=== PATIENT | female | born 1935 | race Caucasian/White ===

== ENCOUNTER 2024-01-16 12:44 | Outpatient (RCR) | payer MEDICARE, OTHER, SELFPAY | END 2024-01-17 13:33 | disposition home or self-care (01) | LOC: PT 12:44 | PROVIDERS: PCP Family Medicine | DX: R35.1 Nocturia (principal); N39.41 Urge incontinence | CPT/HCPCS: 97110; 97161 ==

== ENCOUNTER 2024-01-19 12:10 | Outpatient (OUT) | payer MEDICARE, OTHER, SELFPAY ==
[2024-01-19 13:27] LABS: Bilirubin Urine NEGATIVE (NEGATIVE); Clarity Urine TURBID (CLEAR); Color Urine YELLOW (YELLOW); Glucose Urine UA NEGATIVE (NEGATIVE)
[2024-01-19 13:28] LABS: Ketones Urine 40 mg/dL (NEGATIVE)
[2024-01-19 13:29] LABS: Blood Urine LARGE (NEGATIVE); Nitrite Urine POSITIVE (NEGATIVE); Protein Urine 100 mg/dL (NEG/TRACE); Urobilinogen Urine 0.2 EU/dL (0.2-1.0)
[2024-01-19 13:30] LABS: Leukocyte Esterase Urine LARGE (NEGATIVE)
== END 2024-01-19 12:11 | disposition home or self-care (01) ==
LOC: LAB 12:11
PROVIDERS: PCP Family Medicine
DX: N39.0 Urinary tract infection, site not specified (principal)
CPT/HCPCS: 81003; 87086; 87150; 87186

== ENCOUNTER 2024-03-27 13:29 | Outpatient (OUT) | payer MEDICARE, OTHER, SELFPAY ==
--- NOTE | 2024-03-27 13:43 | XR_ITS ---
The [address] [address] Patient Name: MEETA BATISTA MRN: [id number] date: 1935 Sex: F Assigned Patient Location: [facility] Current Patient Location: Accession/Order Number: [id number] Exam Date: 03/27/2024 13:44 Report Date: 03/28/2024 06:08 At the request of: JUAN SANTANA Procedure: XR shoulder RT min 2V PROCEDURE: XR shoulder RT min 2V HISTORY: Right Shoulder Pain , chronic; decreased range of motion COMPARISON: None. FINDINGS: BONES:Humeral head sits low within the glenoid; no fracture or dislocation. Narrowing of the acromioclavicular joint with suspected osteophytes along the undersurface of acromion process. SOFT TISSUES:No visible soft tissue swelling. EFFUSION:None visible. OTHER: Negative. XR/XR shoulder RT min 2V IMPRESSION: 1. No acute bone abnormality. 2. Appearance of acromion process would predispose to rotator cuff injury which may account for the low riding humeral head. Electronically authenticated by: PREET ABAD Date: 03/28/2024 06:08
== END 2024-03-27 13:30 | disposition home or self-care (01) ==
LOC: RAD 13:30
PROVIDERS: PCP Family Medicine; Visit Provider Family Medicine
DX: M25.511 Pain in right shoulder (principal)
CPT/HCPCS: 73030

== ENCOUNTER 2024-03-27 14:47 | Outpatient (RCR) | payer MEDICARE, OTHER, SELFPAY | END 2024-04-20 12:47 | disposition home or self-care (01) | LOC: PT 14:47 | PROVIDERS: PCP Family Medicine; Visit Provider Family Medicine | DX: M25.511 Pain in right shoulder (principal) | CPT/HCPCS: 97110; 97140; 97161 ==

== ENCOUNTER 2025-08-09 11:03 | Emergency (ER) | payer MEDICARE, OTHER, SELFPAY ==
[2025-08-09 11:11] VITALS: BP 148/68; PULSE 85; TEMP 36.8; O2SAT 95; BMI 24.1
--- NOTE | 2025-08-09 11:18 | CT_ITS ---
The [address] [address] Patient Name: MEETA BATISTA MRN: [id number] date: 1935 Sex: F Assigned Patient Location: ER Current Patient Location: .[facility] Accession/Order Number: [id number] Exam Date: 08/09/2025 11:27 Report Date: 08/09/2025 12:14 At the request of: DARRYL GAGNON MD Procedure: CT cervical spine wo con CT head/brain wo con, CT cervical spine wo con 08/09/2025 11:32 AM SIGNS AND SYMPTOMS: Head injury, on Xarelto TECHNIQUE:Multi-detector CT axial slices of the brain and cervical spine were obtained without IV contrast. Helical,sagittal, coronal, and 3-D reconstructions of the cervical spine were performed. CT was performed with one or more of the following dose reduction techniques: Automated exposure control, adjustment of the mA and/or kV according to patient size, or use of iterative reconstruction technique. COMPARISON: None. FINDINGS: Noncontrast head CT: There is no shift of the midline structures, acute intracranial bleeding, mass effects, or evidence of acute ischemia. There is mild age-related cortical atrophy. Periventricular white matter hypoattenuation is noted. Calcified plaque is noted in the V4 segments of the vertebral arteries. The ventricular system is normal in size. The brainstem and the cerebellum are unremarkable. The visualized intraorbital contents, the visualized paranasal sinuses, and the infratemporal soft tissues show no acute abnormality. The osseous structures in the skull base and the calvarium show no abnormality. There is a subcutaneous soft tissue hematoma in the left frontal scalp with accompanying soft tissue swelling. Cervical spine: There is preservation of the vertebral body heights. There is moderate disc height loss at C5-C6 and C6-C7 with uncovertebral joint spurring. Facet degenerative changes are present throughout cervical spine. No fractures or dislocations are seen. The alignment of the cervical spine is normal. The craniocervical junction and atlantoaxial joint are within normal limits. The prevertebral soft tissues are within normal limits. The paraspinous soft tissues are within normal limits. The lung apices are unremarkable. Calcified plaque is noted in the carotid bifurcations. Heterogeneous nodules are noted at the inferior and deep margin of the right thyroid lobe. Ultrasound correlation is recommended as malignancy is not excluded. CT/CT head/brain wo con IMPRESSION: No acute intracranial pathology. There is a left frontal scalp hematoma. Chronic age-related neurodegenerative changes are noted as above. No acute cervical spine injury. Degenerative changes are noted throughout cervical spine. Heterogeneous nodules are noted at the inferior and deep margin of the right thyroid lobe. Ultrasound correlation is recommended as malignancy is not excluded. Impression dictated by: Jeremy Casillas M.D. 08/09/2025 12:14 PM Dictation Location: [place] [address] Electronically authenticated by: [id number] Y Date: 08/09/2025 12:14
--- NOTE | 2025-08-09 11:18 | CT_ITS ---
The [address] [address] Patient Name: MEETA BATISTA MRN: [id number] date: 1935 Sex: F Assigned Patient Location: ER Current Patient Location: .[facility] Accession/Order Number: [id number] Exam Date: 08/09/2025 11:27 Report Date: 08/09/2025 12:14 At the request of: DARRYL GAGNON MD Procedure: CT cervical spine wo con CT head/brain wo con, CT cervical spine wo con 08/09/2025 11:32 AM SIGNS AND SYMPTOMS: Head injury, on Xarelto TECHNIQUE:Multi-detector CT axial slices of the brain and cervical spine were obtained without IV contrast. Helical,sagittal, coronal, and 3-D reconstructions of the cervical spine were performed. CT was performed with one or more of the following dose reduction techniques: Automated exposure control, adjustment of the mA and/or kV according to patient size, or use of iterative reconstruction technique. COMPARISON: None. FINDINGS: Noncontrast head CT: There is no shift of the midline structures, acute intracranial bleeding, mass effects, or evidence of acute ischemia. There is mild age-related cortical atrophy. Periventricular white matter hypoattenuation is noted. Calcified plaque is noted in the V4 segments of the vertebral arteries. The ventricular system is normal in size. The brainstem and the cerebellum are unremarkable. The visualized intraorbital contents, the visualized paranasal sinuses, and the infratemporal soft tissues show no acute abnormality. The osseous structures in the skull base and the calvarium show no abnormality. There is a subcutaneous soft tissue hematoma in the left frontal scalp with accompanying soft tissue swelling. Cervical spine: There is preservation of the vertebral body heights. There is moderate disc height loss at C5-C6 and C6-C7 with uncovertebral joint spurring. Facet degenerative changes are present throughout cervical spine. No fractures or dislocations are seen. The alignment of the cervical spine is normal. The craniocervical junction and atlantoaxial joint are within normal limits. The prevertebral soft tissues are within normal limits. The paraspinous soft tissues are within normal limits. The lung apices are unremarkable. Calcified plaque is noted in the carotid bifurcations. Heterogeneous nodules are noted at the inferior and deep margin of the right thyroid lobe. Ultrasound correlation is recommended as malignancy is not excluded. CT/CT cervical spine wo con IMPRESSION: No acute intracranial pathology. There is a left frontal scalp hematoma. Chronic age-related neurodegenerative changes are noted as above. No acute cervical spine injury. Degenerative changes are noted throughout cervical spine. Heterogeneous nodules are noted at the inferior and deep margin of the right thyroid lobe. Ultrasound correlation is recommended as malignancy is not excluded. Impression dictated by: Jeremy Casillas M.D. 08/09/2025 12:14 PM Dictation Location: [place] [address] Electronically authenticated by: [id number] Y Date: 08/09/2025 12:14
--- NOTE | 2025-08-09 11:20 | ED.GENADUL1 ---
HPI HPI - General Adult General Chief complaint: Head Injury Stated complaint: FALL BACK PAIN HEAD INJURY LACERATION ON ARMS Time Seen by Provider: 08/09/25 11:13 Source: patient Mode of arrival: Wheelchair History of Present Illness HPI narrative: 89-year-old female presents for head injury. She fell at 4:00 this morning down multiple steps. She was getting up to go to the bathroom. After she fell her was able to get her up and they went to the couch and she spent the rest of the night on the couch. She is on Xarelto for atrial fibrillation. She was noted to have bruises on her face and her forehead and she was brought in today. No apparent LOC. She does not complain of chest pain shortness of breath or abdominal pain or any localized weakness. Related Data Allergies Allergy/AdvReac Type Severity Reaction Status Date / Time No Known Drug Allergies Allergy Verified 08/09/25 11:14 Review of Systems ROS Narrative A ten point review of systems is negative except as noted above. Exam Narrative Exam Narrative: Nurses note and vital signs reviewed and patient is not hypoxic. General:The patient is in no respiratory distress. She is laying flat on the cart. Skin:Warm, dry, no pallor noted.There is no rash noted. Head:Normocephalic, numerous bruises present on her face including on her forehead and her left upper eyelid Eye: Normal conjunctiva, no drainage Ears, Nose, Mouth, and Throat: oral mucosa is moist. Nares patent. Cardiovascular:Regular Rate and Rhythm Respiratory:Patient is in no distress, no accessory muscle use, lungs are clear to auscultation, no wheezing, rales or rhonchi Back: No focal area of tenderness to palpation along her spine GI: Soft and nontender Musculoskeletal: She has small bruises on each knee. Skin tears present on her right forearm. The wrist and elbow are nontender and have full range of motion. Knees have full range of motion. Neurological:A&O, normal speech Psychiatric:Cooperative Constitutional Vital Signs, click to edit/add: Last Vital Signs Temp 98.2 F 08/09/25 11:11 Pulse 54 L 08/09/25 12:45 Resp 16 08/09/25 12:45 BP 142/78 H 08/09/25 12:45 Pulse Ox 95 08/09/25 12:45 Course Vital Signs Vital signs: Vital Signs Temperature 98.2 F 08/09/25 11:11 Pulse Rate 85 08/09/25 11:11 Respiratory Rate 18 08/09/25 11:11 Blood Pressure 148/68 H 08/09/25 11:11 Pulse Oximetry 95 08/09/25 11:11 Temperature 98.2 F 08/09/25 11:11 Pulse Rate 54 L 08/09/25 12:45 Respiratory Rate 16 08/09/25 12:45 Blood Pressure 142/78 H 08/09/25 12:45 Pulse Oximetry 95 08/09/25 12:45 Medical Decision Making MDM Narrative Medical decision making narrative: Including CT brain and CT C-spine is negative. She is ambulatory and does not have any further injuries. She is able to ambulate with a cane which she normally does at home. Findings are discussed with the patient and her family and she is discharged home and was recommended rest and Tylenol. Treatment diagnosis and follow-up were discussed with the patient and her family. Family was advised that the bruising will be worse in the next 24 hours. Differential Diagnosis Differential Diagnosis: Intracranial hemorrhage, C-spine fracture, contusions Imaging Data CT scan - head: Radiologist's impression: ITS Impressions Cervical Spine CT 08/09/25 11:18 IMPRESSION: No acute intracranial pathology. There is a left frontal scalp hematoma. Chronic age-related neurodegenerative changes are noted as above. No acute cervical spine injury. Degenerative changes are noted throughout cervical spine. Heterogeneous nodules are noted at the inferior and deep margin of the right thyroid lobe. Ultrasound correlation is recommended as malignancy is not excluded. Impression dictated by: Jeremy Casillas M.D. 08/09/2025 12:14 PM Dictation Location: [employer] Electronically authenticated by: [id number] Y Date: 08/09/2025 12:[address] 08/09/25 11:18 IMPRESSION: No acute intracranial pathology. There is a left frontal scalp hematoma. Chronic age-related neurodegenerative changes are noted as above. No acute cervical spine injury. Degenerative changes are noted throughout cervical spine. Heterogeneous nodules are noted at the inferior and deep margin of the right thyroid lobe. Ultrasound correlation is recommended as malignancy is not excluded. Impression dictated by: Jeremy Casillas M.D. 08/09/2025 12:14 PM Dictation Location: [employer] Electronically authenticated by: [id number] Y Date: 08/09/2025 12:14 Discharge Plan Discharge Chief Complaint: Head Injury Clinical Impression: Closed head injury Patient Disposition: Home, Self-Care Time of Disposition Decision: 12:50 Condition: Good Mode of Transportation: Private Vehicle Print Language: Tajik Instructions: Head Injury (ED) Referrals: JUAN SANTANA [Physician, Family Practice] - 1 week
--- OUTSIDE RECORDS SUMMARY | 2025-08-09 11:30 | XMS_ITS | Encounter Summary ---
Author Organization [facility] Address [address] [place] [address] Care Team Providers Care Cytogenetic Technician Name Role Phone Funmilayo Farrell MD Primary Care Provider [phone] Jose Conti MD Primary Care Provider [phone] Reason for Visit * Reason Comments Med Refill Encounter Details Date Type Department Care Team ([facility] st Contact Info) Description 05/22/2023 Refill [facility] Cardiology [address] [place] [phone] Mora Chapa, ELECTRICIAN THIRD [address] [place] [phone] Paroxysmal atrial fibrillation (CMS/HCC) Social History Tobacco Use Types Packs/Day Years Used Date Smoking Tobacco: Never Smokeless Tobacco: Never Alcohol Use Standard Drinks/Week Comments Not Currently 0 (1 standard drink = 0.6 oz pur e alcohol) Comments Unknown Sex and Gender Information Value Date Recorded Sex Assigned at Not on file Legal Sex Female 11:47 PM EDT Gender Identity Not on file Sexual Orientation Not on file documented as of this encounter Plan of Treatment Not on file documented as of this encounter Visit Diagnoses Diagnosis Paroxysmal atrial fibrillation (CMS/HCC) Atrial fibrillation documented in this encounter Care Teams Cytogenetic Technician Relationship Specialty Start Date End Date Funmilayo Farrell MD [address] [place], [place] [id number] PCP - General 11/23/22 06/30/23 Jose Conti MD [address] [place] [address] PCP - General Family Medicine 07/01/23 documented as of this encounter
--- OUTSIDE RECORDS SUMMARY | 2025-08-09 11:30 | XMS_ITS | Clinical Summary ---
Author Organization [facility] Address [address] [facility], [address] [place] [address] Care Team Providers Care Injection Molding Machine Tender Name Role Phone Jose Conti MD Primary Care Provider [phone] Allergies Active Allergy Reactions Criticality Noted Date Comments Santy Inhibitors Cough 11/23/2022 Angiotensin Receptor Blockers Cough 2022 Medications amitriptyline (ELAVIL) 10 MG tablet Take 1 tablet by mouth nightly 08/31/2024 Active metoprolol succinate (TOPROL XL) 50 MG extended release tablet Take 1 tablet by mouth daily 07/30/2024 Active XARELTO 15 MG TABS tablet Take 1 tablet by mouth daily (with breakfast) 09/04/2024 Active Multiple Vitamin (MULTI-VITAMIN) TABS Take 1 tablet by mouth every morning Active cephALEXin (KEFLEX) 250 MG capsuleIndicati ons:Recurrent UTI TAKE 1 CAPSULE BY MOUTH EVERY DAY 30 capsule 1 05/24/2025 Active Active Problems No known active problems Encounters Date Type Department Care Team Description 05/24/2025 Refill [facility] Urogynecology [facility] Pel[facility] [address] [place] [address] [address] [place] [address] Desirae Ramos APRN - CNP Medication Refill from Last 3 Months Family History Medical History Relation Name Comments Prostate Cancer Father Relation Name Status Comments Daughter 1 Alive Daughter 2 Alive Father Mother Sister Alive Social History Tobacco Use Types Packs/Day Years Used Date Smoking Tobacco: Never Smokeless Tobacco: Never Tobacco Cessation:Counseling Given: Not Answered Alcohol Use Standard Drinks/Week Comments Never 0 (1 standard drink = 0.6 oz pur e alcohol) Comments Unknown Sex and Gender Information Value Date Recorded Sex Assigned at Not on file Legal Sex Female 3:37 PM EDT Gender Identity Not on file Sexual Orientation Not on file Last Filed Vital Signs Vital Sign Reading Time Taken Comments Blood Pressure 137/72 10/31/2024 2:00 PM EST Pulse 84 10/31/2024 2:00 PM EST Temperature 36.2 C (97.2 F) 10/31/2024 2:00 PM EST Respiratory Rate - - Oxygen Saturation 93% 10/31/2024 2:00 PM EST Inhaled Oxygen Concentration - - Weight - - Height - - Body Mass Index - - Plan of Treatment Health Maintenance Due Date Last Done Comments Depression Screen 1949 DTaP/Tdap/Td vaccine (1 - Tdap) 01/15/1956 Shingles vaccine (1 of 2) 1987 Respiratory Syncytial Virus (RSV) or age 60 yrs+ (1 - 1-dose 75+ series) 01/15/2012 Pneumococcal 50+ years Vaccine (2 of 2 - PCV) 07/07/2017 07/07/2016, 06/14/2016 Annual Wellness Visit (Medicare) 06/26/2024 Flu vaccine (#1) 06/14/2025 09/27/2024, 01/2021, 08/29/2020, Additional history exists COVID-19 Vaccine (2 - 2024- season) 2025 09/27/2022 Hepatitis A vaccine Aged Out No longe r eligible based on patient's age to complete this topic Hepatitis B vaccine Aged Out No longe r eligible based on patient's age to complete this topic Hib vaccine Aged Out No longer eligi ble based on patient's age to complete this topic Meningococcal (ACWY) vaccine Aged Out No longer eligible based on patient's age to complete this topic Meningococcal B vaccine Aged Out No l onger eligible based on patient's age to complete this topic Polio vaccine Aged Out No longer elig ible based on patient's age to complete this topic Insurance MEDICARE Member Subscriber Plan / Payer (Ef fective 2002-Present) Name:Zahida Nugent Relation to Subscriber:Self Name:Zahida Nugent Payer ID:Not on file Group ID:Not on file Type:Not on file Address: [address] [place] Care Teams Injection Molding Machine Tender Relationship Specialty Start Date End Date Jose Conti MD [address] [place] [address] PCP - General 06/26/24
--- OUTSIDE RECORDS SUMMARY | 2025-08-09 11:30 | XMS_ITS | Clinical Summary ---
Author Organization [facility] Address [id number] [address] [place] [address] Care Team Providers Care Service Liaison Representative Name Role Phone Unavailable Primary Care Provider Unavailabl e Social History Tobacco Use Types Packs/Day Years Used Date Smoking Tobacco: Never Assessed Childcare Answer Date Recorded Childcare Unknown 04/24/2019 Employment Answer Date Recorded Employment Unknown 04/24/2019 Purpose - Life Answer Date Recorded Purpose and direction in life Unknown Comments Unknown Sex and Gender Information Value Date Recorded Sex Assigned at Not on file Legal Sex Female 6:54 PM EDT Gender Identity Not on file Sexual Orientation Not on file Plan of Treatment Not on file Medical Devices Not on file
--- OUTSIDE RECORDS SUMMARY | 2025-08-09 11:30 | XMS_ITS | Encounter Summary ---
Author Organization [facility] Address [address] [place] [address] Care Team Providers Care Mixing House Operator Name Role Phone Funmilayo Farrell MD Primary Care Provider [phone] Jose Conti MD Primary Care Provider [phone] Reason for Visit * Reason Comments Med Refill Encounter Details Date Type Department Care Team (Late st Contact Info) Description 10/25/2022 Refill [facility] Cardiology [address] [place] [phone] Mora Chapa, CLINICAL DIETICIAN [address] [place] [phone] Paroxysmal atrial fibrillation (CMS/HCC) Social History Tobacco Use Types Packs/Day Years Used Date Smoking Tobacco: Never Assessed Comments Unknown Sex and Gender Information Value Date Recorded Sex Assigned at Not on file Legal Sex Female 11:47 PM EDT Gender Identity Not on file Sexual Orientation Not on file documented as of this encounter Miscellaneous Notes * Telephone Encounter - Nydia Ford MA - 10/27/2022 8:55 AM EST Pt needs appt for any further refills documented in this encounter Plan of Treatment Not on file documented as of this encounter Visit Diagnoses Diagnosis Paroxysmal atrial fibrillation (CMS/HCC) Atrial fibrillation documented in this encounter Care Teams Mixing House Operator Relationship Specialty Start Date End Date Funmilayo Farrell MD [address] PCP - General 11/23/22 06/30/23 Jose Conti MD [address] [place] [id number] PCP - General Family Medicine 07/01/23 documented as of this encounter
--- OUTSIDE RECORDS SUMMARY | 2025-08-09 11:30 | XMS_ITS | Clinical Summary ---
Author Organization [facility] Address [address] [place] [address] Care Team Providers Care Information Clerk Cashier Name Role Phone Funmilayo Farrell MD Primary Care Provider Allergies No known active allergies Medications FOLIC ACID/MV,FE,OTHER MIN (CENTRUM ORAL) Take 1 tablet by mouth once daily. Active IBUPROFEN (ADVIL ORAL) Take by mouth as needed. 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 Nocturia 06/09/2015 Cystocele 06/09/2015 Social History Tobacco Use Types Packs/Day Years Used Date Smoking Tobacco: Former Alcohol Use Standard Drinks/Week Comments Yes 0 (1 standard drink = 0.6 oz pur e alcohol) Comments Unknown Sex and Gender Information Value Date Recorded Sex Assigned at Not on file Legal Sex Female 10:57 AM EDT Gender Identity Not on file Sexual Orientation Not on file Last Filed Vital Signs Vital Sign Reading Time Taken Comments Blood Pressure 136/73 04/05/2016 10:14 AM EDT Pulse 77 04/05/2016 10:14 AM EDT Temperature 36.7 C (98.1 F) 04/05/2016 10:14 AM EDT Respiratory Rate - - Oxygen Saturation - - Inhaled Oxygen Concentration - - Weight 69.4 kg (153 lb) 04/05/2016 10:14 AM EDT verbal Height 167.6 cm (5' 6 ) 06/09/2015 1:19 PM EDT Body Mass Index 24.69 06/09/2015 1:19 PM EDT Plan of Treatment Health Maintenance Due Date Last Done Comments Anxiety Screening 1953 Depression Screening 1953 DTaP,Tdap,Td Vaccine (1 - Tdap) 01/15/1956 Diabetes Screening 1982 Pneumococcal Vaccine: 50+ (1 of 1 - PCV) 1987 Shingrix Vaccine (1 of 2) 1987 Bone Density Screening 2002 RSV Vaccine (1 - 1-dose 75+ series) 01/15/2012 Advance Directive Discussion 11/14/2024 Influenza Vaccine (#1) 2025 Insurance MEDICARE [address] Care Teams Information Clerk Cashier Relationship Specialty Start Date End Date Funmilayo Farrell MD [address] [place] [place], [place] [id number] PCP - General Family Medicine 06/03/15
--- OUTSIDE RECORDS SUMMARY | 2025-08-09 11:34 | XMS_ITS | CCD ---
Author Organization [facility] Care Team Providers Care 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 Name Role Phone MD Adrian Rangel Emergency Provider MD Kavon Farrell Primary Care Provider MD Kavon Farrell Primary Care Provider [phone] EDWIN Ocasio Emergency Provider MD Kayleen Schmid Admit Provider MD Kayleen Schmid Attending Provider MD Dangelo Rayo Other Provider [phone] DO Aubrey Crowe Other Provider MD Adilson Hoffmann Other Provider LENNOX Hubbard Other Provider DO Mauricio Daly Other Provider MD Adrian Robles Other Provider [phone] MD Suma Lopez Other Provider [phone] MD Drew Hernadez Other Provider MD Zuleika Rudolph Other Provider MD Barbie Weston Other Provider [phone] MD Moody Panda II Other Provider MD Christian Tiwari Other Provider SHONDA Shabazz Other Provider DO Celestino Foster Other Provider MD Gilmer Trejo Other Provider DO Christian Aleman Attending Provider MD Mohit Willson Admit Provider MD Mohit Willson Attending Provider [phone] CONRAD Quinonez Other Provider Unavailable CONRAD Yañez Other Provider Unavailable CONRAD George Other Provider Unavailable CONRAD Devlin Other Provider Unavailable CONRAD Duncan Other Provider Unavailable CONRAD Robins Other Provider Unavailable MD Lucas Morillo Other Provider LENNOX Rosales Other Provider [phone] DO Gorge Shelton Other Provider MD William Acevedo Other Provider DO John Ricardo Other Provider MD Kenny Tirado Other Provider [phone] MD Kayleen Schmid Other Provider Iwona, ANP- Luanne Other Provider MD Flavia Pace Other Provider [phone] MD Wil Cartagena Other Provider MD Saira Ruiz Other Provider MD Teto Gregorio Other Provider DO Christian Aleman Other Provider MD Heena Allen Other Provider MD Rufino Squires Other Provider KEALYN Simpson-Champ Rodriguez Other Provider [phone] MD Pedro Cowan Other Provider MD Jaydon Woodruff Other Provider MD Dario Choudhary Other Provider DO Victoria Myers Other Provider DO Jero Vital Other Provider DO Chirag Sanchez Other Provider LENNOX Hoyt Other Provider DO Sanya Hayes Other Provider [phone] MD Harleen Matos Other Provider LENNOX Rangel Other Provider [phone] CONRAD Chapa Other Provider Unavailable FARRELL ., DR KAVON Rivas Primary Care Unavailable CHRISTY COOMBS Admitting Unavailable CHRISTY COOMBS Attending Unavailable CHRISTY COOMBS Consulting Unavailable YASIR ., MIGEL Reynaga Attending Unavailable YASIR ., MIGEL Reynaga Consulting Unavailable YASIR ., MIGEL Reynaga Admitting Unavailable FARRELL ., DR KAVON Rivas Primary Care Unavailable CHRISTY COOMBS Consulting Unavailable FARRELL ., DR KAVON Rivas Primary Care Unavailable CHRISTY COOMBS Admitting Unavailable CHRISTY COOMBS Attending Unavailable Barbie Weston Unavailable Barbie Weston Attending Unavailable Barbie Weston Admitting Unavailable Kavon Farrell Primary Care Unavailable Kavon Farrell Primary Care Unavailable Barbie Weston Admitting Unavailable Barbie Weston Attending Unavailable Kavon Farrell Primary Care Unavailable Christian Aleman Attending Unavailable Kayleen Schmid Admitting Unavailable Dulce Hubbard Consulting Unavailable Adilson Hoffmann Consulting Unavailable Dangelo Rayo Consulting Unavaila Zuleika Amaya Consulting Unavailable Mauricio Daly Consulting UnavailSuma Montoya Consulting Unavailable Adrian Robles Consulting Unavailable Drew Hernadez Consulting Unavailable Aubrey Crowe Consulting Unavailable Gilmer Trejo Consulting Unavailable Christian Tiwari Consulting Unavailable Barbie Weston Consulting Unavailable Catarina Shabazz Consulting Unavailable Celestino Foster Consulting Unavailable Moody Panda II Consulting UnavailKavon Estrada Primary Care Unavailable Mohit Willson Attending Unavailable Mohit Willson Admitting Unavailable Lorrie Quinonez Consulting Unavailable Myrtle Yañez Consulting Unavailable Erika George Consulting Unavailable Lexis Devlin Consulting Unavailable Neha Duncan Consulting Unavailable Keila Robins Consulting Unavailable YiselLucas Consulting Unavailable Suma Rosales Consulting Unavailable Gorge Shelton Consulting Unavailable KristinaSallie greggtaq Consulting Unavailable Emiliano Ricardoistopher Consulting UnavailKenny Tineo Consulting Unavailable Kayleen Schmid Consulting Unavailable Luanne Bustillo Consulting Unavailable Flavia Pace Consulting Unavailable Wil Cartagena Consulting Unavailable Saira Ruiz Consulting Unavailable Teto Gregorio Consulting Unavailable Christian Aleman Consulting Unavailable Heena Allen Consulting Unavailable Rufino Squires Consulting Unavailable Lauren Simpson Consulting Unavailable DoPedro loja Consulting Unavailab Jaydon Hart Consulting Unavailable Kenrick, Dario Consulting Unavailable Victoria Myers Consulting Unavailable Jero Vital Consulting Unavailable MiniaciChirag Consulting Unavailable Obika, Kathie Consulting Unavailable Sanya Hayes Consulting Unavailable Daromar, Obaydah M Consulting Unavailable Ying Rangel Consulting Unavailable Leandra Chapa Consulting Unavailable MD Kavon Farrell Primary Care Provider [phone] MD Barbie Weston Attending Provider MAURICE STARK Attending Unavailable MICHAEL SOOD Attending Unavailable JERICHO HEATH Referring Unavailable POCAMARILIS, JERICHO Juarez Attending Unavailable JUAN SANTANA Referring Unavailable POCJERICHO OLMOS Referring Unavailable POCJERICHO OLMOS Attending Unavailable Juan Santana MD Primary Care Provider JUAN SANTANA Primary Care Unavailable DESIRAE RAMOS Referring Unavailable DESIRAE RAMOS Referring Unavailable JUAN SANTANA Primary Care Unavailable Juan Santana Attending Unavailable Juan Santana Attending Unavailable Juan Santana Attending Unavailable Juan Santana Attending Unavailable Juan Santana Attending Unavailable Juan Santana Admitting Unavailable Juan Santana Attending Unavailable Juan Santana Attending Unavailable Juan Santana Attending Unavailable DANETTE, PILAR A Attending Unavailable DANETTE, PILAR A Admitting Unavailable DANETTE PILAR A Attending Unavailable DANETTE, PILAR A Attending Unavailable DANETTE, PILAR A Admitting Unavailable Juan Santana Attending Unavailable Juan Santana Attending Unavailable Juan Santana Attending Unavailable Juan Santana Attending Unavailable DANETTE, PILAR A Attending Unavailable DANETTE, PILAR A Attending Unavailable Allergies Allergy Classification Reported Allergen(s) Allergy Type Date of Onset Reaction(s) Facility (5 sources) Angiotensin Converting Enzyme (Mikki) Inhibitors; Translations: [MIKKI INHIBITORS] Propensity to adverse reactions to drug (disorder) 3 Cough [facility] Repository (1 source) ARB-ANGIOTENSIN RECEPTOR ANTAGONIST; Translations: [ARB-ANGIOTENSIN RECEPTOR ANTAGONIST] Propensity to adverse reactions to drug (disorder) 3 [facility] Repository (2 sources) Angiotensin II receptor antagonist Propensity to adverse reactions to drug 3 Cough [facility] Medications Current Medications Medication Drug Class(es) Dates Sig (Normalized) Sig (Original) acetaminophen 500 mg oral tablet (5 sources) Start: 12-14-2022 take 500 mg by mouth every four hours Acetaminophen Active 500 MG PO Q4H 0 December 14, 2022 1:00am Start: 11-30-2022 End: 12-14-2022 take 650 mg by mouth every four hours Acetaminophen Discontinued 650 MG PO Q4H 0 November 30, 2022 1:00am December 14, 2022 9:59am amitriptyline hydrochloride 10 mg oral tablet (11 sources) Tricyclic Antidepressant Start: 08-31-2024 take 1 tablet by mouth once daily amitriptyline (ELAVIL) 10 MG tablet Take 1 tablet by mouth nightly 08/31/2024 Active Start: 11-25-2022 End: 12-14-2022 take 10 mg by mouth once daily at bedtime Amitriptyline Active 10 MG PO Daily at bedtime 0 December 14, 2022 1:00am azithromycin 250 mg oral tablet (3 sources) Macrolide Antimicrobial Start: 01-24-2016 Zithromax Z-Joseph 250 MG 2 tablets on the first day, then 1 tablet daily for 4 days Orally Once a day,recommend probiotics for 5 day(s) Jan, Active bisacodyl 10 mg rectal suppository (2 sources) Stimulant Laxative Start: 12-14-2022 Bisacodyl Active 10 MG VT Daily 0 December 14, 2022 1:00am cephalexin 250 mg oral capsule (1 source) Cephalosporin Antibacterial Start: 10-31-2024 take 1 capsule by mouth once daily cephALEXin (KEFLEX) 250 MG capsule Indications: Recurrent UTI Take 1 capsule by mouth daily 30 capsule 1 10/31/2024 Active docusate sodium 100 mg oral capsule (5 sources) Start: 12-14-2022 take 100 mg by mouth twice daily Docusate Sodium Active 100 MG PO Twice daily 0 December 14, 2022 1:00am Start: 11-30-2022 End: 12-14-2022 take 200 mg by mouth twice daily Docusate Sodium Discontinued 200 MG PO Twice daily 0 November 30, 2022 1:00am December 14, 2022 9:59am ferrous sulfate 324 mg delayed release oral tablet (2 sources) Start: 12-14-2022 Ferrous Sulfat e Active 324 MG PO Q48H 0 December 14, 2022 1:00am lactulose 667 mg/ml oral solution (2 sources) Osmotic Laxative Start: 12-14-2022 take 30 g by mouth once daily Lactulose Active 30 GM PO Daily 0 December 14, 2022 1:00am 24 hr metoprolol succinate 50 mg extended release oral tablet (11 sources) beta-Adrenergic Kassandra Start: 07-30-2024 take 1 tablet by mouth once daily metoprolol succinate (TOPROL XL) 50 MG extended release tablet Take 1 tablet by mouth daily 07/30/2024 Active Start: 11-25-2022 End: 12-14-2022 take 50 mg by mouth once daily Metoprolol Succinate Ac tive 50 MG PO Daily 0 December 14, 2022 1:00am Metoprolol Succi suhas Active Multiple Vitamin (MULTI-VITAMIN) TABS (2 sources) take 1 tablet by mouth once daily in the morning Multiple Vitamin (MULTI-VITAMIN) TABS Take 1 tablet by mouth every morning Active Multivitamin-Minerals- Lutein (Centrum Silver) Tablet (1 source) Start: take 1 tablet by mouth once daily Multivitamin-Minerals- Lutein (Centrum Silver) Tablet Active 1 TAB PO Daily November 25, 2022 12:00am nitrofurantoin, macrocrystals 25 mg / nitrofurantoin, monohydrate 75 mg oral capsule (2 sources) Nitrofuran Antibacterial Start: End: take 1 capsule by mouth twice daily nitrofurantoin, macrocrystal-monohydra te, (MACROBID) 100 MG capsule Indications: Recurrent UTI Take 1 capsule by mouth 2 times daily for 7 days 14 capsule 10/31/2024 11/07/2024 Active Start: 09-26-2024 End: 10-03-2024 take 1 capsule by mouth twice daily nitrofurantoin, macrocrystal-monohydrate , (MACROBID) 100 MG capsule Indications: Frequent UTI Take 1 capsule by mouth 2 times daily for 7 days 14 capsule 09/26/2024 10/03/2024 Active oxyCODONE hydrochloride 5 mg oral tablet (11 sources) Opioid Agonist Start: 11-30-2022 End: 12-14-2022 take 5 mg by mouth every four hours Oxycodone Active 5 MG PO Every 4 hours 28 December 14, 2022 Start: 11-30-2022 End: 12-14-2022 take 1 tablet by mouth every twelve hours, then take 1 tablet by mouth every hour Oxycodone (Oxycontin) 10 mg Tablet,Oral Only,Ext.Rel.12 Hr Discontinued 10 MG PO Every 12 hours 0 November 30, 2022 December 14, 2022 9:59am oxyCODONE HCl Ac tive polyethylene glycol 3350 98001 mg powder for oral solution (5 sources) Osmotic Laxative Start: 11-30-2022 End: 12-14-2022 Polyethylene Glycol 3350 (Miralax) 17 gram Powder In Packet Active 17 GM PO Daily 0 December 14, 2022 1:00am pramipexole dihydrochloride 0.125 mg oral tablet (6 sources) Nonergot Dopamine Agonist Start: 11-25-2022 End: 12-14-2022 take 0.125 mg by mouth once daily at bedtime Pramipexole Active 0.125 MG PO Daily at bedtime 0 December 14, 2022 1:00am rivaroxaban 15 mg oral tablet (11 sources) Factor Xa Inhibitor Start: 09-04-2024 take 1 tablet by mouth once daily at breakfast XARELTO 15 MG TABS tablet Take 1 tablet by mouth daily (with breakfast) 09/04/2024 Active Start: 11-25-2022 End: 12-14-2022 take 1 tablet by mouth once daily Rivaroxaban (Xarelto) 15 mg Tablet Active 15 MG PO Daily 0 December 14, 2022 1:00am Xarelto Active Sennosides (Senna Lax) 8.6 mg Tablet (5 sources) Start: 12-14-2022 take 2 tablets by mouth once daily Sennosides (Senna Lax) 8.6 mg Tablet Active 17.2 MG PO DAILY@12 0 December 14, 2022 1:00am Start: 12-14-2022 take 2 tablets by mo uth once daily Sennosides (Senna Lax) 8.6 mg Tablet Active 17.2 MG PO DAILY@12 0 December 14, 2022 12:00am Start: 11-30-2022 End: 12-14-2022 take 2 tablets by mouth twice daily Sennosides (Senna Lax) 8.6 mg Tablet Discontinued 17.2 MG PO Twice daily 0 November 30, 2022 1:00am December 14, 2022 9:59am Start: 11-30-2022 End: 12-14-2022 take 2 tablets by mouth twice daily Sennosides (Senna Lax) 8.6 mg Tablet Discontinued 17.2 MG PO Twice daily 0 November 30, 2022 12:00am December 14, 2022 8:59am Start: 11-30-2022 take 2 tablets by mo uth twice daily Sennosides (Senna Lax) 8.6 mg Tablet Active 17.2 MG PO Twice daily 0 November 30, 2022 12:00am Tylenol Extra Strength (3 sources) Tylenol Extra [facility] Active Completed/Discontinued Medications Medication Drug Class(es) Dates Sig (Normalized) Sig (Original) Augmentin Tablets 875 MG (3 sources) Start: 01-24-2016 take 1 tablet by mouth every twelve hours Augmentin Tablets 875 MG 1 by mouth every 12 hours, recommend probiotics for 10 days Jan, Not-Taking cefepime 2000 mg injection (3 sources) Cephalosporin Antibacterial Start: 11-30-2022 End: 12-14-2022 take 2 g intravenously every twelve hours Cefepime Discontinued 2 GM IV Q12H 0 November 30, 2022 1:00am December 14, 2022 9:59am cefTRIAXone (3 sources) Cephalosporin Antibacterial Start: 01-24-2016 Rocephin 500 mg Jan, 1 grm Multivitamin-Support Services Specialist als-Lutein (3 sources) Start: 11-25-2022 End: 12-14-2022 take 1 tablet by mouth once daily Multivitamin-Nesco als-Lutein Discontinued 1 TAB PO Daily November 25, 2022 1:00am December 14, 2022 9:59am Start: 11-25-2022 End: 12-14-2022 take 1 tablet by mouth once daily Rowunpkejhdf-Ddnhtugs-Gzycbz Discontinue d 1 TAB PO Daily November 25, 2022 12:00am December 14, 2022 8:59am Start: 11-25-2022 take 1 tablet by naseem th once daily Qtmoavibzhrj-Duupnubj-Nxxjzf Active 1 TA B PO Daily November 25, 2022 12:00am oseltamivir 75 mg oral capsule (3 sources) Neuraminidase Inhibitor Start: 01-24-2016 take 1 capsule by mouth every twelve hours Tamiflu 75 MG 1 capsule Orally twice a day for 5 days Jan, Not-Taking sulfamethoxazole 800 mg / trimethoprim 160 mg oral tablet (3 sources) Dihydrofolate Reductase Inhibitor Antibacterial, Sulfonamide Antimicrobial Start: 01-27-2016 take 1 tablet by mouth twice daily Bactrim DS 800-160 MG 1 tablet Orally twice a day, recommend probiotics for 7 days Jan, Not-Taking Problems Active Problems Problem Classification Problem Date Documented Da te Episodic/Chronic Cardiac dysrhythmias (7 sources) Atrial fibrillation; Translations: [Unspecified atrial fibrillation] Onset: 11-23-2022 12-01-2022 Chronic Chronic kidney disease (8 sources) Chronic kidney disease; Translations: [Chronic kidney disease, unspecified] Onset: 11-30-2022 12-03-2022 Chronic Chronic kidney disease (2 sources) Chronic kidney disease; Translations: [Chronic kidney disease, stage 3a] Onset: 11-23-2022 Coagulation and hemorrhagic disorders (8 sources) Blood coagulation disorder; Translations: [Coagulation defect, unspecified] Onset: 11-25-2022 11-25-2022 Chronic Conduction disorders (2 sources) Left bundle-branch block, unspecified; Translations: [Left bundle-branch block, unspecified] Onset: 07-01-2023 Chronic Congestive heart failure; nonhypertensive (2 sources) Chronic systolic (congestive) heart failure; Translations: [Chronic systolic (congestive) heart failure] Onset: 11-23-2022 Chronic Deficiency and other anemia (4 sources) Anemia; Translations: [Anemia, unspecified] 11-25-2022 Episodic E Codes: Fall (9 sources) Accidental fall ; Translations: [Unspecified fall, initial encounter] Onset: 07-01-2023 11-25-2022 Episodic Fluid and electrolyte disorders (3 sources) Hyponatremia; Translations: [Hypo-osmolality and hyponatremia] Onset: 02-16-2023 12-03-2022 Episodic Fracture of upper limb (17 sources) Closed fracture of clavicle; Translations: [Fracture of unspecified part of right clavicle, initial encounter for closed fracture] Onset: 11-25-2022 11-25-2022 Episodic Open wounds of head; neck; and trunk (8 sources) Tear of skin; Translations: [Skin tear] 11-25-2022 Episodic Other aftercare (2 sources) Long-term current use of anticoagulant; Translations: [prison (current) use of anticoagulants] 12-03-2022 Episodic Other fractures (4 sources) Fracture of rib; Translations: [Fracture of one rib, unspecified side, initial encounter for closed fracture] 11-25-2022 Episodic Other fractures (4 sources) Fracture of multiple ribs ; Translations: [Multiple fractures of ribs, unspecified side, initial encounter for closed fracture] 11-25-2022 Episodic Other fractures (4 sources) Flail chest; Translations: [Flail chest, initial encounter for closed fracture] 11-25-2022 Episodic Other fractures (3 sources) Fracture of one rib, unspecified side, initial encounter for closed fracture; Translations: [Closed fracture of rib(s), unspecified] 11-25-2022 Episodic Other fractures (1 source) Multiple fractures of ribs, right side, subsequent encounter for fracture with routine healing; Translations: [MX FX RIBS RT SIDE SUBSQT FX RTN] Onset: 02-16-2023 Episodic Other injuries and conditions due to external causes (5 sources) Minor head injury; Translations: [Unspecified injury of head, initial encounter] 03-05-2022 Episodic Other injuries and conditions due to external causes (4 sources) History of fall; Translations: [History of falling] 11-25-2022 Episodic Other nervous system disorders (2 sources) Other abnormalities of gait and mobility; Translations: [Other abnormalities of gait and mobility] Onset: 07-01-2023 Episodic Superficial injury; contusion (5 sources) Contusion of elbow; Translations: [Contusion of left elbow, initial encounter] 03-05-2022 Episodic Unclassified (1 source) Nondisplaced fracture of shaft of right clavicle, initial encounter for closed fracture; Translations: [Nondisplaced fracture of shaft of right clavicle, initial encounter for closed fracture] Onset: 03-15-2023 Unclassified (1 source) Displaced fracture of shaft of right clavicle, initial encounter for closed fracture; Translations: [Displaced fracture of shaft of right clavicle, initial encounter for closed fracture] Onset: 11-30-2022 Unclassified (1 source) Flail chest, initial encounter for closed fracture; Translations: [Flail chest, initial encounter for closed fracture] Onset: 11-25-2022 Urinary tract infections (16 sources) Urinary tract infectious disease; Translations: [Urinary tract infection, site not specified] Onset: 10-21-2022 11-25-2022 Episodic Past or Other Problems Problem Classification Problem Date Documented Da te Episodic/Chronic Administrative/social admission (4 sources) Other reduced mobility; Translations: [Impaired mobility and activities of daily living] Onset: 11-30-2022 12-01-2022 Episodic Deficiency and other anemia (5 sources) Anemia, unspecified; Translations: [Anemia, unspecified] Onset: 11-30-2022 11-25-2022 Episodic Other aftercare (2 sources) prison (current) use of anticoagulants; Translations: [Long-term (current) use of anticoagulants] Onset: 11-30-2022 12-14-2022 Episodic Other fractures (5 sources) Flail chest, initial encounter for closed fracture; Translations: [Flail chest] Onset: 11-30-2022 11-25-2022 Episodic Other fractures (5 sources) Multiple fractures of ribs, unspecified side, initial encounter for closed fracture; Translations: [Closed fracture of multiple ribs, unspecified] Onset: 11-25-2022 11-25-2022 Episodic Other injuries and conditions due to external causes (5 sources) History of falling; Translations: [History of fall] Onset: 11-30-2022 11-25-2022 Episodic Pleurisy; pneumothorax; pulmonary collapse (4 sources) Pneumothorax; Translations: [Pneumothorax, unspecified] Onset: 11-30-2022 12-03-2022 Episodic Residual codes; unclassified (1 source) Other specified health status; Translations: [Other specified health status] Onset: 11-30-2022 Episodic Results Test Name Value Interpretation Reference Range Facility Ambulatory Visit Summaryon 0 06-26-2025 Ambulatory Visit Summary Ambulatory Visit Summary ZAHIDA BATISTA :1935 Visit Date:06/26/2025 Ambulatory Visit Instructions Your Diagnosis Persistent atrial fibrillation Stage 3b chronic kidney disease (CKD) Pain in unspecified knee BMI 25.0-25.9,adult Overweight (BMI 25.0-29.9) Nonsmoker These Are Your Goals Atrial Fibrillation: avoid complications - Progressing Interventions: Keep follow up appointments with boxer operator - Progressing Monitor for signs and symtpoms of atrial fibrillation: palpitations, tachycardia, SOB - Progressing Review education material - Done Take medications as prescribed - Progressing Chronic Kidney Disease: avoid complications Interventions: Avoid foods high in sodium, phosphorous, protein, and potassium - Progressing Complete bloodwork as ordered - Progressing Keep follow up appointments as scheduled with nephrology - Progressing Maintain Healthy lifestyle Preserve kidney function - Progressing review educational material - Done Recurrent UTI's: avoid UTI complications - Progressing Interventions: Increase foods high in live active cultures, salazar juices Maintain healthy hygiene Void every 2-3 hours - Progressing review educational material - Done Your Care Team Attending Physician - PILAR SAMANIEGO CNP Primary Care Physician - Juan Santana MD This Is Your Medications List acetaminophen (Tylenol Extra Strength 500 mg oral tablet) amitriptyline (amitriptyline 10 mg Tab) cephalexin (cephalexin 250 mg Cap) metoprolol (metoprolol succinate 50 mg ER Tab) multivitamin with minerals (Centrum) rivaroxaban (Xarelto 15 mg oral tablet) rivaroxaban (Xarelto 15 mg oral tablet) Procedures Performed Arthroplasty of knee (08/14/2018), Arthroscopy of knee, CEIOL - Cataract extraction and insertion of intraocular lens. Discharge Vitals Temperature (Oral) 36.8 ???C Heart Rate (Peripheral) 76 Respiratory Rate 18 Blood Pressure 128/74 Height 163 cm Height 64 in Weight 68.9 kg Weight 151.898 lb BMI 25.93 What to do next Scheduled Follow-Up Appointments Tuesday 1:00 PM EDT With: Where: [address] [phone]- Tuesday 10:20 AM EST With: PILAR SAMANIEGO CNP Where: [address] [phone]- You Need to Schedule the Following Appointments Follow Up with PILAR SAMANIEGO CNP, FAM When: Within 3 months Comments: Chronic conditions Where: [address] [place] [phone] Business (1) Medications What How Much When Instructions Unchanged acetaminophen (Tylenol Extra Strength 500 mg oral tablet) 2 Tablets By Mouth 3 times a day as needed for for pain Unchanged amitriptyline (amitriptyline 10 mg Tab) See instructions TAKE 1 TABLET BY MOUTH EVERYDAY AT BEDTIME Unchanged cephalexin (cephalexin 250 mg Cap) TAKE 1 CAPSULE BY MOUTH EVERY DAY Unchanged metoprolol (metoprolol succinate 50 mg ER Tab) 1 Tablets By Mouth Every day Unchanged multivitamin with minerals (Centrum) 1 cap By Mouth Every day Unchanged rivaroxaban (Xarelto 15 mg oral tablet) See instructions TAKE 1 TABLET BY MOUTH EVERY DAY IN THE EVENING Unchanged rivaroxaban (Xarelto 15 mg oral tablet) See instructions TAKE 1 TABLET BY MOUTH EVERY DAY IN THE EVENING Allergies MIKKI inhibitors (Cough) Problems Ongoing - Any problem that you are currently receiving treatment for. Anemia Balance problem BMI 25.0-25.9,adult Generalized weakness History of recurrent UTIs Hx of degenerative disc disease Hyponatremia Nonsmoker Overweight (BMI 25.0-29.9) Persistent atrial fibrillation Shoulder region pain Stage 3b chronic kidney disease (CKD) Historical - Any problem that you are no longer receiving treatment for. Chronic kidney disease, unspecified CKD stage Patient Survey You may receive a survey via text or e-mail asking about your office visit. Please share your experience with us by completing your survey. We appreciate your feedback and thank you for choosing us for your care. Education Materials Heat Therapy Heat therapy can help ease sore, stiff, injured, and tight muscles and joints. Heat relaxes your muscles. This may help ease your pain and muscle spasms. What are the risks? If you have any of the following conditions, do not use heat therapy unless your doctor says it is okay. These conditions include: ??? New bruises. ??? Open wounds. ??? Any of these in the area being treated: ? Healing wounds. ? Infected skin. ? Scarred skin. ??? Problems with how blood moves through your body (circulation). ??? Loss of feeling (numbness) in the part of your body that is being treated. ??? Unusual swelling of the part of the body that is being treated. ??? (more content not included)... Normal [facility] CBC w/ Auto Diffon 5 Basophil Absolute 0.0 E9/L Normal 0.0-0.2 [facility] Comment on above: Performed By: #### 2 [id number] #### [facility] [address] [place] [address] Basophils/100 WBC (Bld) 1.0 % Normal 0.0-2.0 [facility] Comment on above: Performed By: #### 2 [id number] #### [facility] [address] [place] [address] Eos Absolute 0.2 E9/L Normal 0.0-0.5 [facility] Comment on above: Performed By: #### 2 [id number] #### [facility] [address] [place] [address] Eosinophils/100 WBC (Bld) 4.1 % Normal 0.0-8.0 [facility] Comment on above: Performed By: #### 2 [id number] #### [facility] [address] [place] [address] Erythrocyte distribution width (RBC) [Ratio] 16.2 % High 10.9-14.2 [facility] Comment on above: Performed By: #### 2 [id number] #### [facility] [address] [place] [address] Hematocrit (Bld) [Volume fraction] 35.5 % Normal 34.0-46.0 [facility] Comment on above: Performed By: #### 2 [id number] #### [facility] [address] [place] [address] Hemoglobin (Bld) [Mass/Vol] 11.8 g/dL Low 12.0-16.0 [facility] Comment on above: Performed By: #### 2 [id number] #### [facility] [address] [place] [address] Lymph Absolute 1.1 E9/L Normal 1.0-4.[address] [facility] Comment on above: Performed By: #### 2 [id number] #### [facility] [address] [place] [address] Lymphocytes/100 WBC (Bld) 23.0 % Normal 14.0-50.0 [facility] Comment on above: Performed By: #### 2 [id number] #### [facility] [address] [place] [address] MCH (RBC) [Entitic mass] 28.9 pg Normal 27.0-34.0 [facility] Comment on above: Performed By: #### 2 [id number] #### [facility] [address] [place] [address] MCHC (RBC) [Mass/Vol] 33.3 g/dL Normal 31.4-36.0 [facility] Comment on above: Performed By: #### 2 [id number] #### [facility] [address] [place] [address] MCV (RBC) [Entitic vol] 87.0 fL Normal 80.0-100.0 [facility] Comment on above: Performed By: #### 2 [id number] #### [facility] [address] [place] [address] [place] Absolute 0.7 E9/L Normal 0.2-1.0 [facility] Comment on above: Performed By: #### 2 [id number] #### [facility] [address] [place] [address] Monocytes/100 WBC (Bld) 15.1 % High 4.0-14.0 [facility] Comment on above: Performed By: #### 2 [id number] #### [facility] [address] [place] [address] Neutro Absolute 2.8 E9/L Normal 2.0-7.5 [facility] Comment on above: Performed By: #### 2 [id number] #### [facility] [address] [place] [address] Neutro Auto 56.8 % Normal 36.0-75.0 [facility] Comment on above: Performed By: #### 2 [id number] #### [facility] [address] [place] [address] Platelet 244.0 E9/L Normal 150.0-500. 0 [facility] Comment on above: Performed By: #### 2 [id number] #### [facility] [address] [place] [address] Platelet mean volume (Bld) [Entitic vol] 7.9 fL Normal 6.4-10.8 [facility] Comment on above: Performed By: #### 2 [id number] #### [facility] [address] [place] [address] RBC 4.1 E12/L Low 4.3-5.9 [facility] Comment on above: Performed By: #### 2 [id number] #### [facility] [address] [place] [address] WBC 4.9 E9/L Normal 4.0-11.0 [facility] Comment on above: Result Comment: Xiao pheral smear review performed. Performed By: #### 2 [id number] #### [facility] [address] [place] [address] CMPon 06-26-2025 Creatinine [Mass/Vol] 1.2 mg/dL Normal 0.5-1.3 [facility] Comment on above: Performed By: #### 2 [id number] #### [facility] [address] [place] [address] Albumin [Mass/Vol] 4.0 g/dL Normal 3.3-5.0 [facility] Comment on above: Performed By: #### 2 [id number] #### [facility] [address] [place] [address] Albumin/Globulin [Mass ratio] 1.4 {ratio} Normal 1.1-2.2 [facility] Comment on above: Performed By: #### 2 [id number] #### [facility] [address] [place] [address] Alk Phos 40 Int._Unit/L Normal 21-[address] [facility] Comment on above: Performed By: #### 2 [id number] #### [facility] [address] [place] [address] ALT 12 Int._Unit/L Normal 6-[address] [facility] Comment on above: Performed By: #### 2 [id number] #### [facility] [address] [place] [address] Anion gap [Moles/Vol] 10 mmol/L Normal 6-16 [facility] Comment on above: Performed By: #### 2 [id number] #### [facility] [address] [place] [address] AST 17 Int._Unit/L Normal 5-[address] [facility] Comment on above: Performed By: #### 2 [id number] #### [facility] [address] [place] [address] Bili Total 0.4 mg/dL Normal 0.0-1.1 [facility] Comment on above: Performed By: #### 2 [id number] #### [facility] [address] [place] [address] BUN/Creat Ratio 16 No Units Normal 10-20 [facility] Comment on above: Performed By: #### 2 [id number] #### [facility] [address] [place] [address] Calcium [Mass/Vol] 9.3 mg/dL Normal 8.9-11.1 [facility] Comment on above: Performed By: #### 2 275910 #### [facility] [address] [place] [address] Chloride [Moles/Vol] 108 mmol/L Normal 101-[address] [facility] Comment on above: Performed By: #### 2 [id number] #### [facility] [address] [place] [address] CO2 [Moles/Vol] 26 mmol/L Normal 21-31 [facility] Comment on above: Performed By: #### 2 [id number] #### [facility] [address] [place] [address] Globulin (S) [Mass/Vol] 2.9 g/dL Normal 1.4-4.0 [facility] Comment on above: Performed By: #### 2 [id number] #### [facility] [address] [place] [address] Glucose [Mass/Vol] 110 mg/dL Normal 55-199 [facility] Comment on above: Performed By: #### 2 [id number] #### [facility] [address] [place] [address] Potassium [Moles/Vol] 4.3 mmol/L Normal 3.5-5.3 [facility] Comment on above: Performed By: #### 2 877655 #### [facility] [address] [place] [address] Protein [Mass/Vol] 6.9 g/dL Normal 6.0-7.8 [facility] Comment on above: Performed By: #### 2 [id number] #### [facility] [address] [place] [address] Sodium [Moles/Vol] 140 mmol/L Normal 135-145 [facility] Comment on above: Performed By: #### 2 [id number] #### [facility] [address] [place] [address] Urea nitrogen [Mass/Vol] 19 mg/dL Normal 5-21 [facility] Comment on above: Performed By: #### 2 [id number] #### [facility] [address] [place] [address] Family Medicine Office/Clini c Noteon 06-26-2025 Family Medicine Office/Clinic Note Family Medicine Office/Clinic Note Chief Complaint Medication Refills The patient presents for establishing care and routine health maintenance. [facility] Staff Former Dr Santana pt. Pt presents today for medication refills. Patient is here for follow up on hypertension. How often are you checking your blood pressure? _no Yearly BMP: _ DUE Refused Bone Density scan @ [employer] [facility] 08/16/24 Does have Hx of knee pain. Previous arthroplasty in the past. [facility] note from 06/18/25 does recommend possible referral to Ortho. Pt states she does not need referral. She is still established at her Ortho's office, and is able to call and get in with them when needed. Does not need refills at this time. History of Present Illness 89-year-old female presenting with the need to establish care and address ongoing health concerns. She reports a history of persistent atrial fibrillation, which is currently well-managed without any recent episodes of irregular heart rate or palpitations. The patient also has a history of stage 3b chronic kidney disease, although she does not recall any recent issues related to kidney function. The patient experiences knee pain, which has been managed with orthopedic consultations and injections that provide significant relief. She has not seen her water rights specialist in approximately three years but reports that the injections have been effective in managing her symptoms. She states she does not want a referral to ortho as she sees Dr. Heath. Review of Systems PHQ Score Initial Depression Screen Score: 0 SCORE - Cardiovascular: Denies chest pain, palpitations, or syncope. - Renal: Denies any recent issues with kidney function. - Musculoskeletal: Reports knee pain, denies swelling. Physical Exam Vitals & Measurements T: 36.8 ???C(Oral) HR: 76(Peripheral) RR: 18 BP: 128/74 SpO2: 96% HT: 64 in HT: 163 cm WT: 68.9 kg WT: 151.898 lb BMI: 25.93 General: alert, no acute distress Skin: warm, dry Head: no trauma, normocephalic Neck: Trachea midline, no adenopathy, no tenderness Eye: normal conjunctiva, sclera clear ENMT: TM's clear, oral mucosa moist, no pharyngeal erythema or exudate Cardiovascular: regular rate and rhythm, normal peripheral perfusion Respiratory: Lungs CTA, respirations non labored Back: No tenderness, Normal ROM, Normal alignment. Extremities: no deformity, no trauma Neurological: oriented x 4, LOC appropriate for age speech normal Psychiatric: cooperative, affect appropriate for age, normal judgement, normal psychiatric thoughts. Assessment/Plan 1. Persistent atrial fibrillation (I48.19: Other persistent atrial fibrillation) - Continue metoprolol 50 mg one tablet po daily - Monitor for increased signs or symptoms - f/u in 3 months Ordered: CBC w/ Auto Diff Comprehensive Metabolic Panel Lab Specimen Collect [id number] 2. Stage 3b chronic kidney disease (CKD) (N18.32: Chronic kidney disease, stage 3b) - Order routine laboratory tests including CBC and chem profile to monitor kidney function. - Monitor for increased signs or symptoms - f/u in 3 months Ordered: CBC w/ Auto Diff Comprehensive Metabolic Panel Lab Specimen Collect [id number] 3. Pain in unspecified knee (M25.569) - Recommend follow-up with water rights specialist for evaluation and management of knee pain. - Patient declines referral to ortho- reports she will not have surgery 4. BMI 25.0-25.9,adult (Z68.25: Body mass index [BMI] 25.0-25.9, adult) BMI 25.93 Ordered: CBC w/ Auto Diff 5. Overweight (BMI 25.0-29.9) (E66.3: Overweight) The standard range for ages 18 and older is >=18.5 and < 25 kg/m2. Your BMI today was above this range, this falls in the overweight to obese category and there are medical benefits to weight loss. We can offer counselling, referral, and/or medical support in addressing this problem. Your BMI and weight management will be followed at subsequent visits. Ordered: CBC w/ Auto Diff 6. Nonsmoker (Z78.9: Other specified health status) Encouraged to continue as a non-smoker Ordered: CBC w/ Auto Diff Orders: metoprolol, 50 mg = 1 tab(s), Oral, Daily, # 30 tab(s), Refills(s) 0, Pharmacy: [facility]/pharmacy #[id number], 163, cm, 08/16/24 13:59:00 EDT, Height/Length Dosing, 68.9, kg, 08/16/24 13:59:00 EDT, Weight Dosing Follow-up With When Contact Information PILAR SAMANIEGO CNP, FAM Within 3 months [address] [place] [address] [facility] (1) Additional Instructions: Chronic conditions Patient Education Heat Therapy, [id number] Problem List/Past Medical History Ongoing Anemia Balance problem BMI 25.0-25.9,adult Generalized weakness History of recurrent UTIs Hx of degenerative disc disease Hyponatremia Nonsmoker Overweight (BMI 25.0-29.9) Persistent atrial fibrillation Shoulder region pain Stage 3b chronic kidney disease (CKD) Historical Chronic kidney disease, unspecified CKD stage Procedure/Surgica (more content not included)... Normal [facility] Comment on above: Result Comment: Elec tronically Signed By: PILAR SAMANIEGO CNP\.br\Date and Time Signed: 06/26/25 10:45 EDT eGFRon 06-26-2025 eGFR 43 mL/min/1.73 m2 Low >=59 [facility] Comment on above: Performed By: #### 1 [id number] #### [facility] [address] [place] [address] [facility] 01-31-20 [facility] Case Information Case Priority: None Programs: -- Referral Source: Reliability Technician Referral Reason: Disease management Case Type: Chronic Care Management Risk Score: -- Case Status: Active (July 11, 2023) Date Assigned: June 06, 2023 Assigned By: Brett Vásquez Date Enrolled: July 11, 2023 Assigned Primary Personnel: Brett Vásquez Assigned Secondary Personnel: -- Case Physician: Juan Santana MD Problems Ongoing Anemia Balance problem BMI 25.0-25.9,adult Closed displaced fracture of shaft of left clavicle Fracture of multiple ribs of right side Generalized weakness History of recurrent UTIs Hx of degenerative disc disease Hyponatremia Persistent atrial fibrillation Shoulder region pain Stage 3b chronic kidney disease (CKD) Historical Chronic kidney disease, unspecified CKD stage Procedure/Surgical History Arthroplasty of knee (08/14/2018), Arthroscopy of knee, CEIOL - Cataract extraction and insertion of intraocular lens. Home Medications amitriptyline 10 mg Tab, See Instructions Centrum, 1 cap, Oral, Daily Toprol XL 50 mg Tab-ER, 50 mg= 1 tab(s), Oral, Daily, 1 refills Tylenol Extra Strength 500 mg oral tablet, 1000 mg= 2 tab(s), Oral, TID, PRN Xarelto 15 mg oral tablet, See Instructions Allergies No Known Allergies Social History Alcohol - Denies Alcohol Use, 07/26/2018 Household alcohol concerns: No., 08/16/2024 Substance Abuse - Denies Substance Abuse, 07/26/2018 Household substance abuse concerns: No., 08/16/2024 Tobacco - Denies Tobacco Use, 07/26/2018 Never (less than 100 in lifetime) Tobacco Use:. Never Smokeless Tobacco Use:. Household tobacco concerns: No., 08/16/2024 Family History Family history is unknown Screenings and Assessments 08/23/23 08:43:00 Result Name Value Comment CCM Written Consent Written consent obtained 07/11/23 14:07:00 Result Name Value Comment CCM Program Enrollment Verbally agreed to receive [facility] services CCM Verbal Consent By Self 07/11/23 13:00:00 Result Name Value Comment HIPPA Verified Type of Contact Telephone Information Given by Self Information Given by Names zahida CM Preferred Spoken Language Tongan CM Preferred Written Language Tongan Preferred Communication Mode Verbal Ability to Read/Write Able to read, Able to write Preferred Salutation MrsLydia Embryology Teacher Called No Preferred Method of Contact Home Home Phone [phone] Best Time to Visit or Contact 1-5 pm Best Day to Visit or Contact No preference Appointment Reminders Phone Preferred Way to Send PHI Standard mail Preferred Mailing Address [address] [place] [address] Learning Style Pref Patient Printed materials Learning Style Pref Parent/Guardian Printed materials Teaching Method Printed materials Barriers to Learning None evident Cognitive Deficit No Response to Current Year Correct Response to Current Month Correct Response to Current Time Correct [facility] Test Score Indication None or no significant cognitive impairment Count Backward 20 to 1 Correct State Months in Reverse Order 1 Error Repeat Memory Phrase Correct Lives In Multilevel home Number in Household 2 Sleeping Arrangement Own bed, in room alone Support System Spouse/Significant other, Family member(s) Primary Hr Analyst of Home Medication Self Medication Adherence Method Does not use any method Home Equipment, Anticipated Cane, Shower chair Current DME at Home No Currently Receiving Skilled Services No Skilled Service Needs Anticipated No Barriers to Care None Home Barriers None Employment Status Retired Financial Issues None Sources of Income Social Security Rate Your Physical Health Good CM Hearing Evaluation No hearing impairment CM Vision Evaluation Difficulty seeing far away (near-sighted) CM Speech Communication No communication impairment CM Sensory Perception No sensory perception impairment CM Fine, Gross Motor Skills No impairment musculoskeletal, fine, gross motor development General Symptoms Joint aches (arthralgia) Respiratory Symptoms None Cardiovascular Symptoms None GI Symptoms None Genitourinary Symptoms Nocturia Urinary Elimination Voiding, no difficulties Skin Symptoms None Wound Type None Orientation Assessment Orie (more content not included)... Normal [facility] 11-16-19 [facility] Case Information Case Priority: None Programs: -- Referral Source: Reliability Technician Referral Reason: Disease management Case Type: Chronic Care Management Risk Score: -- Case Status: Active (July 11, 2023) Date Assigned: June 06, 2023 Assigned By: Brett Vásquez Date Enrolled: July 11, 2023 Assigned Primary Personnel: Brett Vásquez Assigned Secondary Personnel: -- Case Physician: Juan Santana MD Problems Ongoing Anemia Balance problem BMI 25.0-25.9,adult Closed displaced fracture of shaft of left clavicle Fracture of multiple ribs of right side Generalized weakness History of recurrent UTIs Hx of degenerative disc disease Hyponatremia Persistent atrial fibrillation Shoulder region pain Stage 3b chronic kidney disease (CKD) Historical Chronic kidney disease, unspecified CKD stage Procedure/Surgical History Arthroplasty of knee (08/14/2018), Arthroscopy of knee, CEIOL - Cataract extraction and insertion of intraocular lens. Home Medications amitriptyline 10 mg Tab, 10 mg= 1 tab(s), Oral, Once a day (at bedtime), 1 refills Centrum, 1 cap, Oral, Daily Toprol XL 50 mg Tab-ER, 50 mg= 1 tab(s), Oral, Daily, 1 refills Tylenol Extra Strength 500 mg oral tablet, 1000 mg= 2 tab(s), Oral, TID, PRN Xarelto 15 mg oral tablet, 15 mg= 1 tab(s), Oral, qPM, 1 refills Allergies No Known Allergies Social History Alcohol - Denies Alcohol Use, 07/26/2018 Household alcohol concerns: No., 08/16/2024 Substance Abuse - Denies Substance Abuse, 07/26/2018 Household substance abuse concerns: No., 08/16/2024 Tobacco - Denies Tobacco Use, 07/26/2018 Never (less than 100 in lifetime) Tobacco Use:. Never Smokeless Tobacco Use:. Household tobacco concerns: No., 08/16/2024 Family History Family history is unknown Screenings and Assessments 08/23/23 08:43:00 Result Name Value Comment CCM Written Consent Written consent obtained 07/11/23 14:07:00 Result Name Value Comment CCM Program Enrollment Verbally agreed to receive [facility] services CCM Verbal Consent By Self 07/11/23 13:00:00 Result Name Value Comment HIPPA Verified Type of Contact Telephone Information Given by Self Information Given by Names zahida CM Preferred Spoken Language Tongan CM Preferred Written Language Tongan Preferred Communication Mode Verbal Ability to Read/Write Able to read, Able to write Preferred Salutation MrsLydia Embryology Teacher Called No Preferred Method of Contact Home Home Phone [phone] Best Time to Visit or Contact 1-5 pm Best Day to Visit or Contact No preference Appointment Reminders Phone Preferred Way to Send PHI Standard mail Preferred Mailing Address [facility] [place] [address] Learning Style Pref Patient Printed materials Learning Style Pref Parent/Guardian Printed materials Teaching Method Printed materials Barriers to Learning None evident Cognitive Deficit No Response to Current Year Correct Response to Current Month Correct Response to Current Time Correct OMC Test Score Indication None or no significant cognitive impairment Count Backward 20 to 1 Correct State Months in Reverse Order 1 Error Repeat Memory Phrase Correct Lives In Multilevel home Number in Household 2 Sleeping Arrangement Own bed, in room alone Support System Spouse/Significant other, Family member(s) Primary Hr Analyst of Home Medication Self Medication Adherence Method Does not use any method Home Equipment, Anticipated Cane, Shower chair Current DME at Home No Currently Receiving Skilled Services No Skilled Service Needs Anticipated No Barriers to Care None Home Barriers None Employment Status Retired Financial Issues None Sources of Income Social Security Rate Your Physical Health Good CM Hearing Evaluation No hearing impairment CM Vision Evaluation Difficulty seeing far away (near-sighted) CM Speech Communication No communication impairment CM Sensory Perception No sensory perception impairment CM Fine, Gross Motor Skills No impairment musculoskeletal, fine, gross motor development General Symptoms Joint aches (arthralgia) Respiratory Symptoms None Cardiovascular Symptoms None GI Symptoms None Genitourinary Symptoms Nocturia Urinary Elimination Voiding, no difficulties Skin Symptoms None (more content not included)... Normal [facility] Cult,Urineon 11-02-2024 Cult,Urine Specimen Description .CLEAN CATCH URINE Special Requests Site: Urine Culture ESCHERICHIA COLI >100,000 CFU/ML Report Status FINAL 11/02/2024 SUSCEPTIBILITY Organism ESCHERICHIA COLI Method LEIA Ampicillin <=2 SUSCEPTIBLE Cefazolin <=4 SUSCEPTIBLE Cefazolin sensitivity results can be used to predict the effectiveness of oral cephalosporins (eg. Cephalexin) in uncomplicated Urinary Tract Infections due to E. coli, K. pneumoniae, and P. mirabilis Ceftriaxone <=0.25 SUSCEPTIBLE ESBL NEGATIVE Gentamicin <=1 SUSCEPTIBLE Levofloxacin >=8 RESISTANT Nitrofurantoin 32 SUSCEPTIBLE Piperacillin/Tazobactam <=4 SUSCEPTIBLE Tobramycin <=1 SUSCEPTIBLE Trimethoprim/Sulfa <=20 SUSCEPTIBLE Susceptible [facility] Comment on above: Performed By: #### U #### [facility] [address] [place] [address] [id number] [place]: Jm Johnson MD Cult,Urineon 09-28-2024 Cult,Urine Specimen Description .CLEAN CATCH URINE Special Requests Site: Urine Culture ESCHERICHIA COLI >100,000 CFU/ML Report Status FINAL 09/28/2024 SUSCEPTIBILITY Organism ESCHERICHIA COLI Method LEIA Ampicillin <=2 SUSCEPTIBLE Cefazolin <=4 SUSCEPTIBLE Cefazolin sensitivity results can be used to predict the effectiveness of oral cephalosporins (eg. Cephalexin) in uncomplicated Urinary Tract Infections due to E. coli, K. pneumoniae, and P. mirabilis Ceftriaxone <=0.25 SUSCEPTIBLE ESBL NEGATIVE Gentamicin 4 SUSCEPTIBLE Levofloxacin >=8 RESISTANT Nitrofurantoin <=16 SUSCEPTIBLE Piperacillin/Tazobactam <=4 SUSCEPTIBLE Tobramycin 2 SUSCEPTIBLE Trimethoprim/Sulfa <=20 SUSCEPTIBLE Susceptible [facility] Comment on above: Performed By: #### U #### [facility] [address] [place] [id number] [place]: Jm Johnson MD Ambulatory Visit Summaryon 1 Ambulatory Visit Summary Ambulatory Visit Summary KALIEZAHIDA DAVEY Clement :1935 Visit Date:08/16/2024 Ambulatory Visit Instructions Your Diagnosis Encounter for subsequent annual wellness visit in Medicare patient Persistent atrial fibrillation Stage 3b chronic kidney disease (CKD) Balance problem Screening declined by patient Immunization declined Overweight These Are Your Goals Atrial Fibrillation: avoid complications - Progressing Interventions: Keep follow up appointments with boxer operator - Progressing Monitor for signs and symtpoms of atrial fibrillation: palpitations, tachycardia, SOB - Progressing Review education material - Done Take medications as prescribed - Progressing Chronic Kidney Disease: avoid complications Interventions: Avoid foods high in sodium, phosphorous, protein, and potassium - Progressing Complete bloodwork as ordered - Progressing Keep follow up appointments as scheduled with nephrology - Progressing Maintain Healthy lifestyle Preserve kidney function - Progressing review educational material - Done Recurrent UTI's: avoid UTI complications - Progressing Interventions: Increase foods high in live active cultures, salazar juices Maintain healthy hygiene Void every 2-3 hours - Progressing review educational material - Done Your Care Team Attending Physician - Juan Santana MD Primary Care Physician - Juan Santana MD This Is Your Medications List acetaminophen (Tylenol Extra Strength 500 mg oral tablet) amitriptyline (amitriptyline 10 mg Tab) metoprolol (Toprol XL 50 mg Tab-ER) multivitamin with minerals (Centrum) rivaroxaban (Xarelto 15 mg oral tablet) Procedures Performed Arthroplasty of knee (08/14/2018), Arthroscopy of knee, CEIOL - Cataract extraction and insertion of intraocular lens. Discharge Vitals Heart Rate (Peripheral) 76 Respiratory Rate 14 Blood Pressure 130/60 Height 163 cm Height 64 in Weight 68.9 kg Weight 151.58 lb BMI 25.93 What to do next Scheduled Follow-Up Appointments Tuesday 1:00 PM EDT Where: [facility] Medicine [place] [id number]- Medications What How Much When Instructions Unchanged acetaminophen (Tylenol Extra Strength 500 mg oral tablet) 2 Tablets By Mouth 3 times a day as needed for for pain Unchanged amitriptyline (amitriptyline 10 mg Tab) 1 Tablets By Mouth Once a day (at bedtime) Unchanged metoprolol (Toprol XL 50 mg Tab-ER) 1 Tablets By Mouth Every day Unchanged multivitamin with minerals (Centrum) 1 cap By Mouth Every day Unchanged rivaroxaban (Xarelto 15 mg oral tablet) 1 Tablets By Mouth Once a day (in the evening) Medications and Immunizations Administered Not Given influenza virus vaccine, inactivated, Postpone due to refusal, patient plans on getting immunization with covid booster at pharmacy. Allergies No Known Allergies Problems Ongoing - Any problem that you are currently receiving treatment for. Anemia Balance problem BMI 25.0-25.9,adult Closed displaced fracture of shaft of left clavicle Fracture of multiple ribs of right side Generalized weakness History of recurrent UTIs Hx of degenerative disc disease Hyponatremia Persistent atrial fibrillation Shoulder region pain Stage 3b chronic kidney disease (CKD) Historical - Any problem that you are no longer receiving treatment for. Chronic kidney disease, unspecified CKD stage Patient Survey You may receive a survey via text or e-mail asking about your office visit. Please share your experience with us by completing your survey. We appreciate your feedback and thank you for choosing us for your care. Education Materials Atrial Fibrillation Atrial fibrillation (AFib) is a type of heartbeat that is irregular or fast. If you have AFib, your heart beats without any order. This makes it hard for your heart to pump blood in a normal way. AFib may come and go, or it may become a long-lasting problem. If AFib is not treated, it can put you at higher risk for stroke, heart failure, and other heart problems. What are the causes? AFib may be caused by diseases that damage the heart's electrical system. They include: ? High blood pressure. ? Heart failure. ? Heart valve diseases. ? Heart surgery. ? Diabetes. ? Thyroid disease. ? Kidney disease. ? Lung diseases, such as pneumonia or COPD. ? Sleep apnea. Sometimes the cause is not known. What increases the risk? You are more likely to develop AFib if: ? You are older. ? You exercise often and very hard. ? You have a family history of AFib. ? You are male. ? You are . ? You are overweight. ? You smoke. ? You drink a lot of alcohol. What are the signs or symptoms? Common symptoms of this condition include: ? A feeling that your heart is beating very fast. (more content not included)... Normal [facility] Family Medicine Office/Clini c Noteon 08-16-2024 Family Medicine Office/Clinic Note Family Medicine Office/Clinic Note Chief Complaint Subsequent Medicare Wellness Review of Systems PHQ Score Initial Depression Screen Score: 0 SCORE Physical Exam Vitals & Measurements HR: 76(Peripheral) RR: 14 BP: 130/60 SpO2: 96% HT: 163 cm HT: 64 in WT: 68.9 kg WT: 151.58 lb BMI: 25.93 Procedure I was in the office and available for consultation and to provide direct supervision at the time of this visit. I have provided supervision of the care team and have reviewed this chart and office note and agree with the plan of care. Assessment/Plan 1. Encounter for subsequent annual wellness visit in Medicare patient (Z00.00: Encounter for general adult medical examination without abnormal findings) The patient was given a customized and personalized print out of all the current AHRQ USPSTF?s recommendations for preventative services and all current CDC recommended immunizations, relevant risk recommendations and the following patient brochures were given. Reviewed Medicare Prevention Services checklist. CDC-Falls Prevention and home safety screening reviewed. Patient denies any falls in last 12 months, voices no worry about falling. Patient exhibits problems with sitting, standing or ambulation. Patient uses a cane at home, but did not bring it with her to the appointment today. Patient aware with keeping walk way area free of clutter to prevent tripping and/or falling. [place] Advance Directives reviewed. Documents are scanned into chart. Patient is not an organ donor. Patient denies any problems with ADL?s and Instrumental ADL?s. Cognitive screening completed with memory and clock face drawing. Deficits noted with clock and patient remembered 0 memory words. MMES screening was a 30. Patient's spouse was next to her and kept trying to correct her while she was writing on the clock test and got her frustrated. Patient had no issues with MMES screening. Immunization record reviewed, discussed Shingrix vaccine with educational handout and availability. COVID vaccines have been administered, with 1 Booster received. Allergies and medications reviewed and up to date. No concerns with taking medication as prescribed. Reviewed OTC medications, medication list up to date. Blood tests were reviewed: Discussed what tests need to be updated. Labs were declined by patient. No concerns with bowel/ bladder. Colonoscopy screening no longer recommended at patient's age. Reviewed pain symptoms : knee pain, rates pain as a 5 out of 10, Tylenol used as needed. Reviewed all outside providers that patient follows. Last visit summary notes available in chart and/or have been requested. Patient declines any signs or symptoms of depression at this time. 8 minutes spent with screening and documentation. PHQ2 screening score 0. Patient denies alcohol use. Audit score 0. Follow up scheduled with PCP, cancelled today due to provider not being in office. Will call to reschedule. AWV has been scheduled, 08/20/2024 Medicare provides yearly screening for alcohol and depression concerns. This is completed during our Medicare wellness visit for those who do not have a current diagnosis of depression or concerns with alcohol use. I spent a total of 17 minutes on this date of service which included preparing to see the patient, face to face patient care, completing clinical documentation, obtaining and/or reviewing separately obtained history, counseling and educating the patient with handouts. Explanations were provided with reviewing questionnaires. AUDIT risk assessment screening completed, risk score 0 with patient denying concerns with use. Completed PHQ-2 risk assessment for depression with risk score 0, PHQ9 3 negative findings. Patient has been reminded to notify the provider if there would be a change or concerns with symptoms with fear, unable to sleep, worrying too much or feeling down and/or sad with lost of interest with daily activities. Will continue to monitor with screening yearly during Medicare wellness visits. 2. Persistent atrial fibrillation (I48.19: Other persistent atrial fibrillation) Patient denies having episodes with irregular or fast/rapid heartbeat. Heart rate in office today is 76. Taking medications Metoprolol and Xarelto. Denies concerns with increased fatigue and/or sudden change in weight. No pain to chest or belly region. Patients are at higher risk of this condition if you smoke, are older, have diabetes, or are overweight. Voices understanding with symptoms to monitor for and follow instructions about medicines, diet, exercise, and follow up visits with pcp. Patient no longer follows with Tattoo Technician [facility]. Recommended [facility] Cardiology. Patient will let office know if she wants an appointment. Cardiac Healthy Nutrition reviewed with patient. 3. Stage 3b chronic kidney disease (CKD) (N18.32: Chronic kidney disease, stage 3b) Reviewed health kidney nutritional handout with importance of preventing strain on the kidneys. Monitor sodium intake da (more content not included)... Normal [facility] Comment on above: Result Comment: Elec tronically Signed By: PILAR SAMANIEGO CNP\.br\Date and Time Signed: 08/16/24 16:17 EDT\.br\Electronically Co-Signed By: Kelli Johnston\.br\Date and Time Co-Signed: 08/16/24 15:56 EDT Population [facility] 07-20-20 [facility] Case Information Case Priority: None Programs: -- Referral Source: Reliability Technician Referral Reason: Disease management Case Type: Chronic Care Management Risk Score: -- Case Status: Active (July 11, 2023) Date Assigned: June 06, 2023 Assigned By: Brett Vásquez Date Enrolled: July 11, 2023 Assigned Primary Personnel: Brett Vásquez Assigned Secondary Personnel: -- Case Physician: Juan Santana MD Problems Ongoing Anemia Balance problem Closed displaced fracture of shaft of left clavicle Fracture of multiple ribs of right side Generalized weakness History of recurrent UTIs Hx of degenerative disc disease Hyponatremia Persistent atrial fibrillation Shoulder region pain Stage 3b chronic kidney disease (CKD) Historical Chronic kidney disease, unspecified CKD stage Procedure/Surgical History Arthroplasty of knee (08/14/2018), Arthroscopy of knee, CEIOL - Cataract extraction and insertion of intraocular lens. Home Medications amitriptyline 10 mg Tab, 10 mg= 1 tab(s), Oral, Once a day (at bedtime), 1 refills Centrum, 1 cap, Oral, Daily Toprol XL 50 mg Tab-ER, 50 mg= 1 tab(s), Oral, Daily Tylenol Extra Strength 500 mg oral tablet, 1000 mg= 2 tab(s), Oral, TID, PRN Xarelto 15 mg oral tablet, 15 mg= 1 tab(s), Oral, qPM, 1 refills Allergies No Known Allergies Social History Alcohol - Denies Alcohol Use, 07/26/2018 Household alcohol concerns: No., 08/15/2023 Substance Abuse - Denies Substance Abuse, 07/26/2018 Household substance abuse concerns: No., 02/09/2023 Tobacco - Denies Tobacco Use, 07/26/2018 Never (less than 100 in lifetime) Tobacco Use:. Never Smokeless Tobacco Use:. Household tobacco concerns: No., 05/01/2024 Family History Family history is unknown Screenings and Assessments 08/23/23 08:43:00 Result Name Value Comment CCM Written Consent Written consent obtained 07/11/23 14:07:00 Result Name Value Comment CCM Program Enrollment Verbally agreed to receive [facility] services [facility] Verbal Consent By Self 07/11/23 13:00:00 Result Name Value Comment HIPPA Verified Type of Contact Telephone Information Given by Self Information Given by Names zahida FRYE Preferred Spoken Language Tongan CM Preferred Written Language Tongan Preferred Communication Mode Verbal Ability to Read/Write Able to read, Able to write Preferred Salutation MrsLydia Embryology Teacher Called No Preferred Method of Contact Home Home Phone [phone] Best Time to Visit or Contact 1-5 pm Best Day to Visit or Contact No preference Appointment Reminders Phone Preferred Way to Send PHI Standard mail Preferred Mailing Address [address] [facility] [address] Learning Style Pref Patient Printed materials Learning Style Pref Parent/Guardian Printed materials Teaching Method Printed materials Barriers to Learning None evident Cognitive Deficit No Response to Current Year Correct Response to Current Month Correct Response to Current Time Correct OMC Test Score Indication None or no significant cognitive impairment Count Backward 20 to 1 Correct State Months in Reverse Order 1 Error Repeat Memory Phrase Correct Lives In Multilevel home Number in Household 2 Sleeping Arrangement Own bed, in room alone Support System Spouse/Significant other, Family member(s) Primary Hr Analyst of Home Medication Self Medication Adherence Method Does not use any method Home Equipment, Anticipated Cane, Shower chair Current DME at Home No Currently Receiving Skilled Services No Skilled Service Needs Anticipated No Barriers to Care None Home Barriers None Employment Status Retired Financial Issues None Sources of Income Social Security Rate Your Physical Health Good CM Hearing Evaluation No hearing impairment CM Vision Evaluation Difficulty seeing far away (near-sighted) CM Speech Communication No communication impairment CM Sensory Perception No sensory perception impairment CM Fine, Gross Motor Skills No impairment musculoskeletal, fine, gross motor development General Symptoms Joint aches (arthralgia) Respiratory Symptoms None Cardiovascular Symptoms None GI Symptoms None Genitourinary Symptoms Nocturia Urinary Elimination Voiding, no difficulties Skin Symptoms None Wound Type None Or (more content not included)... Normal [facility] 06-05-20 [facility] Case Information Case Priority: None Programs: -- Referral Source: Reliability Technician Referral Reason: Disease management Case Type: Chronic Care Management Risk Score: -- Case Status: Active (July 11, 2023) Date Assigned: June 06, 2023 Assigned By: Brett Vásquez Date Enrolled: July 11, 2023 Assigned Primary Personnel: Brett Vásquez Assigned Secondary Personnel: -- Case Physician: Juan Santana MD Problems Ongoing Anemia Balance problem Closed displaced fracture of shaft of left clavicle Fracture of multiple ribs of right side Generalized weakness History of recurrent UTIs Hx of degenerative disc disease Hyponatremia Persistent atrial fibrillation Shoulder region pain Stage 3b chronic kidney disease (CKD) Historical Chronic kidney disease, unspecified CKD stage Procedure/Surgical History Arthroplasty of knee (08/14/2018), Arthroscopy of knee, CEIOL - Cataract extraction and insertion of intraocular lens. Home Medications amitriptyline 10 mg Tab, 10 mg= 1 tab(s), Oral, Once a day (at bedtime), 1 refills Centrum, 1 cap, Oral, Daily Toprol XL 50 mg Tab-ER, 50 mg= 1 tab(s), Oral, Daily Tylenol Extra Strength 500 mg oral tablet, 1000 mg= 2 tab(s), Oral, TID, PRN Xarelto 15 mg oral tablet, 15 mg= 1 tab(s), Oral, qPM, 1 refills Allergies No Known Allergies Social History Alcohol - Denies Alcohol Use, 07/26/2018 Household alcohol concerns: No., 08/15/2023 Substance Abuse - Denies Substance Abuse, 07/26/2018 Household substance abuse concerns: No., 02/09/2023 Tobacco - Denies Tobacco Use, 07/26/2018 Never (less than 100 in lifetime) Tobacco Use:. Never Smokeless Tobacco Use:. Household tobacco concerns: No., 05/01/2024 Family History Family history is unknown Screenings and Assessments 08/23/23 08:43:00 Result Name Value Comment CCM Written Consent Written consent obtained 07/11/23 14:07:00 Result Name Value Comment [facility] Program Enrollment Verbally agreed to receive [facility] services [facility] Verbal Consent By Self 07/11/23 13:00:00 Result Name Value Comment HIPPA Verified Type of Contact Telephone Information Given by Self Information Given by Names zahida FRYE Preferred Spoken Language Tongan CM Preferred Written Language Tongan Preferred Communication Mode Verbal Ability to Read/Write Able to read, Able to write Preferred Salutation MrsLydia Embryology Teacher Called No Preferred Method of Contact Home Home Phone [phone] Best Time to Visit or Contact 1-5 pm Best Day to Visit or Contact No preference Appointment Reminders Phone Preferred Way to Send PHI Standard mail Preferred Mailing Address [address] [place] [address] Learning Style Pref Patient Printed materials Learning Style Pref Parent/Guardian Printed materials Teaching Method Printed materials Barriers to Learning None evident Cognitive Deficit No Response to Current Year Correct Response to Current Month Correct Response to Current Time Correct OMC Test Score Indication None or no significant cognitive impairment Count Backward 20 to 1 Correct State Months in Reverse Order 1 Error Repeat Memory Phrase Correct Lives In Multilevel home Number in Household 2 Sleeping Arrangement Own bed, in room alone Support System Spouse/Significant other, Family member(s) Primary Hr Analyst of Home Medication Self Medication Adherence Method Does not use any method Home Equipment, Anticipated Cane, Shower chair Current DME at Home No Currently Receiving Skilled Services No Skilled Service Needs Anticipated No Barriers to Care None Home Barriers None Employment Status Retired Financial Issues None Sources of Income Social Security Rate Your Physical Health Good CM Hearing Evaluation No hearing impairment CM Vision Evaluation Difficulty seeing far away (near-sighted) CM Speech Communication No communication impairment CM Sensory Perception No sensory perception impairment CM Fine, Gross Motor Skills No impairment musculoskeletal, fine, gross motor development General Symptoms Joint aches (arthralgia) Respiratory Symptoms None Cardiovascular Symptoms None GI Symptoms None Genitourinary Symptoms Nocturia Urinary Elimination Voiding, no difficulties Skin Symptoms None Wound Type None Or (more content not included)... Normal [facility] 05-30-20 [facility] Case Information Case Priority: None Programs: -- Referral Source: Reliability Technician Referral Reason: Disease management Case Type: Chronic Care Management Risk Score: -- Case Status: Active (July 11, 2023) Date Assigned: June 06, 2023 Assigned By: Brett Vásquez Date Enrolled: July 11, 2023 Assigned Primary Personnel: Brett Vásquez Assigned Secondary Personnel: -- Case Physician: Juan Santana MD Problems Ongoing Anemia Balance problem Closed displaced fracture of shaft of left clavicle Fracture of multiple ribs of right side Generalized weakness History of recurrent UTIs Hx of degenerative disc disease Hyponatremia Persistent atrial fibrillation Shoulder region pain Stage 3b chronic kidney disease (CKD) Historical Chronic kidney disease, unspecified CKD stage Procedure/Surgical History Arthroplasty of knee (08/14/2018), Arthroscopy of knee, CEIOL - Cataract extraction and insertion of intraocular lens. Home Medications amitriptyline 10 mg Tab, 10 mg= 1 tab(s), Oral, Once a day (at bedtime), 1 refills Centrum, 1 cap, Oral, Daily Toprol XL 50 mg Tab-ER, 50 mg= 1 tab(s), Oral, Daily Tylenol Extra Strength 500 mg oral tablet, 1000 mg= 2 tab(s), Oral, TID, PRN Xarelto 15 mg oral tablet, 15 mg= 1 tab(s), Oral, qPM, 1 refills Allergies No Known Allergies Social History Alcohol - Denies Alcohol Use, 07/26/2018 Household alcohol concerns: No., 08/15/2023 Substance Abuse - Denies Substance Abuse, 07/26/2018 Household substance abuse concerns: No., 02/09/2023 Tobacco - Denies Tobacco Use, 07/26/2018 Never (less than 100 in lifetime) Tobacco Use:. Never Smokeless Tobacco Use:. Household tobacco concerns: No., 05/01/2024 Family History Family history is unknown Screenings and Assessments 08/23/23 08:43:00 Result Name Value Comment CCM Written Consent Written consent obtained 07/11/23 14:07:00 Result Name Value Comment CCM Program Enrollment Verbally agreed to receive [facility] services CCM Verbal Consent By Self 07/11/23 13:00:00 Result Name Value Comment HIPPA Verified Type of Contact Telephone Information Given by Self Information Given by Names zahida CM Preferred Spoken Language Tongan CM Preferred Written Language Tongan Preferred Communication Mode Verbal Ability to Read/Write Able to read, Able to write Preferred Salutation Mrs. Embryology Teacher Called No Preferred Method of Contact Home Home Phone [phone] Best Time to Visit or Contact 1-5 pm Best Day to Visit or Contact No preference Appointment Reminders Phone Preferred Way to Send PHI Standard mail Preferred Mailing Address [address] [place] [address] Learning Style Pref Patient Printed materials Learning Style Pref Parent/Guardian Printed materials Teaching Method Printed materials Barriers to Learning None evident Cognitive Deficit No Response to Current Year Correct Response to Current Month Correct Response to Current Time Correct OMC Test Score Indication None or no significant cognitive impairment Count Backward 20 to 1 Correct State Months in Reverse Order 1 Error Repeat Memory Phrase Correct Lives In Multilevel home Number in Household 2 Sleeping Arrangement Own bed, in room alone Support System Spouse/Significant other, Family member(s) Primary Hr Analyst of Home Medication Self Medication Adherence Method Does not use any method Home Equipment, Anticipated Cane, Shower chair Current DME at Home No Currently Receiving Skilled Services No Skilled Service Needs Anticipated No Barriers to Care None Home Barriers None Employment Status Retired Financial Issues None Sources of Income Social Security Rate Your Physical Health Good CM Hearing Evaluation No hearing impairment CM Vision Evaluation Difficulty seeing far away (near-sighted) CM Speech Communication No communication impairment CM Sensory Perception No sensory perception impairment CM Fine, Gross Motor Skills No impairment musculoskeletal, fine, gross motor development General Symptoms Joint aches (arthralgia) Respiratory Symptoms None Cardiovascular Symptoms None GI Symptoms None Genitourinary Symptoms Nocturia Urinary Elimination Voiding, no difficulties Skin Symptoms None Wound Type None Or (more content not included)... Normal [facility] CBC w/ Auto Diffon 4 Basophils/100 WBC (Bld) 1.0 % Normal 0.0-2.0 [facility] Comment on above: Performed By: #### 2 [id number] #### [facility] [address] [place] [address] Basophils/Leukocytes Auto (Bld) [Pure # fraction] 0.1 E9/L Normal 0.0-0.2 [facility] Comment on above: Performed By: #### 2 [id number] #### [facility] [address] [place] [address] Eosinophils (Bld) [#/Vol] 0.2 E9/L Normal 0.0-0.5 [facility] Comment on above: Performed By: #### 2 [id number] #### [facility] [address] [place] [address] Eosinophils/100 WBC (Bld) 3.8 % Normal 0.0-8.0 [facility] Comment on above: Performed By: #### 2 [id number] #### [facility] [address] [place] [address] Erythrocyte distribution width (RBC) [Ratio] 16.1 % High 10.9-14.2 [facility] Comment on above: Performed By: #### 2 [id number] #### [facility] [address] [place] [address] Hematocrit (Bld) [Volume fraction] 34.3 % Normal 34.0-46.0 [facility] Comment on above: Performed By: #### 2 [id number] #### [facility] [address] [place] [address] Hemoglobin (Bld) [Mass/Vol] 11.4 g/dL Low 12.0-16.0 [facility] Comment on above: Performed By: #### 2 [id number] #### [facility] Laboratory [address] [place] [address] Lymphocytes (Bld) [#/Vol] 1.2 E9/L Normal 1.0-4.0 [facility] Comment on above: Performed By: #### 2 [id number] #### [facility] Laboratory [address] [place] [address] Lymphocytes/100 WBC (Bld) 22.1 % Normal 14.0-50.0 [facility] Comment on above: Performed By: #### 2 [id number] #### [facility] Laboratory [address] [place] [address] MCH (RBC) [Entitic mass] 29.2 pg Normal 27.0-34.0 [facility] Comment on above: Performed By: #### 2 [id number] #### [facility] Laboratory [address] [place] [address] MCHC (RBC) [Mass/Vol] 33.2 g/dL Normal 31.4-36.0 [facility] Comment on above: Performed By: #### 2 [id number] #### [facility] Laboratory [address] [place] [address] MCV (RBC) [Entitic vol] 87.9 fL Normal 80.0-100.0 [facility] Comment on above: Performed By: #### 2 [id number] #### [facility] Laboratory [address] [place] [address] Monocytes (Bld) [#/Vol] 0.7 E9/L Normal 0.2-1.0 [facility] Comment on above: Performed By: #### 2 [id number] #### [facility] Laboratory [address] [place] [address] Neutrophils (Bld) [#/Vol] 3.4 E9/L Normal 2.0-7.5 [facility] Comment on above: Performed By: #### 2 [id number] #### [facility] Laboratory [address] [place] [address] Neutrophils/100 WBC (Bld) 60.9 % Normal 36.0-75.0 [facility] Comment on above: Performed By: #### 2 [id number] #### [facility] Laboratory [address] [place] [address] Platelet 311.0 E9/L Normal 150.0-500. 0 [facility] Comment on above: Performed By: #### 2 [id number] #### [facility] Laboratory [address] [place] [address] Platelet mean volume (Bld) [Entitic vol] 7.3 fL Normal 6.4-10.8 [facility] Comment on above: Performed By: #### 2 [id number] #### [facility] Laboratory [address] [place] [address] RBC (Bld) [#/Vol] 3.9 E12/L Low 4.3-5.9 [facility] Comment on above: Performed By: #### 2 [id number] #### [facility] Laboratory [address] [place] [address] WBC corrected for nucl RBC Auto (Bld) [#/Vol] 5.5 E9/L Normal 4.0-11.0 [facility] Comment on above: Performed By: #### 2 [id number] #### [facility] Laboratory [address] [place] [address] CMPon 05-08-2024 Albumin [Mass/Vol] 3.9 g/dL Normal 3.3-5.0 [facility] Comment on above: Performed By: #### 2 [id number] #### [facility] Laboratory [address] [place] [address] Albumin/Globulin (S) [Mass conc ratio] 1.2 Normal 1.1-2.2 [facility] Comment on above: Performed By: #### 2 210791 #### [facility] Laboratory [address] [place] [address] ALP [Catalytic activity/Vol] 45 Int._Unit/L Normal 21-98 [facility] Comment on above: Performed By: #### 2 [id number] #### [facility] Laboratory [address] [place] [address] ALT No additional P-5'-P [Catalytic activity/Vol] 10 Int._Unit/L Normal 6-46 [facility] Comment on above: Performed By: #### 2 [id number] #### [facility] Laboratory [address] [place] [address] Anion gap [Moles/Vol] 10 mmol/L Normal 6-16 [facility] Comment on above: Performed By: #### 2 [id number] #### [facility] [address] [place] [address] AST [Catalytic activity/Vol] 15 Int._Unit/L Normal 5-43 [facility] Comment on above: Performed By: #### 2 [id number] #### [facility] Laboratory [address] [place] [address] Bilirubin [Mass/Vol] 0.3 mg/dL Normal 0.0-1.[address] [facility] Comment on above: Performed By: #### 2 [id number] #### [facility] Laboratory [address] [place] [address] Calcium [Mass/Vol] 9.4 mg/dL Normal 8.9-11.1 [facility] Comment on above: Performed By: #### 2 [id number] #### [facility] [address] [place] [address] Chloride [Moles/Vol] 107 mmol/L Normal 101-[address] [facility] Comment on above: Performed By: #### 2 707019 #### [facility] [address] [place] [address] CO2 [Moles/Vol] 27 mmol/L Normal 21-31 [facility] Comment on above: Performed By: #### 2 464152 #### [facility] [address] [place] [address] Creatinine [Mass/Vol] 1.4 mg/dL High 0.5-1.3 [facility] Comment on above: Performed By: #### 2 038709 #### [facility] [address] [place] [address] Globulin (S) [Mass/Vol] 3.2 g/dL Normal 1.4-4.0 [facility] Comment on above: Performed By: #### 2 238314 #### [facility] [address] [place] [address] Glucose [Mass/Vol] 109 mg/dL Normal 55-199 [facility] Comment on above: Performed By: #### 2 318794 #### [facility] [address] [place] [address] Potassium [Moles/Vol] 4.5 mmol/L Normal 3.5-5.3 [facility] Comment on above: Performed By: #### 2 119726 #### [facility] [address] [place] [address] Protein [Mass/Vol] 7.1 g/dL Normal 6.0-7.8 [facility] Comment on above: Performed By: #### 2 [id number] #### [facility] [address] [place] [address] Sodium [Moles/Vol] 139 mmol/L Normal 135-145 [facility] Comment on above: Performed By: #### 2 [id number] #### [facility] [address] [place] [address] Urea nitrogen [Mass/Vol] 23 mg/dL High 5-21 [facility] Comment on above: Performed By: #### 2 [id number] #### [facility] [address] [place] [address] Urea nitrogen/Creatinine [Mass ratio] 16 No Units Normal 10-20 [facility] Comment on above: Performed By: #### 2 [id number] #### [facility] [address] [place] [address] Ambulatory Visit Summaryon 0 05-01-2024 Ambulatory Visit Summary ZAHIDA BATISTA :1935 Visit Date:05/01/2024 Ambulatory Visit Instructions Your Diagnosis Shoulder region pain Persistent atrial fibrillation Hyponatremia Stage 3b chronic kidney disease (CKD) Anemia BMI 26.0-26.9,adult Over weight Nonsmoker These Are Your Goals Atrial Fibrillation: avoid complications - Progressing Interventions: Keep follow up appointments with boxer operator - Progressing Monitor for signs and symtpoms of atrial fibrillation: palpitations, tachycardia, SOB - Progressing Review education material - Done Take medications as prescribed - Progressing Chronic Kidney Disease: avoid complications Interventions: Avoid foods high in sodium, phosphorous, protein, and potassium - Progressing Complete bloodwork as ordered - Progressing Keep follow up appointments as scheduled with nephrology - Progressing Maintain Healthy lifestyle Preserve kidney function - Progressing review educational material - Done Recurrent UTI's: avoid UTI complications - Progressing Interventions: Increase foods high in live active cultures, salazar juices Maintain healthy hygiene Void every 2-3 hours - Progressing review educational material - Done Your Care Team Attending Physician - Juan Santana MD Primary Care Physician - Juan Santana MD This Is Your Medications List acetaminophen (Tylenol Extra Strength 500 mg oral tablet) amitriptyline (amitriptyline 10 mg Tab) metoprolol (Toprol XL 50 mg Tab-ER) multivitamin with minerals (Centrum) rivaroxaban (Xarelto 15 mg oral tablet) Procedures Performed Arthroplasty of knee (08/14/2018), Arthroscopy of knee, CEIOL - Cataract extraction and insertion of intraocular lens. Discharge Vitals Temperature (Oral) 36.7 ?C Heart Rate (Peripheral) 86 Respiratory Rate 16 Blood Pressure 110/62 Height 163 cm Height 64 in Weight 69.2 kg Weight 152.24 lb BMI 26.05 What to do next Scheduled Follow-Up Appointments Tuesday 10:00 AM EDT With: Where: [facility] Invalid Interpretation Code [address] [place] [address]- \. br\ 2023 2:00 PM EDT \.br\ With:\.br\ Where: [facility] Family Medicine Office/Clini c Noteon 05-01-2024 Family Medicine Office/Clinic Note HPI Staff Zahida is an 89 year old female presenting for one month follow up shoulder pain ROMI xray and PT HR is irregular Pain characteristics: Pain location: right shoulder, pain is worse at night Intensity:05/23 Onset: ongoing but last 3 weeks started up with pain, has done PT Medication used: PT, tylenol, heat questions/concerns: needs her metoprolol refilled History of Present Illness Patient is here for follow-up. Patient is struggling with the right shoulder pain. Patient went through PT and stated it was helping and then at night it would get even more severe than what it was before. Patient states she has gained no movement and has not decreased the pain at all. Patient would like to move forward with the neck steps. Review of Systems PHQ Score Initial Depression Screen Score: 0 SCORE Physical Exam Vitals & Measurements T: 36.7 ?C(Oral) HR: 86(Peripheral) RR: 16 BP: 110/62 SpO2: 94% HT: 64 in HT: 163 cm WT: 69.2 kg WT: 152.24 lb BMI: 26.05 General: alert, no acute distress ENMT: oral mucosa moist, Cardiovascular: irregular rate and rhythm, normal peripheral perfusion Respiratory: Lungs CTA, respirations non labored Extremities: no deformity, no trauma very limited movement of the right shoulder. Patient has a hard time pushing herself out of the chair. Neurological: oriented x 4, LOC appropriate for age, CN II-XII intact, motor strength equal & normal bilaterally, speech normal Abdomen: Soft, Nontender, Non-distended, + BS Assessment/Plan 1. Shoulder region pain (M25.519: Pain in unspecified shoulder) - Since failing PT, MRI and Ortho referral placed. - Pt will call in 1 week if she has not heard from either Ordered: Body Mass Index (BMI) documented 3008F CBC w/ Auto Diff Comprehensive Metabolic Panel Current tobacco non-user 1036F Depression Screening Negative 3352F [facility] External Ambulatory Referral Most recent diastolic blood pressure <80 mm Hg 3078F MRI Shoulder w/o Contrast Right Patient screen for fall risk: no falls in last year or 1 fall with no injury in last year 1101F Systolic BP <130 mm Hg (Most Recent) 3074F 2. Persistent atrial fibrillation (I48.19: Other persistent atrial fibrillation) - In Afib. - On NOAC Ordered: CBC w/ Auto Diff Comprehensive Metabolic Panel [facility] External Ambulatory Referral MRI Shoulder w/o Contrast Right 3. Hyponatremia (E87.1: Hypo-osmolality and hyponatremia) - Resolved - Will recheck today Ordered: CBC w/ Auto Diff Comprehensive Metabolic Panel [facility] External Ambulatory Referral MRI Shoulder w/o Contrast Right 4. Stage 3b chronic kidney disease (CKD) (N18.32: Chronic kidney disease, stage 3b) - Will recheck today Ordered: CBC w/ Auto Diff Comprehensive Metabolic Panel [facility] External Ambulatory Referral MRI Shoulder w/o Contrast Right 5. Anemia (D64.9: Anemia, unspecified) - CBC ordered Ordered: CBC w/ Auto Diff Comprehensive Metabolic Panel [facility] External Ambulatory Referral MRI Shoulder w/o Contrast Right 6. BMI 26.0-26.9,adult (Z68.26: Body mass index [BMI] 26.0-26.9, adult) - BMI education added Ordered: Body Mass Index (BMI) documented 3008F CBC w/ Auto Diff Comprehensive Metabolic Panel Current tobacco non-user 1036F Depression Screening Negative 3352F Most recent diastolic blood pressure <80 mm Hg 3078F MRI Shoulder w/o Contrast Right Patient screen for fall risk: no falls in last year or 1 fall with no injury in last year 1101F Systolic BP <130 mm Hg (Most Recent) 3074F 7. Over weight (E66.3: Overweight) - Diet and exercise advised Ordered: Body Mass Index (BMI) documented 3008F CBC w/ Auto Diff Comprehensive Metabolic Panel Current tobacco non-user 1036F Depression Screening Negative 3352F Most recent diastolic blood pressure <80 mm Hg 3078F Patient screen for fall risk: no falls in last year or 1 fall with no injury in last year 1101F Systolic BP <130 mm Hg (Most Recent) 3074F 8. Nonsmoker (Z78.9: Other specified health status) - Please continue to not smoke Ordered: Body Mass Index (BMI) documented 3008F CBC w/ Auto Diff Comprehensive Metabolic Panel Current tobacco non-user 1036F Depression Screening Negative 3352F Most recent diastolic blood pressure <80 mm Hg 3078F Patient screen for fall risk: no falls in last year or 1 fall with no injury in last year 1101F Systolic BP <130 mm Hg (Most Recent) 3074F Orders: amitriptyline, 10 mg = 1 tab(s), Oral, Once a day (at bedtime), # 90 tab(s), Refills(s) 1, Pharmacy: [facility]/pharmacy #[id number], 163, cm, 05/01/24 9:28:00 EDT, Height/Length Dosing, 69.2, kg, 05/01/24 9:28:00 EDT, Weight Dosing metoprolol, 50 mg = 1 tab(s), Oral, Daily, # 90 tab(s), Refills(s) 0, Pharmacy: [facility]/pharmacy #[id number], 163, cm, 05/01/24 9:28:00 EDT, Height/Length Dosing, 69.2, kg, 05/01/24 9:28:00 EDT, Weight Dosing rivaroxaban, 15 mg = 1 tab(s), Oral, qPM, # 90 tab(s), Refills(s) 1, Pharmacy: [facility]/pharmacy #[id number], 163, (more content not included)... [facility] Comment on above: Result Comment: Elec tronically Signed By: Gallito CONNELL, Juan Sears.br\Date and Time Signed: 05/01/24 10:03 EDT Physician Referralon 024 Physician Referral [id number]#1.00[facility] Discharge Note - PTon 2023 Discharge Note - PT [id number]#1.00[facility] RAD - MISCon 04-04-2024 RAD MISC [id number]#1.00[facility] Plan of Care - PT/OT/Speecho n 03-30-2024 Plan of Care - PT/OT/Speech [id number]#1.00[facility] Ambulatory Visit Summaryon 0 03-27-2024 Ambulatory Visit Summary ZAHIDA BATISTA :1935 Visit Date:03/27/2024 Ambulatory Visit Instructions Your Diagnosis Shoulder region pain Closed displaced fracture of shaft of left clavicle Stage 3b chronic kidney disease (CKD) BMI 26.0-26.9,adult Over weight Nonsmoker These Are Your Goals Atrial Fibrillation: avoid complications - Progressing Interventions: Keep follow up appointments with boxer operator - Progressing Monitor for signs and symtpoms of atrial fibrillation: palpitations, tachycardia, SOB - Progressing Review education material - Done Take medications as prescribed - Progressing Chronic Kidney Disease: avoid complications - Progressing Interventions: Avoid foods high in sodium, phosphorous, protein, and potassium - Progressing Complete bloodwork as ordered - Progressing Keep follow up appointments as scheduled with nephrology - Progressing Maintain Healthy lifestyle - Progressing Preserve kidney function - Progressing review educational material - Done Recurrent UTI's: avoid UTI complications - Progressing Interventions: Increase foods high in live active cultures, salazar juices - Progressing Maintain healthy hygiene - Progressing Void every 2-3 hours - Progressing review educational material - Done Your Care Team Attending Physician - Juan Santana MD Primary Care Physician - Juan Santana MD This Is Your Medications List Contact prescribing physician if questions or concerns acetaminophen (Tylenol Extra Strength 500 mg oral tablet) amitriptyline (amitriptyline 10 mg Tab) metoprolol (Toprol XL 50 mg Tab-ER) multivitamin with minerals (Centrum) rivaroxaban (Xarelto 15 mg oral tablet) Procedures Performed Arthroplasty of knee (08/14/2018), Arthroscopy of knee, CEIOL - Cataract extraction and insertion of intraocular lens. Discharge Vitals Temperature (Oral) 36.9 ?C Heart Rate (Peripheral) 74 Respiratory Rate 16 Blood Pressure 118/66 Height 163 cm Height 64 in Weight 69.8 kg Weight 153.56 lb BMI 26.27 What to do next Scheduled Follow-Up Appointments Tuesday 9:30 AM EDT With: Juan Santana MD Where: [facility] Invalid Interpretation Code [address] [place] [address]- \. br\ 2023 2:00 PM EDT \.br\ With:\.br\ Where: [facility] Ambulatory Visit Summary ZAHIDA BATISTA :1935 Visit Date:03/27/2024 Ambulatory Visit Instructions Your Diagnosis Shoulder region pain Closed displaced fracture of shaft of left clavicle Stage 3b chronic kidney disease (CKD) BMI 26.0-26.9,adult Over weight Nonsmoker These Are Your Goals Atrial Fibrillation: avoid complications - Progressing Interventions: Keep follow up appointments with boxer operator - Progressing Monitor for signs and symtpoms of atrial fibrillation: palpitations, tachycardia, SOB - Progressing Review education material - Done Take medications as prescribed - Progressing Chronic Kidney Disease: avoid complications - Progressing Interventions: Avoid foods high in sodium, phosphorous, protein, and potassium - Progressing Complete bloodwork as ordered - Progressing Keep follow up appointments as scheduled with nephrology - Progressing Maintain Healthy lifestyle - Progressing Preserve kidney function - Progressing review educational material - Done Recurrent UTI's: avoid UTI complications - Progressing Interventions: Increase foods high in live active cultures, salazar juices - Progressing Maintain healthy hygiene Void every 2-3 hours - Progressing review educational material - Done Your Care Team Attending Physician - Juan Santana MD Primary Care Physician - Juan Santana MD This Is Your Medications List Contact prescribing physician if questions or concerns acetaminophen (Tylenol Extra Strength 500 mg oral tablet) amitriptyline (amitriptyline 10 mg Tab) metoprolol (Toprol XL 50 mg Tab-ER) multivitamin with minerals (Centrum) rivaroxaban (Xarelto 15 mg oral tablet) Procedures Performed Arthroplasty of knee (08/14/2018), Arthroscopy of knee, CEIOL - Cataract extraction and insertion of intraocular lens. Discharge Vitals Temperature (Oral) 36.9 ?C Heart Rate (Peripheral) 74 Respiratory Rate 16 Blood Pressure 118/66 Height 163 cm Height 64 in Weight 69.8 kg Weight 153.56 lb BMI 26.27 What to do next Scheduled Follow-Up Appointments Tuesday 9:30 AM EDT With: Juan Santana MD Where: [facility] Invalid Interpretation Code [address] [place] [address]- \. br\ 2023 2:00 PM EDT \.br\ With:\.br\ Where: [facility] Medicine Office/Clini c Noteon 03-27-2024 Family Medicine Office/Clinic Note HPI Staff Zahida is an 89 year old female presenting for acute visit Acute: right shoulder pain Pain characteristics: Pain location: right shoulder pain Intensity:9/10 Onset: fell year and half ago and fractured her collarbone and had therapy, but it started acting up last week very painful and limited ROM especially at night Medication used: tylenol at night and heat History of Present Illness - See staff HPI. Review of Systems PHQ Score Initial Depression Screen Score: 0 SCORE Physical Exam Vitals & Measurements T: 36.9 ?C(Oral) HR: 74(Peripheral) RR: 16 BP: 118/66 SpO2: 97% HT: 64 in HT: 163 cm WT: 69.8 kg WT: 153.56 lb BMI: 26.27 - General: alert, no acute distress ENMT: oral mucosa moist, Cardiovascular: regular rate and rhythm, normal peripheral perfusion Respiratory: Lungs CTA, respirations non labored Extremities: no deformity, no trauma, Very diminished movement of the R Shoulder 2/2 pain. Neurological: oriented x 4, LOC appropriate for age, CN II-XII intact, motor strength equal & normal bilaterally, speech normal Assessment/Plan 1. Shoulder region pain (M25.519: Pain in unspecified shoulder) - Will do Xray and PT as PT helped last time. - Follow up in 1 month - OTC meds discussed in detail. 2. Closed displaced fracture of shaft of left clavicle (S42.022A: Displaced fracture of shaft of left clavicle, initial encounter for closed fracture) - Ordered Xray of the shoulder. Unsure if this is related to the pain. 3. Stage 3b chronic kidney disease (CKD) (N18.32: Chronic kidney disease, stage 3b) - Will recheck at her next visit. - Discussed NSAIDs and using them sparingly. 4. BMI 26.0-26.9,adult (Z68.26: Body mass index [BMI] 26.0-26.9, adult) - BMI education given. Ordered: Body Mass Index (BMI) documented 3008F Current tobacco non-user 1036F Depression Screening Negative 3352F Most recent diastolic blood pressure <80 mm Hg 3078F Patient screen for fall risk: no falls in last year or 1 fall with no injury in last year 1101F Systolic BP <130 mm Hg (Most Recent) 3074F 5. Over weight (E66.3: Overweight) - Diet and exercise advised Ordered: Body Mass Index (BMI) documented 3008F Current tobacco non-user 1036F Depression Screening Negative 3352F Most recent diastolic blood pressure <80 mm Hg 3078F Patient screen for fall risk: no falls in last year or 1 fall with no injury in last year 1101F Systolic BP <130 mm Hg (Most Recent) 3074F 6. Nonsmoker (Z78.9: Other specified health status) - Please continue to not smoke Ordered: Body Mass Index (BMI) documented 3008F Current tobacco non-user 1036F Depression Screening Negative 3352F Most recent diastolic blood pressure <80 mm Hg 3078F Patient screen for fall risk: no falls in last year or 1 fall with no injury in last year 1101F Systolic BP <130 mm Hg (Most Recent) 3074F Follow-up No qualifying data available Patient Education BMI for Adults Problem List/Past Medical History Ongoing Atrial fibrillation Balance problem Closed displaced fracture of shaft of left clavicle Fracture of multiple ribs of right side Generalized weakness History of recurrent UTIs Hx of degenerative disc disease Hyponatremia Pneumothorax Shoulder region pain Stage 3b chronic kidney disease (CKD) Historical Chronic kidney disease, unspecified CKD stage Procedure/Surgical History Arthroplasty of knee (08/14/2018), Arthroscopy of knee, CEIOL - Cataract extraction and insertion of intraocular lens. Medications amitriptyline 10 mg Tab, 10 mg= 1 tab(s), Oral, Once a day (at bedtime), 1 refills Centrum, 1 cap, Oral, Daily Toprol XL 50 mg Tab-ER, 50 mg= 1 tab(s), Oral, Daily Tylenol Extra Strength 500 mg oral tablet, 1000 mg= 2 tab(s), Oral, TID, PRN Xarelto 15 mg oral tablet, 15 mg= 1 tab(s), Oral, qPM, 1 refills Allergies No Known Allergies Social History Alcohol - Denies Alcohol Use, 07/26/2018 Household alcohol concerns: No., 08/15/2023 Substance Abuse - Denies Substance Abuse, 07/26/2018 Household substance abuse concerns: No., 02/09/2023 Tobacco - Denies Tobacco Use, 07/26/2018 Never (less than 100 in lifetime) Tobacco Use:. Never Smokeless Tobacco Use:. Household tobacco concerns: No., 03/27/2024 Family History Family history is unknown Immunizations Vaccine Date Status Comments SARS-CoV-2 (COVID-19) [id number] 09/27/2022 Recorded 2023-02-07: [id number] influenza virus vaccine, inactivated 08/2022 Recorded Pt received vaccine at [facility] influenza virus vaccine, inactivated 10/16/2021 Recorded SARS-CoV-2 (COVID-19) mRNA-1273 vaccine 10/06/2021 Recorded 2023-02-07: [id number] SARS-CoV-2 (COVID-19) mRNA-1273 vaccine 01/13/2021 Recorded SARS-CoV-2 (COVID-19) mRNA-1273 vaccine 12/16/2020 Recorded influenza virus vaccine, inactivated 08/29/2020 Recorded influenza virus vaccine, inactivated 08/15/2018 Given Other (see comment) influenza virus vaccine, inactivated 09/07/2017 (more content not included)... Normal [facility] Comment on above: Result Comment: Elec tronically Signed By: Gallito CONNELL, Juan Feliz\.br\Date and Time Signed: 03/27/24 10:08 EDT Patient Educationon 03-27-20 Patient Education Nutrition BMI for Adults What is BMI? Body mass index (BMI) is a number that is calculated from a person's weight and height. BMI can help estimate how much of a person's weight is composed of fat. BMI does not measure body fat directly. Rather, it is an alternative to procedures that directly measure body fat, which can be difficult and expensive. BMI can help identify people who may be at higher risk for certain medical problems. What are BMI measurements used for? BMI is used as a screening tool to identify possible weight problems. It helps determine whether a person is obese, overweight, a healthy weight, or underweight. BMI is useful for: ? Identifying a weight problem that may be related to a medical condition or may increase the risk for medical problems. ? Promoting changes, such as changes in diet and exercise, to help reach a healthy weight. BMI screening can be repeated to see if these changes are working. How is BMI calculated? BMI involves measuring your weight in relation to your height. Both height and weight are measured, and the BMI is calculated from those numbers. This can be done either in [place] or metric measurements. Note that charts and online BMI calculators are available to help you find your BMI quickly and easily without having to do these calculations yourself. To calculate your BMI in [place] measurements: 1. Measure your weight in pounds (lb). 2. Multiply the number of pounds by 703. ? For example, for a person who weighs 180 lb, multiply that number by 703, which equals 126,540. 3. Measure your height in inches. Then multiply that number by itself to get a measurement called inches squared. ? For example, for a person who is 70 inches tall, the inches squared measurement is 70 inches x 70 inches, which equals 4,900 inches squared. 4. Divide the total from step 2 (number of lb x 703) by the total from step 3 (inches squared): 126,540 ? 4,900 = 25.8. This is your BMI. To calculate your BMI in metric measurements: 1. Measure your weight in kilograms (kg). 2. Measure your height in meters (m). Then multiply that number by itself to get a measurement called meters squared. ? For example, for a person who is 1.75 m tall, the meters squared measurement is 1.75 m x 1.75 m, which is equal to 3.1 meters squared. 3. Divide the number of kilograms (your weight) by the meters squared number. In this example: 70 ? 3.1 = 22.6. This is your BMI. What do the results mean? BMI charts are used to identify whether you are underweight, normal weight, overweight, or obese. The following guidelines will be used: ? Underweight: BMI less than 18.5. ? Normal weight: BMI between 18.5 and 24.9. ? Overweight: BMI between 25 and 29.9. ? Obese: BMI of 30 or above. Keep these notes in mind: ? Weight includes both fat and muscle, so someone with a muscular build, such as an athlete, may have a BMI that is higher than 24.9. In cases like these, BMI is not an accurate measure of body fat. ? To determine if excess body fat is the cause of a BMI of 25 or higher, further assessments may need to be done by a health care provider. ? BMI is usually interpreted in the same way for men and women. Where to find more information For more information about BMI, including tools to quickly calculate your BMI, go to these websites: ? Centers for Disease Control and Prevention: www.cdc.gov ? [place] Heart Association: www.heart.org ? National Heart, Lung, and Blood [place]: www.nhlbi.nih.gov Summary ? Body mass index (BMI) is a number that is calculated from a person's weight and height. ? BMI may help estimate how much of a person's weight is composed of fat. BMI can help identify those who may be at higher risk for certain medical problems. ? BMI can be measured using [place]an measurements or metric measurements. ? BMI charts are used to identify whether you are underweight, normal weight, overweight, or obese. This information is not intended to replace advice given to you by your health care provider. Make sure you discuss any questions you have with your health care provider. Document Revised: 07/23/2020 Document Reviewed: 05/30/2020 [employer] Patient Education ? 2022 [employer] [facility] Physician Orderon 03-27-2024 Physician Order [id number] [facility] Population Health 03-23-20 [facility] Health Case Information Case Priority: None Programs: -- Referral Source: Reliability Technician Referral Reason: Disease management Case Type: Chronic Care Management Risk Score: -- Case Status: Active (July 11, 2023) Date Assigned: June 06, 2023 Assigned By: Brett Vásquez Date Enrolled: July 11, 2023 Assigned Primary Personnel: Brett Vásquez Assigned Secondary Personnel: -- Case Physician: Juan Santana MD Ongoing Atrial fibrillation Balance problem Closed displaced fracture of shaft of left clavicle Fracture of multiple ribs of right side Generalized weakness History of recurrent UTIs Hx of degenerative disc disease Hyponatremia Pneumothorax Stage 3b chronic kidney disease (CKD) Historical Chronic kidney disease, unspecified CKD stage Procedure/Surgical History Arthroplasty of knee (08/14/2018), Arthroscopy of knee, CEIOL - Cataract extraction and insertion of intraocular lens. Home Medications amitriptyline 10 mg Tab, 10 mg= 1 tab(s), Oral, Once a day (at bedtime), 1 refills Centrum, 1 cap, Oral, Daily Toprol XL 50 mg Tab-ER, 50 mg= 1 tab(s), Oral, Daily Tylenol Extra Strength 500 mg oral tablet, 1000 mg= 2 tab(s), Oral, TID, PRN Xarelto 15 mg oral tablet, 15 mg= 1 tab(s), Oral, qPM, 1 refills Allergies No Known Allergies Social History Alcohol - Denies Alcohol Use, 07/26/2018 Household alcohol concerns: No., 08/15/2023 Substance Abuse - Denies Substance Abuse, 07/26/2018 Household substance abuse concerns: No., 02/09/2023 Tobacco - Denies Tobacco Use, 07/26/2018 Never (less than 100 in lifetime) Tobacco Use:. Never Smokeless Tobacco Use:. Household tobacco concerns: No., 10/27/2023 Family History Family history is unknown Screenings and Assessments 08/23/23 08:43:00 Result Name Value Comment CCM Written Consent Written consent obtained 07/11/23 14:07:00 Result Name Value Comment [facility] Program Enrollment Verbally agreed to receive [facility] services CCM Verbal Consent By Self 07/11/23 13:00:00 Result Name Value Comment HIPPA Verified Type of Contact Telephone Information Given by Self Information Given by Names zahida CM Preferred Spoken Language Tongan CM Preferred Written Language Tongan Preferred Communication Mode Verbal Ability to Read/Write Able to read, Able to write Preferred Salutation MrsLydia Embryology Teacher Called No Preferred Method of Contact Home Home Phone [phone] Best Time to Visit or Contact 1-5 pm Best Day to Visit or Contact No preference Appointment Reminders Phone Preferred Way to Send PHI Standard mail Preferred Mailing Address [address] [place] [address] Learning Style Pref Patient Printed materials Learning Style Pref Parent/Guardian Printed materials Teaching Method Printed materials Barriers to Learning None evident Cognitive Deficit No Response to Current Year Correct Response to Current Month Correct Response to Current Time Correct [facility] Test Score Indication None or no significant cognitive impairment Count Backward 20 to 1 Correct State Months in Reverse Order 1 Error Repeat Memory Phrase Correct Lives In Multilevel home Number in Household 2 Sleeping Arrangement Own bed, in room alone Support System Spouse/Significant other, Family member(s) Primary Hr Analyst of Home Medication Self Medication Adherence Method Does not use any method Home Equipment, Anticipated Cane, Shower chair Current DME at Home No Currently Receiving Skilled Services No Skilled Service Needs Anticipated No Barriers to Care None Home Barriers None Employment Status Retired Financial Issues None Sources of Income Social Security Rate Your Physical Health Good CM Hearing Evaluation No hearing impairment CM Vision Evaluation Difficulty seeing far away (near-sighted) CM Speech Communication No communication impairment CM Sensory Perception No sensory perception impairment CM Fine, Gross Motor Skills No impairment musculoskeletal, fine, gross motor development General Symptoms Joint aches (arthralgia) Respiratory Symptoms None Cardiovascular Symptoms None GI Symptoms None Genitourinary Symptoms Nocturia Urinary Elimination Voiding, no difficulties Skin Symptoms None Wound Type None Orientation Assessment Oriented x 4 Mo (more content not included)... Normal [facility] Office Visiton 07-01-2023 Follow-up visit [id number] Jess Batista 1935 F Date Provider Department Center 07/01/2023 [facility] Family History Problem Relation Age of Onset Prostate cancer Father Family Status - Relation Status Age at Father Level of Service:61214 [place] OFFICE/OUTPATIENT ESTABLISHED MOD [facility] 30-39 MIN Reason for Visit and Comments: Follow-up [468273] - PATIENT IS HERE TO DISCUSS SNEHA Pickard [facility] XR clavicle RT*on 03-15-2023 XR clavicle RT* [facility] Main [place] [address] [place] [address] XRay Report Signed Patient: Zahida Batista MR#: [id number] 151 : 1935 Acct:[id number] Age/Sex: 88 / F ADM Date: 03/15/23 Loc: [facility] Room: Type: [facility] Attending Dr: Barbie Weston MD Copies to: Barbie Weston MD Ordering Provider: Barbie Weston MD Date of Service: 03/15/23 XR/XR clavicle RT*: Closed nondisplaced fracture of shaft of right clavicle, ini 2 views right clavicle plain film COMPARISON: 02/01/2023 HISTORY: Status post right clavicle fracture Continued healing of right mid shaft clavicle fracture identified. Unchanged bony alignment. XR/XR clavicle RT* IMPRESSION: Healing fracture with stable alignment Impression dictated by: Thiago Chowdhury M.D.03/15/2023 5:02 PM Dictation Location: [place] [address] Transcribed By: [facility] 03/15/231701 Dictated By: Thiago Chowdhury DO 03/15/231700 Signed By: 03/15/23 1702 Normal [facility] XR clavicle RT* [facility] [employer] Other XR clavicle RT* [facility] Main [place] [employer] Other XR clavicle RT* [address] [facility] No rt [employer] Other XR clavicle RT* [place] [address] [facility] [employer] Other XR clavicle RT* XRay Report [facility] [employer] Other XR clavicle RT* Signed [employer] Other XR clavicle RT* Patient: Jess Batista MR#: [id number] [place] [facility] [employer] Other XR clavicle RT* [address] [employer] Other XR clavicle RT* : 1935 Acct:[id number] [place] [facility] Other XR clavicle RT* Age/Sex: 88 / F ADM Date: 03/15/23 [place] [facility] [employer] Other XR clavicle RT* Loc: [facility] Room: Type : [facility] [employer] Other XR clavicle RT* Attending Dr: Veronica Weston MD [place] [facility] [employer] Other XR clavicle RT* Copies to: Barbie Weston MD [place] [facility] [employer] Other XR clavicle RT* Ordering Provider: Barbie Weston MD [employer] Other XR clavicle RT* Date of Service: 03/15/23 [employer] Other XR clavicle RT* XR/XR clavicle RT*: Closed nondisplaced fracture of shaft of right [employer] Other XR clavicle RT* clavicle, ini [employer] Other XR clavicle RT* 2 views right clavic le plain film [employer] Other XR clavicle RT* COMPARISON: 02/01/2023 [place] [employer] Other XR clavicle RT* HISTORY: Status post right clavicle fracture [employer] Other XR clavicle RT* Continued healing of right mid shaft clavicle fracture identified. Unchanged bony alignment. [employer] Other XR clavicle RT* X R/XR clavicle RT* [employer] Other XR clavicle RT* IMPRESSION: Healing fracture with stable alignment [place] [employer] Other XR clavicle RT* Impression dictated by: Thiago Chowdhury M.D.03/15/2023 5:02 PM [employer] Other XR clavicle RT* Dictation Location: [address] [employer] Other XR clavicle RT* Transcribed By: PWS 03/15/23 [facility] [employer] Other XR clavicle RT* Dictated By: Darryl Chowdhury DO 03/15/[address] [place] [address] [employer] Other XR clavicle RT* Signed By: [employer] [facility] [employer] Other XR clavicle RT* 03/15/23 [facility] [employer] Other CBC AUTO DIFFon 02-10-2023 BASO # 0.1 103/ul Normal 0.0-0.1 [facility] Comment on above: Performed By: #### C BC #### [facility] [address] [address] [address] Mihcael Domínguez Basophils/100 WBC (Bld) 1.2 % Normal 0.2-2.0 [facility] Comment on above: Performed By: #### C BC #### [facility] [address] [address] [address] Michael Domínguez EO # 0.2 103/ul Normal 0.0-0.7 [facility] Comment on above: Performed By: #### C BC #### [facility] [address] [place] [address] Dr. Michael Domínguez Eosinophils/100 WBC (Bld) 3.5 % Normal 0.9-7.0 [facility] Comment on above: Performed By: #### C BC #### [facility] [address] [place] [address] Dr. Michael Domínguez Erythrocyte distribution width (RBC) [Ratio] 15.9 % Critically high 11.0-15.0 [facility] Comment on above: Performed By: #### C BC #### [facility] [address] [place] [address] Dr. Michael Domínguez Hematocrit (Bld) [Volume fraction] 32.0 % Critically low 36.0-48.0 [facility] Comment on above: Performed By: #### C BC #### [facility] [address] [place] [address] Dr. Michael Domínguez Hemoglobin (Bld) [Mass/Vol] 9.9 g/dL Critically low 12.0-16.0 [facility] Comment on above: Performed By: #### C BC #### [facility] [address] [place] [address] Dr. Michael Domínguez IG # 0.03 10e3/ul Normal 0.00-0.03 [facility] Comment on above: Performed By: #### C BC #### [facility] [address] [place] [address] Dr. Michael Domínguez IG % 0.5 % Normal 0.0-0.5 [facility] Comment on above: Performed By: #### C BC #### [facility] [address] [place] [address] Dr. Michael Domínguez LYMPH # 1.4 103/ul Normal 1.2-3.8 [facility] Comment on above: Performed By: #### C BC #### [facility] [address] [place] [address] Dr. Michael Domínguez Lymphocytes/100 WBC (Bld) 23.1 % Normal 20.5-60.0 [facility] Comment on above: Performed By: #### C BC #### [facility] [address] [place] [address] Dr. Michael Domínguez MANUAL DIFF REQ NO Normal [facility] Comment on above: Performed By: #### C BC #### [facility] [address] [place] [address] Dr. Michael Domínguez MCH (RBC) [Entitic mass] 26.3 pg Critically low 26.7-34.0 [facility] Comment on above: Performed By: #### C BC #### [facility] [address] [place] [address] Dr. Michael oDmínguez MCHC (RBC) [Mass/Vol] 30.9 g/dL Normal 29.9-35.2 [facility] Comment on above: Performed By: #### C BC #### [facility] [address] [place] [address] Dr. Michael Domínguez MCV (RBC) [Entitic vol] 85.1 fL Normal 81.0-99.0 [facility] Comment on above: Performed By: #### C BC #### [facility] [address] [place] [address] Dr. Michael Domínguez MONO # 0.8 103/ul Normal 0.3-0.8 [facility] Comment on above: Performed By: #### C BC #### [facility] [address] [place] [address] Dr. Michael Domínguez Monocytes/100 WBC (Bld) 13.1 % Critically high 1.7-12.0 [facility] Comment on above: Performed By: #### C BC #### [facility] [address] [place] [address] Dr. Michael Domínguez NEUT # 3.6 103/ul Normal 1.4-6.5 [facility] Comment on above: Performed By: #### C BC #### [facility] [address] [place] [address] Dr. Michael Domínguez Neutrophils/100 WBC (Bld) 58.6 % Normal 43.0-75.0 [facility] Comment on above: Performed By: #### C BC #### [facility] [address] [address] [address] Michael Domínguez Platelet mean volume (Bld) [Entitic vol] 8.6 fL Critically low 9.5-13.5 [facility] Comment on above: Performed By: #### C BC #### [facility] [address] [address] [address] Michael Domínguez PLT 371 103/ul Normal 150-450 [facility] Comment on above: Performed By: #### C BC #### [facility] [address] [address] [address] Michael Domínguez RBC 3.76 106/ul Critically low 4.20-5.40 [facility] Comment on above: Performed By: #### C BC #### [facility] [address] [place] [address] Dr. Michael Domínguez WBC 6.1 103/ul Normal 4.0-11.0 [facility] Comment on above: Performed By: #### C BC #### [facility] [address] [place] [address] Dr. Michael Domínguez PROF 14(COMP METB)on 023 Albumin [Mass/Vol] 3.4 g/dL Normal 3.4-5.0 [facility] Comment on above: Performed By: #### C MP #### [facility] [address] [place] [address] Dr. Michael Domínguez Albumin/Globulin [Mass ratio] 0.8 {ratio} Normal [facility] Comment on above: Performed By: #### C MP #### [facility] [address] [place] [address] Dr. Michael Domínguez ALP [Catalytic activity/Vol] 72 U/L Normal 46-116 [facility] Comment on above: Performed By: #### C MP #### [facility] [address] [place] [address] Dr. Michael Domínguez ALT [Catalytic activity/Vol] 11 U/L Critically low 14-59 [facility] Comment on above: Performed By: #### C MP #### [facility] [address] [address] [address] Michael Domínguez Anion gap [Moles/Vol] 12.7 mmol/L Normal [facility] Comment on above: Performed By: #### C MP #### [facility] [address] [address] [address] Michael Domínguez AST [Catalytic activity/Vol] 13 U/L Critically low 15-37 [facility] Comment on above: Performed By: #### C MP #### [facility] [address] [address] [address] Michael Domínguez Bilirubin [Mass/Vol] 0.2 mg/dL Normal 0.2-1.0 [facility] Comment on above: Performed By: #### C MP #### [facility] [address] [address] [address] Michael Domínguez Calcium [Mass/Vol] 9.4 mg/dL Normal 8.5-10.1 [facility] Comment on above: Performed By: #### C MP #### [facility] [address] [address] [address] Michael Domínguez Chloride [Moles/Vol] 107 mmol/L Normal 98-107 [facility] Comment on above: Performed By: #### C MP #### [facility] [address] [address] [address] Michael Domínguez CO2 [Moles/Vol] 26.4 mmol/L Normal 21.0-32.0 [facility] Comment on above: Performed By: #### C MP #### [facility] [address] [address] [address] Michael Domínguez Creatinine [Mass/Vol] 1.08 mg/dL Critically high 0.55-1.02 [facility] Comment on above: Performed By: #### C MP #### [facility] [address] [address] [address] Michael Domínguez EGFR-AF CHINESE 58 mL/min/1.73m2 Critically low >=60 [facility] Comment on above: Performed By: #### C MP #### [facility] [address] [address] [address] Michael Domínguez EGFR-NON AF CHINESE 48 mL/min/1.73m2 Critically low >=60 [facility] Comment on above: Performed By: #### C MP #### [facility] [address] [address] [address] Michael Domínguez Globulin (S) [Mass/Vol] 4.2 g/dL Normal [facility] Comment on above: Performed By: #### C MP #### [facility] [address] [address] [address] Michael Domínguez Glucose [Mass/Vol] 85 mg/dL Normal 74-106 [facility] Comment on above: Performed By: #### C MP #### [facility] [address] [address] [address] Michael Domínguez Potassium [Moles/Vol] 5.1 mmol/L Normal 3.5-5.1 [facility] Comment on above: Performed By: #### C MP #### [facility] [address] [address] [address] Michael Domínguez Protein [Mass/Vol] 7.6 g/dL Normal 6.4-8.2 [facility] Comment on above: Performed By: #### C MP #### [facility] [address] [address] [address] Michael Domínguez Sodium [Moles/Vol] 141 mmol/L Normal 136-145 [facility] Comment on above: Performed By: #### C MP #### [facility] [address] [address] [address] Michael Domínguez Urea nitrogen [Mass/Vol] 19.0 mg/dL Critically high 7.0-18.0 [facility] Comment on above: Performed By: #### C MP #### [facility] [address] [address] [address] Michael Domínguez Urea nitrogen/Creatinine [Mass ratio] 17.6 mg/mg Normal [facility] Comment on above: Performed By: #### C MP #### [facility] [address] [address] [address] Michael Domínguez XR clavicle RT*on 02-01-2023 XR clavicle RT* [facility] [address] [place] [address] [place] [address] XRay Report Signed Patient: Zahida Batista MR#: [id number] 151 : 1935 Acct:[id number] Age/Sex: 88 / F ADM Date: 02/01/23 Loc: [facility] Room: Type: [facility] Attending Dr: Barbie Weston MD Copies to: Barbie Weston MD Ordering Provider: Barbie Weston MD Date of Service: 02/01/23 XR/XR clavicle RT*: Closed nondisplaced fracture of shaft of right clavicle, ini XR clavicle RT* 02/01/2023 10:52 AM SIGNS AND SYMPTOMS: Follow-up fracture of right clavicle PROTOCOL: Frontal and axial views of the right clavicle COMPARISON: 12/14/2022 FINDINGS: There is increasing periosteal new bone formation traversing a mid shaft fracture of the right clavicle without change in alignment. The visualized right hemithorax is unchanged. Healing posterior right-sided rib fractures are redemonstrated. XR/XR clavicle RT* IMPRESSION: There is increasing periosteal new bone formation traversing a mid shaft fracture of the right clavicle without change in alignment. Redemonstration of a healing rib fractures posteriorly on the right. Impression dictated by: Jeremy Casillas M.D.02/01/2023 3:15 PM Dictation Location: [place] [address] Transcribed By: [facility] 02/01/23 1515 Dictated By: Jeremy Casillas II, MD 02/01/23 1514 Signed By: 02/01/23 1515 Normal [facility] XR clavicle RT* [facility] [employer] Other XR clavicle RT* [facility] Main [facility] [employer] [facility] XR clavicle RT* [address] [place] [address] [facility] [employer] Other XR clavicle RT* [place] [address] [address] [facility] [employer] Other XR clavicle RT* XRay Report [facility] [employer] Other XR clavicle RT* Signed [facility] [employer] Other XR clavicle RT* Patient: Jess Batista MR#: [id number] [place] [employer] Other XR clavicle RT* [address] [facility] [employer] Other XR clavicle RT* : 1935 Acct:[id number] [place] [employer] Other XR clavicle RT* Age/Sex: 88 / F ADM Date: 02/01/23 [employer] Other XR clavicle RT* Loc: [facility] Room: Type : [facility] [employer] Other XR clavicle RT* Attending Dr: Veronica Weston MD [employer] Other XR clavicle RT* Copies to: Barbie Weston MD [employer] Other XR clavicle RT* Ordering Provider: Barbie Wetson MD [employer] Other XR clavicle RT* Date of Service: 02/01/23 [employer] Other XR clavicle RT* XR/XR clavicle RT*: Closed nondisplaced fracture of shaft of right [employer] Other XR clavicle RT* clavicle, ini [employer] Other XR clavicle RT* XR clavicle RT* 02/01 10:52 AM [employer] Other XR clavicle RT* SIGNS AND SYMPTOMS: Follow-up fracture of right clavicle [employer] Other XR clavicle RT* PROTOCOL: Frontal an d axial views of the right clavicle [employer] Other XR clavicle RT* COMPARISON: 12/14/2022 [employer] Other XR clavicle RT* FINDINGS: [employer] Other XR clavicle RT* There is increasing periosteal new bone formation traversing a mid shaft fracture of the right [employer] Other XR clavicle RT* clavicle without paula nge in alignment. The visualized right hemithorax is unchanged. Healing [employer] Other XR clavicle RT* posterior right-side d rib fractures are redemonstrated. [employer] Other XR clavicle RT* X R/XR clavicle RT* [employer] Other XR clavicle RT* IMPRESSION: [employer] Other XR clavicle RT* clavicle without paula nge in alignment. [employer] Other XR clavicle RT* Redemonstration of a healing rib fractures posteriorly on the right. [employer] Other XR clavicle RT* Impression dictated by: Jeremy Casillas M.D.02/01/2023 3:15 PM [employer] Other XR clavicle RT* Dictation Location: [place] [address] [employer] Other XR clavicle RT* Transcribed By: FILIPE 02/01/23 [facility] [employer] Other XR clavicle RT* Dictated By: Jeremy Casillas II, MD 02/01/23 [facility]8 [employer] Other XR clavicle RT* Signed By: [employer] Other XR clavicle RT* 02/01/23 [facility]7 [employer] Other XR clavicle RT*on 12-14-2022 XR clavicle RT* [facility] Main [place] [address] [place] [address] XRay Report Signed Patient: Zahida Batista MR#: [id number] 151 : 1935 Acct:[id number] Age/Sex: 87 / F ADM Date: 11/30/22 Loc: Room: 8I0861-0 Type: ADM IN Attending Dr: Mohit Willson MD Copies to: Mohit Willson MD Ordering Provider: Mohit Willson MD Date of Service: 12/14/22 XR/XR clavicle RT*: f/u s/p fx 2 views RIGHT clavicle COMPARISON: 11/25/22 HISTORY: Follow-up assessment of RIGHT clavicle fracture. There is redemonstration of the RIGHT mid clavicle fracture with overriding fragments identified. XR/XR clavicle RT* IMPRESSION: Redemonstration of RIGHT clavicle fracture with developing overriding fragments. Impression dictated by: Thiago Chowdhury M.D.12/14/2022 9:57 AM Dictation Location: [place] [address] Transcribed By: [facility] 12/14/22 0957 Dictated By: Thiago Chowdhury DO 12/14/22 0948 Signed By: 12/14/22 0957 Normal [facility] COVID-19 FRon 12-13-2022 SARS-CoV-2 (COVID-19) RNA SARAH+probe Ql (Unsp spec) Negative Normal Negative [facility] Comment on above: Order Comment: Comme nt for SNF placement Healthcare Worker?: N Result Comment: Testing for SARS-CoV-2 by RT-PCR This test was developed and its performance characteristics determined by [employer] and validated at the [facility]. This test has not been FDA cleared or approved. This test has been authorized by FDA under an Emergency Use Authorization (EUA). This test has been validated in accordance with the FDA's Guidance Document (Policy for Diagnostics Testing in Laboratories Certified to Perform High Complexity Testing under CLIA prior to Emergency Use Authorization for Coronavirus Disease-2019 during the Public Health Emergency) issued on February 14, 2020. This test is only authorized for the duration of time the declaration that circumstances exist justifying the authorization of the emergency use of in vitro diagnostic tests for detection of SARS-CoV-2 virus and/or diagnosis of COVID-19 infection under section 564(b)(1) of the Act, 21 U.S.C. 360bbb-3(b)(1), unless the authorization is terminated or revoked sooner. PERFORMED BY: [place] [address] PATHOLOGIST POULTRY HATCHERY MANAGER MICHAEL RYAN M.D. Performed By: #### C BC, BMP, HS TROP #### [facility] [address] COVID-19 Positive/NegativeOr dered By: Mohit Willson on 12-13-2022 SARS-CoV-2 (COVID-19) N gene SARAH+probe Ql (Resp) Negative Negative [facility] Comment on above: Testing for SARS-CoV -2 by RT-PCRThis test was developed and its performance characteristics determined by [employer] and validated at the [facility]. This test has not been FDA cleared or approved. This test has been authorized by FDA under an Emergency Use Authorization (EUA). This test has been validated in accordance with the FDA's Guidance Document (Policy for Diagnostics Testing in Laboratories Certified to Perform High Complexity Testing under CLIA prior to Emergency Use Authorization for Coronavirus Disease-2019 during the Public Health Emergency) issued on February 14, 2020. This test is only authorized for the duration of time the declaration that circumstances exist justifying the authorization of the emergency use of in vitro diagnostic tests for detection of SARS-CoV-2 virus and/or diagnosis of COVID-19 infection under section 564(b)(1) of the Act, 21 U.S.C. 360bbb-3(b)(1), unless the authorization is terminated or revoked sooner. CT biopsyOrdered By: Kathie hardin on 12-09-2022 Transferrin [Mass/Vol] 256 mg/dL 180-380 [facility] Ferritinon 12-09-2022 Ferritin [Mass/Vol] 69.0 ng/mL Normal 11-306.8 [facility] Comment on above: Result Comment: PERF ORMED BY: [facility] [address] [place] [address] PATHOLOGIST POULTRY HATCHERY MANAGER MICHAEL RYAN M.D. Performed By: #### F E and TIBC, GENARO #### [facility] [address] Ferritin [Mass/volume] in Se rum or PlasmaOrdered By: Kathie Hoyt on 12-09-2022 Ferritin [Mass/Vol] 69.0 ng/mL 11-306.8 [facility] Iron [Mass/volume] in Serum or PlasmaOrdered By: Kathie Obika on 12-09-2022 Iron [Mass/Vol] 27 ug/dL 40-150 [facility] Iron and TIBC Profileon 11-15 % Iron Saturation 7.5 % Low 20-50 [facility] Comment on above: Performed By: #### F E and TIBC, GENARO #### [facility] [address] [place] [address] Iron [Mass/Vol] 27 ug/dL Low 40-150 [facility] Comment on above: Performed By: #### F E and TIBC, GENARO #### [facility] [address] [place] [address] Total Iron Binding Capacity 358 ug/dL Normal 255-450 [facility] Comment on above: Performed By: #### F E and TIBC, GENARO #### [facility] [address] [place] [address] Transferrin [Mass/Vol] 256 mg/dL Normal 180-380 [facility] Comment on above: Performed By: #### F E and TIBC, GENARO #### [facility] [address] [place] [address] [place] Iron binding capacity [Mass/ volume] in Serum or PlasmaOrdered By: Kathie Obsara on 12-09-2022 Iron binding capacity [Mass/Vol] 358 ug/dL 255-450 [facility] Iron saturation [Mass Fracti on] in Serum or PlasmaOrdered By: Kathie Obika on 12-09-2022 Iron saturation [Mass fraction] 7.5 % 20-50 [facility] Basic Metabolic Panelon 11-15 Anion gap [Moles/Vol] 11.0 mmol/L Normal 6.0-15.0 [facility] Comment on above: Performed By: #### B MP, CBC #### [facility] [address] Calcium [Mass/Vol] 8.7 mg/dL Normal 8.2-10.2 [facility] Comment on above: Performed By: #### B MP, CBC #### [facility] [address] Chloride [Moles/Vol] 105 mmol/L Normal 95-114 [facility] Comment on above: Performed By: #### B MP, CBC #### [facility] [address] CO2 [Moles/Vol] 25.4 mmol/L Normal 22.0-30.0 [facility] Comment on above: Performed By: #### B MP, CBC #### [address] Creatinine [Mass/Vol] 0.99 mg/dL Normal 0.44-1.03 [facility] Comment on above: Performed By: #### B MP, CBC #### [facility] [address] [place] [address] [place] Creatinine Clr Calc Pharmacy 41.91 [facility] Comment on above: Result Comment: PERF ORMED BY: [place] [address] PATHOLOGIST POULTRY HATCHERY MANAGER MICHAEL RYAN M.D. Performed By: #### B MP, CBC #### [facility] [address] [place] [address] Estimated GFR ( Deb > 60 [facility] Comment on above: Result Comment: GFR estimated reference range: According to KDOQI guidelines, <60 ml/min/1.73m2 is sufficient to diagnose a patient with chronic kidney disease. Performed By: #### B MP, CBC #### [facility] [address] [place] [address] [place] Estimated GFR (Non- Am 53 [facility] Comment on above: Performed By: #### B MP, CBC #### [place] [address] [place] Glucose [Mass/Vol] 96 mg/dL Normal 70-100 [facility] Comment on above: Result Comment: [facility] Glucose Reference Range is dependent on time and content of last meal. Glucose of more than 200 mg/dL in a nonstressed, ambulatory subject supports the diagnosis of Diabetes Mellitus. ADA recommended reference range Performed By: #### B MP, CBC #### [facility] [address] Potassium [Moles/Vol] 4.4 mmol/L Normal 3.5-5.1 [facility] Comment on above: Performed By: #### B MP, CBC #### [facility] [address] Sodium [Moles/Vol] 137 mmol/L Normal 136-146 [facility] Comment on above: Performed By: #### B MP, CBC #### [facility] [address] Urea nitrogen [Mass/Vol] 19 mg/dL Normal 9-23 [facility] Comment on above: Performed By: #### B MP, CBC #### [facility] [address] [place] [address] [place] Basophils Auto (Bld) [#/Vol] Ordered By: Mohit Willson on 12-06-2022 Basophils (Bld) [#/Vol] 0.1 10*3/uL 0.0-0.2 [facility] Basophils/100 WBC Auto (Bld) Ordered By: Mohit Willson on 12-06-2022 Basophils/100 WBC (Bld) 1.3 % . [facility] Complete Blood Count Auto Di ffon 12-06-2022 Basophils (Bld) [#/Vol] 0.1 10*3/uL Normal 0.0-0.2 [facility] Comment on above: Result Comment: PERF ORMED BY: [place] [address] PATHOLOGIST POULTRY HATCHERY MANAGER MICHAEL RYAN M.D. Performed By: #### B MP, CBC #### [facility] [address] [place] [address] [place] Basophils/100 WBC (Bld) 1.3 % Normal . [facility] Comment on above: Performed By: #### B MP, CBC #### [facility] [address] Eosinophils (Bld) [#/Vol] 0.4 10*3/uL Normal 0.0-0.45 [facility] Comment on above: Performed By: #### B MP, CBC #### [facility] [address] Eosinophils/100 WBC (Bld) 7.6 % Normal . [facility] Comment on above: Performed By: #### B MP, CBC #### [address] Erythrocyte distribution width (RBC) [Ratio] 16.4 % High 11.9-15.3 [facility] Comment on above: Performed By: #### B MP, CBC #### [address] Hematocrit (Bld) [Volume fraction] 26.7 % Low 34.0-46.4 [facility] Comment on above: Performed By: #### B MP, CBC #### [address] Hemoglobin (Bld) [Mass/Vol] 8.6 g/dL Low 11.8-15.4 [facility] Comment on above: Performed By: #### B MP, CBC #### [place] [address] [place] Lymphocytes (Bld) [#/Vol] 1.1 10*3/uL Normal 1.00-4.8 [facility] Comment on above: Performed By: #### B MP, CBC #### [facility] [address] [place] [address] [place] Lymphocytes/100 WBC (Bld) 22.8 % Normal . [facility] Comment on above: Performed By: #### B MP, CBC #### [address] MCH (RBC) [Entitic mass] 26.3 pg Normal 24.7-34.3 [facility] Comment on above: Performed By: #### B MP, CBC #### [facility] [address] MCV (RBC) [Entitic vol] 81.6 fL Normal 80-100 [facility] Comment on above: Performed By: #### B MP, CBC #### [facility] [address] Mean Corpuscular HGB Conc 32.2 g/dL Normal 32.0-35.0 [facility] Comment on above: Performed By: #### B MP, CBC #### [facility] [address] Monocytes (Bld) [#/Vol] 0.8 10*3/uL Normal 0.0-0.8 [facility] Comment on above: Performed By: #### B MP, CBC #### [address] Monocytes/100 WBC (Bld) 15.9 % Normal . [facility] Comment on above: Performed By: #### B MP, CBC #### [facility] [address] Neutrophils (Bld) [#/Vol] 2.6 10*3/uL Normal 1.8-7.7 [facility] Comment on above: Performed By: #### B MP, CBC #### [facility] [address] [place] [address] [place] Neutrophils/100 WBC (Bld) 52.4 % Normal . [facility] Comment on above: Performed By: #### B MP, CBC #### [facility] [address] NRBC% 0.1 /100{WBC} Normal 0-0.5 [facility] Comment on above: Performed By: #### B MP, CBC #### [address] Platelet mean volume (Bld) [Entitic vol] 6.6 fL Normal 6.3-10.7 [facility] Comment on above: Performed By: #### B MP, CBC #### [facility] [address] [place] [address] [place] Platelets (Bld) [#/Vol] 325 10*3/uL Normal 150-450 [facility] Comment on above: Performed By: #### B MP, CBC #### [facility] [address] RBC (Bld) [#/Vol] 3.27 10*6/uL Low 3.60-5.00 [facility] Comment on above: Performed By: #### B MP, CBC #### [facility] [address] [place] [address] [place] WBC (Bld) [#/Vol] 4.9 10*3/uL Normal 3.8-11.6 [facility] Comment on above: Performed By: #### B MP, CBC #### [facility] [address] Creatinine and Glomerular fi ltration rate.predicted panel (S/P/Bld)Ordered By: Mohit Willson on 12-06-2022 Creatinine [Mass/Vol] 0.99 mg/dL 0.44-1.03 [facility] Eosinophils Auto (Bld) [#/Vo l]Ordered By: Mohit Willson on 12-06-2022 Eosinophils (Bld) [#/Vol] 0.4 10*3/uL 0.0-0.45 [facility] Eosinophils/100 WBC Auto (Bl d)Ordered By: Mohit Willson on 12-06-2022 Eosinophils/100 WBC (Bld) 7.6 % . [facility] Erythrocyte distribution wid th Auto (RBC) [Ratio]Ordered By: Mohit Willson on 12-06-2022 Erythrocyte distribution width (RBC) [Ratio] 16.4 % 11.9-15.3 [facility] Estimated glomerular filtrat ion rate (GFR) non- AmericanOrdered By: Mohit Willson on 12-06-2022 GFR/1.73 sq M.predicted among non-blacks MDRD (S/P/Bld) [Vol rate/Area] 53 mL/Min [facility] Hematocrit Auto (Bld) [Volum e fraction]Ordered By: Mohit Willson on 12-06-2022 Hematocrit (Bld) [Volume fraction] 26.7 % 34.0-46.4 [facility] Hemoglobin [Mass/volume] in BloodOrdered By: Mohit Willson on 12-06-2022 Hemoglobin (Bld) [Mass/Vol] 8.6 g/dL 11.8-15.4 [facility] Leukocytes [#/volume] correc tawana for nucleated erythrocytes in Blood by Automated counOrdered By: Mohit Willson on 12-06-2022 WBC corrected for nucl RBC Auto (Bld) [#/Vol] 4.9 10*3/uL 3.8-11.6 [facility] Lymphocytes Auto (Bld) [#/Vo l]Ordered By: Mohit Willson on 12-06-2022 Lymphocytes (Bld) [#/Vol] 1.1 10*3/uL 1.00-4.8 [facility] Lymphocytes/100 WBC Auto (Bl d)Ordered By: Mohit Willson on 12-06-2022 Lymphocytes/100 WBC (Bld) 22.8 % . [facility] MCH Auto (RBC) [Entitic mass ]Ordered By: Mohit Willson on 12-06-2022 MCH (RBC) [Entitic mass] 26.3 pg 24.7-34.3 [facility] MCHC Auto (RBC) [Mass/Vol]Or dered By: Mohit Willson on 12-06-2022 MCHC (RBC) [Mass/Vol] 32.2 g/dL 32.0-35.0 [facility] MCV Auto (RBC) [Entitic vol] Ordered By: Mohit Willson on 12-06-2022 MCV (RBC) [Entitic vol] 81.6 fL 80-100 [facility] Monocytes Auto (Bld) [#/Vol] Ordered By: Mohit Willson on 12-06-2022 Monocytes (Bld) [#/Vol] 0.8 10*3/uL 0.0-0.8 [facility] Monocytes/100 WBC Auto (Bld) Ordered By: Mohit Willson on 12-06-2022 Monocytes/100 WBC (Bld) 15.9 % . [facility] Neutrophils Auto (Bld) [#/Vo l]Ordered By: Mohit Willson on 12-06-2022 Neutrophils (Bld) [#/Vol] 2.6 10*3/uL 1.8-7.7 [facility] Neutrophils/100 WBC Auto (Bl d)Ordered By: Mohit Willson on 12-06-2022 Neutrophils/100 WBC (Bld) 52.4 % . [facility] No Panel InformationOrdered By: Mohit Willson on 12-06-2022 Estimated GFR () > 60 mL/Min [facility] Comment on above: GFR estimated refere nce range: According to KDOQI guidelines, <60 ml/min/1.73m2 is sufficient to diagnose a patient with chronic kidney disease. Pharmacy Creatinine Clearance (Chem 41.91 [facility] Nucleated erythrocytes [Pres ence] in Blood by Automated countOrdered By: Mohit Willson on 12-06-2022 Nucleated RBC Auto Ql (Bld) 0.1 /100{WBC} 0-0.5 [facility] Platelet mean volume Auto (B ld) [Entitic vol]Ordered By: Mohit Willson on 12-06-2022 Platelet mean volume (Bld) [Entitic vol] 6.6 fL 6.3-10.7 [facility] Platelets Auto (Bld) [#/Vol] Ordered By: Mohit Willson on 12-06-2022 Platelets (Bld) [#/Vol] 325 10*3/uL 150-450 [facility] RBC Auto (Bld) [#/Vol]Ordere d By: Mohit Willson on 12-06-2022 RBC (Bld) [#/Vol] 3.27 10*6/uL 3.60-5.00 [facility] Serum or plasma anion gap de terminationOrdered By: Mohit Willson on 12-06-2022 Anion gap [Moles/Vol] 11.0 mmol/L 6.0-15.0 [facility] Serum or plasma calcium kei urement (mass/volume)Ordered By: Mohit Willson on 12-06-2022 Calcium [Mass/Vol] 8.7 mg/dL 8.2-10.2 [facility] Serum or plasma chloride sari surement (moles/volume)Ordered By: Mohit Willson on 12-06-2022 Chloride [Moles/Vol] 105 mmol/L 95-114 [facility] Serum or plasma glucose kei urement (mass/volume)Ordered By: Mohit Willson on 12-06-2022 Glucose [Mass/Vol] 96 mg/dL 70-100 [facility] Comment on above: ADA recommended refe rence rangeRandom Glucose Reference Range is dependent on time and content of last meal. Glucose of more than 200 mg/dL in a nonstressed, ambulatory subject supports the diagnosis of Diabetes Mellitus. Serum or plasma potassium me asurement (moles/volume)Ordered By: Mohit Willson on 12-06-2022 Potassium [Moles/Vol] 4.4 mmol/L 3.5-5.1 [facility] Serum or plasma sodium measu rement (moles/volume)Ordered By: Mohit Willson on 12-06-2022 Sodium [Moles/Vol] 137 mmol/L 136-146 [facility] Serum or plasma total carbon dioxide measurement (moles/volume)Ordered By: Mohit Willson on 12-06-2022 CO2 [Moles/Vol] 25.4 mmol/L 22.0-30.0 [facility] Serum or plasma urea nitroge n measurement (mass/volume)Ordered By: Mohit Willson on 12-06-2022 Urea nitrogen [Mass/Vol] 19 mg/dL 9-23 [facility] WBC Auto (Bld) [#/Vol]Ordere d By: Mohit Willson on 12-06-2022 WBC (Bld) [#/Vol] 4.9 10*3/uL 3.8-11.6 [facility] XR chest 2V*on 12-02-2022 XR chest 2V* [facility] [place] [address] XRay Report Signed Patient: Zahida Batista MR#: [id number] 151 : 1935 Acct:[id number] Age/Sex: 87 / F ADM Date: 11/30/22 Loc: Room: [address] [place] [address] Type: ADM IN Attending Dr: Mohit Willson MD Copies to: Mohit Willson MD Ordering Provider: Mohit Willson MD Date of Service: 12/02/22 XR/XR chest 2V*: f/u s/p R Pneumothorax Plain film chest2 view HISTORY:Follow-up right pneumonia COMPARISON:11/30/2022 FINDINGS: Cardiac, mediastinal and hilar silhouettes are stable. Continued right basilar pleural- parenchymal changes. No pneumothorax. Minimal left basilar linear atelectasis/scarring. Bony structures are intact. XR/XR chest 2V* IMPRESSION: Similar right basilar pleural-parenchymal changes. Impression dictated by: Thiago Chowdhury M.D.12/02/2022 4:33 PM Dictation Location: [place] [address] Transcribed By: [facility] 12/02/22 163 Dictated By: Thiago Chowdhury DO 12/02/22 1632 Signed By: 12/02/22 1633 Normal [facility] Albumin [Mass/volume] in Ser um or PlasmaOrdered By: Tasneem Cabrales on 12-01-2022 Albumin [Mass/Vol] 2.5 g/dL 3.2-5.5 [facility] Complete Blood Count Auto Di ffon 12-01-2022 Basophils (Bld) [#/Vol] 0.1 10*3/uL Normal 0.0-0.2 [facility] Comment on above: Result Comment: PERF ORMED BY: [place] [address] PATHOLOGIST POULTRY HATCHERY MANAGER MICHAEL RYAN M.D. Performed By: #### B MP, CBC #### [facility] [address] [place] [address] [place] Basophils/100 WBC (Bld) 0.9 % Normal . [facility] Comment on above: Performed By: #### B MP, CBC #### [facility] [address] Eosinophils (Bld) [#/Vol] 0.3 10*3/uL Normal 0.0-0.45 [facility] Comment on above: Performed By: #### B MP, CBC #### [address] Eosinophils/100 WBC (Bld) 4.8 % Normal . [facility] Comment on above: Performed By: #### B MP, CBC #### [address] Erythrocyte distribution width (RBC) [Ratio] 16.2 % High 11.9-15.3 [facility] Comment on above: Performed By: #### B MP, CBC #### [address] Hematocrit (Bld) [Volume fraction] 27.5 % Low 34.0-46.4 [facility] Comment on above: Performed By: #### B MP, CBC #### [address] Hemoglobin (Bld) [Mass/Vol] 9.0 g/dL Low 11.8-15.4 [facility] Comment on above: Performed By: #### B MP, CBC #### [address] Lymphocytes (Bld) [#/Vol] 0.9 10*3/uL Low 1.00-4.8 [facility] Comment on above: Performed By: #### B MP, CBC #### [address] Lymphocytes/100 WBC (Bld) 14.0 % Normal . [facility] Comment on above: Performed By: #### B MP, CBC #### [address] MCH (RBC) [Entitic mass] 26.8 pg Normal 24.7-34.3 [facility] Comment on above: Performed By: #### B MP, CBC #### [address] MCV (RBC) [Entitic vol] 82.0 fL Normal 80-100 [facility] Comment on above: Performed By: #### B MP, CBC #### [address] Mean Corpuscular HGB Conc 32.6 g/dL Normal 32.0-35.0 [facility] Comment on above: Performed By: #### B MP, CBC #### [address] Monocytes (Bld) [#/Vol] 0.9 10*3/uL High 0.0-0.8 [facility] Comment on above: Performed By: #### B MP, CBC #### [address] Monocytes/100 WBC (Bld) 14.4 % Normal . [facility] Comment on above: Performed By: #### B MP, CBC #### [address] Neutrophils (Bld) [#/Vol] 4.1 10*3/uL Normal 1.8-7.7 [facility] Comment on above: Performed By: #### B MP, CBC #### [address] Neutrophils/100 WBC (Bld) 65.9 % Normal . [facility] Comment on above: Performed By: #### B MP, CBC #### [address] NRBC% 0.0 /100{WBC} Normal 0-0.5 [facility] Comment on above: Performed By: #### B MP, CBC #### [address] Platelet mean volume (Bld) [Entitic vol] 6.7 fL Normal 6.3-10.7 [facility] Comment on above: Performed By: #### B MP, CBC #### [address] Platelets (Bld) [#/Vol] 295 10*3/uL Normal 150-450 [facility] Comment on above: Performed By: #### B MP, CBC #### [address] RBC (Bld) [#/Vol] 3.35 10*6/uL Low 3.60-5.00 [facility] Comment on above: Performed By: #### B MP, CBC #### [address] WBC (Bld) [#/Vol] 6.2 10*3/uL Normal 3.8-11.6 [facility] Comment on above: Performed By: #### B MP, CBC #### [address] Comprehensive Metabolic Pane joseph 12-01-2022 Albumin [Mass/Vol] 2.5 g/dL Low 3.2-5.5 [facility] Comment on above: Performed By: #### B MP, CBC #### [address] Albumin/Globulin [Mass ratio] 0.7 {ratio} Normal [facility] Comment on above: Performed By: #### B MP, CBC #### [address] ALP [Catalytic activity/Vol] 40 U/L Normal 32-92 [facility] Comment on above: Performed By: #### B MP, CBC #### [address] ALT [Catalytic activity/Vol] 12 U/L Normal 10-60 [facility] Comment on above: Performed By: #### B MP, CBC #### [address] Anion gap [Moles/Vol] 14.2 mmol/L Normal 6.0-15.0 [facility] Comment on above: Performed By: #### B MP, CBC #### [address] AST [Catalytic activity/Vol] 13 U/L Normal 10-42 [facility] Comment on above: Performed By: #### B MP, CBC #### [address] Bilirubin [Mass/Vol] 0.4 mg/dL Normal 0.3-1.2 [facility] Comment on above: Performed By: #### B MP, CBC #### [facility] [address] Calcium [Mass/Vol] 8.8 mg/dL Normal 8.2-10.2 [facility] Comment on above: Performed By: #### B MP, CBC #### [facility] [address] Chloride [Moles/Vol] 99 mmol/L Normal 95-114 [facility] Comment on above: Performed By: #### B MP, CBC #### [facility] [address] CO2 [Moles/Vol] 24.1 mmol/L Normal 22.0-30.0 [facility] Comment on above: Performed By: #### B MP, CBC #### [facility] [address] Creatinine [Mass/Vol] 1.03 mg/dL Normal 0.44-1.03 [facility] Comment on above: Performed By: #### B MP, CBC #### [facility] [address] [place] [address] [place] Creatinine Clr Calc Pharmacy 40.28 [facility] Comment on above: Performed By: #### B MP, CBC #### [facility] [address] Estimated GFR ( Deb > 60 [facility] Comment on above: Result Comment: GFR estimated reference range: According to KDOQI guidelines, <60 ml/min/1.73m2 is sufficient to diagnose a patient with chronic kidney disease. Performed By: #### B MP, CBC #### [facility] [address] [place] [address] [place] Estimated GFR (Non- Am 51 [facility] Comment on above: Performed By: #### B MP, CBC #### [facility] [address] [place] [address] [place] Globulin (S) [Mass/Vol] 3.6 g/dL [facility] Comment on above: Performed By: #### B MP, CBC #### [facility] [address] Glucose [Mass/Vol] 97 mg/dL Normal 70-100 [facility] Comment on above: Result Comment: [place] Glucose Reference Range is dependent on time and content of last meal. Glucose of more than 200 mg/dL in a nonstressed, ambulatory subject supports the diagnosis of Diabetes Mellitus. ADA recommended reference range Performed By: #### B MP, CBC #### [facility] [address] Potassium [Moles/Vol] 4.3 mmol/L Normal 3.5-5.1 [facility] Comment on above: Performed By: #### B MP, CBC #### [facility] [address] Protein [Mass/Vol] 6.1 g/dL Normal 6.1-7.9 [facility] Comment on above: Performed By: #### B MP, CBC #### [facility] [address] Sodium [Moles/Vol] 133 mmol/L Low 136-146 [facility] Comment on above: Performed By: #### B MP, CBC #### [facility] [address] Urea nitrogen [Mass/Vol] 32 mg/dL High 9-23 [facility] Comment on above: Performed By: #### B MP, CBC #### [facility] [address] Globulin Calc (S) [Mass/Vol] Ordered By: Tasneem Cabrales on 12-01-2022 Globulin (S) [Mass/Vol] 3.6 g/dL [facility] Prealbuminon 12-01-2022 Prealbumin [Mass/Vol] 12.0 mg/dL Low 18.0-38.0 [facility] Comment on above: Result Comment: PERF ORMED BY: [place] [address] PATHOLOGIST POULTRY HATCHERY MANAGER MICHAEL RYAN M.D. Performed By: #### B MP, CBC #### [facility] [address] Protein [Mass/volume] in Ser um or PlasmaOrdered By: Tasneem Cabrales on 12-01-2022 Protein [Mass/Vol] 6.1 g/dL 6.1-7.9 [facility] Serum or plasma alanine ruiz otransferase measurement without P-5'-P (enzymatic activiOrdered By: Tasneem Cabrales on 12-01-2022 ALT No additional P-5'-P [Catalytic activity/Vol] 12 U/L 10-60 [facility] Serum or plasma albumin/glob ulin mass ratioOrdered By: Tasneem Cabrales on 12-01-2022 Albumin/Globulin [Mass ratio] 0.7 {ratio} [facility] Serum or plasma alkaline cindy sphatase measurement (enzymatic activity/volume)Ordered By: Tasneem Cabrales on 12-01-2022 ALP [Catalytic activity/Vol] 40 U/L 32-92 [facility] Serum or plasma aspartate am inotransferase measurement (enzymatic activity/volume)Ordered By: Tasneem Cabrales on 12-01-2022 AST [Catalytic activity/Vol] 13 U/L 10-42 [facility] Serum or plasma prealbumin m easurement (mass/volume)Ordered By: Tasneem Cabrales on 12-01-2022 Prealbumin [Mass/Vol] 12.0 mg/dL 18.0-38.0 [facility] Serum or plasma total biliru bin measurement (mass/volume)Ordered By: Tasneem Cabrales on 12-01-2022 Bilirubin [Mass/Vol] 0.4 mg/dL 0.3-1.2 [facility] XR chest 1V portableon 11-30 XR chest 1V portable [facility] [address] [place] [address] [place] [address] XRay Report Signed Patient: Zahida Batista MR#: [id number] 151 : 1935 Acct:[id number] Age/Sex: 87 / F ADM Date: 11/25/22 Loc: Room: [address] [place] [address] Type: ADM IN Attending Dr: Christian Aleman DO Copies to: Dulce Hubbard APRN, [facility] Aleman DO Ordering Provider: Dulce Hubbard APRN, ACNP-BC Date of Service: 11/30/22 XR/XR chest 1V portable: re-evaluate right PTX PORTABLE AP ERECT CHEST 0525 hours CLINICAL HISTORY: Follow-up right pneumothorax. Recent fall with rib fractures. COMPARISON: 11/29/2022 There is continued slight elevation of the left hemidiaphragm. There is mild bibasilar parenchymal change. Pleural effusion is also possible, particularly on the right. The right apical pneumothorax may be slightly smaller. The heart is not enlarged. There is no vascular congestion. Displaced right lateral rib fractures are seen. There is also a displaced fracture at the midshaft of the clavicle. There is thoracolumbar scoliotic curvature. XR/XR chest 1V portable IMPRESSION: RIGHT PNEUMOTHORAX, POTENTIALLY SLIGHTLY SMALLER. CONTINUED BIBASILAR PARENCHYMAL CHANGE AND POSSIBLE RIGHT EFFUSION. Impression dictated by: Sosa Allison M.D.11/30/2022 7:53 AM Dictation Location: [place] [address] Transcribed By: [facility] 11/30/22 075 Dictated By: Sosa Allison MD 11/30/22 0750 Signed By: 11/30/22 075 [facility] XR chest 1V portableon 11-29 XR chest 1V portable [facility] [address] [place] [address] [place] [address] XRay Report Signed Patient: Zahida Batista MR#: [id number] 151 : 1935 Acct:[id number] Age/Sex: 87 / F ADM Date: 11/25/22 Loc: 4N Room: 7N8611-1 Type: ADM IN Attending Dr: Christian Aleman DO Copies to: Dulce Hubbard APRN, [facility] Aleman DO Ordering Provider: Dulce Hubbard APRN, ACNP-BC Date of Service: 11/29/22 XR/XR chest 1V portable: evaluate right ptx Plain film chestsingle view HISTORY:Evaluate right pneumothorax COMPARISON:11/29/2022 FINDINGS: Cardiac, mediastinal and hilar silhouettes are stable. Stable mild to moderate right apical pneumothorax identified. Continued right basilar pleural-parenchymal changes. Redemonstration of multiple right rib fractures and right midclavicle fracture. XR/XR chest 1V portable IMPRESSION: Stable right apical pneumothorax. Impression dictated by: Thiago Chowdhury M.D.11/29/2022 4:05 PM Dictation Location: [place] [address] Transcribed By: [facility] 11/29/22 1605 Dictated By: Thiago Chowdhury DO 11/29/22 1603 Signed By: 11/29/22 1605 Normal [facility] XR chest 2V*on 11-29-2022 XR chest 2V* [facility] [address] [place] [address] [place] [address] XRay Report Signed Patient: Zahida Batista MR#: [id number] 151 : 1935 Acct:[id number] Age/Sex: 87 / F ADM Date: 11/25/22 Loc: Room: [address] [place] [address] Type: ADM IN Attending Dr: Kayleen Schmid MD Copies to: MD Kayleen Santana MD Ordering Provider: Dangelo Rayo MD Date of Service: 11/29/22 XR/XR chest 2V*: evalaute for hemothorax Plain film chest2 view HISTORY:Evaluation for hemothorax. Fell. Right clavicle fracture. Rib fractures. COMPARISON:CT chest 11/25/2022 FINDINGS: Cardiac, mediastinal and hilar silhouettes are stable. Multiple right lower lobe rib fractures and right clavicle fracture identified. Small accumulation of small right basilar hemothorax redemonstrated. Mild atelectasis identified. Developing small to moderate right apical pneumothorax. Bony structures are intact. XR/XR chest 2V* IMPRESSION: Developing small to moderate right apical pneumothorax. Redemonstration of a small hemothorax, multiple right rib fractures and right clavicle fracture. The preliminary report given 11/29/2022 at 8:14 AM. Impression dictated by: Thiago Chowdhury M.D.11/29/2022 8:15 AM Dictation Location: [place] [address] Transcribed By: [facility] 11/29/22814 Dictated By: Thiago Chowdhury DO 11/29/22804 Signed By: 11/29/22814 [facility] Basic Metabolic Panelon 11-14 Anion gap [Moles/Vol] 12.3 mmol/L Normal 6.0-15.0 [facility] Comment on above: Performed By: #### B MP, CBC #### [facility] [address] [place] [address] [place] Calcium [Mass/Vol] 8.8 mg/dL Normal 8.2-10.2 [facility] Comment on above: Performed By: #### B MP, CBC #### [facility] [address] [place] [address] [place] Chloride [Moles/Vol] 99 mmol/L Normal 95-114 [facility] Comment on above: Performed By: #### B MP, CBC #### [facility] [address] [place] [address] [place] CO2 [Moles/Vol] 23.9 mmol/L Normal 22.0-30.0 [facility] Comment on above: Performed By: #### B MP, CBC #### [facility] [address] [place] [address] [place] Creatinine [Mass/Vol] 1.22 mg/dL High 0.44-1.03 [facility] Comment on above: Performed By: #### B MP, CBC #### [facility] [address] [place] [address] [place] Creatinine Clr Calc Pharmacy 34.01 [facility] Comment on above: Result Comment: PERF ORMED BY: [place] [address] PATHOLOGIST POULTRY HATCH[employer] MANAGER MICHAEL RYAN M.D. Performed By: #### B MP, CBC #### [facility] [address] [place] [address] [place] Estimated GFR ( Deb 51 [facility] Comment on above: Result Comment: GFR estimated reference range: According to KDOQI guidelines, <60 ml/min/1.73m2 is sufficient to diagnose a patient with chronic kidney disease. Performed By: #### B MP, CBC #### [facility] [address] Estimated GFR (Non- Am 42 Normal [facility] Comment on above: Performed By: #### B MP, CBC #### [facility] [address] Glucose [Mass/Vol] 118 mg/dL High 70-100 [facility] Comment on above: Result Comment: [place] om Glucose Reference Range is dependent on time and content of last meal. Glucose of more than 200 mg/dL in a nonstressed, ambulatory subject supports the diagnosis of Diabetes Mellitus. ADA recommended reference range Performed By: #### B MP, CBC #### [address] Potassium [Moles/Vol] 4.2 mmol/L Normal 3.5-5.1 [facility] Comment on above: Performed By: #### B MP, CBC #### [place] [address] [place] Sodium [Moles/Vol] 131 mmol/L Low 136-146 [facility] Comment on above: Performed By: #### B MP, CBC #### [address] Urea nitrogen [Mass/Vol] 29 mg/dL High 9-23 [facility] Comment on above: Performed By: #### B MP, CBC #### [place] [address] [place] Basophils Auto (Bld) [#/Vol] Ordered By: Kayleen Schmid on 11-28-2022 Basophils (Bld) [#/Vol] 0.0 10*3/uL 0.0-0.2 [facility] Basophils/100 WBC Auto (Bld) Ordered By: Kayleen Schmid on 11-28-2022 Basophils/100 WBC (Bld) 0.5 % . [facility] Complete Blood Count Auto Di ffon 11-28-2022 Basophils (Bld) [#/Vol] 0.0 10*3/uL Normal 0.0-0.2 [facility] Comment on above: Result Comment: PERF ORMED BY: [place] [address] PATHOLOGIST POULTRY HATCH[employer] MANAGER MICHAEL RYAN M.D. Performed By: #### B MP, CBC #### [address] Basophils/100 WBC (Bld) 0.5 % Normal . [facility] Comment on above: Performed By: #### B MP, CBC #### [address] Eosinophils (Bld) [#/Vol] 0.1 10*3/uL Normal 0.0-0.45 [facility] Comment on above: Performed By: #### B MP, CBC #### [address] Eosinophils/100 WBC (Bld) 1.7 % Normal . [facility] Comment on above: Performed By: #### B MP, CBC #### [address] Erythrocyte distribution width (RBC) [Ratio] 16.1 % High 11.9-15.3 [facility] Comment on above: Performed By: #### B MP, CBC #### [address] Hematocrit (Bld) [Volume fraction] 29.2 % Low 34.0-46.4 [facility] Comment on above: Performed By: #### B MP, CBC #### [place] [address] [place] Hemoglobin (Bld) [Mass/Vol] 9.5 g/dL Low 11.8-15.4 [facility] Comment on above: Performed By: #### B MP, CBC #### [place] [address] [place] Lymphocytes (Bld) [#/Vol] 1.3 10*3/uL Normal 1.00-4.8 [facility] Comment on above: Performed By: #### B MP, CBC #### [facility] [address] Lymphocytes/100 WBC (Bld) 15.4 % Normal . [facility] Comment on above: Performed By: #### B MP, CBC #### [facility] [address] MCH (RBC) [Entitic mass] 26.5 pg Normal 24.7-34.3 [facility] Comment on above: Performed By: #### B MP, CBC #### [facility] [address] MCV (RBC) [Entitic vol] 81.6 fL Normal 80-100 [facility] Comment on above: Performed By: #### B MP, CBC #### [facility] [address] Mean Corpuscular HGB Conc 32.5 g/dL Normal 32.0-35.0 [facility] Comment on above: Performed By: #### B MP, CBC #### [facility] [address] [place] [address] [place] Monocytes (Bld) [#/Vol] 1.1 10*3/uL High 0.0-0.8 [facility] Comment on above: Performed By: #### B MP, CBC #### [facility] [address] [place] [address] [place] Monocytes/100 WBC (Bld) 13.1 % Normal . [facility] Comment on above: Performed By: #### B MP, CBC #### [facility] [address] [place] [address] [place] Neutrophils (Bld) [#/Vol] 5.9 10*3/uL Normal 1.8-7.7 [facility] Comment on above: Performed By: #### B MP, CBC #### [facility] [address] Neutrophils/100 WBC (Bld) 69.3 % Normal . [facility] Comment on above: Performed By: #### B MP, CBC #### [facility] [address] NRBC% 0.0 /100{WBC} Normal 0-0.5 [facility] Comment on above: Performed By: #### B MP, CBC #### [facility] [address] Platelet mean volume (Bld) [Entitic vol] 6.9 fL Normal 6.3-10.7 [facility] Comment on above: Performed By: #### B MP, CBC #### [facility] [address] [place] [address] [place] Platelets (Bld) [#/Vol] 321 10*3/uL Normal 150-450 [facility] Comment on above: Performed By: #### B MP, CBC #### [facility] [address] RBC (Bld) [#/Vol] 3.58 10*6/uL Low 3.60-5.00 [facility] Comment on above: Performed By: #### B MP, CBC #### [facility] [address] WBC (Bld) [#/Vol] 8.5 10*3/uL Normal 3.8-11.6 [facility] Comment on above: Performed By: #### B MP, CBC #### [address] Creatinine and Glomerular fi ltration rate.predicted panel (S/P/Bld)Ordered By: Kayleen Schmid on 11-28-2022 Creatinine [Mass/Vol] 1.22 mg/dL 0.44-1.03 [facility] Eosinophils Auto (Bld) [#/Vo l]Ordered By: Kayleen Schmid on 11-28-2022 Eosinophils (Bld) [#/Vol] 0.1 10*3/uL 0.0-0.45 [facility] Eosinophils/100 WBC Auto (Bl d)Ordered By: Kayleen Schmid on 11-28-2022 Eosinophils/100 WBC (Bld) 1.7 % . [facility] Erythrocyte distribution wid th Auto (RBC) [Ratio]Ordered By: Kayleen Schmid on 11-28-2022 Erythrocyte distribution width (RBC) [Ratio] 16.1 % 11.9-15.3 [facility] Estimated glomerular filtrat ion rate (GFR) non- AmericanOrdered By: Kayleen Schmid on 11-28-2022 GFR/1.73 sq M.predicted among non-blacks MDRD (S/P/Bld) [Vol rate/Area] 42 mL/Min [facility] Hematocrit Auto (Bld) [Volum e fraction]Ordered By: Kayleen Schmid on 11-28-2022 Hematocrit (Bld) [Volume fraction] 29.2 % 34.0-46.4 [facility] Hemoglobin [Mass/volume] in BloodOrdered By: Kayleen Schmid on 11-28-2022 Hemoglobin (Bld) [Mass/Vol] 9.5 g/dL 11.8-15.4 [facility] Leukocytes [#/volume] correc tawana for nucleated erythrocytes in Blood by Automated counOrdered By: Kayleen Schmid on 11-28-2022 WBC corrected for nucl RBC Auto (Bld) [#/Vol] 8.5 10*3/uL 3.8-11.6 [facility] Lymphocytes Auto (Bld) [#/Vo l]Ordered By: Kayleen Schmid on 11-28-2022 Lymphocytes (Bld) [#/Vol] 1.3 10*3/uL 1.00-4.8 [facility] Lymphocytes/100 WBC Auto (Bl d)Ordered By: Kayleen Schmid on 11-28-2022 Lymphocytes/100 WBC (Bld) 15.4 % . [facility] MCH Auto (RBC) [Entitic mass ]Ordered By: Kayleen Schmid on 11-28-2022 MCH (RBC) [Entitic mass] 26.5 pg 24.7-34.3 [facility] MCHC Auto (RBC) [Mass/Vol]Or dered By: Kayleen Schmid on 11-28-2022 MCHC (RBC) [Mass/Vol] 32.5 g/dL 32.0-35.0 [facility] MCV Auto (RBC) [Entitic vol] Ordered By: Kayleen Schmid on 11-28-2022 MCV (RBC) [Entitic vol] 81.6 fL 80-100 [facility] Monocytes Auto (Bld) [#/Vol] Ordered By: Kayleen Schmid on 11-28-2022 Monocytes (Bld) [#/Vol] 1.1 10*3/uL 0.0-0.8 [facility] Monocytes/100 WBC Auto (Bld) Ordered By: Kayleen Schmid on 11-28-2022 Monocytes/100 WBC (Bld) 13.1 % . [facility] Neutrophils Auto (Bld) [#/Vo l]Ordered By: Kayleen Schmid on 11-28-2022 Neutrophils (Bld) [#/Vol] 5.9 10*3/uL 1.8-7.7 [facility] Neutrophils/100 WBC Auto (Bl d)Ordered By: Kayleen Schmid on 11-28-2022 Neutrophils/100 WBC (Bld) 69.3 % . [facility] No Panel InformationOrdered By: Kayleen Schmid on 11-28-2022 Estimated GFR () 51 mL/Min [facility] Comment on above: GFR estimated refere nce range: According to KDOQI guidelines, <60 ml/min/1.73m2 is sufficient to diagnose a patient with chronic kidney disease. Pharmacy Creatinine Clearance (Chem 34.01 [facility] Nucleated erythrocytes [Pres ence] in Blood by Automated countOrdered By: Kayleen Schmid on 11-28-2022 Nucleated RBC Auto Ql (Bld) 0.0 /100{WBC} 0-0.5 [facility] Platelet mean volume Auto (B ld) [Entitic vol]Ordered By: Kayleen Schmid on 11-28-2022 Platelet mean volume (Bld) [Entitic vol] 6.9 fL 6.3-10.7 [facility] Platelets Auto (Bld) [#/Vol] Ordered By: Kayleen Schmid on 11-28-2022 Platelets (Bld) [#/Vol] 321 10*3/uL 150-450 [facility] RBC Auto (Bld) [#/Vol]Ordere d By: Kayleen Schmid on 11-28-2022 RBC (Bld) [#/Vol] 3.58 10*6/uL 3.60-5.00 [facility] Serum or plasma anion gap de terminationOrdered By: Kayleen Schmid on 11-28-2022 Anion gap [Moles/Vol] 12.3 mmol/L 6.0-15.0 [facility] Serum or plasma calcium kei urement (mass/volume)Ordered By: Kayleen Schmid on 11-28-2022 Calcium [Mass/Vol] 8.8 mg/dL 8.2-10.2 [facility] Serum or plasma chloride sari surement (moles/volume)Ordered By: Kayleen Schmid on 11-28-2022 Chloride [Moles/Vol] 99 mmol/L 95-114 [facility] Serum or plasma glucose kei urement (mass/volume)Ordered By: Kayleen Schmid on 11-28-2022 Glucose [Mass/Vol] 118 mg/dL 70-100 [facility] Comment on above: ADA recommended refe rence rangeRandom Glucose Reference Range is dependent on time and content of last meal. Glucose of more than 200 mg/dL in a nonstressed, ambulatory subject supports the diagnosis of Diabetes Mellitus. Serum or plasma potassium me asurement (moles/volume)Ordered By: Kayleen Schmid on 11-28-2022 Potassium [Moles/Vol] 4.2 mmol/L 3.5-5.1 [facility] Serum or plasma sodium measu rement (moles/volume)Ordered By: Kayleen Schmid on 11-28-2022 Sodium [Moles/Vol] 131 mmol/L 136-146 [facility] Serum or plasma total carbon dioxide measurement (moles/volume)Ordered By: Kayleen Schmid on 11-28-2022 CO2 [Moles/Vol] 23.9 mmol/L 22.0-30.0 [facility] Serum or plasma urea nitroge n measurement (mass/volume)Ordered By: Kayleen Schmid on 11-28-2022 Urea nitrogen [Mass/Vol] 29 mg/dL 9 [facility] WBC Auto (Bld) [#/Vol]Ordere d By: Kayleen Schmid on 11-28-2022 WBC (Bld) [#/Vol] 8.5 10*3/uL 3.8-11.6 [facility] Basic Metabolic Panelon 11-14 Anion gap [Moles/Vol] 11.8 mmol/L Normal 6.0-15.0 [facility] Comment on above: Performed By: #### B MP, CBC #### [facility] [address] Calcium [Mass/Vol] 9.4 mg/dL Normal 8.2-10.2 [facility] Comment on above: Performed By: #### B MP, CBC #### [facility] [address] Chloride [Moles/Vol] 101 mmol/L Normal 95-114 [facility] Comment on above: Performed By: #### B MP, CBC #### [facility] [address] CO2 [Moles/Vol] 28.2 mmol/L Normal 22.0-30.0 [facility] Comment on above: Performed By: #### B MP, CBC #### [facility] [address] [place] [address] [place] Creatinine [Mass/Vol] 1.28 mg/dL High 0.44-1.03 [facility] Comment on above: Performed By: #### B MP, CBC #### [facility] [address] [place] [address] [place] Creatinine Clr Calc Pharmacy 32.41 Normal [facility] Comment on above: Result Comment: PERF ORMED BY: [place] [address] PATHOLOGIST POULTRY HATCHERY MANAGER MICHAEL RYAN M.D. Performed By: #### B MP, CBC #### [facility] [address] [place] [address] [place] Estimated GFR ( Deb 48 [facility] Comment on above: Result Comment: GFR estimated reference range: According to KDOQI guidelines, <60 ml/min/1.73m2 is sufficient to diagnose a patient with chronic kidney disease. Performed By: #### B MP, CBC #### [facility] [address] [place] [address] [place] Estimated GFR (Non- Am 40 [facility] Comment on above: Performed By: #### B MP, CBC #### [address] Glucose [Mass/Vol] 129 mg/dL High 70-100 [facility] Comment on above: Result Comment: [place] om Glucose Reference Range is dependent on time and content of last meal. Glucose of more than 200 mg/dL in a nonstressed, ambulatory subject supports the diagnosis of Diabetes Mellitus. ADA recommended reference range Performed By: #### B MP, CBC #### [address] Potassium [Moles/Vol] 5.0 mmol/L Normal 3.5-5.1 [facility] Comment on above: Performed By: #### B MP, CBC #### [address] Sodium [Moles/Vol] 136 mmol/L Normal 136-146 [facility] Comment on above: Performed By: #### B MP, CBC #### [address] Urea nitrogen [Mass/Vol] 24 mg/dL High 9-23 [facility] Comment on above: Performed By: #### B MP, CBC #### [address] Complete Blood Count Auto Di ffon 11-27-2022 Basophils (Bld) [#/Vol] 0.0 10*3/uL Normal 0.0-0.2 [facility] Comment on above: Result Comment: PERF ORMED BY: [place] [address] PATHOLOGIST POULTRY HATCHERY MANAGER MICHAEL RYAN M.D. Performed By: #### B MP, CBC #### [facility] [address] Basophils/100 WBC (Bld) 0.3 % Normal . [facility] Comment on above: Performed By: #### B MP, CBC #### [facility] [address] [place] [address] [place] Eosinophils (Bld) [#/Vol] 0.1 10*3/uL Normal 0.0-0.45 [facility] Comment on above: Performed By: #### B MP, CBC #### [facility] [address] Eosinophils/100 WBC (Bld) 0.6 % Normal . [facility] Comment on above: Performed By: #### B MP, CBC #### [facility] [address] Erythrocyte distribution width (RBC) [Ratio] 15.9 % High 11.9-15.3 [facility] Comment on above: Performed By: #### B MP, CBC #### [facility] [address] Hematocrit (Bld) [Volume fraction] 31.5 % Low 34.0-46.4 [facility] Comment on above: Performed By: #### B MP, CBC #### [facility] [address] [place] [address] [place] Hemoglobin (Bld) [Mass/Vol] 10.3 g/dL Low 11.8-15.4 [facility] Comment on above: Performed By: #### B MP, CBC #### [facility] [address] [place] [address] [place] Lymphocytes (Bld) [#/Vol] 0.8 10*3/uL Low 1.00-4.8 [facility] Comment on above: Performed By: #### B MP, CBC #### [facility] [address] [place] [address] [place] Lymphocytes/100 WBC (Bld) 8.9 % Normal . [facility] Comment on above: Performed By: #### B MP, CBC #### [facility] [address] MCH (RBC) [Entitic mass] 26.8 pg Normal 24.7-34.3 [facility] Comment on above: Performed By: #### B MP, CBC #### [facility] [address] MCV (RBC) [Entitic vol] 81.6 fL Normal 80-100 [facility] Comment on above: Performed By: #### B MP, CBC #### [facility] [address] Mean Corpuscular HGB Conc 32.8 g/dL Normal 32.0-35.0 [facility] Comment on above: Performed By: #### B MP, CBC #### [facility] [address] Monocytes (Bld) [#/Vol] 1.1 10*3/uL High 0.0-0.8 [facility] Comment on above: Performed By: #### B MP, CBC #### [facility] [address] [place] [address] [place] Monocytes/100 WBC (Bld) 12.7 % Normal . [facility] Comment on above: Performed By: #### B MP, CBC #### [facility] [address] Neutrophils (Bld) [#/Vol] 6.8 10*3/uL Normal 1.8-7.7 [facility] Comment on above: Performed By: #### B MP, CBC #### [facility] [address] [place] [address] [place] Neutrophils/100 WBC (Bld) 77.5 % Normal . [facility] Comment on above: Performed By: #### B MP, CBC #### [facility] [address] NRBC% 0.2 /100{WBC} Normal 0-0.5 [facility] Comment on above: Performed By: #### B MP, CBC #### [facility] [address] Platelet mean volume (Bld) [Entitic vol] 7.0 fL Normal 6.3-10.7 [facility] Comment on above: Performed By: #### B MP, CBC #### [facility] [address] Platelets (Bld) [#/Vol] 350 10*3/uL Normal 150-450 [facility] Comment on above: Performed By: #### B MP, CBC #### [address] RBC (Bld) [#/Vol] 3.86 10*6/uL Normal 3.60-5.00 [facility] Comment on above: Performed By: #### B MP, CBC #### [address] WBC (Bld) [#/Vol] 8.8 10*3/uL Normal 3.8-11.6 [facility] Comment on above: Performed By: #### B MP, CBC #### [address] Basic Metabolic Panelon 11-14 Anion gap [Moles/Vol] 9.2 mmol/L Normal 6.0-15.0 [facility] Comment on above: Performed By: #### B MP, CBC #### [address] Calcium [Mass/Vol] 9.2 mg/dL Normal 8.2-10.2 [facility] Comment on above: Performed By: #### B MP, CBC #### [address] Chloride [Moles/Vol] 103 mmol/L Normal 95-114 [facility] Comment on above: Performed By: #### B MP, CBC #### [address] CO2 [Moles/Vol] 27.0 mmol/L Normal 22.0-30.0 [facility] Comment on above: Performed By: #### B MP, CBC #### [facility] [address] Creatinine [Mass/Vol] 1.26 mg/dL High 0.44-1.03 [facility] Comment on above: Performed By: #### B MP, CBC #### [facility] [address] [place] [address] [place] Creatinine Clr Calc Pharmacy 32.93 [facility] Comment on above: Result Comment: PERF ORMED BY: [place] [address] PATHOLOGIST POULTRY HATCHERY MANAGER MICHAEL RYAN M.D. Performed By: #### B MP, CBC #### [address] Estimated GFR ( Deb 49 [facility] Comment on above: Result Comment: GFR estimated reference range: According to KDOQI guidelines, <60 ml/min/1.73m2 is sufficient to diagnose a patient with chronic kidney disease. Performed By: #### B MP, CBC #### [place] [address] [place] Estimated GFR (Non- Am 40 [facility] Comment on above: Performed By: #### B MP, CBC #### [address] Glucose [Mass/Vol] 119 mg/dL High 70-100 [facility] Comment on above: Result Comment: [place] Glucose Reference Range is dependent on time and content of last meal. Glucose of more than 200 mg/dL in a nonstressed, ambulatory subject supports the diagnosis of Diabetes Mellitus. ADA recommended reference range Performed By: #### B MP, CBC #### [facility] [address] [place] [address] [place] Potassium [Moles/Vol] 4.2 mmol/L Normal 3.5-5.1 [facility] Comment on above: Performed By: #### B MP, CBC #### [address] Sodium [Moles/Vol] 135 mmol/L Low 136-146 [facility] Comment on above: Performed By: #### B MP, CBC #### [address] Urea nitrogen [Mass/Vol] 21 mg/dL Normal 9-23 [facility] Comment on above: Performed By: #### B MP, CBC #### [address] Complete Blood Count Auto Di ffon 11-26-2022 Basophils (Bld) [#/Vol] 0.0 10*3/uL Normal 0.0-0.2 [facility] Comment on above: Result Comment: PERF ORMED BY: [place] [address] PATHOLOGIST POULTRY HATCHERY MANAGER MICHAEL RYAN M.D. Performed By: #### B MP, CBC #### [address] Basophils/100 WBC (Bld) 0.7 % Normal . [facility] Comment on above: Performed By: #### B MP, CBC #### [address] Eosinophils (Bld) [#/Vol] 0.1 10*3/uL Normal 0.0-0.45 [facility] Comment on above: Performed By: #### B MP, CBC #### [address] Eosinophils/100 WBC (Bld) 0.7 % Normal . [facility] Comment on above: Performed By: #### B MP, CBC #### [address] Erythrocyte distribution width (RBC) [Ratio] 16.4 % High 11.9-15.3 [facility] Comment on above: Performed By: #### B MP, CBC #### [address] Hematocrit (Bld) [Volume fraction] 31.8 % Low 34.0-46.4 [facility] Comment on above: Performed By: #### B MP, CBC #### [facility] [address] Hemoglobin (Bld) [Mass/Vol] 10.3 g/dL Low 11.8-15.4 [facility] Comment on above: Performed By: #### B MP, CBC #### [facility] [address] Lymphocytes (Bld) [#/Vol] 1.1 10*3/uL Normal 1.00-4.8 [facility] Comment on above: Performed By: #### B MP, CBC #### [facility] [address] Lymphocytes/100 WBC (Bld) 15.2 % Normal . [facility] Comment on above: Performed By: #### B MP, CBC #### [facility] [address] MCH (RBC) [Entitic mass] 26.7 pg Normal 24.7-34.3 [facility] Comment on above: Performed By: #### B MP, CBC #### [facility] [address] MCV (RBC) [Entitic vol] 82.0 fL Normal 80-100 [facility] Comment on above: Performed By: #### B MP, CBC #### [facility] [address] Mean Corpuscular HGB Conc 32.6 g/dL Normal 32.0-35.0 [facility] Comment on above: Performed By: #### B MP, CBC #### [facility] [address] [place] [address] [place] Monocytes (Bld) [#/Vol] 1.0 10*3/uL High 0.0-0.8 [facility] Comment on above: Performed By: #### B MP, CBC #### [facility] [address] [place] [address] [place] Monocytes/100 WBC (Bld) 13.8 % Normal . [facility] Comment on above: Performed By: #### B MP, CBC #### [facility] [address] [place] [address] [place] Neutrophils (Bld) [#/Vol] 5.1 10*3/uL Normal 1.8-7.7 [facility] Comment on above: Performed By: #### B MP, CBC #### [facility] [address] [place] [id number] [place] Neutrophils/100 WBC (Bld) 69.6 % Normal . [facility] Comment on above: Performed By: #### B MP, CBC #### [facility] [address] [place] [address] [place] NRBC% 0.0 /100{WBC} Normal 0-0.5 [facility] Comment on above: Performed By: #### B MP, CBC #### [facility] [address] Platelet mean volume (Bld) [Entitic vol] 6.9 fL Normal 6.3-10.7 [facility] Comment on above: Performed By: #### B MP, CBC #### [facility] [address] [place] [address] [place] Platelets (Bld) [#/Vol] 349 10*3/uL Normal 150-450 [facility] Comment on above: Performed By: #### B MP, CBC #### [facility] [address] [place] [address] [place] RBC (Bld) [#/Vol] 3.87 10*6/uL Normal 3.60-5.00 [facility] Comment on above: Performed By: #### B MP, CBC #### [facility] [address] [place] [address] [place] WBC (Bld) [#/Vol] 7.4 10*3/uL Normal 3.8-11.6 [facility] Comment on above: Performed By: #### B MP, CBC #### [facility] [address] [place] [address] [place] Activated partial thrombopla stin time (aPTT) in platelet poor plasma by coagulation aOrdered By: Graciela Tolbertzi on 11-25-2022 aPTT Coag (PPP) [Time] 32.7 s 25.1-36.5 [facility] Automated erythrocytes count in urine sediment (number/area)Ordered By: Graciela Tolbertzi on 11-25-2022 RBC Auto (Urine sed) [#/Area] 20-49 [HPF] 0-4 [facility] Automated leukocytes count i n urine sediment (number/area)Ordered By: Graciela Ninfa on 11-25-2022 WBC Auto (Urine sed) [#/Area] Innumerable [HPF] 0-4 [facility] B-Type Natriuretic Peptideon 11-25-2022 Natriuretic peptide B (Bld) [Mass/Vol] 60.0 pg/mL Normal 5-100 [facility] Comment on above: Result Comment: PERF ORMED BY: [place] [address] PATHOLOGIST POULTRY HATCHERY MANAGER MICHAEL RYAN M.D. Performed By: #### B DIRECTOR UNIVERSITY #### [facility] [address] [place] [address] Basic Metabolic Panelon 11-14 Anion gap [Moles/Vol] 13.5 mmol/L Normal 6.0-15.0 [facility] Comment on above: Performed By: #### C BC, BMP, HS TROP #### [facility] [address] [place] [address] [place] Calcium [Mass/Vol] 9.4 mg/dL Normal 8.2-10.2 [facility] Comment on above: Performed By: #### C BC, BMP, HS TROP #### [facility] [address] [place], [place] [id number] [place] Chloride [Moles/Vol] 100 mmol/L Normal 95-114 [facility] Comment on above: Performed By: #### C BC, BMP, HS TROP #### [facility] [address] [place], [place] [id number] [place] CO2 [Moles/Vol] 24.5 mmol/L Normal 22.0-30.0 [facility] Comment on above: Performed By: #### C BC, BMP, HS TROP #### [facility] [address] Creatinine [Mass/Vol] 1.31 mg/dL High 0.44-1.03 [facility] Comment on above: Performed By: #### C BC, BMP, HS TROP #### [facility] [address] Creatinine Clr Calc Pharmacy 31.67 [facility] Comment on above: Result Comment: PERF ORMED BY: [place] [address] PATHOLOGIST POULTRY HATCHERY MANAGER MICHAEL RYAN M.D. Performed By: #### C BC, BMP, HS TROP #### [address] Estimated GFR ( Deb 47 [facility] Comment on above: Result Comment: GFR estimated reference range: According to KDOQI guidelines, <60 ml/min/1.73m2 is sufficient to diagnose a patient with chronic kidney disease. Performed By: #### C BC, BMP, HS TROP #### [facility] [address] [place] [address] [place] Estimated GFR (Non- Am 39 [facility] Comment on above: Performed By: #### C BC, BMP, HS TROP #### [address] Glucose [Mass/Vol] 135 mg/dL High 70-100 [facility] Comment on above: Result Comment: [place] Glucose Reference Range is dependent on time and content of last meal. Glucose of more than 200 mg/dL in a nonstressed, ambulatory subject supports the diagnosis of Diabetes Mellitus. ADA recommended reference range Performed By: #### C BC, BMP, HS TROP #### [facility] [address] [place] [address] Potassium [Moles/Vol] 4.0 mmol/L Normal 3.5-5.1 [facility] Comment on above: Performed By: #### C BC, BMP, HS TROP #### [facility] [address] [place] [address] [place] Sodium [Moles/Vol] 134 mmol/L Low 136-146 [facility] Comment on above: Performed By: #### C BC, BMP, HS TROP #### [facility] [address] Urea nitrogen [Mass/Vol] 19 mg/dL Normal - [facility] Comment on above: Performed By: #### C BC, BMP, HS TROP #### [facility] [address] Basophils Auto (Bld) [#/Vol] Ordered By: Graciela Ocasio on 11-25-2022 Basophils (Bld) [#/Vol] 0.1 10*3/uL 0.0-0.2 [facility] Basophils/100 WBC Auto (Bld) Ordered By: Graciela Ocasio on 11-25-2022 Basophils/100 WBC (Bld) 0.8 % . [facility] Bilirubin Auto test strip Ql (U)Ordered By: Graciela Ocasio on 11-25-2022 Bilirubin Ql (U) Negative Negative [facility] CT cervical spine wo conon 0 11-25-2022 CT cervical spine wo con [facility] [place] [address] [place] [address] CT Scan Report Signed Patient: Zahida Batista MR#: [id number] 151 : 1935 Acct:[id number] Age/Sex: 87 / F ADM Date: 11/25/22 Loc: ER Room: Type: [facility] ER Attending Dr: Copies to: Graciela Ocasio PA-C Ordering Provider: Graciela Ocasio PA-C Date of Service: 11/25/22 CT/CT cervical spine wo con: fall CT cervical spine withoutcontrast TECHNIQUE: Axial imaging with 2-D and 3-D reconstruction. The CT exam was performed using one or more the following dose reduction techniques: Automated exposure control, adjustment of the MA and/or Kv according to patient size, or use of the iterative reconstruction technique. COMPARISON:None HISTORY: Fell. Right-sided neck pain. Back pain. Cervical lordosis is normal. The craniocervical junction is unremarkable. No acute cervical spine fracture identified. No listhesis is seen. The facets are in adequate alignment. No abnormal increased density of the spinal canal seen. No prevertebral soft tissue abnormality identified. No skull base abnormality seen. Lung apices are unremarkable. No soft tissue abnormality seen. No airway abnormality seen. The RIGHT mid clavicle fracture present. Posterior RIGHT 4th rib fracture identified. Moderate multilevel cervical spine degenerative changes present. CT/CT cervical spine wo con IMPRESSION: No acute cervical spine fracture. RIGHT mid clavicle fracture. Posterior RIGHT 4th rib fracture. Impression dictated by: Thiago Chowdhury M.D.11/25/2022 2:59 PM Dictation Location: [place] [address] Transcribed By: [facility] 11/25/22 1459 Dictated By: Thiago Chowdhury DO 11/25/22 145 Signed By: 11/25/22 1459 [facility] CT chest w conon 11-25-2022 CT chest w [facility] [place] [address] [place] [address] CT Scan Report Signed Patient: Zahida Batista MR#: [id number] 151 : 1935 Acct:[id number] Age/Sex: 87 / F ADM Date: 11/25/22 Loc: ER Room: Type: [facility] ER Attending Dr: Copies to: Graciela Ocasio PA-C Ordering Provider: Graciela Ocasio PA-C Date of Service: 11/25/22 CT/CT chest w con: fall CT chest withcontrast TECHNIQUE: Axial imaging with 2-D reconstruction. 90 cc of [id number] CT exam was performed using one or more the following dose reduction techniques: Automated exposure control, adjustment of the MA and/or Kv according to patient size, or use of the iterative reconstruction technique. History: Fell injuring RIGHT shoulder and back. COMPARISON: None No thyroid abnormality Central airway is patent. No esophageal abnormality identified. Heart is not enlarged. No pericardial effusion is seen. Nonenlarged mediastinal lymph nodes identified. No hilar mass or adenopathy is seen. No thoracic aortic aneurysm is seen. No lung nodules identified. No infiltrate or congestion identified. Tiny RIGHT pleural effusion seen. Basilar atelectasis. No pneumothorax seen. No chest wall abnormality seen. RIGHT posterior 11th, 10th and 9th rib fractures identified. RIGHT posterior 3rd, 4th and 5th, 6th and 7th rib fractures RIGHT lateral 4th, 5th, 6th, 7th, 8th and 9th rib fractures present. RIGHT mid clavicle fracture present. 2 hepatic cysts measure up to 4 cm. Chronic obstructive changes of the LEFT kidney present with a renal atrophy. CT/CT chest w con IMPRESSION: Multiple posterior and lateral RIGHT rib fractures. Tiny RIGHT pleural effusion. No pneumothorax. RIGHT mid clavicle fracture. Impression dictated by: Thiago Chowdhury M.D.11/25/2022 4:36 PM Dictation Location: [place] [address] Transcribed By: [facility] 11/25/22 1636 Dictated By: Thiago Chowdhury DO 11/25/22 1621 Signed By: 11/25/22 1636 [facility] CT head/brain wo conon 11-25 CT head/brain wo con [facility] [place] [address] [place] Scan Report Signed Patient: Zahida Batista MR#: [id number] 151 : 1935 Acct:[id number] Age/Sex: 87 / F ADM Date: 11/25/22 Loc: ER Room: Type: [facility] ER Attending Dr: Copies to: Graciela Ocasio PA-C Ordering Provider: Graciela Ocasio PA-C Date of Service: 11/25/22 CT/CT head/brain wo con: fall Unenhanced head CT TECHNIQUE: Contiguous axial imaging of the head. The CT exam was performed using one or more the following dose reduction techniques: Automated exposure control, adjustment of the MA and/or Kv according to patient size, or use of the iterative reconstruction technique. COMPARISON:03/05/22 HISTORY:Fell. Right-sided neck pain. The ventricles are normal in size and position. Adequate hawk-white matter differentiation identified. No intracranial hemorrhage, mass effect or herniation is identified. No recent vascular distribution infarction is seen. No abnormal extra-axial fluid collections identified. Sinuses, orbits and mastoid air cells are unremarkable. Bony structures are intact. CT/CT head/brain wo con IMPRESSION: No acute intracranial findings. Impression dictated by: Thiago Chowdhury M.D.11/25/2022 2:52 PM Dictation Location: [id number] Transcribed By: [facility] 11/25/22 1452 Dictated By: Thiago Chowdhury DO 11/25/22 1448 Signed By: 11/25/22 1452 [facility] CT lumbar spine wo conon CT lumbar spine wo con [facility] [place] [address] [place] [address] CT Scan Report Signed Patient: Zahida Batista MR#: [id number] 151 : 1935 Acct:[id number] Age/Sex: 87 / F ADM Date: 11/25/22 Loc: ER Room: Type: [facility] ER Attending Dr: Copies to: Graciela Ocasio PA-C Ordering Provider: Graciela Ocasio PA-C Date of Service: 11/25/22 CT/CT lumbar spine wo con: fall CT LUMBAR SPINE WITHOUT CONTRAST TECHNIQUE: Axial acquisition of the lumbar spine obtained with the sagittal and coronal reconstructed imaging.The CT exam was performed using one or more the following dose reduction techniques: Automated exposure control, adjustment of the MA and/or Kv according to patient size, or use of the iterative reconstruction technique. HISTORY: Fell injuring RIGHT side. RIGHT back pain. COMPARISON: None FINDINGS: The lumbar lordosis is normal. No vertebral body compression fracture identified. Fracture of the RIGHT 11th rib identified. The pedicles are intact. There is no jumped, perched or acute subluxed facets. The lamina and spinous processes are intact. No spinal canal hemorrhage identified. No acute soft tissue process identified. Chronic findings LEFT UPJ obstruction present. 12 mm LEFT renal calculus seen. Atrophic changes of the LEFT kidney. Mild RIGHT pelvocaliectasis. Distal colonic diverticulosis. Atherosclerosis. Advanced lower lumbar degeneration. Mild L4-5 degenerative anterolisthesis. Diffuse osteopenia. CT/CT lumbar spine wo con IMPRESSION: No acute lumbar fracture. Degenerative change. Nondisplaced RIGHT 11th rib fracture. Impression dictated by: Thiago Chowdhury M.D.11/25/2022 3:35 PM Dictation Location: RADIO-PC-03 Transcribed By: FILIPE 11/25/22 1535 Dictated By: Thiago Chowdhury S DO 11/25/22 1526 Signed By: 11/25/22 1535 Normal [facility] Coagulation Profileon 2022 aPTT Coag (Bld) [Time] 32.7 s Normal 25.1-36.5 [facility] Comment on above: Result Comment: PERF ORMED BY: [place] [address] PATHOLOGIST POULTRY HATCHERY MANAGER MICHAEL RYAN M.D. Performed By: #### B MP, CBC #### [address] INR Coag (PPP) [Relative time] 1.5 {INR} Normal [facility] Comment on above: Result Comment: INR Therapeutic Range A) Pre- and Peroperative OAT started two weeks before surgery. NOT HIP SURGERY: 1.5 - 2.5 HIP SURGERY: 2 - 3 B) Primary and secondary prevention of venous THROMBOSIS: 2 - 3 C) Active venous thrombosis, pulmonary embolism and prevention of recurrent venous thrombosis: 2 - 3 D) Prevention of arterial thromboembolism including patients with mechanical heart valves: 3 - 4.5 Performed By: #### B MP, CBC #### [address] PT Coag (PPP) [Time] 17.4 s High 9.0-12.9 [facility] Comment on above: Performed By: #### B MP, CBC #### [facility] [address] [place] [address] Complete Blood Count Auto Di ffon 11-25-2022 Basophils (Bld) [#/Vol] 0.1 10*3/uL Normal 0.0-0.2 [facility] Comment on above: Result Comment: PERF ORMED BY: [place] [address] PATHOLOGIST POULTRY HATCHERY MANAGER MICHAEL RYAN M.D. Performed By: #### C BC, BMP, HS TROP #### [facility] [address] [place] [address] Basophils/100 WBC (Bld) 0.8 % Normal . [facility] Comment on above: Performed By: #### C BC, BMP, HS TROP #### [facility] [address] [place] [address] Eosinophils (Bld) [#/Vol] 0.1 10*3/uL Normal 0.0-0.45 [facility] Comment on above: Performed By: #### C BC, BMP, HS TROP #### [facility] [address] [place] [address] Eosinophils/100 WBC (Bld) 1.6 % Normal . [facility] Comment on above: Performed By: #### C BC, BMP, HS TROP #### [address] Erythrocyte distribution width (RBC) [Ratio] 16.2 % High 11.9-15.3 [facility] Comment on above: Performed By: #### C BC, BMP, HS TROP #### [address] Hematocrit (Bld) [Volume fraction] 30.5 % Low 34.0-46.4 [facility] Comment on above: Performed By: #### C BC, BMP, HS TROP #### [address] Hemoglobin (Bld) [Mass/Vol] 9.9 g/dL Low 11.8-15.4 [facility] Comment on above: Performed By: #### C BC, BMP, HS TROP #### [place] [address] [place] Lymphocytes (Bld) [#/Vol] 1.1 10*3/uL Normal 1.00-4.8 [facility] Comment on above: Performed By: #### C BC, BMP, HS TROP #### [place] [address] [place] Lymphocytes/100 WBC (Bld) 13.1 % Normal . [facility] Comment on above: Performed By: #### C BC, BMP, HS TROP #### [address] MCH (RBC) [Entitic mass] 26.7 pg Normal 24.7-34.3 [facility] Comment on above: Performed By: #### C BC, BMP, HS TROP #### [address] MCV (RBC) [Entitic vol] 82.3 fL Normal 80-100 [facility] Comment on above: Performed By: #### C BC, BMP, HS TROP #### [address] Mean Corpuscular HGB Conc 32.4 g/dL Normal 32.0-35.0 [facility] Comment on above: Performed By: #### C BC, BMP, HS TROP #### [address] Monocytes (Bld) [#/Vol] 0.9 10*3/uL High 0.0-0.8 [facility] Comment on above: Performed By: #### C BC, BMP, HS TROP #### [address] Monocytes/100 WBC (Bld) 18.67 % Normal 0.00-20.00 [facility] Comment on above: Performed By: #### C BC, BMP, HS TROP #### [address] Monocytes/100 WBC (Bld) 10.4 % Normal . [facility] Comment on above: Performed By: #### C BC, BMP, HS TROP #### [address] Neutrophils (Bld) [#/Vol] 6.4 10*3/uL Normal 1.8-7.7 [facility] Comment on above: Performed By: #### C BC, BMP, HS TROP #### [address] Neutrophils/100 WBC (Bld) 74.1 % Normal . [facility] Comment on above: Performed By: #### C BC, BMP, HS TROP #### [place] [id number] [place] NRBC% 0.1 /100{WBC} Normal 0-0.5 [facility] Comment on above: Performed By: #### C BC, BMP, HS TROP #### [facility] [address] Platelet mean volume (Bld) [Entitic vol] 6.7 fL Normal 6.3-10.7 [facility] Comment on above: Performed By: #### C BC, BMP, HS TROP #### [facility] [address] Platelets (Bld) [#/Vol] 323 10*3/uL Normal 150-450 [facility] Comment on above: Performed By: #### C BC, BMP, HS TROP #### [address] RBC (Bld) [#/Vol] 3.70 10*6/uL Normal 3.60-5.00 [facility] Comment on above: Performed By: #### C BC, BMP, HS TROP #### [address] WBC (Bld) [#/Vol] 8.7 10*3/uL Normal 3.8-11.6 [facility] Comment on above: Performed By: #### C BC, BMP, HS TROP #### [address] Creatinine and Glomerular fi ltration rate.predicted panel (S/P/Bld)Ordered By: Graciela Ocasio on 11-25-2022 Creatinine [Mass/Vol] 1.31 mg/dL 0.44-1.03 [facility] Dipstick and Microscopicon 0 11-25-2022 Appearance (U) Turbid Critically abnormal Clear [facility] Comment on above: Order Comment: Name Collection Type:: Clean-Voided Midstream Performed By: #### B MP, CBC #### [facility] [address] [place] [address] Bacteria,Urine None Seen Normal None Seen [facility] Comment on above: Order Comment: Name Collection Type:: Clean-Voided Midstream Performed By: #### B MP, CBC #### [facility] [address] [place] [address] [place] Bilirubin,Urine Negative Normal Negative [facility] Comment on above: Order Comment: Name Collection Type:: Clean-Voided Midstream Performed By: #### B MP, CBC #### [facility] [address] [place] [address] Color (U) Dark Yellow Critically abnormal Yellow [facility] Comment on above: Order Comment: Name Collection Type:: Clean-Voided Midstream Performed By: #### B MP, CBC #### [facility] [address] [place] [address] Glucose Ql (U) Normal Normal Normal [facility] Comment on above: Order Comment: Name Collection Type:: Clean-Voided Midstream Performed By: #### B MP, CBC #### [facility] [address] [place] [address] [place] Hyaline Casts,Urine 1-2 Normal 0-8 [facility] Comment on above: Order Comment: Name Collection Type:: Clean-Voided Midstream Result Comment: PERF ORMED BY: [place] [address] PATHOLOGIST POULTRY HATCHERY MANAGER MICHAEL RYAN M.D. Performed By: #### B MP, CBC #### [facility] [address] [place] [address] Ketones Ql (U) Trace High Negative [facility] Comment on above: Order Comment: Name Collection Type:: Clean-Voided Midstream Performed By: #### B MP, CBC #### [facility] [address] [place] [address] [place] Leukocyte esterase Test strip Ql (U) 3+ High Negative [facility] Comment on above: Order Comment: Name Collection Type:: Clean-Voided Midstream Performed By: #### B MP, CBC #### [facility] [address] [place] [address] [place] Nitrite,Urine Positive High Negative [facility] Comment on above: Order Comment: Name Collection Type:: Clean-Voided Midstream Performed By: #### B MP, CBC #### [address] Occult Blood,Urine 3+ High Negative [facility] Comment on above: Order Comment: Name Collection Type:: Clean-Voided Midstream Result Comment: PERF ORMED BY: [place] [address] PATHOLOGIST POULTRY HATCHERY MANAGER MICHAEL RYAN M.D. Performed By: #### B MP, CBC #### [address] pH (U) 6.5 [pH] Normal 5.0-9.0 [facility] Comment on above: Order Comment: Name Collection Type:: Clean-Voided Midstream Performed By: #### B MP, CBC #### [address] Protein (U) [Mass/Vol] 100 mg/dL High Negative [facility] Comment on above: Order Comment: Name Collection Type:: Clean-Voided Midstream Performed By: #### B MP, CBC #### [place] [address] [place] RBC,Urine 20-49 High 0-4 [facility] Comment on above: Order Comment: Name Collection Type:: Clean-Voided Midstream Performed By: #### B MP, CBC #### [address] Specificy [place],Urine 1.020 Normal 1.001-1.03 0 [facility] Comment on above: Order Comment: Name Collection Type:: Clean-Voided Midstream Performed By: #### B MP, CBC #### [place] [address] [place] Squamous Epithelial Cell,Urine 1-2 Normal 0-2 [facility] Comment on above: Order Comment: Name Collection Type:: Clean-Voided Midstream Performed By: #### B MP, CBC #### [place] [address] [place] Urobilinogen,Urine Normal Normal Normal [facility] Comment on above: Order Comment: Name Collection Type:: Clean-Voided Midstream Performed By: #### B MP, CBC #### [facility] [address] [place] [address] WBC,Urine Innumerable High 0-4 [facility] Comment on above: Order Comment: Name Collection Type:: Clean-Voided Midstream Performed By: #### B MP, CBC #### [facility] [address] ECG 12 lead ECGon 11-25-2022 ECG 12 lead ECG [facility] [place] [address] [place] [address] Electrocardiograph Report Signed Patient: Zahida Batista MR#: [id number] : 1935 Acct:[id number] Age/Sex: 87 / F ADM Date: 11/25/22 Loc: Room: [address] [place] [address] Type: DIS IN Attending Dr: Christian Aleman DO Ordering Provider: Graciela Ocasio PA-C Date of Service: 11/25/2211/05/1346 ECG/ECG 12 lead ECG: Fall Copies to: Test Reason : Blood Pressure : 146/067 mmHG Vent. Rate : 081 BPM Atrial Rate : 081 BPM P-R Int : 188 ms QRS Dur : 150 ms QT Int : 442 ms P-R-T Axes : 047 -44 099 degrees QTc Int : 513 ms Normal sinus rhythm Left axis deviation Left bundle branch block Abnormal ECG No previous ECGs available Confirmed by Demetrius Ocasio DO ([id number]) on 11/25/2022 7:00:05 PM Referred By: Electronically Signed By:Demetrius Ocasio DO Transcribed By: MUS Signed By Demetrius Ocasio DO 3 1900 Normal [facility] Eosinophils Auto (Bld) [#/Vo l]Ordered By: Graciela Ocasio on 11-25-2022 Eosinophils (Bld) [#/Vol] 0.1 10*3/uL 0.0-0.45 [facility] Eosinophils/100 WBC Auto (Bl d)Ordered By: Graciela Ocasio on 11-25-2022 Eosinophils/100 WBC (Bld) 1.6 % . [facility] Erythrocyte distribution wid th Auto (RBC) [Ratio]Ordered By: Graciela Ocasio on 11-25-2022 Erythrocyte distribution width (RBC) [Ratio] 16.2 % 11.9-15.3 [facility] Estimated glomerular filtrat ion rate (GFR) non- AmericanOrdered By: Graciela Ocasio on 11-25-2022 GFR/1.73 sq M.predicted among non-blacks MDRD (S/P/Bld) [Vol rate/Area] 39 mL/Min [facility] Folate [Mass/volume] in Seru m or PlasmaOrdered By: Kayleen Schmid on 11-25-2022 Folate [Mass/Vol] ng/mL >5.9 [facility] Comment on above: Folate reference ran ge: >5.9 ng/mlThe WHO technical consultation on folate and vitamin [id number] has determined that folate concentrations lessthan 4 ng/ml are considered deficient. Hematocrit Auto (Bld) [Volum e fraction]Ordered By: Graciela Ocasio on 11-25-2022 Hematocrit (Bld) [Volume fraction] 30.5 % 34.0-46.4 [facility] Hemoglobin [Mass/volume] in BloodOrdered By: Graciela Ocasio on 11-25-2022 Hemoglobin (Bld) [Mass/Vol] 9.9 g/dL 11.8-15.4 [facility] Ketones Auto test strip (U) [Mass/Vol]Ordered By: Graciela Ocasio on 11-25-2022 Ketones (U) [Mass/Vol] Trace Negative [facility] Laboratory - Chemistry and C hemistry - challengeOrdered By: Kayleen Schmid on 11-25-2022 Cobalamin (Vitamin B12) [Mass/Vol] 389 pg/mL 180-914 [facility] Laboratory - Chemistry and C hemistry - challengeOrdered By: Graciela Ocasio on 11-25-2022 Natriuretic peptide B (Bld) [Mass/Vol] 60.0 pg/mL 5-100 [facility] Laboratory - CoagulationOrde red By: Graciela Ocasio on 11-25-2022 PT Coag (PPP) [Time] 17.4 s 9.0-12.9 [facility] Laboratory - UrinalysisOrder ed By: Graciela Ocasio on 11-25-2022 Hyaline casts LM Ql (Urine sed) 1-2 [LPF] 0-8 [facility] Leukocytes [#/volume] correc tawana for nucleated erythrocytes in Blood by Automated counOrdered By: Graciela Ocasio on 11-25-2022 WBC corrected for nucl RBC Auto (Bld) [#/Vol] 8.7 10*3/uL 3.8-11.6 [facility] Lymphocytes Auto (Bld) [#/Vo l]Ordered By: Graciela Ocasio on 11-25-2022 Lymphocytes (Bld) [#/Vol] 1.1 10*3/uL 1.00-4.8 [facility] Lymphocytes/100 WBC Auto (Bl d)Ordered By: Graciela Ocasio on 11-25-2022 Lymphocytes/100 WBC (Bld) 13.1 % . [facility] MCH Auto (RBC) [Entitic mass ]Ordered By: Graciela Ocasio on 11-25-2022 MCH (RBC) [Entitic mass] 26.7 pg 24.7-34.3 [facility] MCHC Auto (RBC) [Mass/Vol]Or dered By: Graciela Ocasio on 11-25-2022 MCHC (RBC) [Mass/Vol] 32.4 g/dL 32.0-35.0 [facility] MCV Auto (RBC) [Entitic vol] Ordered By: Graciela Ocasio on 11-25-2022 MCV (RBC) [Entitic vol] 82.3 fL 80-100 [facility] Monocyte distribution width [Entitic volume] in Blood by AutomatedOrdered By: Graciela Ocasio on 11-25-2022 Monocyte distribution width Auto (Bld) [Entitic vol] 18.67 % 0.00-20.00 [facility] Monocytes Auto (Bld) [#/Vol] Ordered By: Graciela Ocasio on 11-25-2022 Monocytes (Bld) [#/Vol] 0.9 10*3/uL 0.0-0.8 [facility] Monocytes/100 WBC Auto (Bld) Ordered By: Graciela Ocasio on 11-25-2022 Monocytes/100 WBC (Bld) 10.4 % . [facility] Neutrophils Auto (Bld) [#/Vo l]Ordered By: Graciela Ocasio on 11-25-2022 Neutrophils (Bld) [#/Vol] 6.4 10*3/uL 1.8-7.7 [facility] Neutrophils/100 WBC Auto (Bl d)Ordered By: Graciela Ocasio on 11-25-2022 Neutrophils/100 WBC (Bld) 74.1 % . [facility] No Panel InformationOrdered By: Graciela Ocasio on 11-25-2022 Estimated GFR () 47 mL/Min [facility] Comment on above: GFR estimated refere nce range: According to KDOQI guidelines, <60 ml/min/1.73m2 is sufficient to diagnose a patient with chronic kidney disease. Pharmacy Creatinine Clearance (Chem 31.67 [facility] Nucleated erythrocytes [Pres ence] in Blood by Automated countOrdered By: Graciela Ocasio on 11-25-2022 Nucleated RBC Auto Ql (Bld) 0.1 /100{WBC} 0-0.5 [facility] Platelet mean volume Auto (B ld) [Entitic vol]Ordered By: Graciela Ocasio on 11-25-2022 Platelet mean volume (Bld) [Entitic vol] 6.7 fL 6.3-10.7 [facility] Platelet poor plasma interna tional normalized ratio (INR) by coagulation assay (relatOrdered By: Graciela Ocasio on 11-25-2022 INR Coag (PPP) [Relative time] 1.5 {INR} [facility] Comment on above: INR Therapeutic Rang e A) Pre- and Peroperative OAT started two weeks before surgery. NOT HIP SURGERY: 1.5 - 2.5 HIP SURGERY: 2 - 3B) Primary and secondary prevention of venous THROMBOSIS: 2 - 3C) Active venous thrombosis, pulmonary embolismand prevention of recurrent venous thrombosis: 2 - 3D) Prevention of arterial thromboembolismincluding patients with mechanical heart valves: 3 - 4.5 Platelets Auto (Bld) [#/Vol] Ordered By: Graciela Ocasio on 11-25-2022 Platelets (Bld) [#/Vol] 323 10*3/uL 150-450 [facility] Protein Auto test strip (U) [Mass/Vol]Ordered By: Graciela Ocasio on 11-25-2022 Protein (U) [Mass/Vol] 100 mg/dL Negative [facility] RBC Auto (Bld) [#/Vol]Ordere d By: Graciela Ocasio on 11-25-2022 RBC (Bld) [#/Vol] 3.70 10*6/uL 3.60-5.00 [facility] Serum or plasma anion gap de terminationOrdered By: Graciela Ocasio on 11-25-2022 Anion gap [Moles/Vol] 13.5 mmol/L 6.0-15.0 [facility] Serum or plasma calcium kei urement (mass/volume)Ordered By: Graciela Ocasio on 11-25-2022 Calcium [Mass/Vol] 9.4 mg/dL 8.2-10.2 [facility] Serum or plasma chloride sari surement (moles/volume)Ordered By: Graciela Ocasio on 11-25-2022 Chloride [Moles/Vol] 100 mmol/L 95-114 [facility] Serum or plasma glucose kei urement (mass/volume)Ordered By: Graciela Ocasio on 11-25-2022 Glucose [Mass/Vol] 135 mg/dL 70-100 [facility] Comment on above: ADA recommended refe rence rangeRandom Glucose Reference Range is dependent on time and content of last meal. Glucose of more than 200 mg/dL in a nonstressed, ambulatory subject supports the diagnosis of Diabetes Mellitus. Serum or plasma potassium me asurement (moles/volume)Ordered By: Graciela Ocasio on 11-25-2022 Potassium [Moles/Vol] 4.0 mmol/L 3.5-5.1 [facility] Serum or plasma sodium measu rement (moles/volume)Ordered By: Graciela Ocasio on 11-25-2022 Sodium [Moles/Vol] 134 mmol/L 136-146 [facility] Serum or plasma total carbon dioxide measurement (moles/volume)Ordered By: Graciela Ocasio on 11-25-2022 CO2 [Moles/Vol] 24.5 mmol/L 22.0-30.0 [facility] Serum or plasma urea nitroge n measurement (mass/volume)Ordered By: Graciela Ocasio on 11-25-2022 Urea nitrogen [Mass/Vol] 19 mg/dL 08-06 [facility] Squamous epithelial cells de tection in urine sediment by light microscopyOrdered By: Graciela Ocasio on 11-25-2022 Epithelial cells.squamous LM Ql (Urine sed) 1-2 [HPF] 0-2 [facility] TSH DL <= 0.005 mIU/L QnOrde red By: Kayleen Schmid on 11-25-2022 TSH Qn 2.89 m[IU]/L 0.45-5.33 [facility] Thyroid Stimulating Hormoneo n 11-25-2022 TSH Qn 2.89 m[IU]/L Normal 0.45-5.33 [facility] Comment on above: Result Comment: PERF ORMED BY: [place] [address] PATHOLOGIST POULTRY HATCHERY MANAGER MICHAEL RYAN M.D. Performed By: #### C BC, BMP, HS TROP #### [facility] [address] [place] [address] [place] Troponin I High Sensitivityo n 11-25-2022 Troponin I High Sensitivity 5 pg/mL Normal 0-15 [facility] Comment on above: Result Comment: PERF ORMED BY: [address] [place] [address] PATHOLOGIST POULTRY HATCHERY MANAGER MICHAEL RYAN M.D. Performed By: #### C BC, BMP, HS TROP #### [facility] [address] [place] [address] [place] Troponin I.cardiac [Mass/vol ume] in Serum or Plasma by High sensitivity methodOrdered By: Graciela Ocasio on 11-25-2022 Troponin I.cardiac High sensitivity method [Mass/Vol] 5 pg/mL 0-15 [facility] Urine Cultureon 11-25-2022 Bacteria identified Cx Nom (U) ORGANISM: Pseudomonas aeruginosa (O:PSEAER) Boyce Count >100,000 Aerobic LEIA Charge ([id number]) SUSCEPTIBILITY ORGANISM: O:PSEAER ANTIBIOTIC INTERPRETATION LEIA Amikacin S <16 Aztreonam IB <4 Cefepime S <2 Ceftazidime IB <1 Ceftazidime/Avibactam S <4 Ceftolozane/Tazobactam S <2 Ciprofloxacin S <0.25 Gentamicin S 4 Levofloxacin S <0.5 Meropenem S <1 Piperacillin/Tazobactam IB <8 Tobramycin S <2 S = SUSCEPTIBLE I = INTERMEDIATE R = RESISTANT BLANK = DATA NOT AVAILABLE, OR DRUG NOT ADVISABLE OR TESTED R* = RESISTANCE DUE TO EXTENDED SPECTRUM BETA-LACTAMASES ESBL = EXTENDED SPECTRUM BETA-LACTAMASE TFG = THYMIDINE-DEPENDENT STRAIN DWAYNE = BETA-LACTAMASE POSITIVE IB = INDUCIBLE BETA-LACTAMASE. APPEARS IN PLACE OF 'S' WITH SPECIES KNOWN TO POSSESS INDUCIBLE BETA-LACTAMASES. POTENTIALLY THEY MAY BECOME RESISTANT TO ALL B-LACTAM DRUGS. PERFORMED BY: [place] [address] PATHOLOGIST POULTRY HATCHERY MANAGER MICHAEL RYAN M.D. [facility] Comment on above: Performed By: #### B MP, CBC #### [address] Urine appearanceOrdered By: Graciela Ocasio on 11-25-2022 Appearance (U) Turbid Clear [facility] Urine bacteria detection by automated methodOrdered By: Graciela Ocasio on 11-25-2022 Bacteria Auto Ql (U) None seen None Seen [facility] Urine colorOrdered By: Graciela Ocasio on 11-25-2022 Color (U) Dark yellow Yellow [facility] Urine culture routineOrdered By: Graciela Ocasio on 11-25-2022 Bacteria identified Cx Nom (U) Pseudomonas aeruginosa [facility] Urine glucose measurement by automated test strip (mass/volume)Ordered By: Graciela Ocasio on 11-25-2022 Glucose Auto test strip (U) [Mass/Vol] Normal mg/dL Normal [facility] Urine hemoglobin detection b y automated test stripOrdered By: Graciela Ocasio on 11-25-2022 Hemoglobin Auto test strip Ql (U) 3+ Negative [facility] Urine leukocyte esterase det ection by automated test stripOrdered By: Graciela Ocasio on 11-25-2022 Leukocyte esterase Auto test strip Ql (U) 3+ Negative [facility] Urine nitrite detection by a utomated test stripOrdered By: Graciela Ocasio on 11-25-2022 Nitrite Auto test strip Ql (U) Positive Negative [facility] Urobilinogen Auto test strip (U) [Mass/Vol]Ordered By: Graciela Ocasio on 11-25-2022 Urobilinogen (U) [Mass/Vol] Normal mg/dL Normal [facility] Vit. B12/Folate Profileon Cobalamin (Vitamin B12) [Mass/Vol] 389 pg/mL Normal 180-914 [facility] Comment on above: Performed By: #### C BC, BMP, HS TROP #### [address] Folate > 22.3 Normal >5.9 [facility] Comment on above: Result Comment: Lona te reference range: >5.9 ng/ml The WHO technical consultation on folate and vitamin b12 deficiencies has determined that folate concentrations less than 4 ng/ml are considered deficient. Performed By: #### C BC, BMP, HS TROP #### [facility] [address] [place] [address] WBC Auto (Bld) [#/Vol]Ordere d By: Graciela Ocasio on 11-25-2022 WBC (Bld) [#/Vol] 8.7 10*3/uL 3.8-11.6 [facility] XR shoulder RT min 2V*on XR shoulder RT min 2V* [facility] [place] [address] XRay Report Signed Patient: Zahida Batista MR#: [id number] : 1935 Acct:[id number] Age/Sex: 87 / F ADM Date: 11/25/22 Loc: ER Room: Type: [facility] ER Attending Dr: Copies to: Graciela Ocasio PA-C Ordering Provider: Graciela Ocasio PA-C Date of Service: 11/25/22 XR/XR shoulder RT min 2V*: Fall 3 views plain filmRIGHT shoulder HISTORY:Fell injuring RIGHT shoulder COMPARISON:None No dislocation. Comminuted RIGHT mid clavicle fracture.No significant degeneration. XR/XR shoulder RT min 2V* IMPRESSION:Comminuted RIGHT mid clavicle fracture. Impression dictated by: Thiago Chowdhury M.D.11/25/2022 3:00 PM Dictation Location: [place] [address] Transcribed By: [facility] 11/25/22 1500 Dictated By: Thiago Chowdhury DO 11/25/22 1459 Signed By: 11/25/22 1500 Normal [facility] pH Auto test strip (U)Ordere d By: Graciela Ocasio on 11-25-2022 pH (U) 1.020 [pH] 1.001-1.03 0 [facility] pH (U) 6.5 [pH] 5.0-9.0 [facility] Office Visiton 11-23-2022 Follow-up visit [id number] Jess Batista 1935 F Date Provider Department Center 11/23/2022 MAURICE BATISTA LORAINE [facility] Family History Problem Relation Age of Onset Prostate cancer Father Family Status - Relation Status Age at Father Level of Service:29655 [place] OFFICE/OUTPATIENT ESTABLISHED LOW MDM 20-29 MIN Reason for Visit and Comments: Congestive Heart Failure [127] Atrial Fibrillation [80] 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] Normal [facility] 36on 10-27-2022 36 Pt needs appt for an y further refills Normal [facility] CULTURE URINEon 10-24-2022 CULTURE URINE Isolate 1 Pseudomonas aeruginosa >100,000 cfu/mL of ORGANISM 1 Pseudomonas aeruginosa ANTIBIOTIC M.I.C RX STATUS Piperacillin/Tazobactam <=4 S F Ceftazidime 2 S F Imipenem 2 S F Amikacin <=2 S F Gentamicin <=1 S F Tobramycin <=1 S F Ciprofloxacin <=0.25 S F Levofloxacin 0.5 S F Normal [facility] Comment on above: Performed By: #### U RCX #### [facility] [address] [place] [id number] Michael Domínguez CULTURE URINEon 04-22-2022 CULTURE URINE Isolate 1 Escherichia coli >100,000 cfu/ml of ORGANISM 1 Escherichia coli ANTIBIOTIC M.I.C RX STATUS Ampicillin <=2 S F Ampicillin/Sulbactam <=2 S F Piperacillin/Tazobactam <=4 S F Cefazolin <=4 S F Ceftazidime <=1 S F Ceftriaxone <=1 S F Ertapenem <=0.5 S F Imipenem <=0.25 S F Amikacin 8 S F Gentamicin <=1 S F Tobramycin 2 S F Ciprofloxacin >=4 R F Levofloxacin >=8 R F Nitrofurantoin <=16 S F Trimethoprim/Sulfamethoxa zole <=20 S F Normal [facility] Comment on above: Performed By: #### U RCX #### [facility] [address] [place], [place] [id number] Dr. Michael Domínguez Vital Signs Date Time Vital Sign Value Performing Clinician Faci lity 12-14-2022 12:01-0500 Body height 172.72 cm MD Kavon Farrell Work Phone: [facility] 12-14-2022 04:04-0500 Body temperature 98.1 [degF] MD Kavon Farrell Work Phone: [facility] 12-14-2022 04:04-0500 Diastolic blood pressure 75 mm[Hg] MD Kavon Farrell Work Phone: [facility] 12-14-2022 04:04-0500 Heart rate 79 /min MD Kavon Farrell Work Phone: [facility] 12-14-2022 04:04-0500 Respiratory rate 18 /min MD Kavon Farrell Work Phone: [facility] 12-14-2022 04:04-0500 SaO2% (BldA) [Mass fraction] 92 % MD Kavon Farrell Work Phone: [facility] 12-14-2022 04:04-0500 Systolic blood pressure 165 mm[Hg] MD Kavon Farrell Work Phone: [facility] 12-12-2022 06:00-0500 Body weight 66.7 kg MD Kavon Farrell Work Phone: [facility] 12-02-2022 00:00-0500 Inhaled oxygen flow rate 1.5 L/min MD Kavon Farrell Work Phone: [facility] 11-30-2022 11:42-0500 Body temperature 98.4 [degF] MD Kavon Farrell Work Phone: [facility] 11-30-2022 11:42-0500 Diastolic blood pressure 68 mm[Hg] MD Kavon Farrell Work Phone: [facility] 11-30-2022 11:42-0500 Heart rate 90 /min MD Kavon Farrell Work Phone: [facility] 11-30-2022 11:42-0500 Inhaled oxygen flow rate 2.5 L/min MD Kavon Farrell Work Phone: [facility] 11-30-2022 11:42-0500 Respiratory rate 16 /min MD Kavon Farrell Work Phone: [facility] 11-30-2022 11:42-0500 SaO2% (BldA) [Mass fraction] 97 % MD Kavon Farrell Work Phone: [facility] 11-30-2022 11:42-0500 Systolic blood pressure 123 mm[Hg] MD Kavon Farrell Work Phone: [facility] 11-30-2022 05:12-0500 Body weight 65.6 kg MD Kavon Farrell Work Phone: [facility] 11-29-2022 16:08-0500 Body height 172.72 cm MD Kavon Farrell Work Phone: [facility] 11-25-2022 18:31-0500 Diastolic blood pressure 74 mm[Hg] MD Kavon Farrell Work Phone: [facility] 11-25-2022 18:31-0500 Heart rate 87 /min MD Kavon Farrell Work Phone: [facility] 11-25-2022 18:31-0500 Respiratory rate 18 /min MD Kavon Farrell Work Phone: [facility] 11-25-2022 18:31-0500 SaO2% (BldA) [Mass fraction] 99 % MD Kavon Farrell Work Phone: [facility] 11-25-2022 18:31-0500 Systolic blood pressure 171 mm[Hg] MD Kavon Farrell Work Phone: [facility] 11-25-2022 13:55-0500 Body temperature 97.7 [degF] MD Kavon Farrell Work Phone: [facility] 11-25-2022 13:39-0500 Body height 172.72 cm MD Kavon Farrell Work Phone: [facility] 11-25-2022 13:39-0500 Body weight 65.4 kg MD Kavon Farrell Work Phone: [facility] 03-05-2022 18:52-0400 Diastolic blood pressure 77 mm[Hg] MD Adrian Rangel Work Phone: [facility] 03-05-2022 18:52-0400 Heart rate 88 /min MD Adrian Rangel Work Phone: [facility] 03-05-2022 18:52-0400 Respiratory rate 18 /min MD Adrian Rangel Work Phone: [facility] 03-05-2022 18:52-0400 SaO2% (BldA) [Mass fraction] 98 % MD Adrian Rangel Work Phone: [facility] 03-05-2022 18:52-0400 Systolic blood pressure 165 mm[Hg] MD Adrian Rangel Work Phone: [facility] 03-05-2022 17:23-0400 Body height 172.72 cm MD Adrian Rangel Work Phone: [facility] 03-05-2022 17: Body mass index (BMI) [Ratio] 22 kg/m2 MD Adrian Rangel Work Phone: [facility] 03-05-2022 17: Body weight 65.77 kg MD Adrian Rangel Work Phone: [facility] 03-05-2022 17:040 Body temperature 97.8 [degF] MD Adrian Rangel Work Phone: [facility] Encounters Encounter Date Encounter Type Care Provider Facility Start: 09-27-2025 ambulatory PILAR SAMANIEGO Facili ty: [facility] Start: 08-28-2025 ambulatory Juan Santana Facility : [facility] Start: 06-26-2025 End: 06-26-2025 ambulatory PILAR A DANETTE Facility:[facility] Start: 06-14-2025 End: 07-09-2025 ambulatory PILAR A DANETTE Facility: [facility] Start: 02-01-2025 End: 02-07-2025 ambulatory Juan Santana Facility: [facility] Start: 01-30-2025 End: 02-07-2025 ambulatory Juan Santana Facility: [facility] Start: 11-16-2024 End: 12-12-2024 ambulatory Juan Santana Facility: [facility] Start: 10-31-2024 End: 10-31-2024 ambulatory JUAN SANTANA [facility] Start: 10-31-2024 End: 10-31-2024 Subsequent hospital visit by physician Juan Santana MD Work Phone: [facility] Comment on above: Recurrent UTI Start: 09-26-2024 End: 09-26-2024 ambulatory DESIRAE RAMOS [facility] Start: 09-26-2024 End: 09-26-2024 Subsequent hospital visit by physician Juan Santana MD Work Phone: [facility] Comment on above: Frequent UTI Start: 08-16-2024 End: 08-16-2024 ambulatory Juan Trini Gallito Facility:[facility] Start: 06-25-2024 End: 06-25-2024 ambulatory KATIA POCOS Not Available Start: 05-23-2024 End: 05-23-2024 ambulatory KATIA POCOS Not Available Start: 05-08-2024 End: 05-08-2024 ambulatory Juan RivasLydia Gallito Facility:[facility] Start: 05-01-2024 End: 05-01-2024 ambulatory Juan Trini Gallito [facility] Start: 03-27-2024 End: 03-27-2024 ambulatory Juan RobLydia Gallito Facility:[facility] Start: 03-16-2024 End: 04-02-2024 ambulatory Juan Trini Santana Facility:[facility] Start: 07-01-2023 End: 07-01-2023 ambulatory [facility] Start: 03-16-2023 End: 03-16-2023 ambulatory Barbie Weston Other [employer] Other Start: 03-16-2023 Telephone encounter Barbie Patel [facility] Start: 03-15-2023 Office outpatient visit 15 minutes Barbie Weston [facility] Start: 03-15-2023 End: 03-15-2023 ambulatory Barbie Weston Facility:[facility] Start: 03-15-2023 End: 03-15-2023 ambulatory MD Kavon Farrell Work Phone: [facility] Work Phone: Start: 03-15-2023 End: 03-15-2023 Patient encounter procedure MD Kavon Farrell Work Phone: [facility] [place] [facility] Start: 02-10-2023 End: 02-11-2023 ambulatory MIGEL [facility] Facility: Start: 02-01-2023 (Post-Op) Post-Op Barbie Weston [facility] [place] [facility] Start: 02-01-2023 End: 02-01-2023 ambulatory Kavon Farrell [facility] [employer] Other Start: 02-01-2023 End: 02-01-2023 Patient encounter procedure MD Kavon Farrell Work Phone: [facility] Start: 11-30-2022 End: 12-14-2022 Evaluation and management of inpatient Kavon Farrell Facility:[facility] Start: 11-30-2022 End: 12-14-2022 Evaluation and management of inpatient MD Kavon Farrell Work Phone: [facility] Work Phone: Start: 11-25-2022 End: 11-30-2022 Evaluation and management of inpatient Kavon Farrell Facility:[facility] Start: 11-25-2022 End: 11-30-2022 Evaluation and management of inpatient MD Kavon Farrell Work Phone: [facility] Work Phone: Start: 11-23-2022 End: 11-23-2022 ambulatory MAURICE [facility] Start: 10-21-2022 End: 10-22-2022 ambulatory CHRISTY COOMBS Facility:[facility] Start: 04-20-2022 End: 04-21-[address] KAVON FARRELL . Facility:[facility] Start: 03-05-2022 End: 03-05-2022 Emergency department patient visit MD Adrian Rangel Work Phone: [facility]-Emergency Room Procedures Date Procedure Procedure Detail Performing Clinician Start: 03-15-2023 Plain X-ray of right clavicle MD Kavon Farrell Work Phone: Start: 02-01-2023 Plain X-ray of right clavicle MD Kavon Farrell Work Phone: Start: 12-14-2022 Plain X-ray of right clavicle MD Kavon Farrell Work Phone: Start: 12-02-2022 Plain chest X-ray MD Daniel Farrell Work Phone: Start: 11-30-2022 Plain chest X-ray MD Daniel Farrell Work Phone: Start: 11-29-2022 End: 11-29-2022 Plain chest X-ray MD Kavon Farrell Work Phone: Start: 11-25-2022 CT of thorax with contrast MD Kavon Farrell Work Phone: Start: 11-25-2022 Urine culture MD Kavon alicia Work Phone: Start: 11-25-2022 CT of lumbar spine without contrast MD Kavon Farrell Work Phone: Start: 11-25-2022 CT cervical spine wi thout contrast MD Kavon Farrell Work Phone: Start: 11-25-2022 CT of head without contrast MD Kavon Farrell Work Phone: Start: 11-25-2022 Plain X-ray of right shoulder MD Kavon Farrell Work Phone: Start: 03-05-2022 CT of head without contrast MD Adrian Rangel Work Phone: Start: 03-05-2022 Plain X-ray of left elbow MD Adrian Rangel Work Phone: Plan of Treatment Date Care Activity Detail Author Start: 10-31-2024 End: 10-31-2024 Patient encounter procedure 10/31/2024 2:00 PM EST Office Visit [facility] [address] [place] [address] [place] [id number] Desirae Rmaos, [employer]NER - PRINCIPAL TECHNOLOGIST [address] [facility] [address] [place] [phone] 4 weeks (around 10/24/2024) for Follow up on recurrent UTIs [facility] Comment on above: 4 weeks (around 10/24/2024) for Follow u p on recurrent UTIs Start: 07-15-2024 COVID-19 Vaccine ( season) COVID-19 Vaccine ( season) [facility] Start: 06-26-2024 Annual Wellness Visit (Medicare) Annual Wellness Visit (Medicare) [facility] Start: 06-14-2024 Influenza vaccination Flu vaccine (#1) [facility] Start: 12-14-2022 [facility] Start: 12-01-2022 Administration of prophylactic treatment [facility] Start: 11-30-2022 End: 11-30-2022 [facility] Start: 11-30-2022 Hospital admission [facility] Start: 11-30-2022 Referral to clinical mysql developer [facility] Start: 11-26-2022 Blood chemistry [facility] Start: 11-26-2022 [facility] Start: 11-25-2022 End: 11-25-2022 Consultation [facility] Start: 11-25-2022 Physical therapy procedure [facility] Start: 11-25-2022 Referral to occupational therapist [facility] Start: 11-25-2022 Referral to Web Database Developer [facility] Start: 11-25-2022 Hospital admission [facility] Start: 11-25-2022 [facility] Start: 11-25-2022 [facility] Start: 11-25-2022 Bacteria identified in Urine by Culture Urine Culture [facility] Start: 07-07-2017 Pneumococcal 65+ years Vaccine (2 of 2 - PCV) Pneumococcal 65+ years Vaccine (2 of 2 - PCV) [facility] Start: 01-15-2012 Respiratory Syncytial Virus (RSV) or age 60 yrs+ (1 - 1-dose 75+ series) Respiratory Syncytial Virus (RSV) or age 60 yrs+ (1 - 1-dose 75+ series) [facility] Start: 1997 Respiratory Syncytial Virus (RSV) or age 60 yrs+ (1 - 1-dose 60+ series) Respiratory Syncytial Virus (RSV) or age 60 yrs+ (1 - 1-dose 60+ series) [facility] Start: 1987 Shingles vaccine (1 of 2) Shingles vaccine (1 of 2) [facility] Start: 01-15-1956 DTaP/Tdap/Td vaccine (1 - Tdap) DTaP/Tdap/Td vaccine (1 - Tdap) [facility] Start: 1949 Depression Screen Depression Screen [facility] End: 09-26-2024 Culture, Urine [facility] Comment on above: 1 Occurrences starting 09/26/2024 until 09/26/2024 End: 10-31-2024 Culture, Urine [facility] Comment on above: 1 Occurrences starting 10/31/2024 until 10/31/2024 Patient Education Minor Head Inj ury Minor Contusion ED [facility] Work Phone: Patient referral [facility] Work Phone: XR Clavicle - right Views [facility] Payers Date Payer Category Payer Self-pay [id number] 2002 Medicare [id number] 1959 Medicare [id number] 1959 Unknown [id number] 1935 Unknown [id number] 12.30.830.1.072662.3.579.2.593 1937 Unknown [id number] .840.1.049807.3.579.2.593 1937 Unknown [id number] .840.1.470699.3.579.2.593 1937 Unknown [id number] 2.840.1.479465.3.579.2.125 9 1937 Unknown [id number] 2.16.840.1.578953.3.579.2.125 9 1937 Unknown [id number] 2.16.840.1.348492.3.579.2.125 9 1937 Unknown [id number] 2.16.840.1.036435.3.579.2.125 9 1937 Unknown [id number] 2.16.840.1.754495.3.579.2.175 1937 Unknown [id number] 2.16.840.1.688592.3.579.2.175 1937 Unknown [id number] 2.16.840.1.890196.3.579.2.727 1937 Unknown [id number] 2.16.840.1.208352.3.579.2.727 1937 Unknown [id number] 2.16.840.1.736749.3.579.2.727 1937 Unknown [id number] 2.16.840.1.729218.3.579.2.727 1937 Unknown [id number] 2.16.840.1.891382.3.579.2.727 1937 Unknown [id number] 2.16.840.1.769742.3.579.2.727 1937 Unknown [id number] 2.16.840.1.567371.3.579.2.727 1937 Unknown [id number] 2.16.840.1.173496.3.579.2.727 1937 Unknown [id number] 2.16.840.1.537416.3.579.2.727 1937 Unknown [id number] 2.16.840.1.933759.3.579.272 1937 Unknown [id number] 2.16.840.1.344198.3.579.2.727 1937 Unknown [id number] 2.16.840.1.371626.3.579.2.727 1937 Unknown [id number] 2.16.840.1.669003.3.579.2.727 1937 Unknown [id number] 2.16.840.1.812163.3.579.2.727 1937 Unknown [id number] 2.16.840.1.926698.3.579.2.727 1937 Unknown [id number] 2.16.840.1.603923.3.579.2.727 1937 Unknown [id number] 2.16.840.1.807593.3.579.2.727 Medicare Medicare Nonpatient [id number] Private Health Insurance [facility] [id number] Unknown [id number] 2.16.840.1.575123.3.579.2.531 Unknown [id number] 2.16.840.1.234336.3.579.2.531 Unknown [id number] 2.16.840.1.878323.3.579.2.531 Unknown [id number] 2.16.840.1.367802.3.579.2.531 Social History Date Type Detail Facility Tobacco smoking stat us [facility] Unknown if ever smoked [facility] Work Phone: Start: 1935 Sex Assigned At Female F [facility] Start: 11-25-2022 End: 09-26-2024 Tobacco smoking status UTIS Never smoked tobacco (finding) [facility] Start: 09-26-2024 End: 10-31-2024 Sex Assigned At [facility] [employer] Other Start: 09-26-2024 Tobacco use and exposure Smokeless tobacco non-user [facility] Start: 09-26-2024 End: 10-31-2024 Alcoholic beverage intake Lifetime non-drinker (finding) [facility] Start: 09-26-2024 End: 10-31-2024 History of Social function [facility] Start: 1935 Sex assigned at Not on file B on [facility] Goals Date Patient Goal Desired Activity /State Functional Status Date Assessment Result Facility 12-14-2022 Functional status Patient Not at Baseline [facility] Work Phone: 11-30-2022 Functional status Patient Not at Baseline [facility] Work Phone: 11-25-2022 Functional status Patient Not at Baseline [facility] Work Phone: Mental Status Date Assessment Result Facility 12-14-2022 Cognitive function Cognitive Sta tus Patient is Progressing Toward Baseline [facility] Work Phone: 11-30-2022 Cognitive function Cognitive Sta tus Patient at Baseline [facility] Work Phone: 11-25-2022 Cognitive function Cognitive Sta tus Patient at Baseline [facility] Work Phone: Clinical Notes 2019 to 06-26-2025 Note Date & Type Note Facility 06-26-2025 Note Patient Education Physical Medicine and Rehabilitation Heat Therapy Heat therapy can help ease sore, stiff, injured, and tight muscles and joints. Heat relaxes your muscles. This may help ease your pain and muscle spasms. What are the risks? If you have any of the following conditions, do not use heat therapy unless your doctor says it is okay. These conditions include: ??? New bruises. ??? Open wounds. ??? Any of these in the area being treated: ? Healing wounds. ? Infected skin. ? Scarred skin. ??? Problems with how blood moves through your body (circulation). ??? Loss of feeling (numbness) in the part of your body that is being treated. ??? Unusual swelling of the part of the body that is being treated. ??? Blood clots. ??? Diabetes. ??? Heart disease. ??? Cancer. ??? Not being able to communicate pain. This may include young children and people who have problems with their brain function (dementia). How to use heat therapy There are different kinds of heat therapy. These include: ??? Moist heat pack. ??? Hot water bottle. ??? Electric heating pad. ??? Heated gel pack. ??? Heated wrap. ??? Warm water bath. Your doctor will tell you how to use heat therapy. In general, you should: 1. Place a towel between your skin and the heat source. 2. Leave the heat on for 20?30 minutes. Your skin may turn pink. 3. Take off the heat if your skin turns bright red. This is very important. If you cannot feel pain, heat, or cold, you have a greater risk of getting burned. Your doctor may also tell you to take a warm water bath. To do this: 1. Put a non-slip pad in the bathtub to prevent a fall. 2. Fill the bathtub with warm water. 3. Check the water temperature. 4. Soak in the water for 15?20 minutes, or as told by your doctor. 5. Be careful when you stand up after the bath. You may feel dizzy. 6. Pat yourself dry after the bath. Do not rub your skin to dry it. General recommendations for heat therapy ??? Be careful not to burn your skin when using heat therapy. High heat or using heat for a long time can cause gonzalez. ??? Do not sleep while using heat therapy. Only use heat therapy while you are awake. ??? Check your skin during heat therapy. ??? Do not use heat therapy if you have a new injury, especially if you have swelling on the injured area. ??? Do not use heat therapy on areas of your skin that are already irritated, such as with a rash or sunburn. ??? Do not use heat therapy if your skin turns bright red. Contact a doctor if: ??? You have blisters, redness, swelling, or loss of feeling in the area where you use heat therapy. ??? You have new pain. ??? You have pain that gets worse. Summary ??? Heat therapy is the use of heat to help ease sore, stiff, injured, and tight muscles and joints. ??? There are different types of heat therapy. Your doctor will tell you which one to use. ??? Only use heat therapy while you are awake. ??? Watch your skin to make sure you do not get burned while using heat therapy. This information is not intended to replace advice given to you by your health care provider. Make sure you discuss any questions you have with your health care provider. Document Revised: 09/02/2021 Document Reviewed: 09/02/2021 [employer] Patient Education ? 2023 [employer] [facility] 08-16-2024 Note Patient Education Cardiovascular Atrial Fibrillation Atrial fibrillation (AFib) is a type of heartbeat that is irregular or fast. If you have AFib, your heart beats without any order. This makes it hard for your heart to pump blood in a normal way. AFib may come and go, or it may become a long-lasting problem. If AFib is not treated, it can put you at higher risk for stroke, heart failure, and other heart problems. What are the causes? AFib may be caused by diseases that damage the heart's electrical system. They include: ? High blood pressure. ? Heart failure. ? Heart valve diseases. ? Heart surgery. ? Diabetes. ? Thyroid disease. ? Kidney disease. ? Lung diseases, such as pneumonia or COPD. ? Sleep apnea. Sometimes the cause is not known. What increases the risk? You are more likely to develop AFib if: ? You are older. ? You exercise often and very hard. ? You have a family history of AFib. ? You are male. ? You are . ? You are overweight. ? You smoke. ? You drink a lot of alcohol. What are the signs or symptoms? Common symptoms of this condition include: ? A feeling that your heart is beating very fast. ? Chest pain or discomfort. ? Feeling short of breath. ? Suddenly feeling light-headed or weak. ? Getting tired easily during activity. ? Fainting. ? Sweating. In some cases, there are no symptoms. How is this treated? ? Medicines to: ? Prevent blood clots. ? Treat heart rate or heart rhythm problems. ? Using devices, such as a pacemaker, to correct heart rhythm problems. ? Doing surgery to remove the part of the heart that sends bad signals. ? Closing an area where clots can form in the heart (left atrial appendage). In some cases, your doctor will treat other underlying conditions. Follow these instructions at home: Medicines ? Take rnal-vva-dkwfnft and prescription medicines only as told by your doctor. ? Do not take any new medicines without first talking to your doctor. ? If you are taking blood thinners: ? Talk with your doctor before taking aspirin or NSAIDs, such as ibuprofen. ? Take your medicines as told. Take them at the same time each day. ? Do not do things that could hurt or bruise you. Be careful to avoid falls. ? Wear an alert bracelet or carry a card that says you take blood thinners. Lifestyle ? Do not smoke or use any products that contain nicotine or tobacco. If you need help quitting, ask your doctor. ? Eat heart-healthy foods. Talk with your doctor about the right eating plan for you. ? Exercise regularly as told by your doctor. ? Do not drink alcohol. ? Lose weight if you are overweight. General instructions ? If you have sleep apnea, treat it as told by your doctor. ? Do not use diet pills unless your doctor says they are safe for you. Diet pills may make heart problems worse. ? Keep all follow-up visits. Your doctor will check your heart rate and rhythm regularly. Contact a doctor if: ? You notice a change in the speed, rhythm, or strength of your heartbeat. ? You are taking a blood-thinning medicine and you get more bruising. ? You get tired more easily when you move or exercise. ? You have a sudden change in weight. Get help right away if: ? You have pain in your chest. ? You have trouble breathing. ? You have side effects of blood thinners, such as blood in your vomit, poop (stool), or pee (urine), or bleeding that cannot stop. ? You have any signs of a stroke. BE FAST is an easy way to remember the main warning signs: ? B - Balance. Dizziness, sudden trouble walking, or loss of balance. ? E - Eyes. Trouble seeing or a change in how you see. ? F - Face. Sudden weakness or loss of feeling in the face. The face or eyelid may droop on one side. ? A - Arms.Weakness or loss of feeling in an arm. This happens suddenly and usually on one side of the body. ? S - Speech. Sudden trouble speaking, slurred speech, or trouble understanding what people say. ? T - Time.Time to call emergency services. Write down what time symptoms started. ? You have other signs of a stroke, such as: ? A sudden, very bad headache with no known cause. ? Feeling like you may vomit (nausea). ? Vomiting. ? A seizure. These symptoms may be an emergency. Get help right away. Call 911. ? Do not wait to see if the symptoms will go away. ? Do not drive yourself to the hospital. This information is not intended to replace advice given to you by your health care provider. Make sure you discuss any questions you have with your health care provider. Document Revised: 07/20/2023 Document Reviewed: 07/20/2023 [employer] Patient Education ? 2023 [employer] Caregiving Fall Prevention in the Home, Adult Falls can cause injuries and can happen to people of all ages. There are many things you can do to make your home safer and to help prevent falls. What actio (more content not included)... [facility] 05-08-2024 Note Nurse Consultation N ote Reason for Visit Here for lab draw Assessment/Plan Medicare annual wellness visit, initial (Z00.00: Encounter for general adult medical examination without abnormal findings) Medications amitriptyline 10 mg Tab, 10 mg= 1 tab(s), Oral, Once a day (at bedtime), 1 refills Centrum, 1 cap, Oral, Daily Toprol XL 50 mg Tab-ER, 50 mg= 1 tab(s), Oral, Daily Tylenol Extra Strength 500 mg oral tablet, 1000 mg= 2 tab(s), Oral, TID, PRN Xarelto 15 mg oral tablet, 15 mg= 1 tab(s), Oral, qPM, 1 refills Allergies No Known Allergies Immunizations Vaccine Date Status Comments SARS-CoV-2 (COVID-19) [id number] 09/27/2022 Recorded 2023-02-07: TPV80 influenza virus vaccine, inactivated 08/2022 Recorded Pt received vaccine at [facility] influenza virus vaccine, inactivated 10/16/2021 Recorded SARS-CoV-2 (COVID-19) mRNA-1273 vaccine 10/06/2021 Recorded 2023-02-07: TPV80 SARS-CoV-2 (COVID-19) mRNA-1273 vaccine 01/13/2021 Recorded SARS-CoV-2 (COVID-19) mRNA-1273 vaccine 12/16/2020 Recorded influenza virus vaccine, inactivated 08/29/2020 Recorded influenza virus vaccine, inactivated 08/15/2018 Given Other (see comment) influenza virus vaccine, inactivated 09/07/2017 Recorded influenza virus vaccine, inactivated 08/14/2016 Recorded pneumococcal 23-valent vaccine 07/07/2016 Recorded pneumococcal 23-valent vaccine 06/14/2016 Recorded influenza virus vaccine, inactivated 09/15/2015 Recorded influenza virus vaccine, inactivated 08/14/2015 Recorded influenza, whole 09/14/2005 Recorded [facility] 07-01-2023 Note PR Cardiology - [facility] Brent Batista is a 88 y.o. year old female patient being seen for Follow-up (PATIENT IS HERE TO DISCUSS WATCHMAN ) Patient Active Problem List Diagnosis Atrophic vaginitis Left bundle branch block Dyspnea Fatigue Incomplete emptying of bladder Nocturia Paroxysmal atrial fibrillation (CMS/HCC) Recurrent urinary tract infection Stage 3 chronic kidney disease (CMS/HCC) Urgency-frequency syndrome Urinary urgency Family History Problem Relation Name Age of Onset Prostate cancer Father Social History Tobacco Use Smoking status: Never Smokeless tobacco: Never Substance Use Topics Alcohol use: Not Currently HPI Zahida is seen in follow up. She is a 88 yo woman who in June of 2016 was [facility] with [facility]TI and new onset AF. She was found to have systolic heart failure with EF about 30-35%. She underwent catheterization at [facility] on 07/07/2016 and this showed normal coronary arteries. She was treated with HF medications and her AF reverted to sinus rhythm. She then was followed in clinic and her EF normalized. She has a chronic LBBB by ECG. Her lisinopril was changed to losartan due to dry cough. She still has dry cough on losartan but less than when she was taking lisinopril. I had stopped losartan at a prior visit given that blood pressure was controlled. She has been doing well with no dyspnea and no chest pain. She has no lower extremity swelling. She has no palpitations. She has no dizziness. No bleeding issues. She has knee arthritis and had knee surgery 08/14/2018 and this went well. Recently she sustained a major fall and this resulted in major trauma to the chest with shattering of the collarbone and having broken ribs. She recovered after several weeks in a nursing facility. She reports that she has impaired balance and unsteady gait. Review of Systems Neurological: Unsteady gate. Patient states she was just in a fdc for a total of 10 weeks due to fall All other systems reviewed and are negative. Objective Visit Vitals BP 128/54 (BP Location: Right arm, Patient Position: Sitting, BP Cuff Size: Adult) Pulse 82 Resp 12 Ht 1.727 m (5' 8 ) Wt 68.9 kg (152 lb) SpO2 96% BMI 23.11 kg/m??? Smoking Status Never BSA 1.82 m??? Physical Exam Constitutional: Appearance: She is well-developed. She is not ill-appearing. Comments: Thin appearing HENT: Head: Normocephalic and atraumatic. Nose: Nose normal. Eyes: General: No scleral icterus. Pupils: Pupils are equal, round, and reactive to light. Neck: Thyroid: No thyromegaly. Vascular: No JVD. Cardiovascular: Rate and Rhythm: Normal rate and regular rhythm. Pulses: Radial pulses are 2+ on the right side and 2+ on the left side. Heart sounds: Normal heart sounds. No murmur heard. No friction rub. No gallop. Pulmonary: Effort: Pulmonary effort is normal. No respiratory distress. Breath sounds: Normal breath sounds. No wheezing or rales. Chest: Chest wall: No tenderness. Abdominal: General: Bowel sounds are normal. There is no distension. Palpations: Abdomen is soft. Tenderness: There is no abdominal tenderness. Musculoskeletal: General: No swelling. Cervical back: Neck supple. Skin: General: Skin is warm and dry. Neurological: General: No focal deficit present. Mental Status: She is alert and oriented to person, place, and time. Psychiatric: Mood and Affect: Mood normal. Behavior: Behavior is cooperative. Judgment: Judgment normal. Allergies Allergies Allergen Reactions Mikki Inhibitors Cough Arb-Angiotensin Receptor Antagonist Cough Medications Current Outpatient Medications: amitriptyline (Elavil) 10 mg tablet, Take 10 mg by mouth at bedtime., Disp: , Rfl: metoprolol succinate XL (Toprol-XL) 50 mg 24 hr tablet, metoprolol succinate ER 50 mg tablet,extended release 24 hr, Disp: , Rfl: multivitamin tablet, Take 1 tablet by mouth in the morning., Disp: , Rfl: pramipexole (Mirapex) 0.125 mg tablet, TAKE 1 TABLET BY MOUTH EVERYDAY AT BEDTIME, Disp: , Rfl: Xarelto 15 mg tablet, TAKE 1 TABLET BY MOUTH EVERY DAY IN THE MORNING, Disp: 90 tablet, Rfl: 2 Recent Labs blood testing 02/10/2023: Hemoglobin 9.9, platelets 371, potassium 5.1, creatinine 1.08, BUN 19, EGFR 48. Imaging and other tests EKG 08/08/20: SR with LBBB ECHO 08/2020: EF lower limits of normal, normal right sided pressures Echocardiogram 08/17/2016: Global left ventricular systolic function is at lower limits of normal (Visually estimated EF 50-55%). Mild left ventricular hypertrophy. The septum is abnormal in its motion; maybe due to bundle branch block. Normal right ventricular systolic function. Mild aortic valve regurgitation. Mild tricuspid regurgitation. Doppler studies suggest normal right sided pressures. ECG 05/18/2017 in clinic: sinus rhythm at 66 bpm with L (more content not included)... [facility] 03-15-2023 Evaluation note Encounter Date Diagnosis Assessment Notes March, Closed nondisplaced fracture of shaft of right clavicle, initial encounter (ICD-10 - S42.024A) Radiographs reviewed with patient today. Discussed with patient she is progressing well from injury. Discussed with patient she can progress activity/motio n as tolerated. [facility] Other 03-21-2023 Evaluation note* Encounter Date Diagnosis Assessment Notes Treatment Notes Treatment Clinical Notes Jan, Closed nondisplaced fracture of shaft of right clavicle, initial encounter (ICD-10 - S42.024A) Patient has suffered a fracture of the shaft of right clavicle. Updated radiographs reviewed and discussed with patient. There is some healing present when compared to initial imaging. We will treat this nonoperatively. We discussed use of a sling. We discussed and demonstrated active elbow and wrist motion exercise as well as passive pendulum shoulder motion with progression to active motion as pain allows. Early healing can be expected by 6 weeks post injury, however, potential for delayed healing or non-union discussed. We discussed the potential for usp cosmetic deformity over the fracture site. We will continue out patient physical therapy to work on range of motion and strengthening exercises. [facility] Other 01-27-2023 Progress note Author Mohit Willson [facility] December 10, 2022 4:10pm Note Date/Time December 10, 2022 4 :10pm [facility] [address] [place] [address] Physiatry(Rehab) Progress Note Signed Patient: Zahida Batista MR#: [id number] : 1935 Acct:[id number] Age/Sex: 87 / F Adm Date: 3 Loc: Room: [address] [place] [address] Type: ADM IN Attending Dr: Mohit Willson MD Copies to: ~ Date of Service: 12/10/2022 Subjective Subjective Narrative: Ms. Batista is a 87 year old female with PMH of A. fib anticoagulated with Xarelto, hypertension, total knee replacement, who presents to acute inpatient rehab due to functional impairment secondary to fall with multiple fractures. Patient presented to the emergency department on 11/25/2022 with complaints of a fall down 2 steps while carrying a laundry basket. There was no prodromal symptoms. ER imaging revealed comminuted right clavicle fracture, as well as multiple right posterior and lateral rib fractures and right pleural effusions. Head and neck CT was unremarkable. Patient was not in respiratory distress anddid not require supplemental O2 on admission. Although did endorse significant chest pain. Trauma surgery was consulted and recommended supportive treatment. Orthopedic surgery was also consulted regarding right clavicular fracture, Nonoperative treatment with sling was recommended. Repeat x-rays in 2 weeks. Patient was diagnosed with Pseudomonas UTI and received a course of IV cefepime. Pulmonology was also consulted for small pneumothorax multiple rib fractures. Anticoagulation was held briefly but then resumed on 11/28/2022. Just prior to rehab admission, although pneumothorax appeared to be lightly smaller, they recommended continuing to hold Xarelto for at least couple of weeks. Interval History: Continues to improve with therapy. She is ambulating about 200 feet, and able to do a flight of stairs, she needs min assist to standby assist. She needs a little more help with her self-care due to right upper extremity restrictions. Family does not feel safe for her to return home with her . They would like her to be placed into a long-term facility next week. Review of Systems Review of Systems All other systems reviewed & are negative unless noted below or in HPI Constitutional Constitutional: Reports fatigue and Reports weakness Eyes Eyes: Reports system reviewed and no additional complaints, except as documented ENT Ears, Nose, Mouth, and Throat: Reports system reviewed and no additional complaints, except as documented Cardiovascular Cardiovascular: Denies chest pain and Denies dyspnea Respiratory Respiratory: Reports as per HPI and Denies dyspnea Gastrointestinal Gastrointestinal: Reports system reviewed and no additional complaints, except as documented Genitourinary Genitourinary: Reports system reviewed and no additional complaints, except as documented Musculoskeletal Musculoskeletal: Reports abnormal gait Integumentary/Breasts Skin/Breast: Reports system reviewed and no additional complaints, except as documented Neurologic Neurologic: Reports system reviewed and no additional complaints, except as documented, Reports abnormal gait and Reports weakness Psychiatric Psychiatric: Reports system reviewed and no additional complaints, except as documented Endocrine Endocrine: Reports system reviewed and no additional complaints, except as documented and Reports fatigue Hematologic/Lymphatic Hematologic/Lymphatic: Reports system reviewed and no additional complaints, except as documented Allergic/Immunologic Allergic/Immunologic: Reports system reviewed and no additional complaints, except as documented Exam Physical Exam Vital Signs: Temp Pulse Resp BP Pulse Ox O2 Del Method O2 Flow Rate 98.2 F 73 16 127/68 95 Room Air 1.5 12/10/22 15:17 12/10/22 15:17 12/10/22 15:17 12/10/22 15:17 12/10/22 15:17 12/10/22 15:17 12/02/22 00:00 Narrative: Const General: cooperative, comfortable, no acute distress, well developed Nutritional Appearance: Normal body habitus Orientation: alert, awake and oriented x3 Limitations: None HEENT Head: normal to inspection, normocephalic and atraumatic Ears: hearing grossly normal bilaterally Nose: external nose normal Face and sinus: normal facial exam Eyes General: appearance normal, both eyes and all related structures Pupils: PERRL EOM: EOM intact bilaterally Neck Neck: normal visual inspection, full ROM, no lymphadenopathy and trachea midline Neck mass: No Chest Chest palpation & inspection: Diffuse bruising to the upper right and lateral chest Resp Effort & Inspection: normal respiratory effort, able to speak in complete sentences, symmetric chest movement and no cough Auscultation: clear to auscultation bilaterally Cardio Jugular venous pressure: no JVD Rhythm: Regular rhythm and rate GI: Inspection: normal to inspection Palpation: soft, no hepatosplenomegaly and nontender Auscultation: normal bowel sounds Musc Cervical Spine: normal cervical lordosis and cervical ROM normal Thoracic/Lumbar Spine: thoraco-lumbar ROM normal Skin General: Skin tear right elbow, covered with dry dressing. No drainage or surrounding erythema noted. Neuro General: patient alert, oriented x3, moves all extremities Cranial Nerves: PERRL Speech: speech normal Extrem Other: WNL Psych Appearance: grossly normal Mental Status: WNL Mood: congruent mood Affect: normal affect Speech and Movement: speech and movement normal Attitude: cooperative Insight: Fair Judgment: Fair Objective Labs 12/06/22 06:05 12/06/22 06:05 Medications and Allergies Allergies and Active Meds: Allergies No Known Allergies Allergy (Verified 11/25/22 14:28) Active Medications Generic Name Dose Route Start Last Admin Trade Name Freq PRN Reason Stop Dose Admin Acetaminophen 500 mg 12/09/22 14:00 12/10/22 14:47 Acetaminophen 500 Mg Tablet PO 12/09/23 13:59 500 mg Q4H APOORVA Administration Al Hydrox/Mg Hydrox/Simethicone 30 ml 11/30/22 14:43 Mag Hydrox/Al Hydrox/Simeth 30 Ml Udc PO 11/30/23 14:42 Q4H PRN Indigestion Amitriptyline HCl 10 mg 11/30/22 22:00 12/09/22 21:50 Amitriptyline 10 Mg Tablet PO 11/30/23 21:59 10 mg QHS APOORVA Administration Bisacodyl 10 mg 11/30/22 14:43 Bisacodyl 10 Mg Supp.Rect VT 11/30/23 14:42 DAILY PRN Constipation Docusate Sodium 100 mg 11/30/22 14:43 11/30/22 22:19 Docusate 100 Mg Capsule PO 11/30/23 14:42 100 mg BID PRN Administration Constipation Docusate Sodium 283 mg 11/30/22 14:43 Docusate Enema 283 Mg/5 Ml Enema VT 11/30/23 14:42 DAILY PRN Constipation Lactulose 30 gm 11/30/22 14:43 12/01/22 18:33 Lactulose 20 Gm/30 Ml Udc PO 11/30/23 14:42 30 gm DAILY PRN Administration Constipation Metoprolol Succinate 50 mg 12/01/22 09:00 12/10/22 09:12 Metoprolol Succinate 50 Mg Tab.Er.24h PO 12/01/23 08:59 50 mg DAILY APOORVA Administration Oxycodone HCl 5 mg 11/30/22 14:49 12/06/22 14:51 Oxycodone Ir 5 Mg Tablet PO 5 mg Q4HR PRN Administration Pain Oxycodone HCl 10 mg 11/30/22 21:00 12/10/22 09:13 Oxycodone Er.12hr 10 Mg Tab.Er.12h PO 10 mg Q12HR APOORVA Administration Polyethylene Glycol 17 gm 12/01/22 09:00 12/10/22 09:13 Polyethylene Glycol 3350 17 Gm Powd.Pack PO 12/01/23 08:59 17 gm DAILY APOORVA Administration Pramipexole Dihydrochloride 0.125 mg 11/30/22 22:00 12/09/22 21:50 Pramipexole 0.125 Mg Tablet PO 11/30/23 21:59 0.125 mg QHS APOORVA Administration Rivaroxaban 15 mg 12/01/22 09:00 Rivaroxaban 15 Mg Tablet PO 12/01/23 08:59 DAILY APOORVA Sennosides 2 tab 12/01/22 12:00 Sennosides 8.6 Mg Tablet PO 12/01/23 11:59 DAILY@12 PRN If no BM in 2 days Sodium Chloride 0 ml 11/30/22 14:43 Sodium Chloride 0.9 % 10 Ml Syringe IV-PUSH 11/30/23 14:42 PRN PRN Flush Assessment/Plan Assessment/Plan (1) Right clavicle fracture: Code(s): S42.001A - Fracture of unspecified part of right clavicle, initial encounter forclosed fracture Status: Acute (2) UTI (urinary tract infection): Qualifiers: Hematuria presence: without hematuria Urinary tract infection type: acute cystitis Qualified Code(s): N30.00 - Acute cystitis without hematuria Code(s): N39.0 - Urinary tract infection, site not specified Status: Acute (3) Multiple rib fractures involving four or more ribs: Code(s): S22.49XA - Multiple fractures of ribs, unspecified side, initial encounter for closed fracture Status: Acute (4) Flail chest: Code(s): S22.5XXA - Flail chest, initial encounter for closed fracture Status: Acute (5) Afib: Code(s): I48.91 - Unspecified atrial fibrillation Status: Acute (6) Impaired mobility and activities of daily living: Code(s): Z74.09 - Other reduced mobility; Z78.9 - Other specified health status Status: Acute (7) Skin tear: Status: Acute (8) CKD (chronic kidney disease): Code(s): N18.9 - Chronic kidney disease, unspecified Status: Acute (9) Anemia: Qualifiers: Anemia type: unspecified type Qualified Code(s): D64.9 - Anemia, unspecified Code(s): D64.9 - Anemia, unspecified Status: Acute Plan 87-year-old female who sustained a fall down 2 stairs while carrying a load of laundry. Sustained multiple rib fractures resulting in flail chest and a right clavicular fracture. Pulmonology is following for small pneumothorax. Orthopedic surgery is following regarding right clavicle fracture. * Improving. Walking 235 feet, able to do a flight of stairs. Min assist for self-care. Pain control improved. Consider weaning off OxyContin over the weekend or early next week before discharge. This can be followed at the long-term facility. * Discussed with son and at the bedside. Patient education Pressure ulcer prophylaxis; encourage mobilization, frequent postural changes, pressure-relief techniques DVT prophylaxis: Contraindicated due to recent trauma Encourage deep breathing exercise incentive spirometry. Monitor bladder. Toileting schedule. Continue current bladder management, with scans as needed and CIC if needed. Start bowel care program every day to obtain continence, prevent ileus. Maintain fall precautions Gait and balance retraining Functional training and self-care and home management, including activities of daily living and instrumental activities of daily living Provision of the necessary gait aids and functional adaptive equipment to enhance the patient's a functional oriental orthodox Ensure adequate nutrition and hydration Sleep: No issues Pain: Well controlled on current regimen. Will start weaning off of opioids next week if tolerated. Discharge planning: SNF Next week. Plan: I completed a substantive portion of this encounter, the medical decision makingportion of this note in its entirety, including Allied health note review, nursing note review, cruise consultant note review, discussion with nursing and case management, and more than 50% of my time was spent on counseling and coordination of care, time spent 22 minutes Patient was personally seen by me, Dr. Willson, on the day of encounter, reviewed the history and the relevant portions of the chart, including current orders, allied health and cruise consultant notes, labs/imaging and performed ferreira elements of exam and I formulated the plan of care and facilitated the medical decision making. Documented By: Mohit Willson MD 12/10/22 1608 Signed By: <Electronically signed by Mohit Willson MD> 12/10/22 1610 [facility] Work Phone: 1(484) 558-834501-25-2023 Progress note Author Harleen Matos [facility] December 08, 2022 8:23pm Note Date/Time December 08, 2022 7 :23pm [facility] [address] [place] [address] Hospitalist Progress Note Signed Patient: Zahida Batista MR#: [id number] : 1935 Acct:[id number] Age/Sex: 87 / F Adm Date: 3 Loc: Room: [address] [place] [address] Type: ADM IN Attending Dr: Mohit Willson MD Copies to: ~ Date of Service: 12/08/2022 Subjective Subjective Narrative: Patient seen on follow-up. Resting comfortably in chair. Reporting participating and tolerating physical therapy well, states that her pain is minimal to moderate and is tolerable on the current regimen. Denies hematuria. No chest pain or palpitation. No cough, dyspnea, or pain with inspiration. Noabdominal pain or indigestion, constipation or diarrhea, nausea or vomiting. Nodysuria or retention. No headache or dizziness. No fevers. Reviewed labs and discussed with patient about low hemoglobin levels and will check iron studies in the morning. Patient agreeable Exam Physical Exam Vital Signs: Temp Pulse Resp BP Pulse Ox O2 Del Method O2 Flow Rate 97.4 F L 82 18 150/74 H 94 L Room Air 1.5 12/08/22 16:00 12/08/22 16:00 12/08/22 16:00 12/08/22 16:00 12/08/22 04:49 12/08/22 16:00 12/02/22 00:00 Objective Lab Results 12/06/22 06:05 12/06/22 06:05 Meds Allergies and Active Meds Allergies No Known Allergies Allergy (Verified 11/25/22 14:28) Active Meds: Active Medications Generic Name Dose Route Start Last Admin Trade Name Sarah PRN Reason Stop Dose Admin Acetaminophen 500 mg 11/30/22 14:43 12/08/22 07:45 Acetaminophen 500 Mg Tablet PO 11/30/23 14:42 500 mg Q4H PRN Administration Pain Al Hydrox/Mg Hydrox/Simethicone 30 ml 11/30/22 14:43 Mag Hydrox/Al Hydrox/Simeth 30 Ml Udc PO 11/30/23 14:42 Q4H PRN Indigestion Amitriptyline HCl 10 mg 11/30/22 22:00 12/07/22 20:44 Amitriptyline 10 Mg Tablet PO 11/30/23 21:59 10 mg QHS APOORVA Administration Bisacodyl 10 mg 11/30/22 14:43 Bisacodyl 10 Mg Supp.Rect VT 11/30/23 14:42 DAILY PRN Constipation Docusate Sodium 100 mg 11/30/22 14:43 11/30/22 22:19 Docusate 100 Mg Capsule PO 11/30/23 14:42 100 mg BID PRN Administration Constipation Docusate Sodium 283 mg 11/30/22 14:43 Docusate Enema 283 Mg/5 Ml Enema VT 11/30/23 14:42 DAILY PRN Constipation Lactulose 30 gm 11/30/22 14:43 12/01/22 18:33 Lactulose 20 Gm/30 Ml Udc PO 11/30/23 14:42 30 gm DAILY PRN Administration Constipation Metoprolol Succinate 50 mg 12/01/22 09:00 12/08/22 10:01 Metoprolol Succinate 50 Mg Tab.Er.24h PO 12/01/23 08:59 50 mg DAILY APOORVA Administration Oxycodone HCl 5 mg 11/30/22 14:49 12/06/22 14:51 Oxycodone Ir 5 Mg Tablet PO 5 mg Q4HR PRN Administration Pain Oxycodone HCl 10 mg 11/30/22 21:00 12/08/22 10:00 Oxycodone Er.12hr 10 Mg Tab.Er.12h PO 10 mg Q12HR APOORVA Administration Polyethylene Glycol 17 gm 12/01/22 09:00 12/08/22 10:02 Polyethylene Glycol 3350 17 Gm Powd.Pack PO 12/01/23 08:59 17 gm DAILY APOORVA Administration Pramipexole Dihydrochloride 0.125 mg 11/30/22 22:00 12/07/22 20:44 Pramipexole 0.125 Mg Tablet PO 11/30/23 21:59 0.125 mg QHS APOORVA Administration Rivaroxaban 15 mg 12/01/22 09:00 Rivaroxaban 15 Mg Tablet PO 12/01/23 08:59 DAILY APOORVA Sennosides 2 tab 12/01/22 12:00 Sennosides 8.6 Mg Tablet PO 12/01/23 11:59 DAILY@12 PRN If no BM in 2 days Sodium Chloride 0 ml 11/30/22 14:43 Sodium Chloride 0.9 % 10 Ml Syringe IV-PUSH 11/30/23 14:42 PRN PRN Flush A&P - Hospitalist Assessment/Plan (1) Right clavicle fracture: (2) Multiple rib fractures involving four or more ribs: (3) Pneumothorax: (4) Status post fall: (5) Impaired mobility and activities of daily living: (6) Anemia: (7) CKD (chronic kidney disease): (8) Chronic anticoagulation: Plan Fall Right clavicular fracture Multiple right rib fractures Pneumothorax, stable UTI, pseudomonas -further POC per PMR team for rehabilitative therapy, pain control & bowel regimen, DVT ppx -hold Rivaroxaban per pulmonary recommendations, resume 12/13/22 -antibiotic therapy completed while inpatient Cefepime Chronic Conditions 1.? Afib on chronic anticoagulation- Rivaroxaban on hold, Metoprolol 2.? CKD3, anemia-hemoglobin 8.6, will order iron studies. No signs and symptomsof bleeding 3.? Hyponatremia-resolved Documented By: Kathie Hoyt APRN 12/08/221918 Signed By: <Electronically signed by LENNOX Hoyt> 12/08/221929 <Electronically signed by Harleen Matos MD> 12/08/222022 [facility] Work Phone: [phone]) 621-547801-25-2023 Progress note Author Mohit Willson [facility] December 08, 2022 3:34pm Note Date/Time December 08, 2022 3 :34pm [facility] [address] [place] [address] Physiatry(Rehab) Progress Note Signed Patient: Zahida Batista MR#: [id number] : 1935 Acct:[id number] Age/Sex: 87 / F Adm Date: 3 Loc: Room: [address] [place] [address] Type: ADM IN Attending Dr: Mohit Willson MD Copies to: ~ Date of Service: 12/08/2022 Subjective Subjective Narrative: Ms. Batista is a 87 year old female with PMH of A. fib anticoagulated with Xarelto, hypertension, total knee replacement, who presents to acute inpatient rehab due to functional impairment secondary to fall with multiple fractures. Patient presented to the emergency department on 11/25/2022 with complaints of a fall down 2 steps while carrying a laundry basket. There was no prodromal symptoms. ER imaging revealed comminuted right clavicle fracture, as well as multiple right posterior and lateral rib fractures and right pleural effusions. Head and neck CT was unremarkable. Patient was not in respiratory distress anddid not require supplemental O2 on admission. Although did endorse significant chest pain. Trauma surgery was consulted and recommended supportive treatment. Orthopedic surgery was also consulted regarding right clavicular fracture, Nonoperative treatment with sling was recommended. Repeat x-rays in 2 weeks. Patient was diagnosed with Pseudomonas UTI and received a course of IV cefepime. Pulmonology was also consulted for small pneumothorax multiple rib fractures. Anticoagulation was held briefly but then resumed on 11/28/2022. Just prior to rehab admission, although pneumothorax appeared to be lightly smaller, they recommended continuing to hold Xarelto for at least couple of weeks. Interval History: Improving Pain is still limiting, continue current regimen Agreeable to SNF placement, tentatively for Tuesday next week Ambulating with straight cane contact-guard assist from therapist. Ascended/descended six 6 inch steps using 1 handrail. Required min to contact-guard assist for transfers and bed mobility. Review of Systems Review of Systems All other systems reviewed & are negative unless noted below or in HPI Constitutional Constitutional: Reports fatigue and Reports weakness Eyes Eyes: Reports system reviewed and no additional complaints, except as documented ENT Ears, Nose, Mouth, and Throat: Reports system reviewed and no additional complaints, except as documented Cardiovascular Cardiovascular: Denies chest pain and Denies dyspnea Respiratory Respiratory: Reports as per HPI and Denies dyspnea Gastrointestinal Gastrointestinal: Reports system reviewed and no additional complaints, except as documented Genitourinary Genitourinary: Reports system reviewed and no additional complaints, except as documented Musculoskeletal Musculoskeletal: Reports abnormal gait Integumentary/Breasts Skin/Breast: Reports system reviewed and no additional complaints, except as documented Neurologic Neurologic: Reports system reviewed and no additional complaints, except as documented, Reports abnormal gait and Reports weakness Psychiatric Psychiatric: Reports system reviewed and no additional complaints, except as documented Endocrine Endocrine: Reports system reviewed and no additional complaints, except as documented and Reports fatigue Hematologic/Lymphatic Hematologic/Lymphatic: Reports system reviewed and no additional complaints, except as documented Allergic/Immunologic Allergic/Immunologic: Reports system reviewed and no additional complaints, except as documented Exam Physical Exam Vital Signs: Temp Pulse Resp BP Pulse Ox O2 Del Method O2 Flow Rate 98.1 F 94 H 16 120/67 94 L Room Air 1.5 12/08/22 07:40 12/08/22 07:40 12/08/22 07:40 12/08/22 07:40 12/08/22 04:49 12/08/22 15:13 12/02/22 00:00 Narrative: Const General: cooperative, comfortable, no acute distress, well developed Nutritional Appearance: Normal body habitus Orientation: alert, awake and oriented x3 Limitations: None HEENT Head: normal to inspection, normocephalic and atraumatic Ears: hearing grossly normal bilaterally Nose: external nose normal Face and sinus: normal facial exam Eyes General: appearance normal, both eyes and all related structures Pupils: PERRL EOM: EOM intact bilaterally Neck Neck: normal visual inspection, full ROM, no lymphadenopathy and trachea midline Neck mass: No Chest Chest palpation & inspection: Diffuse bruising to the upper right and lateral chest Resp Effort & Inspection: normal respiratory effort, able to speak in complete sentences, symmetric chest movement and no cough Auscultation: clear to auscultation bilaterally Cardio Jugular venous pressure: no JVD Rhythm: Regular rhythm and rate GI: Inspection: normal to inspection Palpation: soft, no hepatosplenomegaly and nontender Auscultation: normal bowel sounds Musc Cervical Spine: normal cervical lordosis and cervical ROM normal Thoracic/Lumbar Spine: thoraco-lumbar ROM normal Skin General: Skin tear right elbow, covered with dry dressing. No drainage or surrounding erythema noted. Neuro General: patient alert, oriented x3, moves all extremities Cranial Nerves: PERRL Speech: speech normal Extrem Other: WNL Psych Appearance: grossly normal Mental Status: WNL Mood: congruent mood Affect: normal affect Speech and Movement: speech and movement normal Attitude: cooperative Insight: Fair Judgment: Fair Objective Labs 12/06/22 06:05 12/06/22 06:05 Medications and Allergies Allergies and Active Meds: Allergies No Known Allergies Allergy (Verified 11/25/22 14:28) Active Medications Generic Name Dose Route Start Last Admin Trade Name Freq PRN Reason Stop Dose Admin Acetaminophen 500 mg 11/30/22 14:43 12/08/22 07:45 Acetaminophen 500 Mg Tablet PO 11/30/23 14:42 500 mg Q4H PRN Administration Pain Al Hydrox/Mg Hydrox/Simethicone 30 ml 11/30/22 14:43 Mag Hydrox/Al Hydrox/Simeth 30 Ml Udc PO 11/30/23 14:42 Q4H PRN Indigestion Amitriptyline HCl 10 mg 11/30/22 22:00 12/07/22 20:44 Amitriptyline 10 Mg Tablet PO 11/30/23 21:59 10 mg QHS APOORVA Administration Bisacodyl 10 mg 11/30/22 14:43 Bisacodyl 10 Mg Supp.Rect VT 11/30/23 14:42 DAILY PRN Constipation Docusate Sodium 100 mg 11/30/22 14:43 11/30/22 22:19 Docusate 100 Mg Capsule PO 11/30/23 14:42 100 mg BID PRN Administration Constipation Docusate Sodium 283 mg 11/30/22 14:43 Docusate Enema 283 Mg/5 Ml Enema VT 11/30/23 14:42 DAILY PRN Constipation Lactulose 30 gm 11/30/22 14:43 12/01/22 18:33 Lactulose 20 Gm/30 Ml Udc PO 11/30/23 14:42 30 gm DAILY PRN Administration Constipation Metoprolol Succinate 50 mg 12/01/22 09:00 12/08/22 10:01 Metoprolol Succinate 50 Mg Tab.Er.24h PO 12/01/23 08:59 50 mg DAILY APOORVA Administration Oxycodone HCl 5 mg 11/30/22 14:49 12/06/22 14:51 Oxycodone Ir 5 Mg Tablet PO 5 mg Q4HR PRN Administration Pain Oxycodone HCl 10 mg 11/30/22 21:00 12/08/22 10:00 Oxycodone Er.12hr 10 Mg Tab.Er.12h PO 10 mg Q12HR APOORVA Administration Polyethylene Glycol 17 gm 12/01/22 09:00 12/08/22 10:02 Polyethylene Glycol 3350 17 Gm Powd.Pack PO 12/01/23 08:59 17 gm DAILY APOORVA Administration Pramipexole Dihydrochloride 0.125 mg 11/30/22 22:00 12/07/22 20:44 Pramipexole 0.125 Mg Tablet PO 11/30/23 21:59 0.125 mg QHS APOORVA Administration Rivaroxaban 15 mg 12/01/22 09:00 Rivaroxaban 15 Mg Tablet PO 12/01/23 08:59 DAILY APOORVA Sennosides 2 tab 12/01/22 12:00 Sennosides 8.6 Mg Tablet PO 12/01/23 11:59 DAILY@12 PRN If no BM in 2 days Sodium Chloride 0 ml 11/30/22 14:43 Sodium Chloride 0.9 % 10 Ml Syringe IV-PUSH 11/30/23 14:42 PRN PRN Flush Assessment/Plan Assessment/Plan (1) Right clavicle fracture: Code(s): S42.001A - Fracture of unspecified part of right clavicle, initial encounter forclosed fracture Status: Acute (2) UTI (urinary tract infection): Qualifiers: Hematuria presence: without hematuria Urinary tract infection type: acute cystitis Qualified Code(s): N30.00 - Acute cystitis without hematuria Code(s): N39.0 - Urinary tract infection, site not specified Status: Acute (3) Multiple rib fractures involving four or more ribs: Code(s): S22.49XA - Multiple fractures of ribs, unspecified side, initial encounter for closed fracture Status: Acute (4) Flail chest: Code(s): S22.5XXA - Flail chest, initial encounter for closed fracture Status: Acute (5) Afib: Code(s): I48.91 - Unspecified atrial fibrillation Status: Acute (6) Impaired mobility and activities of daily living: Code(s): Z74.09 - Other reduced mobility; Z78.9 - Other specified health status Status: Acute (7) Skin tear: Status: Acute (8) CKD (chronic kidney disease): Code(s): N18.9 - Chronic kidney disease, unspecified Status: Acute (9) Anemia: Qualifiers: Anemia type: unspecified type Qualified Code(s): D64.9 - Anemia, unspecified Code(s): D64.9 - Anemia, unspecified Status: Acute Plan 87-year-old female who sustained a fall down 2 stairs while carrying a load of laundry. Sustained multiple rib fractures resulting in flail chest and a right clavicular fracture. Pulmonology is following for small pneumothorax. Orthopedic surgery is following regarding right clavicle fracture. * Continue current management * Consider weaning opioids, but pain still barrier Patient education Pressure ulcer prophylaxis; encourage mobilization, frequent postural changes, pressure-relief techniques DVT prophylaxis: Contraindicated due to recent trauma Encourage deep breathing exercise incentive spirometry. Monitor bladder. Toileting schedule. Continue current bladder management, with scans as needed and CIC if needed. Start bowel care program every day to obtain continence, prevent ileus. Maintain fall precautions Gait and balance retraining Functional training and self-care and home management, including activities of daily living and instrumental activities of daily living Provision of the necessary gait aids and functional adaptive equipment to enhance the patient's a functional oriental orthodox Ensure adequate nutrition and hydration Sleep: No issues Pain: Well controlled on current regimen. Will start weaning off of opioids next week if tolerated. Discharge planning: SNF Next week. Plan: I completed a substantive portion of this encounter, the medical decision makingportion of this note in its entirety, including Allied health note review, nursing note review, cruise consultant note review, discussion with nursing and case management, and more than 50% of my time was spent on counseling and coordination of care, time spent 25 minutes Patient was personally seen by me, Dr. Willson, on the day of encounter, reviewed the history and the relevant portions of the chart, including current orders, allied health and cruise consultant notes, labs/imaging and performed ferreira elements of exam and I formulated the plan of care and facilitated the medical decision making. Documented By: Mohit Willson MD 12/08/22 6353 Signed By: <Electronically signed by Mohit Willson MD> 12/08/22 1746 [facility] Work Phone: [phone]) 377-437501-25-2023 Progress note Author Mohit Willson [facility] December 08, 2022 1:40pm Note Date/Time December 07, 2022 1 2:26pm [facility] [address] [place] [address] Physiatry(Rehab) Progress Note Signed Patient: Zahida Batista MR#: [id number] : 1935 Acct:[id number] Age/Sex: 87 / F Adm Date: 3 Loc: Room: [address] [place] [address] Type: ADM IN Attending Dr: Mohit Willson MD Copies to: ~ <Tasneem Cabrales APRN - Last Filed: 12/07/22 12:34> Date of Service: 12/07/2022 Subjective <Tasneem Cabrales APRN - Last Filed: 12/07/22 12:34> Subjective Narrative: Ms. Batista is a 87 year old female with PMH of A. fib anticoagulated with Xarelto, hypertension, total knee replacement, who presents to acute inpatient rehab due to functional impairment secondary to fall with multiple fractures. Patient presented to the emergency department on 11/25/2022 with complaints of a fall down 2 steps while carrying a laundry basket. There was no prodromal symptoms. ER imaging revealed comminuted right clavicle fracture, as well as multiple right posterior and lateral rib fractures and right pleural effusions. Head and neck CT was unremarkable. Patient was not in respiratory distress anddid not require supplemental O2 on admission. Although did endorse significant chest pain. Trauma surgery was consulted and recommended supportive treatment. Orthopedic surgery was also consulted regarding right clavicular fracture, Nonoperative treatment with sling was recommended. Repeat x-rays in 2 weeks. Patient was diagnosed with Pseudomonas UTI and received a course of IV cefepime. Pulmonology was also consulted for small pneumothorax multiple rib fractures. Anticoagulation was held briefly but then resumed on 11/28/2022. Just prior to rehab admission, although pneumothorax appeared to be lightly smaller, they recommended continuing to hold Xarelto for at least couple of weeks. Interval History: Patient observed ambulating in the room with standby assist from nursing. Reports no acute events overnight. She slept well. Pain is tolerable. Denies cardiopulmonary complaints. Vital signs are stable. No GI/ concerns. Continues to work with therapy. Today she was able to ambulate feet with a straight cane contact-guard assist from therapist. Ascended/descended six 6 inch steps using 1 handrail. Required min to contact-guard assist for transfersand bed mobility. Review of Systems <Tasneem Cabrales APRN - Last Filed: 12/07/22 12:34> Constitutional Constitutional: Reports fatigue and Reports weakness Eyes Eyes: Reports system reviewed and no additional complaints, except as documented ENT Ears, Nose, Mouth, and Throat: Reports system reviewed and no additional complaints, except as documented Cardiovascular Cardiovascular: Denies chest pain and Denies dyspnea Respiratory Respiratory: Reports as per HPI and Denies dyspnea Gastrointestinal Gastrointestinal: Reports system reviewed and no additional complaints, except as documented Genitourinary Genitourinary: Reports system reviewed and no additional complaints, except as documented Musculoskeletal Musculoskeletal: Reports abnormal gait Integumentary/Breasts Skin/Breast: Reports system reviewed and no additional complaints, except as documented Neurologic Neurologic: Reports system reviewed and no additional complaints, except as documented, Reports abnormal gait and Reports weakness Psychiatric Psychiatric: Reports system reviewed and no additional complaints, except as documented Endocrine Endocrine: Reports system reviewed and no additional complaints, except as documented and Reports fatigue Hematologic/Lymphatic Hematologic/Lymphatic: Reports system reviewed and no additional complaints, except as documented Allergic/Immunologic Allergic/Immunologic: Reports system reviewed and no additional complaints, except as documented Exam <Tasneem Cabrales APRN - Last Filed: 12/07/22 12:34> Physical Exam Vital Signs: Temp Pulse Resp BP Pulse Ox O2 Del Method O2 Flow Rate 98.0 F 78 15 138/72 94 L Room Air 1.5 12/07/22 05:00 12/07/22 05:00 12/07/22 05:00 12/07/22 05:00 12/07/22 05:00 12/07/22 07:30 12/02/22 00:00 Narrative: Const General: cooperative, comfortable, no acute distress, well developed Nutritional Appearance: Normal body habitus Orientation: alert, awake and oriented x3 Limitations: None HEENT Head: normal to inspection, normocephalic and atraumatic Ears: hearing grossly normal bilaterally Nose: external nose normal Face and sinus: normal facial exam Eyes General: appearance normal, both eyes and all related structures Pupils: PERRL EOM: EOM intact bilaterally Neck Neck: normal visual inspection, full ROM, no lymphadenopathy and trachea midline Neck mass: No Chest Chest palpation & inspection: Diffuse bruising to the upper right and lateral chest Resp Effort & Inspection: normal respiratory effort, able to speak in complete sentences, symmetric chest movement and no cough Auscultation: clear to auscultation bilaterally Cardio Jugular venous pressure: no JVD Rhythm: Regular rhythm and rate GI: Inspection: normal to inspection Palpation: soft, no hepatosplenomegaly and nontender Auscultation: normal bowel sounds Musc Cervical Spine: normal cervical lordosis and cervical ROM normal Thoracic/Lumbar Spine: thoraco-lumbar ROM normal Skin General: Skin tear right elbow, covered with dry dressing. No drainage or surrounding erythema noted. Neuro General: patient alert, oriented x3, moves all extremities Cranial Nerves: PERRL Speech: speech normal Extrem Other: WNL Psych Appearance: grossly normal Mental Status: WNL Mood: congruent mood Affect: normal affect Speech and Movement: speech and movement normal Attitude: cooperative Insight: Fair Judgment: Fair Objective <Tasneem Cabrales, [employer] - Last Filed: 12/07/22 12:34> Labs 12/06/22 06:05 12/06/22 06:05 Medications and Allergies Allergies and Active Meds: Allergies No Known Allergies Allergy (Verified 11/25/22 14:28) Active Medications Generic Name Dose Route Start Last Admin Trade Name Freq PRN Reason Stop Dose Admin Acetaminophen 500 mg 11/30/22 14:43 Acetaminophen 500 Mg Tablet PO 11/30/23 14:42 Q4H PRN Pain Al Hydrox/Mg Hydrox/Simethicone 30 ml 11/30/22 14:43 Mag Hydrox/Al Hydrox/Simeth 30 Ml Udc PO 11/30/23 14:42 Q4H PRN Indigestion Amitriptyline HCl 10 mg 11/30/22 22:00 12/06/22 20:32 Amitriptyline 10 Mg Tablet PO 11/30/23 21:59 10 mg QHS APOORVA Administration Bisacodyl 10 mg 11/30/22 14:43 Bisacodyl 10 Mg Supp.Rect VT 11/30/23 14:42 DAILY PRN Constipation Docusate Sodium 100 mg 11/30/22 14:43 11/30/22 22:19 Docusate 100 Mg Capsule PO 11/30/23 14:42 100 mg BID PRN Administration Constipation Docusate Sodium 283 mg 11/30/22 14:43 Docusate Enema 283 Mg/5 Ml Enema VT 11/30/23 14:42 DAILY PRN Constipation Lactulose 30 gm 11/30/22 14:43 12/01/22 18:33 Lactulose 20 Gm/30 Ml Udc PO 11/30/23 14:42 30 gm DAILY PRN Administration Constipation Metoprolol Succinate 50 mg 12/01/22 09:00 12/07/22 12:00 Metoprolol Succinate 50 Mg Tab.Er.24h PO 12/01/23 08:59 Not Given DAILY APOORVA Oxycodone HCl 5 mg 11/30/22 14:49 12/06/22 14:51 Oxycodone Ir 5 Mg Tablet PO 5 mg Q4HR PRN Administration Pain Oxycodone HCl 10 mg 11/30/22 21:00 12/07/22 11:59 Oxycodone Er.12hr 10 Mg Tab.Er.12h PO Not Given Q12HR APOORVA Polyethylene Glycol 17 gm 12/01/22 09:00 12/07/22 12:00 Polyethylene Glycol 3350 17 Gm Powd.Pack PO 12/01/23 08:59 Not Given DAILY APOORVA Pramipexole Dihydrochloride 0.125 mg 11/30/22 22:00 12/06/22 20:32 Pramipexole 0.125 Mg Tablet PO 11/30/23 21:59 0.125 mg QHS APOORVA Administration Rivaroxaban 15 mg 12/01/22 09:00 Rivaroxaban 15 Mg Tablet PO 12/01/23 08:59 DAILY APOORVA Sennosides 2 tab 12/01/22 12:00 Sennosides 8.6 Mg Tablet PO 12/01/23 11:59 DAILY@12 PRN If no BM in 2 days Sodium Chloride 0 ml 11/30/22 14:43 Sodium Chloride 0.9 % 10 Ml Syringe IV-PUSH 11/30/23 14:42 PRN PRN Flush Assessment/Plan <Tasneem Cabrales, [employer] - Last Filed: 12/07/22 12:34> Assessment/Plan (1) Right clavicle fracture: Code(s): S42.001A - Fracture of unspecified part of right clavicle, initial encounter forclosed fracture Status: Acute (2) UTI (urinary tract infection): Qualifiers: Hematuria presence: without hematuria Urinary tract infection type: acute cystitis Qualified Code(s): N30.00 - Acute cystitis without hematuria Code(s): N39.0 - Urinary tract infection, site not specified Status: Acute (3) Multiple rib fractures involving four or more ribs: Code(s): S22.49XA - Multiple fractures of ribs, unspecified side, initial encounter for closed fracture Status: Acute (4) Flail chest: Code(s): S22.5XXA - Flail chest, initial encounter for closed fracture Status: Acute (5) Afib: Code(s): I48.91 - Unspecified atrial fibrillation Status: Acute (6) Impaired mobility and activities of daily living: Code(s): Z74.09 - Other reduced mobility; Z78.9 - Other specified health status Status: Acute (7) Skin tear: Status: Acute (8) CKD (chronic kidney disease): Code(s): N18.9 - Chronic kidney disease, unspecified Status: Acute (9) Anemia: Qualifiers: Anemia type: unspecified type Qualified Code(s): D64.9 - Anemia, unspecified Code(s): D64.9 - Anemia, unspecified Status: Acute Plan 87-year-old female who sustained a fall down 2 stairs while carrying a load of laundry. Sustained multiple rib fractures resulting in flail chest and a right clavicular fracture. Pulmonology is following for small pneumothorax. Orthopedic surgery is following regarding right clavicle fracture. * Clinically stable, VS within normal limits. Offers no significant complaints on exam this morning. * Improving shoulder pain, bruising to the chest is resolving. No SOB or chest pain with deep breathing. Patient education Pressure ulcer prophylaxis; encourage mobilization, frequent postural changes, pressure-relief techniques DVT prophylaxis: Contraindicated due to recent trauma Encourage deep breathing exercise incentive spirometry. Monitor bladder. Toileting schedule. Continue current bladder management, with scans as needed and CIC if needed. Start bowel care program every day to obtain continence, prevent ileus. Maintain fall precautions Gait and balance retraining Functional training and self-care and home management, including activities of daily living and instrumental activities of daily living Provision of the necessary gait aids and functional adaptive equipment to enhance the patient's a functional oriental orthodox Ensure adequate nutrition and hydration Sleep: No issues Pain: Well controlled on current regimen. Will start weaning off of opioids next week if tolerated. Discharge planning Home v SNF end of week I spent greater than 15 minutes for services, including gtnw-sv-iept encounter with the patient, discussion of the case, plan of care, and exam; and [id number]-dplk activities, such as reviewing pertinent cruise consultant documentation, recent therapy notes, laboratory and radiology studies, and discussionof case with care team including physician, nursing, ed case manager, and therapists. More than 50 % of time was spent on patient/family counseling or coordination ofcare. <Mohit Willson MD - Last Filed: 12/08/22 13:40> Assessment/Plan (1) Right clavicle fracture: (2) UTI (urinary tract infection): (3) Multiple rib fractures involving four or more ribs: (4) Flail chest: (5) Afib: (6) Impaired mobility and activities of daily living: (7) Skin tear: (8) CKD (chronic kidney disease): (9) Anemia: Plan: I completed a substantive portion of this encounter, the medical decision makingportion of this note in its entirety, including Allied health note review, nursing note review, cruise consultant note review, discussion with nursing and case management, and more than 50% of my time was spent on counseling and coordination of care, time spent 25 minutes Patient was personally seen by me, Dr. Willson, on the day of encounter, reviewed the history and the relevant portions of the chart, including current orders, allied health and cruise consultant notes, labs/imaging and performed ferreira elements of exam and I formulated the plan of care and facilitated the medical decision making. Documented By: Tasneem Cabrales APRN 12/07/22 1 222 Signed By: <Electronically signed by LENNOX Cabrales> 12/07/22 1234 <Electronically signed by Mohit Willson MD> 12/08/22 [id number] [facility] Work Phone: 1(381) 430-463401-25-2023 Consult note Author Pedro Cowan [facility] December 08, 2022 1:09am Note Date/Time December 01, 2022 6 :34pm [facility] [address] [place] [address] Hospitalist Consult Note Signed Patient: Zahida Batista MR#: [id number] : 1935 Acct:[id number] Age/Sex: 87 / F Adm Date: 3 Loc: 5T Room: 1G3720-5 Type: ADM IN Attending Dr: Mohit Willson MD Copies to: MD Mohit Alaniz MD Kim E Knight, MD Lynn A Stackhouse, ANP-~ HPI DATE OF CONSULTATION: 12/01/22 REQUESTING PROVIDER: Mohit Willson Consult Narrative Reason for Consult: A. fib, HTN, CKD 3. HPI: 87-year-old female past medical history significant for hypertension, A. fib on chronic anticoagulation, CKD 3, anemia, hyponatremia. Presented to the emergency department November 25 after sustaining a fall at home while carrying laundry downstairs. Work-up in the emergency department patient was found to have right- sided clavicular fracture and multiple posterior right lateral rib fractures. She was seen by trauma/general surgery team with no interventions warranted. Did have pneumothorax on imaging which remained stable and she was evaluated by pulmonology while she was inpatient. UTI with Pseudomonas found and she was treated with antibiotics narrowed to cefepime. She was seen by orthopedic surgery and nonoperative management with sling and symptom managementwas initiated. Her chronic anticoagulation was held while she was inpatient with risk for bleeding following her trauma. She was seen by therapy services and felt would benefit from further rehab, subsequently transferred to the acuteinpatient rehab unit November 30. Hospitalist team has been placed on consultation for medical management of A. fib, hypertension, CKD 3. Patient seen and examined. Reports right rib pain and right shoulder area pain secondary to fracture, managed with medications. Denies chest pain or palpitations. No cough, dyspnea, continues to use I-S with inspiration inhibited by fractures. No abdominal pain or indigestion, constipation or diarrhea, nausea or vomiting. No dysuria or retention. No headache or dizziness. No fevers or chills. Review of Systems Review of Systems All other systems reviewed & are negative unless noted below or in HPI [facility] Attestation Statement: The following information was validated with the patient. Vaccinated for COVID-19?: Yes Medical History (Updated 12/03/22 @ 11:46 by AYAAN Christensen) Afib Anemia Chronic anticoagulation CKD (chronic kidney disease) Hypertension Hyponatremia Surgical History Total knee replacement status Social History Smoking Status: Never smoker Substance Use Type: None Meds Medications and Allergies Allergies No Known Allergies Allergy (Verified 11/25/22 14:28) Home Medications amitriptyline 10 mg tablet 10 mg PO HS 11/25/22 [History Confirmed 11/25/22] metoprolol succinate 50 mg tablet,extended release 24 hr 50 mg PO DAILY 11/25/22[History Confirmed 11/25/22] onbeyjsirfqe-pgwhhxxl-rxckho tablet 1 tab PO DAILY 11/25/22 [History Confirmed 11/25/22] pramipexole 0.125 mg tablet 0.125 mg PO HS 11/25/22 [History Confirmed 11/25/22] rivaroxaban 15 mg tablet (Xarelto) 15 mg PO DAILY 11/25/22 [History Confirmed 11/25/22] acetaminophen 325 mg tablet 650 mg PO Q4H PRN Pain Scale 1 - 5 #0 tabs 11/30/22 [Rx] cefepime 2 gram solution for injection 2 g IV Q12H #0 ea 11/30/22 [Rx] docusate sodium 100 mg capsule 200 mg PO BID PRN Constipation #0 caps 11/30/22 [Rx] oxycodone 10 mg tablet,crush resistant,extended release 12 hr (OxyContin) 10 mg PO Q12HR #0 tabs 11/30/22 [Rx] oxycodone 5 mg tablet 5 mg PO Q4HR PRN Pain #0 tabs 11/30/22 [Rx] polyethylene glycol 3350 17 gram oral powder packet (Miralax) 17 g PO DAILY #0 ea 11/30/22 [Rx] sennosides 8.6 mg tablet (Senna Lax) 17.2 mg PO BID #0 tabs 11/30/22 [Rx] Active Medications: Active Medications Generic Name Dose Route Start Last Admin Trade Name Freq PRN Reason Stop Dose Admin Acetaminophen 500 mg 11/30/22 14:43 Acetaminophen 500 Mg Tablet PO 11/30/23 14:42 Q4H PRN Pain Al Hydrox/Mg Hydrox/Simethicone 30 ml 11/30/22 14:43 Mag Hydrox/Al Hydrox/Simeth 30 Ml Udc PO 11/30/23 14:42 Q4H PRN Indigestion Amitriptyline HCl 10 mg 11/30/22 22:00 11/30/22 21:48 Amitriptyline 10 Mg Tablet PO 11/30/23 21:59 10 mg QHS APOORVA Administration Bisacodyl 10 mg 11/30/22 14:43 Bisacodyl 10 Mg Supp.Rect VT 11/30/23 14:42 DAILY PRN Constipation Docusate Sodium 100 mg 11/30/22 14:43 11/30/22 22:19 Docusate 100 Mg Capsule PO 11/30/23 14:42 100 mg BID PRN Administration Constipation Docusate Sodium 283 mg 11/30/22 14:43 Docusate Enema 283 Mg/5 Ml Enema VT 11/30/23 14:42 DAILY PRN Constipation Cefepime HCl 2 gm in 50 mls @ 100 mls/hr 12/01/22 03:30 12/01/22 15:35 Maxipime IV 12/02/22 03:29 100 mls/hr Q12H APOORVA Administration Lactulose 30 gm 11/30/22 14:43 Lactulose 20 Gm/30 Ml Udc PO 11/30/23 14:42 DAILY PRN Constipation Metoprolol Succinate 50 mg 12/01/22 09:00 12/01/22 10:05 Metoprolol Succinate 50 Mg Tab.Er.24h PO 12/01/23 08:59 50 mg DAILY APOORVA Administration Oxycodone HCl 5 mg 11/30/22 14:49 12/01/22 12:53 Oxycodone Ir 5 Mg Tablet PO 5 mg Q4HR PRN Administration Pain Oxycodone HCl 10 mg 11/30/22 21:00 12/01/22 10:05 Oxycodone Er.12hr 10 Mg Tab.Er.12h PO 10 mg Q12HR APOORVA Administration Polyethylene Glycol 17 gm 12/01/22 09:00 12/01/22 10:05 Polyethylene Glycol 3350 17 Gm Powd.Pack PO 12/01/23 08:59 17 gm DAILY APOORVA Administration Pramipexole Dihydrochloride 0.125 mg 11/30/22 22:00 11/30/22 21:48 Pramipexole 0.125 Mg Tablet PO 11/30/23 21:59 0.125 mg QHS APOORVA Administration Rivaroxaban 15 mg 12/01/22 09:00 Rivaroxaban 15 Mg Tablet PO 12/01/23 08:59 DAILY APOORVA Sennosides 2 tab 12/01/22 12:00 Sennosides 8.6 Mg Tablet PO 12/01/23 11:59 DAILY@12 PRN If no BM in 2 days Sodium Chloride 0 ml 11/30/22 14:43 Sodium Chloride 0.9 % 10 Ml Syringe IV-PUSH 11/30/23 14:42 PRN PRN Flush Exam Physical Exam Vital Signs: Temp Pulse Resp BP Pulse Ox O2 Del Method O2 Flow Rate 98.1 F 84 16 119/70 95 Room Air 2 12/01/22 04:00 12/01/22 04:00 12/01/22 04:00 12/01/22 04:00 12/01/22 14:19 12/01/22 14:19 12/01/22 08:00 Narrative: CONST- alert, in bed, no acute distress, frail elderly HEAD- normocephalic and atraumatic EENT- sclera nonicteric and conjunctiva nonerythemic, moist oral mucosa, pharynx clear NECK- supple, no cervical lymphadenopathy CARDIAC- RRR no abnormal heart tones PULM- diminished without wheeze or rhonchi, RA, no accessory muscle use or cough noted ABD- S/NT, NABS EXTREM- no edema BLE, calves nontender SKIN- W/D, good turgor MS- MAEx4 spontaneously with equal strength, right arm sling NEURO- A&Ox3, speech clear and tongue midline, equal facial symmetry PSYCH-mood and behavior appropriate Results Lab Results Labs: Laboratory Results - last 72 hr 12/01/22 06:08: PHA Creatinine Clear 40.28, Sodium 133 L, Potassium 4.3, Chloride 99, Carbon Dioxide 24.1, Anion Gap 14.2, BUN 32 H, Creatinine 1.03, Est GFR ( Amer) > 60, Est GFR (Non-Af Amer) 51, Glucose 97, Calcium 8.8, Total Bilirubin 0.4, AST 13, ALT 12, Alkaline Phosphatase 40, Total Protein 6.1, Albumin 2.5 L, Globulin 3.6, Albumin/Globulin Ratio 0.7, Prealbumin 12.0 L 12/01/22 06:08: Corrected WBC 6.2, Uncorrected WBC Count 6.2, RBC 3.35 L, Hgb 9.0 L, Hct 27.5 L, MCV 82.0, MCH 26.8, MCHC 32.6, RDW 16.2 H, Plt Count 295, MPV 6.7, Neut % (Auto) 65.9, Lymph % (Auto) 14.0, [place] % (Auto) 14.4, Eos % (Auto) 4.8, Baso % (Auto) 0.9, Nucleat RBC Rel Count 0.0, Neut # (Auto) 4.1, Lymph # (Auto) 0.9 L, [place] # (Auto) 0.9 H, Eos # (Auto) 0.3, Baso # (Auto) 0.1 A&P - Hospitalist Assessment/Plan (1) Afib: (2) Right clavicle fracture: (3) UTI (urinary tract infection): (4) Multiple rib fractures involving four or more ribs: (5) Status post fall: (6) Anemia: (7) CKD (chronic kidney disease): (8) Chronic anticoagulation: Plan Fall Right clavicular fracture Multiple right rib fractures Pneumothorax, stable UTI, pseudomonas -further POC per PMR team for rehabilitative therapy, pain control & bowel regimen, DVT ppx -hold Rivaroxaban per pulmonary recommendations, resume 12/13/22 -antibiotic therapy completed while inpatient Cefepime Chronic Conditions 1. Afib on chronic anticoagulation- Rivaroxaban on hold, Metoprolol 2. CKD3, anemia- trend labs 3. Hyponatremia- trend labs, chronic Attending attestation: I agree with the above documentation as noted by Luanne Bustillo NP. Plan of care reflects my direct input Documented By: AYAAN Williamson 3 [id number] Signed By: <Electronically signed by AYAAN Bustillo> 12/05/22 1636 <Electronically signed by Pedro Cowan MD> 12/08/22 0109 [facility] Work Phone: 1(167) 521-329401-23-2023 Progress note Author Mohit Willson [facility] December 06, 2022 2:50pm Note Date/Time December 06, 2022 1 2:27pm [facility] [address] [place] [address] Physiatry(Rehab) Progress Note Signed Patient: Zahida Batista MR#: [id number] : 1935 Acct:[id number] Age/Sex: 87 / F Adm Date: 3 Loc: Room: [address] [place] [address] Type: ADM IN Attending Dr: Mohit Willson MD Copies to: ~ <Tasneem Cabrales APRN - Last Filed: 12/06/22 12:29> Date of Service: 12/06/2022 Subjective <Tasneem Cabrales APRN - Last Filed: 12/06/22 12:29> Subjective Narrative: Ms. Batista is a 87 year old female with PMH of A. fib anticoagulated with Xarelto, hypertension, total knee replacement, who presents to acute inpatient rehab due to functional impairment secondary to fall with multiple fractures. Patient presented to the emergency department on 11/25/2022 with complaints of a fall down 2 steps while carrying a laundry basket. There was no prodromal symptoms. ER imaging revealed comminuted right clavicle fracture, as well as multiple right posterior and lateral rib fractures and right pleural effusions. Head and neck CT was unremarkable. Patient was not in respiratory distress anddid not require supplemental O2 on admission. Although did endorse significant chest pain. Trauma surgery was consulted and recommended supportive treatment. Orthopedic surgery was also consulted regarding right clavicular fracture, Nonoperative treatment with sling was recommended. Repeat x-rays in 2 weeks. Patient was diagnosed with Pseudomonas UTI and received a course of IV cefepime. Pulmonology was also consulted for small pneumothorax multiple rib fractures. Anticoagulation was held briefly but then resumed on 11/28/2022. Just prior to rehab admission, although pneumothorax appeared to be lightly smaller, they recommended continuing to hold Xarelto for at least couple of weeks. Interval History: She is doing well this morning. Assessed while sitting up in a wheelchair. Sheis alert and oriented x3, calm and pleasant with exam. Endorses right shoulder pain although does note that its improving gradually. She is compliant with the sling. States, appetite is not good . We discussed high- protein diet necessary for healing. She will attempt to order protein-richfoods with meals and agreeable to try boost supplements in between meals. Review of Systems <Tasneem Cabrales APRN - Last Filed: 12/06/22 12:29> Review of Systems All other systems reviewed & are negative unless noted below or in HPI Constitutional Constitutional: Reports fatigue and Reports weakness Eyes Eyes: Reports system reviewed and no additional complaints, except as documented ENT Ears, Nose, Mouth, and Throat: Reports system reviewed and no additional complaints, except as documented Cardiovascular Cardiovascular: Denies chest pain and Denies dyspnea Respiratory Respiratory: Reports as per HPI and Denies dyspnea Gastrointestinal Gastrointestinal: Reports system reviewed and no additional complaints, except as documented Genitourinary Genitourinary: Reports system reviewed and no additional complaints, except as documented Musculoskeletal Musculoskeletal: Reports abnormal gait Integumentary/Breasts Skin/Breast: Reports system reviewed and no additional complaints, except as documented Neurologic Neurologic: Reports system reviewed and no additional complaints, except as documented, Reports abnormal gait and Reports weakness Psychiatric Psychiatric: Reports system reviewed and no additional complaints, except as documented Endocrine Endocrine: Reports system reviewed and no additional complaints, except as documented and Reports fatigue Hematologic/Lymphatic Hematologic/Lymphatic: Reports system reviewed and no additional complaints, except as documented Allergic/Immunologic Allergic/Immunologic: Reports system reviewed and no additional complaints, except as documented Exam <Tasneem Cabrales APRN - Last Filed: 12/06/22 12:29> Physical Exam Vital Signs: Temp Pulse Resp BP Pulse Ox O2 Del Method O2 Flow Rate 97.8 F 75 16 126/65 92 L Room Air 1.5 12/06/22 05:31 12/06/22 05:31 12/06/22 05:31 12/06/22 05:31 12/06/22 05:31 12/06/22 07:30 12/02/22 00:00 Narrative: Const General: cooperative, comfortable, no acute distress, well developed Nutritional Appearance: Normal body habitus Orientation: alert, awake and oriented x3 Limitations: None HEENT Head: normal to inspection, normocephalic and atraumatic Ears: hearing grossly normal bilaterally Nose: external nose normal Face and sinus: normal facial exam Eyes General: appearance normal, both eyes and all related structures Pupils: PERRL EOM: EOM intact bilaterally Neck Neck: normal visual inspection, full ROM, no lymphadenopathy and trachea midline Neck mass: No Chest Chest palpation & inspection: Diffuse bruising to the upper right and lateral chest Resp Effort & Inspection: normal respiratory effort, able to speak in complete sentences, symmetric chest movement and no cough Auscultation: clear to auscultation bilaterally Cardio Jugular venous pressure: no JVD Rhythm: Regular rhythm and rate GI: Inspection: normal to inspection Palpation: soft, no hepatosplenomegaly and nontender Auscultation: normal bowel sounds Musc Cervical Spine: normal cervical lordosis and cervical ROM normal Thoracic/Lumbar Spine: thoraco-lumbar ROM normal Skin General: Skin tear right elbow, covered with dry dressing. No drainage or surrounding erythema noted. Neuro General: patient alert, oriented x3, moves all extremities Cranial Nerves: PERRL Speech: speech normal Extrem Other: WNL Psych Appearance: grossly normal Mental Status: WNL Mood: congruent mood Affect: normal affect Speech and Movement: speech and movement normal Attitude: cooperative Insight: Fair Judgment: Fair Objective <Tasneem Cabrales APRN - Last Filed: 12/06/22 12:29> Labs 12/06/22 06:05 12/06/22 06:05 Labs: Laboratory Results - last 24 hr 12/06/22 12/06/22 06:05 06:05 Corrected WBC 4.9 Uncorrected WBC Count 4.9 RBC 3.27 L Hgb 8.6 L Hct 26.7 L MCV 81.6 MCH 26.3 MCHC 32.2 RDW 16.4 H Plt Count 325 MPV 6.6 Neut % (Auto) 52.4 Lymph % (Auto) 22.8 [place] % (Auto) 15.9 Eos % (Auto) 7.6 Baso % (Auto) 1.3 Nucleat RBC Rel Count 0.1 Neut # (Auto) 2.6 Lymph # (Auto) 1.1 [place] # (Auto) 0.8 Eos # (Auto) 0.4 Baso # (Auto) 0.1 PHA Creatinine Clear 41.91 Sodium 137 Potassium 4.4 Chloride 105 Carbon Dioxide 25.4 Anion Gap 11.0 BUN 19 Creatinine 0.99 Est GFR ( Amer) > 60 Est GFR (Non-Af Amer) 53 Glucose 96 Calcium 8.7 Medications and Allergies Allergies and Active Meds: Allergies No Known Allergies Allergy (Verified 11/25/22 14:28) Active Medications Generic Name Dose Route Start Last Admin Trade Name Freq PRN Reason Stop Dose Admin Acetaminophen 500 mg 11/30/22 14:43 Acetaminophen 500 Mg Tablet PO 11/30/23 14:42 Q4H PRN Pain Al Hydrox/Mg Hydrox/Simethicone 30 ml 11/30/22 14:43 Mag Hydrox/Al Hydrox/Simeth 30 Ml Udc PO 11/30/23 14:42 Q4H PRN Indigestion Amitriptyline HCl 10 mg 11/30/22 22:00 12/05/22 21:39 Amitriptyline 10 Mg Tablet PO 11/30/23 21:59 10 mg QHS APOORVA Administration Bisacodyl 10 mg 11/30/22 14:43 Bisacodyl 10 Mg Supp.Rect VT 11/30/23 14:42 DAILY PRN Constipation Docusate Sodium 100 mg 11/30/22 14:43 11/30/22 22:19 Docusate 100 Mg Capsule PO 11/30/23 14:42 100 mg BID PRN Administration Constipation Docusate Sodium 283 mg 11/30/22 14:43 Docusate Enema 283 Mg/5 Ml Enema VT 11/30/23 14:42 DAILY PRN Constipation Lactulose 30 gm 11/30/22 14:43 12/01/22 18:33 Lactulose 20 Gm/30 Ml Udc PO 11/30/23 14:42 30 gm DAILY PRN Administration Constipation Metoprolol Succinate 50 mg 12/01/22 09:00 12/06/22 08:41 Metoprolol Succinate 50 Mg Tab.Er.24h PO 12/01/23 08:59 50 mg DAILY APOORVA Administration Oxycodone HCl 5 mg 11/30/22 14:49 12/06/22 07:38 Oxycodone Ir 5 Mg Tablet PO 5 mg Q4HR PRN Administration Pain Oxycodone HCl 10 mg 11/30/22 21:00 12/06/22 08:41 Oxycodone Er.12hr 10 Mg Tab.Er.12h PO 10 mg Q12HR APOORVA Administration Polyethylene Glycol 17 gm 12/01/22 09:00 12/06/22 08:42 Polyethylene Glycol 3350 17 Gm Powd.Pack PO 12/01/23 08:59 17 gm DAILY APOORVA Administration Pramipexole Dihydrochloride 0.125 mg 11/30/22 22:00 12/05/22 21:39 Pramipexole 0.125 Mg Tablet PO 11/30/23 21:59 0.125 mg QHS APOORVA Administration Rivaroxaban 15 mg 12/01/22 09:00 Rivaroxaban 15 Mg Tablet PO 12/01/23 08:59 DAILY APOORVA Sennosides 2 tab 12/01/22 12:00 Sennosides 8.6 Mg Tablet PO 12/01/23 11:59 DAILY@12 PRN If no BM in 2 days Sodium Chloride 0 ml 11/30/22 14:43 Sodium Chloride 0.9 % 10 Ml Syringe IV-PUSH 11/30/23 14:42 PRN PRN Flush Assessment/Plan <Tasneem Cabrales APRN - Last Filed: 12/06/22 12:29> Assessment/Plan (1) Right clavicle fracture: Code(s): S42.001A - Fracture of unspecified part of right clavicle, initial encounter forclosed fracture Status: Acute (2) UTI (urinary tract infection): Qualifiers: Hematuria presence: without hematuria Urinary tract infection type: acute cystitis Qualified Code(s): N30.00 - Acute cystitis without hematuria Code(s): N39.0 - Urinary tract infection, site not specified Status: Acute (3) Multiple rib fractures involving four or more ribs: Code(s): S22.49XA - Multiple fractures of ribs, unspecified side, initial encounter for closed fracture Status: Acute (4) Flail chest: Code(s): S22.5XXA - Flail chest, initial encounter for closed fracture Status: Acute (5) Afib: Code(s): I48.91 - Unspecified atrial fibrillation Status: Acute (6) Impaired mobility and activities of daily living: Code(s): Z74.09 - Other reduced mobility; Z78.9 - Other specified health status Status: Acute (7) Skin tear: Status: Acute (8) CKD (chronic kidney disease): Code(s): N18.9 - Chronic kidney disease, unspecified Status: Acute (9) Anemia: Qualifiers: Anemia type: unspecified type Qualified Code(s): D64.9 - Anemia, unspecified Code(s): D64.9 - Anemia, unspecified Status: Acute Plan 87-year-old female who sustained a fall down 2 stairs while carrying a load of laundry. Sustained multiple rib fractures resulting in flail chest and a right clavicular fracture. Pulmonology is following for small pneumothorax. Orthopedic surgery is following regarding right clavicle fracture. * She is doing reasonably well. * Pain is marginally better, still a lot of discomfort with movement/positioning. * Labs reviewed. H&H slightly lower at 8.6/26.7. No leukocytosis. BMP is unremarkable * Tolerating therapy. Patient education Pressure ulcer prophylaxis; encourage mobilization, frequent postural changes, pressure-relief techniques DVT prophylaxis: Contraindicated due to recent trauma Encourage deep breathing exercise incentive spirometry. Monitor bladder. Toileting schedule. Continue current bladder management, with scans as needed and CIC if needed. Start bowel care program every day to obtain continence, prevent ileus. Maintain fall precautions Gait and balance retraining Functional training and self-care and home management, including activities of daily living and instrumental activities of daily living Provision of the necessary gait aids and functional adaptive equipment to enhance the patient's a functional oriental orthodox Ensure adequate nutrition and hydration Sleep: No issues Pain: Well controlled on current regimen. Will start weaning off of opioids next week if tolerated. Discharge planning Home with family next week. I spent greater than 15 minutes for services, including [id number] encounter with the patient, discussion of the case, plan of care, and exam; and [id number] activities, such as reviewing pertinent cruise consultant documentation, recent therapy notes, laboratory and radiology studies, and discussion of case with care team including physician, nursing, ed case manager, and therapists. More than 50 % of time was spent on patient/family counseling or coordination ofcare. <Mohit Willson MD - Last Filed: 12/06/22 14:50> Assessment/Plan (1) Right clavicle fracture: (2) UTI (urinary tract infection): (3) Multiple rib fractures involving four or more ribs: (4) Flail chest: (5) Afib: (6) Impaired mobility and activities of daily living: (7) Skin tear: (8) CKD (chronic kidney disease): (9) Anemia: Plan 87-year-old female who sustained a fall down 2 stairs while carrying a load of laundry. Sustained multiple rib fractures resulting in flail chest and a right clavicular fracture. Pulmonology is following for small pneumothorax. Orthopedic surgery is following regarding right clavicle fracture. * She is doing reasonably well. * Pain is marginally better, still a lot of discomfort with movement/positioning. * Labs reviewed. H&H slightly lower at 8.6/26.7. No leukocytosis. BMP is unremarkable * Tolerating therapy. Patient education Pressure ulcer prophylaxis; encourage mobilization, frequent postural changes, pressure-relief techniques DVT prophylaxis: Contraindicated due to recent trauma Encourage deep breathing exercise incentive spirometry. Monitor bladder. Toileting schedule. Continue current bladder management, with scans as needed and CIC if needed. Start bowel care program every day to obtain continence, prevent ileus. Maintain fall precautions Gait and balance retraining Functional training and self-care and home management, including activities of daily living and instrumental activities of daily living Provision of the necessary gait aids and functional adaptive equipment to enhance the patient's a functional oriental orthodox Ensure adequate nutrition and hydration Sleep: No issues Pain: Well controlled on current regimen. Will start weaning off of opioids next week if tolerated. Discharge planning Home v SNF end of week I spent greater than 15 minutes for services, including [id number] encounter with the patient, discussion of the case, plan of care, and exam; and [id number] activities, such as reviewing pertinent cruise consultant documentation, recent therapy notes, laboratory and radiology studies, and discussion of case with care team including physician, nursing, ed case manager, and therapists. More than 50 % of time was spent on patient/family counseling or coordination ofcare. Plan: I completed a substantive portion of this encounter, the medical decision makingportion of this note in its entirety, including Allied health note review, nursing note review, cruise consultant note review, discussion with nursing and case management, and more than 50% of my time was spent on counseling and coordination of care, time spent 25 minutes Patient was personally seen by me, Dr. Willson, on the day of encounter, reviewed the history and the relevant portions of the chart, including current orders, allied health and cruise consultant notes, labs/imaging and performed ferreira elements of exam and I formulated the plan of care and facilitated the medical decision making. Stable, trend hemoglobin d/c planning ongoing. Documented By: Tasneem Cabrales APRN 12/06/22 1 220 Signed By: <Electronically signed by LENNOX Cabrales> 12/06/22 1229 <Electronically signed by Mohit Willson MD> 12/06/22 1450 [facility] Work Phone: 1(823) 602-246201-20-2023 Progress note Author Mohit Willson [facility] December 03, 2022 9:25pm Note Date/Time December 03, 2022 9 :21pm [facility] [address] [place] [address] Physiatry(Rehab) Progress Note Signed Patient: Zahida Batista MR#: [id number] : 1935 Acct:[id number] Age/Sex: 87 / F Adm Date: 3 Loc: Room: [address] [place] [address] Type: ADM IN Attending Dr: Mohit Willson MD Copies to: ~ Date of Service: 12/03/2022 Subjective Subjective Narrative: Ms. Batista is a 87 year old female with PMH of A. fib anticoagulated with Xarelto, hypertension, total knee replacement, who presents to acute inpatient rehab due to functional impairment secondary to fall with multiple fractures. Patient presented to the emergency department on 11/25/2022 with complaints of a fall down 2 steps while carrying a laundry basket. There was no prodromal symptoms. ER imaging revealed comminuted right clavicle fracture, as well as multiple right posterior and lateral rib fractures and right pleural effusions. Head and neck CT was unremarkable. Patient was not in respiratory distress anddid not require supplemental O2 on admission. Although did endorse significant chest pain. Trauma surgery was consulted and recommended supportive treatment. Orthopedic surgery was also consulted regarding right clavicular fracture, Nonoperative treatment with sling was recommended. Repeat x-rays in 2 weeks. Patient was diagnosed with Pseudomonas UTI and received a course of IV cefepime. Pulmonology was also consulted for small pneumothorax multiple rib fractures. Anticoagulation was held briefly but then resumed on 11/28/2022. Just prior to rehab admission, although pneumothorax appeared to be lightly smaller, they recommended continuing to hold Xarelto for at least couple of weeks. Interval History: Walking 60' with cane. Notes continued right shoulder pain. Does not feel ready for discharge to home. Otherwise stable. No dyspnea. Review of Systems Constitutional Constitutional: Reports fatigue and Reports weakness Eyes Eyes: Reports system reviewed and no additional complaints, except as documented ENT Ears, Nose, Mouth, and Throat: Reports system reviewed and no additional complaints, except as documented Cardiovascular Cardiovascular: Denies chest pain and Denies dyspnea Respiratory Respiratory: Reports as per HPI and Denies dyspnea Gastrointestinal Gastrointestinal: Reports system reviewed and no additional complaints, except as documented Genitourinary Genitourinary: Reports system reviewed and no additional complaints, except as documented Musculoskeletal Musculoskeletal: Reports abnormal gait Integumentary/Breasts Skin/Breast: Reports system reviewed and no additional complaints, except as documented Neurologic Neurologic: Reports system reviewed and no additional complaints, except as documented, Reports abnormal gait and Reports weakness Psychiatric Psychiatric: Reports system reviewed and no additional complaints, except as documented Endocrine Endocrine: Reports system reviewed and no additional complaints, except as documented and Reports fatigue Hematologic/Lymphatic Hematologic/Lymphatic: Reports system reviewed and no additional complaints, except as documented Allergic/Immunologic Allergic/Immunologic: Reports system reviewed and no additional complaints, except as documented Exam Physical Exam Vital Signs: Temp Pulse Resp BP Pulse Ox O2 Del Method O2 Flow Rate 98.2 F 61 14 117/69 96 Room Air 1.5 12/03/22 15:39 12/03/22 15:39 12/03/22 15:39 12/03/22 15:39 12/03/22 15:39 12/03/22 16:40 12/02/22 00:00 Narrative: Const General: cooperative, comfortable, no acute distress, well developed Nutritional Appearance: Normal body habitus Orientation: alert, awake and oriented x3 Limitations: None HEENT Head: normal to inspection, normocephalic and atraumatic Ears: hearing grossly normal bilaterally Nose: external nose normal Face and sinus: normal facial exam Eyes General: appearance normal, both eyes and all related structures Pupils: PERRL EOM: EOM intact bilaterally Neck Neck: normal visual inspection, full ROM, no lymphadenopathy and trachea midline Neck mass: No Chest Chest palpation & inspection: Diffuse bruising to the upper right and lateral chest Resp Effort & Inspection: normal respiratory effort, able to speak in complete sentences, symmetric chest movement and no cough Auscultation: clear to auscultation bilaterally Cardio Jugular venous pressure: no JVD Rhythm: Regular rhythm and rate GI: Inspection: normal to inspection Palpation: soft, no hepatosplenomegaly and nontender Auscultation: normal bowel sounds Musc Cervical Spine: normal cervical lordosis and cervical ROM normal Thoracic/Lumbar Spine: thoraco-lumbar ROM normal Skin General: Skin tear right elbow, covered with dry dressing. No drainage or surrounding erythema noted. Neuro General: patient alert, oriented x3, moves all extremities Cranial Nerves: PERRL Speech: speech normal Extrem Other: WNL Psych Appearance: grossly normal Mental Status: WNL Mood: congruent mood Affect: normal affect Speech and Movement: speech and movement normal Attitude: cooperative Insight: Fair Judgment: Fair Objective Labs 12/01/22 06:08 12/01/22 06:08 Medications and Allergies Allergies and Active Meds: Allergies No Known Allergies Allergy (Verified 11/25/22 14:28) Active Medications Generic Name Dose Route Start Last Admin Trade Name Freq PRN Reason Stop Dose Admin Acetaminophen 500 mg 11/30/22 14:43 Acetaminophen 500 Mg Tablet PO 11/30/23 14:42 Q4H PRN Pain Al Hydrox/Mg Hydrox/Simethicone 30 ml 11/30/22 14:43 Mag Hydrox/Al Hydrox/Simeth 30 Ml Udc PO 11/30/23 14:42 Q4H PRN Indigestion Amitriptyline HCl 10 mg 11/30/22 22:00 12/03/22 20:21 Amitriptyline 10 Mg Tablet PO 11/30/23 21:59 10 mg QHS APOORVA Administration Bisacodyl 10 mg 11/30/22 14:43 Bisacodyl 10 Mg Supp.Rect VT 11/30/23 14:42 DAILY PRN Constipation Docusate Sodium 100 mg 11/30/22 14:43 11/30/22 22:19 Docusate 100 Mg Capsule PO 11/30/23 14:42 100 mg BID PRN Administration Constipation Docusate Sodium 283 mg 11/30/22 14:43 Docusate Enema 283 Mg/5 Ml Enema VT 11/30/23 14:42 DAILY PRN Constipation Lactulose 30 gm 11/30/22 14:43 12/01/22 18:33 Lactulose 20 Gm/30 Ml Udc PO 11/30/23 14:42 30 gm DAILY PRN Administration Constipation Metoprolol Succinate 50 mg 12/01/22 09:00 12/03/22 08:28 Metoprolol Succinate 50 Mg Tab.Er.24h PO 12/01/23 08:59 50 mg DAILY APOORVA Administration Oxycodone HCl 5 mg 11/30/22 14:49 12/03/22 17:45 Oxycodone Ir 5 Mg Tablet PO 5 mg Q4HR PRN Administration Pain Oxycodone HCl 10 mg 11/30/22 21:00 12/03/22 20:21 Oxycodone Er.12hr 10 Mg Tab.Er.12h PO 10 mg Q12HR APOORVA Administration Polyethylene Glycol 17 gm 12/01/22 09:00 12/03/22 08:27 Polyethylene Glycol 3350 17 Gm Powd.Pack PO 12/01/23 08:59 17 gm DAILY APOORVA Administration Pramipexole Dihydrochloride 0.125 mg 11/30/22 22:00 12/03/22 20:21 Pramipexole 0.125 Mg Tablet PO 11/30/23 21:59 0.125 mg QHS APOORVA Administration Rivaroxaban 15 mg 12/01/22 09:00 Rivaroxaban 15 Mg Tablet PO 12/01/23 08:59 DAILY APOORVA Sennosides 2 tab 12/01/22 12:00 Sennosides 8.6 Mg Tablet PO 12/01/23 11:59 DAILY@12 PRN If no BM in 2 days Sodium Chloride 0 ml 11/30/22 14:43 Sodium Chloride 0.9 % 10 Ml Syringe IV-PUSH 11/30/23 14:42 PRN PRN Flush Assessment/Plan Assessment/Plan (1) Right clavicle fracture: Code(s): S42.001A - Fracture of unspecified part of right clavicle, initial encounter forclosed fracture Status: Acute (2) UTI (urinary tract infection): Qualifiers: Hematuria presence: without hematuria Urinary tract infection type: acute cystitis Qualified Code(s): N30.00 - Acute cystitis without hematuria Code(s): N39.0 - Urinary tract infection, site not specified Status: Acute (3) Multiple rib fractures involving four or more ribs: Code(s): S22.49XA - Multiple fractures of ribs, unspecified side, initial encounter for closed fracture Status: Acute (4) Flail chest: Code(s): S22.5XXA - Flail chest, initial encounter for closed fracture Status: Acute (5) Afib: Code(s): I48.91 - Unspecified atrial fibrillation Status: Acute (6) Impaired mobility and activities of daily living: Code(s): Z74.09 - Other reduced mobility; Z78.9 - Other specified health status Status: Acute (7) Skin tear: Status: Acute (8) CKD (chronic kidney disease): Code(s): N18.9 - Chronic kidney disease, unspecified Status: Acute (9) Anemia: Qualifiers: Anemia type: unspecified type Qualified Code(s): D64.9 - Anemia, unspecified Code(s): D64.9 - Anemia, unspecified Status: Acute Plan 87-year-old female who sustained a fall down 2 stairs while carrying a load of laundry. Sustained multiple rib fractures resulting in flail chest and a right clavicular fracture. Pulmonology is following for small pneumothorax. Orthopedic surgery is following regarding right clavicle fracture. * Continue to hold Xarelto x2 weeks per pulmonology recommendation. * Right clavicle x-ray in 2 weeks * CBC/BMP Tuesday * Wean oxycontin next week * Ambulating 60' with cane Patient education Pressure ulcer prophylaxis; encourage mobilization, frequent postural changes, pressure-relief techniques DVT prophylaxis: Contraindicated due to recent trauma Encourage deep breathing exercise incentive spirometry. Monitor bladder. Toileting schedule. Continue current bladder management, with scans as needed and CIC if needed. Start bowel care program every day to obtain continence, prevent ileus. Maintain fall precautions Gait and balance retraining Functional training and self-care and home management, including activities of daily living and instrumental activities of daily living Provision of the necessary gait aids and functional adaptive equipment to enhance the patient's a functional oriental orthodox Ensure adequate nutrition and hydration Sleep: No issues Pain: Well controlled on current regimen. Will start weaning off of opioids next week if tolerated. Discharge planning Home with family next week. I spent greater than 35 minutes for services, including [id number] encounter with the patient, discussion of the case, plan of care, and exam; and [id number] activities, such as reviewing pertinent cruise consultant documentation, recent therapy notes, laboratory and radiology studies, and discussion of case with care team including physician, nursing, ed case manager, and therapists. More than 50 % of time was spent on patient/family counseling or coordination ofcare. Documented By: Mohit Willson MD 12/03/222119 Signed By: <Electronically signed by Mohit Willson MD> 12/03/222124 [facility] Work Phone: 1(824) 969-813801-18-2023 History and physical note Author Mohit Willson [facility] December 01, 2022 2:31pm Note Date/Time November 30, 2022 3 :02pm [facility] [address] [place] [address] Physiatry (Rehab) H&P Signed Patient: Zahida Batista MR#: [id number] : 1935 Acct:[id number] Age/Sex: 87 / F Adm Date: 3 Loc: Room: [address] [place] [address] Type: ADM IN Attending Dr: Mohit Willson MD Copies to: LENNOX Geiger MD Kim E Knight, MD~ <Tasneem Cabrales APRN - Last Filed: 12/01/22 10:54> Date of Service: 11/30/2022 HPI <Tasneem Cabrales APRN - Last Filed: 12/01/22 10:54> The patient was seen and examined on: 12/01/22 History of Present Illness: Ms. Batista is a 87 year old female with PMH of A. fib anticoagulated with Xarelto, hypertension, total knee replacement, who presents to acute inpatient rehab due to functional impairment secondary to fall with multiple fractures. Patient presented to the emergency department on 11/25/2022 with complaints of a fall down 2 steps while carrying a laundry basket. There was no prodromal symptoms. ER imaging revealed comminuted right clavicle fracture, as well as multiple right posterior and lateral rib fractures and right pleural effusions. Head and neck CT was unremarkable. Patient was not in respiratory distress anddid not require supplemental O2 on admission. Although did endorse significant chest pain. Trauma surgery was consulted and recommended supportive treatment. Orthopedic surgery was also consulted regarding right clavicular fracture, Nonoperative treatment with sling was recommended. Repeat x-rays in 2 weeks. Patient was diagnosed with Pseudomonas UTI and received a course of IV cefepime. Pulmonology was also consulted for small pneumothorax multiple rib fractures. Anticoagulation was held briefly but then resumed on 11/28/2022. Just prior to rehab admission, although pneumothorax appeared to be lightly smaller, they recommended continuing to hold Xarelto for at least couple of weeks. Patient assessed in her room this morning. She is not in acute distress. She is alert, oriented, pleasant and cooperative. Reports right-sided rib cage painwith movement and deep breathing. No midsternal chest pain or shortness of breath. There is diffuse bruising through upper right chest and right breast. She reports no abdominal pain or discomfort. She is moving bowels and bladder. No complaints of dizziness or lightheadedness; she does not believe there was a head injury during the fall. PMFSH <Tasneem Cabrales APRN - Last Filed: 12/01/22 10:54> Medical History (Updated 12/01/22 @ 10:53 by Tasneem Cabrales APRN) Afib Hypertension Surgical History Total knee replacement status Social History Smoking Status: Never smoker Substance Use Type: None Review of Systems <Tasneem Cabrales APRN - Last Filed: 12/01/22 10:54> Constitutional Constitutional: Reports fatigue and Reports weakness Eyes Eyes: Reports system reviewed and no additional complaints, except as documented ENT Ears, Nose, Mouth, and Throat: Reports system reviewed and no additional complaints, except as documented Cardiovascular Cardiovascular: Denies chest pain and Denies dyspnea Respiratory Respiratory: Reports as per HPI Gastrointestinal Gastrointestinal: Reports system reviewed and no additional complaints, except as documented Genitourinary Genitourinary: Reports system reviewed and no additional complaints, except as documented Musculoskeletal Musculoskeletal: Reports abnormal gait Integumentary/Breasts Skin/Breast: Reports system reviewed and no additional complaints, except as documented Neurologic Neurologic: Reports system reviewed and no additional complaints, except as documented Psychiatric Psychiatric: Reports system reviewed and no additional complaints, except as documented Endocrine Endocrine: Reports system reviewed and no additional complaints, except as documented Hematologic/Lymphatic Hematologic/Lymphatic: Reports system reviewed and no additional complaints, except as documented Allergic/Immunologic Allergic/Immunologic: Reports system reviewed and no additional complaints, except as documented Meds <Tasneem Cabrales APRN - Last Filed: 12/01/22 10:54> Medications and Allergies Allergies No Known Allergies Allergy (Verified 11/25/22 14:28) Home and Active Meds: Home Medications amitriptyline 10 mg tablet 10 mg PO HS 11/25/22 [History Confirmed 11/25/22] metoprolol succinate 50 mg tablet,extended release 24 hr 50 mg PO DAILY 11/25/22[History Confirmed 11/25/22] enipaczpmiqf-eicxhxbt-jzpqyq tablet 1 tab PO DAILY 11/25/22 [History Confirmed 11/25/22] pramipexole 0.125 mg tablet 0.125 mg PO HS 11/25/22 [History Confirmed 11/25/22] rivaroxaban 15 mg tablet (Xarelto) 15 mg PO DAILY 11/25/22 [History Confirmed 11/25/22] Active Medications Acetaminophen (Acetaminophen 500 Mg Tablet) 500 mg PO Q4H PRN PRN Reason: Pain Stop: 11/30/23 14:42 Al Hydrox/Mg Hydrox/Simethicone (Mag Hydrox/Al Hydrox/Simeth 30 Ml Udc) 30 ml PO Q4H PRN PRN Reason: Indigestion Stop: 11/30/23 14:42 Amitriptyline HCl (Amitriptyline 10 Mg Tablet) 10 mg PO QHS APOORVA Stop: 11/30/23 21:59 Bisacodyl (Bisacodyl 10 Mg Supp.Rect) 10 mg VT DAILY PRN PRN Reason: Constipation Stop: 11/30/23 14:42 Docusate Sodium (Docusate 100 Mg Capsule) 100 mg PO BID PRN PRN Reason: Constipation Stop: 11/30/23 14:42 Docusate Sodium (Docusate Enema 283 Mg/5 Ml Enema) 283 mg VT DAILY PRN PRN Reason: Constipation Stop: 11/30/23 14:42 Lactulose (Lactulose 20 Gm/30 Ml Udc) 30 gm PO DAILY PRN PRN Reason: Constipation Stop: 11/30/23 14:42 Metoprolol Succinate (Metoprolol Succinate 50 Mg Tab.Er.24h) 50 mg PO DAILY [facility] Stop: 12/01/23 08:59 Oxycodone HCl (Oxycodone Ir 5 Mg Tablet) 5 mg PO Q4HR PRN PRN Reason: Pain Oxycodone HCl (Oxycodone Ir 5 Mg Tablet) 10 mg PO Q4HR PRN PRN Reason: pain Polyethylene Glycol (Polyethylene Glycol 3350 17 Gm Powd.Pack) 17 gm PO DAILY [facility] Stop: 12/01/23 08:59 Pramipexole Dihydrochloride (Pramipexole 0.125 Mg Tablet) 0.125 mg PO QHS [facility] Stop: 11/30/23 21:59 Rivaroxaban (Rivaroxaban 15 Mg Tablet) 15 mg PO DAILY [facility] Stop: 12/01/23 08:59 Sennosides (Sennosides 8.6 Mg Tablet) 2 tab PO DAILY@12 PRN PRN Reason: If no BM in 2 days Stop: 12/01/23 11:59 Sodium Chloride (Sodium Chloride 0.9 % 10 Ml Syringe) 0 ml IV-PUSH PRN PRN PRN Reason: Flush Stop: 11/30/23 14:42 Exam <Tasneem Cabrales APRN - Last Filed: 12/01/22 10:54> Physical Exam Narrative: Const General: cooperative, comfortable, no acute distress, well developed Nutritional Appearance: Normal body habitus Orientation: alert, awake and oriented x3 Limitations: None HEENT Head: normal to inspection, normocephalic and atraumatic Ears: hearing grossly normal bilaterally Nose: external nose normal Face and sinus: normal facial exam Eyes General: appearance normal, both eyes and all related structures Pupils: PERRL EOM: EOM intact bilaterally Neck Neck: normal visual inspection, full ROM, no lymphadenopathy and trachea midline Neck mass: No Chest Chest palpation & inspection: Diffuse bruising to the upper right and lateral chest Resp Effort & Inspection: normal respiratory effort, able to speak in complete sentences, symmetric chest movement and no cough Auscultation: clear to auscultation bilaterally Cardio Jugular venous pressure: no JVD Rhythm: Regular rhythm and rate GI: Inspection: normal to inspection Palpation: soft, no hepatosplenomegaly and nontender Auscultation: normal bowel sounds Musc Cervical Spine: normal cervical lordosis and cervical ROM normal Thoracic/Lumbar Spine: thoraco-lumbar ROM normal Skin General: Skin tear right elbow, covered with dry dressing. No drainage or surrounding erythema noted. Neuro General: patient alert, oriented x3, moves all extremities Cranial Nerves: PERRL Speech: speech normal Extrem Other: WNL Psych Appearance: grossly normal Mental Status: WNL Mood: congruent mood Affect: normal affect Speech and Movement: speech and movement normal Attitude: cooperative Insight: Fair Judgment: Fair Results <Tasneem Cabrales APRN - Last Filed: 12/01/22 10:54> Additional Results Results Comment: I reviewed clinical lab tests, radiology reports and obtained and summated medical records and have ordered follow up lab tests and imaging studies as needed for rehabilitation care.. Functional Status <Tasneem Cabrales APRN - Last Filed: 12/01/22 10:54> Prior Level of Function Narrative: Previously independent. Current Level of Function Narrative: Requires mod assist for bed mobility and transfers. Ambulatory 40 feet with a straight cane, min assist. <Mohit Willson MD - Last Filed: 12/01/22 14:31> Individualized Plan of Care Plan of Care: Individualized Overall Plan of Care: Admit Date/Time: November 30, 2022 Expected LOS: 14 days Expected Discharge Destination: Home Rehabilitation [facility]: 08.9 Primary Diagnosis: Other orthopedic, right clavicle fracture/multiple rib fractures with flail chest and pulmonary contusion Patient?s/Family?s anticipated outcomes/personal goals: To have patient become more independent and to return home. Medical/ Functional Prognosis: Good Anticipated Functional Outcomes/Goals and Interventions: -Therapy Functional Outcome/Goal: Mobility/Locomotion: Patient likely to be modified independent with ambulation with assistive device. Anticipated interventions: Physician management, PT, Nutrition, Rehab Nursing - Therapy Functional Outcome/Goal: Self Care: Patient likely to be functionally modified independent for activities of daily living using assistive / adaptive equipment as needed. Anticipated interventions: Physician management, PT, OT, Nutrition, Rehab Nursing - Therapy Functional Outcome/Goal: Bladder/Bowel Management: Patient likely to be modified independent with bladder care and independent with bowel care. Anticipated interventions: Physician management, PT, OT, Nutrition, Rehab Nursing -Therapy Functional Outcome/Goal: Communication/Cognition: Patient will be able to communicate fully and be safe cognitively. Anticipated interventions: Physician management, PT, OT, Nutrition, Rehab Nursing -Therapy Functional Outcome/Goal: Patient will have adequate pain control less than 4/10 and understand how to take pain medications to achieve pain control. Anticipated interventions: Physician management, PT, OT, Nutrition, Rehab Nursing -Therapy Functional Outcome/Goal: Patient will improve endurance to be able to tolerate all daily self care activities and avocational activities. Anticipated interventions: Physician management, PT, OT, Nutrition, Rehab Nursing -Therapy Functional Outcome/Goal: Patient will understand and assimilate / integrate education regarding management of their medical conditions to maintainhealth and wellbeing. Anticipated interventions: Physician management, PT, OT, Nutrition, Rehab Nursing Required Therapy PT: 1.5 hour per day at least 5 days per week with additional therapy on as needed basis. Comments: PT to improve pt's strength, endurance, bed mobility, transfers (sit-stand), standing balance, gait quality on level surfaces and stairs, coordination and functional ADL skills. Will also work to improve pt's safety awareness during transfers and ambulation. OT: 1.5 hour per day at least 5 days per week with additional therapy on as needed basis. Comments: OT for basic ADL re-training (bathing, dressing, toileting, continence, grooming, feeding, transferring), to increase activity tolerance andfunctional mobility and to evaluate for adaptive and assistive devices. Will work to improve pt's endurance and educate pt on fall prevention and energy conservation techniques-pacing strategies and proper breathing techniques duringfunctional tasks. Other: Nutrition, Rehab nursing, Wound, P&O RATIONALE FOR IRF ADMISSION: Patient has both medical and functional complexities that require 24 hour daily monitoring and intervention from Garage Door Technician as well as other consulting physicians including internal medicine as well as 24 hour daily instructor business education nursing - for medical safe / optimal management. Patient requires interdisciplinary therapy team rehabilitation care including OT, PT, SW, Rehab Nursing, requires and can tolerate at least 3 hoursof daily OT and PT therapy at least 5 days weekly. The following medical conditions significantly impact the rehabilitation process and are being addressed daily and can not be managed at home or in a lesser intense medical setting: Refer to above problem oriented plan of care Assessment/Plan <Tasneem Cabrales APRN - Last Filed: 12/01/22 10:54> (1) Right clavicle fracture: Code(s): S42.001A - Fracture of unspecified part of right clavicle, initial encounter forclosed fracture Status: Acute (2) UTI (urinary tract infection): Qualifiers: Hematuria presence: without hematuria Urinary tract infection type: acute cystitis Qualified Code(s): N30.00 - Acute cystitis without hematuria Code(s): N39.0 - Urinary tract infection, site not specified Status: Acute (3) Multiple rib fractures involving four or more ribs: Code(s): S22.49XA - Multiple fractures of ribs, unspecified side, initial encounter for closed fracture Status: Acute (4) Flail chest: Code(s): S22.5XXA - Flail chest, initial encounter for closed fracture Status: Acute (5) Afib: Code(s): I48.91 - Unspecified atrial fibrillation Status: Acute (6) Impaired mobility and activities of daily living: Code(s): Z74.09 - Other reduced mobility; Z78.9 - Other specified health status Status: Acute (7) Skin tear: Status: Acute (8) CKD (chronic kidney disease): Code(s): N18.9 - Chronic kidney disease, unspecified Status: Acute (9) Anemia: Qualifiers: Anemia type: unspecified type Qualified Code(s): D64.9 - Anemia, unspecified Code(s): D64.9 - Anemia, unspecified Status: Acute Plan 87-year-old female who sustained a fall down 2 stairs while carrying a load of laundry. Sustained multiple rib fractures resulting in flail chest and a right clavicular fracture. Pulmonology is following for small pneumothorax. Orthopedic surgery is following regarding right clavicle fracture. * Continue to hold Xarelto x2 weeks per pulmonology recommendation. * Right clavicle x-ray in 2 weeks * Complete cefepime for Pseudomonas UTI today. * Pain is well controlled on OxyContin + oxycodone as needed. Will start weaning off of opioids as tolerated in a day or 2. * Labs reviewed. There is no leukocytosis. H&H is 9.0/27.5. Mild hyponatremia, Na 133, but improved from previous. Patient education Pressure ulcer prophylaxis; encourage mobilization, frequent postural changes, pressure-relief techniques DVT prophylaxis: Contraindicated due to recent trauma Encourage deep breathing exercise incentive spirometry. Monitor bladder. Toileting schedule. Continue current bladder management, with scans as needed and CIC if needed. Start bowel care program every day to obtain continence, prevent ileus. Maintain fall precautions Gait and balance retraining Functional training and self-care and home management, including activities of daily living and instrumental activities of daily living Provision of the necessary gait aids and functional adaptive equipment to enhance the patient's a functional oriental orthodox Ensure adequate nutrition and hydration Sleep: No issues Pain: Well controlled on current regimen. Will start weaning off of opioids soon Discharge planning Home with family in 7 to 10 days. I spent greater than 35 minutes for services, including [id number] encounter with the patient, discussion of the case, plan of care, and exam; and [id number] activities, such as reviewing pertinent cruise consultant documentation, recent therapy notes, laboratory and radiology studies, and discussion of case with care team including physician, nursing, ed case manager, and therapists. More than 50 % of time was spent on patient/family counseling or coordination ofcare. <Mohit Willson MD - Last Filed: 12/01/22 14:31> (1) Right clavicle fracture: (2) UTI (urinary tract infection): (3) Multiple rib fractures involving four or more ribs: (4) Flail chest: (5) Afib: (6) Impaired mobility and activities of daily living: (7) Skin tear: (8) CKD (chronic kidney disease): (9) Anemia: Plan: I completed a substantive portion of this encounter, the medical decision makingportion of this note in its entirety, including Allied health note review, nursing note review, cruise consultant note review, discussion with nursing and case management, and more than 50% of my time was spent on counseling and coordination of care, time spent 55 minutes Patient was personally seen by me, Dr. Willson, on the day of encounter, reviewed the history and the relevant portions of the chart, including current orders, allied health and cruise consultant notes, labs/imaging and performed ferreira elements of exam and I formulated the plan of care and facilitated the medical decision making. Documented By: Tasneem Cabrales APRN 12/01/22 1 053 Signed By: <Electronically signed by LENNOX Cabrales> 12/01/22 1054 <Electronically signed by Mohit Willson MD> 12/01/22 1433 [facility] Work Phone: 1(555) 518-722301-17-2023 Progress note Author Dangelo Rayo [facility] November 30, 2022 1:40pm Note Date/Time November 30, 2022 8 :21am [facility] [address] [place] [address] Pulmonology Progress Note Signed Patient: Zahida Batista MR#: [id number] : 1935 Acct:[id number] Age/Sex: 87 / F Adm Date: 3 Loc: 4N Room: [address] [place] [address] Type: ADM IN Attending Dr: Christian Frings DO Copies to: ~ Date of Service: 11/30/2022 Subjective Subjective Narrative: Patient is clinically stable. Her pain is stable and she denies dyspnea. Exam Physical Exam Vital Signs: Temp Pulse Resp BP Pulse Ox O2 Del Method O2 Flow Rate 97.8 F 76 15 118/66 97 Nasal Cannula 2 11/30/22 04:30 11/30/22 04:30 11/30/22 04:30 11/30/22 04:30 11/30/22 04:30 11/30/22 04:30 11/30/22 04:30 Const General: cooperative and no acute distress Nutritional Appearance: average body habitus Orientation: alert and awake HEENT Head: normal to inspection, normocephalic and atraumatic Ears: hearing grossly normal bilaterally and external ears normal Nose: external nose normal Face and sinus: normal facial exam Eyes Eyelids: eyelids normal Neck Neck: normal visual inspection Chest Chest palpation & inspection: normal inspection of the chest Resp Effort & Inspection: normal respiratory effort and able to speak in complete sentences Auscultation: clear to auscultation bilaterally, diminished lung sounds, no rales, no rhonchi and no wheezes Cardio Rate: regular rate Rhythm: regular rhythm Heart Sounds: S1 normal, S2 normal, no gallops, no murmurs and no rubs GI Inspection: normal to inspection Palpation: soft and nontender Auscultation: hypoactive bowel sounds Rectal Exam: deferred General: deferred Skin General: no rashes or lesions noted (warm and dry) Extrem General: no pedal edema Objective Intake and Output I&O - Last 24 Hours: Intake & Output 11/29/22 11/30/22 11/30/22 23:59 07:59 15:59 Intake Total 250 / 940 40 / 40 Output Total 750 / 750 Balance 250 / 540 -710 / -710 Weight 65.6 kg Labs 11/28/22 03:35 11/28/22 03:35 Microbiology Micro: Microbiology 11/25/22 17:49 Urine Culture - Final Urine - Clean-Voided Midstream Pseudomonas aeruginosa Imaging and Cardiology Chest x-ray: Status: image reviewed by me Additional comments: Date of Service: 11/30/22 XR/XR chest 1V portable: re-evaluate right PTX ? PORTABLE AP ERECT CHEST? 0525 hours CLINICAL HISTORY:? Follow-up right pneumothorax. Recent fall with rib fractures. COMPARISON:? 11/29/2022 There is continued slight elevation of the left hemidiaphragm. There is mild bibasilar parenchymal change. Pleural effusion is also possible, particularly onthe right. The right apical pneumothorax may be slightly smaller. The heart is not enlarged. There is no vascular congestion. Displaced right lateral rib fractures are seen. There is also a displaced fracture at the midshaft of the clavicle. There is thoracolumbar scoliotic curvature. XR/XR chest 1V portable IMPRESSION: ? RIGHT PNEUMOTHORAX, POTENTIALLY SLIGHTLY SMALLER. ? CONTINUED BIBASILAR PARENCHYMAL CHANGE AND POSSIBLE RIGHT EFFUSION. ? Assessment/Plan Assessment/Plan (1) Flail chest: (2) Status post fall: (3) Closed fracture of right clavicle: (4) UTI (urinary tract infection): Plan Hospital day # 5 for patient s/p fall with flail chest of the mid right hemithorax and with note of Pseudomonas in the urine with patient now on Cefepime. Patient was noted to have incidental finding of pneumothorax. The patient's pneumothorax is stable to perhaps slightly smaller. Her pain appears to be under adequate control. Patient is otherwise stable. Patient can go to rehab from a pulmonary/critical care medicine perspective. However, I would recommend continuing to hold anticoagulation for at least the next couple of weeks. Documented By: Dangelo Rayo MD 3 [id number] Signed By: <Electronically signed by MD Dangelo Rayo> 11/30/22 5177 [facility] Work Phone: 1(364) 538-127001-16-2023 Progress note Author Christian Aleman [facility] November 29, 2022 4:08pm Note Date/Time November 29, 2022 4 :05pm [facility] [address] [place] [address] Hospitalist Progress Note Signed Patient: Zahida Batista MR#: [id number] : 1935 Acct:[id number] Age/Sex: 87 / F Adm Date: 3 Loc: 4N Room: [address] [place] [address] Type: ADM IN Attending Dr: Christian Aleman DO Copies to: ~ Date of Service: 11/29/2022 Subjective Subjective Narrative: Patient was seen and examined at bedside this afternoon. States she feels overall tired after working with therapy but no specific new complaints. She does endorse some constipation. Physical Examination: GENERAL APPEARANCE: Alert, up in bed AAOx3 CARDIAC: Normal S1 and S2. No S3, S4 or murmurs. LUNGS: Slightly diminished breath sounds anteriorly ABDOMEN: Positive bowel sounds. Soft, nontender. No guarding or signs of an acute abdomen MUSCULOSKELETAL: No joint erythema or tenderness. EXTREMITIES: No clubbing, cyanosis or edema NEUROLOGICAL: No focal deficits SKIN: Skin normal color, texture and turgor with no lesions or eruptions. PSYCHIATRIC: Appropriate mood and affect Exam Physical Exam Vital Signs: Temp Pulse Resp BP Pulse Ox O2 Del Method O2 Flow Rate 98.5 F 90 20 123/65 96 Nasal Cannula 2 11/29/22 15:33 11/29/22 15:33 11/29/22 15:33 11/29/22 15:33 11/29/22 15:33 11/29/22 15:33 11/29/22 15:33 Objective Lab Results 11/28/22 03:35 11/28/22 03:35 Microbiology Results Microbiology 11/25/22 17:49 Urine - Clean-Voided Midstream Urine Culture - Final Pseudomonas aeruginosa Meds Allergies and Active Meds Allergies No Known Allergies Allergy (Verified 11/25/22 14:28) Active Meds: Active Medications Generic Name Dose Route Start Last Admin Trade Name Freq PRN Reason Stop Dose Admin Acetaminophen 650 mg 11/25/22 17:58 11/28/22 16:40 Acetaminophen 325 Mg Tablet PO 11/25/23 17:57 650 mg Q4H PRN Administration Pain Scale 1 - 5 Albuterol 2.5 mg 11/25/22 17:58 Albuterol Neb 2.5 Mg/3 Ml Vial.Neb INHALATION 11/25/23 17:57 Q2H PRN Shortness Of Breath Amitriptyline HCl 10 mg 11/26/22 22:00 11/28/22 21:17 Amitriptyline 10 Mg Tablet PO 11/26/23 21:59 10 mg HS APOORVA Administration Docusate Sodium 200 mg 11/25/22 17:58 11/27/22 08:16 Docusate 100 Mg Capsule PO 01/12/24 17:57 200 mg BID PRN Administration Constipation Hydralazine HCl 10 mg 11/25/22 17:58 Hydralazine 20 Mg/Ml Vial IV-PUSH 11/25/23 17:57 Q4H PRN if SBP > 185 Hydromorphone HCl 0.25 mg 11/26/22 09:53 11/27/22 02:47 Hydromorphone 0.5 Mg/0.5 Ml Syringe IV-PUSH 0.25 mg Q4H PRN Administration Pain Cefepime HCl 2 gm in 50 mls @ 100 mls/hr 11/28/22 15:30 11/29/22 03:46 Maxipime IV 100 mls/hr Q12H APOORVA Administration Metoprolol Succinate 50 mg 11/26/22 09:00 11/29/22 09:03 Metoprolol Succinate 50 Mg Tab.Er.24h PO 11/26/23 08:59 50 mg DAILY APOORVA Administration Ondansetron HCl 4 mg 11/25/22 17:58 11/25/22 18:07 Ondansetron 4 Mg/2 Ml Vial IV-PUSH 11/25/23 17:57 4 mg Q6H PRN Administration Nausea And Vomiting Oxycodone HCl 5 mg 11/26/22 14:52 11/29/22 00:24 Oxycodone Ir 5 Mg Tablet PO 5 mg Q4HR PRN Administration Pain Oxycodone HCl 10 mg 11/27/22 21:00 11/29/22 09:03 Oxycodone Er.12hr 10 Mg Tab.Er.12h PO 10 mg Q12HR APOORVA Administration Polyethylene Glycol 17 gm 11/29/22 09:00 11/29/22 09:03 Polyethylene Glycol 3350 17 Gm Powd.Pack PO 11/29/23 08:59 17 gm DAILY APOORVA Administration Pramipexole Dihydrochloride 0.125 mg 11/26/22 22:00 11/28/22 21:17 Pramipexole 0.125 Mg Tablet PO 11/26/23 21:59 0.125 mg HS APOORVA Administration Rivaroxaban 15 mg 11/28/22 09:00 11/28/22 08:20 Rivaroxaban 15 Mg Tablet PO 11/28/23 08:59 15 mg DAILY APOORVA Administration Sennosides 2 tab 11/25/22 21:00 11/29/22 09:03 Sennosides 8.6 Mg Tablet PO 11/25/23 20:59 2 tab BID APOORVA Administration Sodium Chloride 0 ml 11/25/22 13:43 11/25/22 16:01 Sodium Chloride 0.9 % 10 Ml Syringe IV-PUSH 11/25/23 13:42 10 ml PRN PRN Administration Flush A&P - Hospitalist Assessment/Plan (1) Multiple rib fractures involving four or more ribs: Plan 1. Status post mechanical fall associated with right clavicle fracture as well as multiple rib fracture without signs of pneumothorax, currently no respiratorycomplaints apart from pain Pulmonology evaluated for flail chest, recommended conservative management Encouraged I-S, pain management Restarted Xarelto Consulted orthopedic 2. Atrial fibrillation, paroxysmal, currently normal sinus rhythm Restarted Xarelto 3. Normocytic anemia, stable 4. Acute Kidney dysfunction - improved 5. DVT prophylaxis SCDs 6. Pseudomonas UTI -antibiotics adjusted 7. Constipation Likely in part opiate induced. Received 1 dose of Colace and is on daily MiraLAX. Will provide a dose of Relistor x1 in addition Documented By: Christian Aleman DO 11/29/22 Signed By: <Electronically signed by Christian Aleman DO> 11/29/22 8824 [facility] Work Phone: 1(192) 275-557401-16-2023 Progress note Author Dangelo Rayo [facility] November 29, 2022 4:00pm Note Date/Time November 29, 2022 8 :51am [facility] [address] [place] [address] Pulmonology Progress Note Signed with Addenda Patient: Zahida Batista MR#: [id number] : 1935 Acct:[id number] Age/Sex: 87 / F Adm Date: 3 Loc: 4N Room: 1C7709-0 Type: ADM IN Attending Dr: Christian Aleman DO Copies to: ~ ADDENDUM1 IPPB treatments were also stopped due to delayed pneumothorax. Addendum Documented By: MD Dangelo Rayo 11/29/22 1600 Addendum Signed By: <Electronically signed by MD Dangelo Rayo> 11/29/22 1600 Date of Service: 11/29/2022 Subjective Subjective Narrative: Patient is stable though placed on supplemental oxygen after incidental finding of pneumothorax on chest x-ray this morning. Patient denies increase in pain (notes that pain is somewhat improved) and denies significant dyspnea. Exam Physical Exam Vital Signs: Temp Pulse Resp BP Pulse Ox O2 Del Method 97.9 F 90 20 121/74 94 L Room Air 11/29/22 07:29 11/29/22 07:29 11/29/22 07:29 11/29/22 07:29 11/29/22 07:29 11/29/22 07:29 Const General: cooperative and no acute distress Nutritional Appearance: average body habitus Orientation: alert and awake HEENT Head: normal to inspection, normocephalic and atraumatic Ears: hearing grossly normal bilaterally and external ears normal Nose: external nose normal Face and sinus: normal facial exam Eyes Eyelids: eyelids normal Neck Neck: normal visual inspection Chest Chest palpation & inspection: normal inspection of the chest Resp Effort & Inspection: normal respiratory effort and able to speak in complete sentences Auscultation: clear to auscultation bilaterally, diminished lung sounds, no rales, no rhonchi and no wheezes Cardio Rate: regular rate Rhythm: regular rhythm Heart Sounds: S1 normal, S2 normal, no gallops, no murmurs and no rubs GI Inspection: normal to inspection Palpation: soft and nontender Auscultation: hypoactive bowel sounds Rectal Exam: deferred General: deferred Skin General: no rashes or lesions noted (warm and dry) Extrem General: no pedal edema Objective Intake and Output I&O - Last 24 Hours: Intake & Output 11/28/22 11/29/22 11/29/22 23:59 07:59 15:59 Intake Total 240 / 880 240 / 240 Output Total 200 / 200 Balance 240 / 380 40 / 40 Labs 11/28/22 03:35 11/28/22 03:35 Microbiology Micro: Microbiology 11/25/22 17:49 Urine Culture - Final Urine - Clean-Voided Midstream Pseudomonas aeruginosa Imaging and Cardiology Chest x-ray: Status: image reviewed by me Additional comments: Date of Service: 11/29/22 XR/XR chest 2V*: evalaute for hemothorax ? Plain film chest2 view HISTORY:Evaluation for hemothorax. Fell. Right clavicle fracture. Rib fractures. COMPARISON:CT chest 11/25/2022 FINDINGS: Cardiac, mediastinal and hilar silhouettes are stable.? Multiple rightlower lobe rib fractures and right clavicle fracture identified. Small accumulation of small right basilar hemothorax redemonstrated. Mild atelectasis identified. Developing small to moderate right apical pneumothorax. ? Bony structures are intact. XR/XR chest 2V* IMPRESSION: Developing small to moderate right apical pneumothorax. Redemonstration of a small hemothorax, multiple right rib fractures and right clavicle fracture. ? The preliminary report given 11/29/2022 at 8:14 AM. Assessment/Plan Assessment/Plan (1) Flail chest: (2) Status post fall: (3) Closed fracture of right clavicle: (4) UTI (urinary tract infection): Plan Hospital day # 4 for patient s/p fall with flail chest of the mid right hemithorax and with note of Pseudomonas in the urine with patient now on Cefepime. Patient was noted to have incidental finding of pneumothorax this morning on chest x-ray. We will hold anticoagulation for the present time and will repeat a portable chest x-ray later today and continue with surveillance chest x-rays as needed to ensure that the pneumothorax does not enlarge in size. Patient was strongly encouraged to notify nursing should she have a change in her status including increasing dyspnea or chest pain with concerns for developing worsening pneumothorax. Ideally, I would consider a percutaneous catheter placement if evacuation is required. Documented By: Dangelo Rayo MD 3 [id number] Signed By: <Electronically signed by MD Dangelo Rayo> 11/29/[address] [place] [address] Ctr Work Phone: 1(736) 613-884201-15-2023 Progress note Author Kayleen Schmid [facility] November 28, 2022 3:26pm Note Date/Time November 28, 2022 3 :24pm [facility] [address] [place] [address] Hospitalist Progress Note Signed Patient: Zahida Batista MR#: [id number] : 1935 Acct:[id number] Age/Sex: 87 / F Adm Date: 3 Loc: 4N Room: [address] [place] [address] Type: ADM IN Attending Dr: Kayleen Schmid MD Copies to: ~ Date of Service: 11/28/2022 Subjective Subjective Narrative: Patient has been seen and examined today. Patient still complains of a chest pain with activity but improved, denies any shortness of breath Physical exam: General -awake, alert, oriented ?3, not in acute distress Cardiovascular -S1 with S2 Pulmonary - clear to auscultation bilaterally Gastrointestinal - abdomen is soft, nondistended, nontender, bowel sounds positive, there is no rigidity, no rebound Extremities -no edema Neurological -no focal neurological dysfunction noted Exam Physical Exam Vital Signs: Temp Pulse Resp BP Pulse Ox O2 Del Method 37.0 C 89 17 126/75 94 L Room Air 11/28/22 11:46 11/28/22 11:46 11/28/22 11:46 11/28/22 11:46 11/28/22 11:46 11/28/22 11:46 Objective Lab Results 11/28/22 03:35 11/28/22 03:35 Microbiology Results Microbiology 11/25/22 17:49 Urine - Clean-Voided Midstream Urine Culture - Preliminary Pseudomonas aeruginosa Meds Allergies and Active Meds Allergies No Known Allergies Allergy (Verified 11/25/22 14:28) Active Meds: Active Medications Generic Name Dose Route Start Last Admin Trade Name Freq PRN Reason Stop Dose Admin Acetaminophen 650 mg 11/25/22 17:58 11/28/22 11:05 Acetaminophen 325 Mg Tablet PO 11/25/23 17:57 650 mg Q4H PRN Administration Pain Scale 1 - 5 Albuterol 2.5 mg 11/25/22 17:58 Albuterol Neb 2.5 Mg/3 Ml Vial.Neb INHALATION 11/25/23 17:57 Q2H PRN Shortness Of Breath Amitriptyline HCl 10 mg 11/26/22 22:00 11/27/22 21:15 Amitriptyline 10 Mg Tablet PO 11/26/23 21:59 10 mg HS APOORVA Administration Docusate Sodium 200 mg 11/25/22 17:58 11/27/22 08:16 Docusate 100 Mg Capsule PO 11/25/23 17:57 200 mg BID PRN Administration Constipation Hydralazine HCl 10 mg 11/25/22 17:58 Hydralazine 20 Mg/Ml Vial IV-PUSH 11/25/23 17:57 Q4H PRN if SBP > 185 Hydromorphone HCl 0.25 mg 11/26/22 09:53 11/27/22 02:47 Hydromorphone 0.5 Mg/0.5 Ml Syringe IV-PUSH 0.25 mg Q4H PRN Administration Pain Cefepime HCl 2 gm in 50 mls @ 100 mls/hr 11/28/22 15:30 11/28/22 14:35 Maxipime IV 100 mls/hr Q12H APOORVA Administration Metoprolol Succinate 50 mg 11/26/22 09:00 11/28/22 08:20 Metoprolol Succinate 50 Mg Tab.Er.24h PO 11/26/23 08:59 50 mg DAILY APOORVA Administration Ondansetron HCl 4 mg 11/25/22 17:58 11/25/22 18:07 Ondansetron 4 Mg/2 Ml Vial IV-PUSH 11/25/23 17:57 4 mg Q6H PRN Administration Nausea And Vomiting Oxycodone HCl 5 mg 11/26/22 14:52 11/27/22 18:01 Oxycodone Ir 5 Mg Tablet PO 5 mg Q4HR PRN Administration Pain Oxycodone HCl 10 mg 11/27/22 21:00 11/28/22 08:20 Oxycodone Er.12hr 10 Mg Tab.Er.12h PO 10 mg Q12HR APOORVA Administration Pramipexole Dihydrochloride 0.125 mg 11/26/22 22:00 11/27/22 21:15 Pramipexole 0.125 Mg Tablet PO 11/26/23 21:59 0.125 mg HS APOORVA Administration Rivaroxaban 15 mg 11/28/22 09:00 11/28/22 08:20 Rivaroxaban 15 Mg Tablet PO 11/28/23 08:59 15 mg DAILY APOORVA Administration Sennosides 2 tab 11/25/22 21:00 11/28/22 08:20 Sennosides 8.6 Mg Tablet PO 11/25/23 20:59 2 tab BID APOORVA Administration Sodium Chloride 0 ml 11/25/22 13:43 11/25/22 16:01 Sodium Chloride 0.9 % 10 Ml Syringe IV-PUSH 11/25/23 13:42 10 ml PRN PRN Administration Flush A&P - Hospitalist Assessment/Plan (1) Multiple rib fractures involving four or more ribs: Plan 1. Status post mechanical fall associated with right clavicle fracture as well as multiple rib fracture without signs of pneumothorax, currently no respiratorycomplaints apart from pain Pulmonology evaluated for flail chest, recommended conservative management Encouraged I-S, pain management Restarted Xarelto Consulted orthopedic 2. Atrial fibrillation, paroxysmal, currently normal sinus rhythm Restarted Xarelto 3. Normocytic anemia, stable 4. Acute Kidney dysfunction - improved 5. DVT prophylaxis SCDs 6. Pseudomonas UTI -antibiotics adjusted Documented By: Kayleen Schmid MD 11/28/22 152 Signed By: <Electronically signed by Kayleen Schmid MD> 11/28/22 1526 [facility] Work Phone: 1(737) 480-679501-15-2023 Progress note Author Dangelo Rayo [facility] November 28, 2022 12:53pm Note Date/Time November 28, 2022 9 :21am [facility] [address] [place] [address] Pulmonology Progress Note Signed Patient: Zahida Batista MR#: [id number] : 1935 Acct:[id number] Age/Sex: 87 / F Adm Date: 3 Loc: 4N Room: [address] [place] [address] Type: ADM IN Attending Dr: Kayleen Schmid MD Copies to: ~ Date of Service: 11/28/2022 Subjective Subjective Narrative: Patient is awake and notes pain with movement but appeared more comfortable at rest. Case was discussed with hospitalist service with patient started back on anticoagulation for her atrial fibrillation this morning. Exam Physical Exam Vital Signs: Temp Pulse Resp BP Pulse Ox O2 Del Method 98.1 F 86 18 124/71 95 Room Air 11/28/22 04:00 11/28/22 04:00 11/28/22 04:00 11/28/22 04:00 11/28/22 04:00 11/28/22 04:00 Const General: cooperative and no acute distress Nutritional Appearance: average body habitus Orientation: alert and awake HEENT Head: normal to inspection, normocephalic and atraumatic Ears: hearing grossly normal bilaterally and external ears normal Nose: external nose normal Face and sinus: normal facial exam Eyes Eyelids: eyelids normal Neck Neck: normal visual inspection Chest Chest palpation & inspection: normal inspection of the chest Resp Effort & Inspection: normal respiratory effort and able to speak in complete sentences Auscultation: clear to auscultation bilaterally, diminished lung sounds, no rales, no rhonchi and no wheezes Cardio Rate: regular rate Rhythm: regular rhythm Heart Sounds: S1 normal, S2 normal, no gallops, no murmurs and no rubs GI Inspection: normal to inspection Palpation: soft and nontender Auscultation: hypoactive bowel sounds Rectal Exam: deferred General: deferred Skin General: no rashes or lesions noted (warm and dry) Extrem General: no pedal edema Objective Intake and Output I&O - Last 24 Hours: Intake & Output 11/27/22 11/28/22 11/28/22 23:59 07:59 15:59 Intake Total 480 / 1070 240 / 240 Output Total 300 / 750 200 / 200 Balance 180 / 320 40 / 40 Labs 11/28/22 03:35 11/28/22 03:35 Microbiology Micro: Microbiology 11/25/22 17:49 Urine Culture - Preliminary Urine - Clean-Voided Midstream Pseudomonas aeruginosa Assessment/Plan Assessment/Plan (1) Flail chest: (2) Status post fall: (3) Closed fracture of right clavicle: (4) UTI (urinary tract infection): Plan Hospital day # 3 for patient s/p fall with flail chest of the mid right hemithorax and with note of Pseudomonas in the urine with patient now on Cefepime. Patient appears to be fairly comfortable on oral narcotics with breakthrough doses written. We will recheck CXR tomorrow to ensure that hemothorax is not developing. Otherwise, I would recommend continued pain control and pulmonary clearance measures as tolerated. We will follow with you and have no new recommendations. Documented By: Dangelo Rayo MD [id number] Signed By: <Electronically signed by MD Dangelo Rayo> 11/28/22 2095 [facility] Work Phone: [phone]) 475-173101-14-2023 Progress note Author Kayleen Schmid [facility] November 27, 2022 4:56pm Note Date/Time November 27, 2022 4 :55pm [facility] [address] [place] [address] Hospitalist Progress Note Signed Patient: Zahida Batista MR#: [id number] : 1935 Acct:[id number] Age/Sex: 87 / F Adm Date: 3 Loc: 4N Room: [address] [place] [address] Type: ADM IN Attending Dr: Kayleen Schmid MD Copies to: ~ Date of Service: 11/27/2022 Subjective Subjective Narrative: Patient has been seen and examined today. She still complains of chest pain especially with movements and breathing but feels better Denies any abdominal pain. Denies any constipation. Physical exam: General -awake, alert, oriented ?3, not in acute distress Cardiovascular -S1 with S2 Pulmonary - clear to auscultation bilaterally Gastrointestinal - abdomen is soft, nondistended, nontender, bowel sounds positive, there is no rigidity, no rebound Extremities -no edema Neurological -no focal neurological dysfunction noted Exam Physical Exam Vital Signs: Temp Pulse Resp BP Pulse Ox O2 Del Method 36.6 C 85 18 117/64 96 Room Air 11/27/22 16:00 11/27/22 16:00 11/27/22 16:00 11/27/22 16:00 11/27/22 16:00 11/27/22 16:00 Objective Lab Results 11/27/22 04:20 11/27/22 04:20 Microbiology Results Microbiology 11/25/22 17:49 Urine - Clean-Voided Midstream Urine Culture - Preliminary Pseudomonas aeruginosa Meds Allergies and Active Meds Allergies No Known Allergies Allergy (Verified 11/25/22 14:28) Active Meds: Active Medications Generic Name Dose Route Start Last Admin Trade Name Freq PRN Reason Stop Dose Admin Acetaminophen 650 mg 11/25/22 17:58 11/27/22 12:33 Acetaminophen 325 Mg Tablet PO 11/25/23 17:57 650 mg Q4H PRN Administration Pain Scale 1 - 5 Albuterol 2.5 mg 11/25/22 17:58 Albuterol Neb 2.5 Mg/3 Ml Vial.Neb INHALATION 11/25/23 17:57 Q2H PRN Shortness Of Breath Amitriptyline HCl 10 mg 11/26/22 22:00 11/26/22 22:09 Amitriptyline 10 Mg Tablet PO 11/26/23 21:59 10 mg HS APOORVA Administration Docusate Sodium 200 mg 11/25/22 17:58 11/27/22 08:16 Docusate 100 Mg Capsule PO 11/25/23 17:57 200 mg BID PRN Administration Constipation Hydralazine HCl 10 mg 11/25/22 17:58 Hydralazine 20 Mg/Ml Vial IV-PUSH 11/25/23 17:57 Q4H PRN if SBP > 185 Hydromorphone HCl 0.25 mg 11/26/22 09:53 11/27/22 02:47 Hydromorphone 0.5 Mg/0.5 Ml Syringe IV-PUSH 0.25 mg Q4H PRN Administration Pain Cefepime HCl 1 gm in 50 mls @ 100 mls/hr 11/27/22 13:30 11/27/22 15:13 Maxipime IV 100 mls/hr Q12H APOORVA Administration Metoprolol Succinate 50 mg 11/26/22 09:00 11/27/22 08:17 Metoprolol Succinate 50 Mg Tab.Er.24h PO 11/26/23 08:59 50 mg DAILY APOORVA Administration Ondansetron HCl 4 mg 11/25/22 17:58 11/25/22 18:07 Ondansetron 4 Mg/2 Ml Vial IV-PUSH 11/25/23 17:57 4 mg Q6H PRN Administration Nausea And Vomiting Oxycodone HCl 5 mg 11/26/22 14:52 11/27/22 08:17 Oxycodone Ir 5 Mg Tablet PO 5 mg Q4HR PRN Administration Pain Pramipexole Dihydrochloride 0.125 mg 11/26/22 22:00 11/26/22 22:09 Pramipexole 0.125 Mg Tablet PO 11/26/23 21:59 0.125 mg HS APOORVA Administration Sennosides 2 tab 11/25/22 21:00 11/27/22 08:16 Sennosides 8.6 Mg Tablet PO 11/25/23 20:59 2 tab BID APOORVA Administration Sodium Chloride 0 ml 11/25/22 13:43 11/25/22 16:01 Sodium Chloride 0.9 % 10 Ml Syringe IV-PUSH 11/25/23 13:42 10 ml PRN PRN Administration Flush A&P - Hospitalist Assessment/Plan (1) Multiple rib fractures involving four or more ribs: Plan 1. Status post mechanical fall associated with right clavicle fracture as well as multiple rib fracture without signs of pneumothorax, currently no respiratorycomplaints apart from pain Pulmonology evaluated for flail chest, recommended conservative management Encouraged I-S, pain management Restart Xarelto in a.m., discussed with pulmonology Consulted orthopedic 2. Atrial fibrillation, paroxysmal, currently normal sinus rhythm Restart Xarelto 3. Normocytic anemia, stable 4.Acute Kidney dysfunction - improved 5. DVT prophylaxis SCDs 6. Pseudomonas UTI -antibiotics adjusted Documented By: Kayleen Schmid MD 11/27/221653 Signed By: <Electronically signed by Kayleen Schmid MD> 11/27/221655 [facility] Work Phone: 1(301) 631-855901-14-2023 Progress note Author Dangelo Rayo [facility] November 27, 2022 11:54am Note Date/Time November 27, 2022 7 :59am [facility] [address] [place] [address] Pulmonology Progress Note Signed Patient: Zahida Batista MR#: [id number] : 1935 Acct:[id number] Age/Sex: 87 / F Adm Date: 3 Loc: 4N Room: [address] [place] [address] Type: ADM IN Attending Dr: Kayleen Schmid MD Copies to: ~ Date of Service: 11/27/2022 Subjective Subjective Narrative: Patient admits to napping during the day with difficulty sleeping at night. Shedoes continue to have complaints of pain. She was given IV Dilaudid to work with physical therapy and Occupational Therapy and has been receiving oxycodone per nursing staff. Exam Physical Exam Vital Signs: Temp Pulse Resp BP Pulse Ox O2 Del Method 98.1 F 79 20 146/70 H 96 Room Air 11/27/22 04:00 11/27/22 04:00 11/27/22 04:00 11/27/22 04:00 11/27/22 04:00 11/27/22 04:00 Const General: cooperative and no acute distress Nutritional Appearance: average body habitus Orientation: alert and awake HEENT Head: normal to inspection, normocephalic and atraumatic Ears: hearing grossly normal bilaterally and external ears normal Nose: external nose normal Face and sinus: normal facial exam Eyes Eyelids: eyelids normal Neck Neck: normal visual inspection Chest Chest palpation & inspection: normal inspection of the chest Resp Effort & Inspection: normal respiratory effort and able to speak in complete sentences Auscultation: clear to auscultation bilaterally, diminished lung sounds, no rales, no rhonchi and no wheezes Cardio Rate: regular rate Rhythm: regular rhythm Heart Sounds: S1 normal, S2 normal, no gallops, no murmurs and no rubs GI Inspection: normal to inspection Palpation: soft and nontender Auscultation: hypoactive bowel sounds Rectal Exam: deferred General: deferred Skin General: no rashes or lesions noted (warm and dry) Extrem General: no pedal edema Objective Intake and Output I&O - Last 24 Hours: Intake & Output 11/26/22 11/26/22 11/27/22 15:59 23:59 07:59 Intake Total 115 / 275 160 / 275 240 / 240 Output Total 200 / 400 200 / 200 Balance 115 / -125 -40 / -125 40 / 40 Weight 65.6 kg Labs 11/27/22 04:20 11/27/22 04:20 Microbiology Micro: Microbiology 11/25/22 17:49 Urine Culture - Preliminary Urine - Clean-Voided Midstream Gram Negative Bacilli urine culture indicates greater than 100,000 CFU of Pseudomonas Assessment/Plan Assessment/Plan (1) Flail chest: (2) Status post fall: (3) Closed fracture of right clavicle: (4) UTI (urinary tract infection): Plan Hospital day # 2 for patient s/p fall with flail chest of the mid right hemithorax. Patient admits to being in pain but appears fairly comfortable. She is on room air. I discussed with nursing staff and patient strategies for more effective pain control. We certainly could consider a longer acting narcotic with shorter acting breakthrough medications. Will be a delicate balance to try and minimize effects on mental status in this 87-year-old female. Case was discussed with the hospitalist yesterday regarding resuming anticoagulation. It is reasonable to resume anticoagulation today but would follow-up with chest x-ray in the next 24 to 48 hours to ensure that we are not developing a hemothorax and would monitor blood counts for progressive anemia. We will continue to follow with you and provide assistance as able. Patient should continue to utilize intermittent positive pressure breathing treatments and she was again encouraged to utilize incentive spirometry frequently while awake. Documented By: Dangelo Rayo MD 3 [id number] Signed By: <Electronically signed by MD Dangelo Rayo> 11/27/22 1154 [facility] Work Phone: 1(860) 800-945501-13-2023 Consult note Author Barbie Weston [facility] November 26, 2022 6:49pm Note Date/Time November 26, 2022 6 :32pm [facility] [address] [place] [address] Orthopedic Consult Note Signed Patient: Zahida Batista MR#: [id number] : 1935 Acct:[id number] Age/Sex: 87 / F Adm Date: 3 Loc: 4N Room: 2K6703-3 Type: ADM IN Attending Dr: Kayleen Schmid MD Copies to: MD Kavon Saha MD Ruta Semaskiene, MD~ History of Present Illness HPI Consult date: 11/26/2022 Requesting provider: Kayleen Schmid MD Consult reason: fracture History of present illness: 87-year-old woman admitted status post fall down 2 stairs and basement with landing on concrete floor with right clavicle fracture and multiple right-sided rib fractures Patient reports she was carrying a load of laundry down the basement steps, whenshe missed the bottom 2 steps sustaining mechanical fall landing on the right side and shoulder. Patient denies any loss of consciousness, amnesia, dizziness, or lightheadedness. Patient denies any pain at the shoulder prior tothe fall. Currently patient reports pain at the right clavicle and shoulder, but is not reporting significant pain in her chest or shortness of breath. [id number] Significantly, patient has history of atrial fibrillation on Xarelto Review of Systems Review of Systems All other systems reviewed & are negative unless noted below or in HPI PMFSH Vaccinated for COVID-19?: Yes Medical History (Updated 11/26/22 @ 18:43 by Barbie Weston MD) Afib Hypertension Surgical History Total knee replacement status Social History Smoking Status: Never smoker Substance Use Type: None Allergies & Medications Medications and Allergies Allergies No Known Allergies Allergy (Verified 11/25/22 14:28) Home Medications amitriptyline 10 mg tablet 10 mg PO HS 11/25/22 [History Confirmed 11/25/22] metoprolol succinate 50 mg tablet,extended release 24 hr 50 mg PO DAILY 11/25/22[History Confirmed 11/25/22] zaneoedjivam-mvonsfjt-rfakvg tablet 1 tab PO DAILY 11/25/22 [History Confirmed 11/25/22] pramipexole 0.125 mg tablet 0.125 mg PO HS 11/25/22 [History Confirmed 11/25/22] rivaroxaban 15 mg tablet (Xarelto) 15 mg PO DAILY 11/25/22 [History Confirmed 11/25/22] Exam Physical Exam Vital Signs: Temp Pulse Resp BP Pulse Ox O2 Del Method 97.9 F 83 16 129/72 98 Room Air 11/26/22 15:44 11/26/22 15:44 11/26/22 15:44 11/26/22 15:44 11/26/22 15:44 11/26/22 15:44 Narrative: GENERAL: Awake, alert, and oriented, and in no acute distress UPPER EXTREMITY Sling in place right upper extremity Negative ecchymosis over area of fracture over right clavicle midshaft No specific tenting of skin over right clavicle fracture midshaft Positive tenderness to palpation at the right clavicle in area of fracture as expected Secondary survey negative for other areas of point tenderness along the right proximal shoulder and supraspinatus insertion, of the right humerus, the right elbow, right forearm, and hand Positive skin tear with dressing right elbow R Radial pulse 2+ and intact R Sensory intact to light touch at the axillary/ radial/ ulnar/ median nerve distributions R Motor intact EPL/ FPL/ Dorsal interosseous ABduction/ Palmar interosseous ADduction/ DIP/ PIP/ EIP/ EDC/ EDM/ wrist extension & flexion/ elbow extension &flexion/ shoulder deltoid firing LOWER EXTREMITY Negative tenderness palpation bilateral lower extremities Clinically equal limb length and rotation bilateral lower extremities Negative pain with bilateral hip logroll maneuver Negative pain with bilateral hip axial load B Dorsalis pedis pulse 2+ and intact B Sensory intact to light touch distally at the tibial/ sural/ saphenous/ deep peroneal/ superficial peroneal nerve distributions B Motor intact EHL/ FHL/ ankle dorsiflexion/ ankle plantarflexion/ knee extension & flexion/ quadriceps straight leg raise CARDIOVASCULAR RRR by palpation RESPIRATORY No audible wheezes HEENT EOMI Results Lab Results 11/26/22 06:56 11/26/22 06:56 Labs: Laboratory Results - Last 48 hrs. 11/26/22 06:56: PHA Creatinine Clear 32.93, Sodium 135 L, Potassium 4.2, Chloride 103, Carbon Dioxide 27.0, Anion Gap 9.2, BUN 21, Creatinine 1.26 H, EstGFR ( Amer) 49, Est GFR (Non-Af Amer) 40, Glucose 119 H, Calcium 9.2 11/26/22 06:56: Corrected WBC 7.4, Uncorrected WBC Count 7.4, RBC 3.87, Hgb 10.3L, Hct 31.8 L, MCV 82.0, MCH 26.7, MCHC 32.6, RDW 16.4 H, Plt Count 349, MPV 6.9, Neut % (Auto) 69.6, Lymph % (Auto) 15.2, [place] % (Auto) 13.8, Eos % (Auto) 0.7, Baso % (Auto) 0.7, Nucleat RBC Rel Count 0.0, Neut # (Auto) 5.1, Lymph # (Auto) 1.1, [place] # (Auto) 1.0 H, Eos # (Auto) 0.1, Baso # (Auto) 0.0 11/25/22 17:49: Urine Color Dark yellow A, Urine Appearance Turbid A, Urine pH 6.5, Ur Specific [place] 1.020, Urine Protein 100 H, Urine Glucose (UA) Normal, Urine Ketones Trace H, Urine Occult Blood 3+ H, Urine Nitrite Positive H, Urine Bilirubin Negative, Urine Urobilinogen Normal, Ur Leukocyte Esterase 3+ H, UrineRBC 20-49 H, Urine WBC Innumerable H, Ur Squamous Epith Cells 1-2, Urine Bacteria None seen, Hyaline Casts 1-2 11/25/22 14:12: Vitamin B12 389, Folate > 22.3, TSH 3rd Generation 2.89 11/25/22 14:12: B-Natriuretic Peptide 60.0 11/25/22 14:12: PT 17.4 H, INR 1.5, APTT 32.7 11/25/22 14:12: Troponin I High Sens 5 11/25/22 14:12: PHA Creatinine Clear 31.67, Sodium 134 L, Potassium 4.0, Chloride 100, Carbon Dioxide 24.5, Anion Gap 13.5, BUN 19, Creatinine 1.31 H, Est GFR ( Amer) 47, Est GFR (Non-Af Amer) 39, Glucose 135 H, Calcium 9.4 11/25/22 14:12: Corrected WBC 8.7, Uncorrected WBC Count 8.7, RBC 3.70, Hgb 9.9 L, Hct 30.5 L, MCV 82.3, MCH 26.7, MCHC 32.4, RDW 16.2 H, Plt Count 323, MPV 6.7, Neut % (Auto) 74.1, Lymph % (Auto) 13.1, [place] % (Auto) 10.4, Eos % (Auto) 1.6, Baso % (Auto) 0.8, Nucleat RBC Rel Count 0.1, Neut # (Auto) 6.4, Lymph # (Auto) 1.1, [place] # (Auto) 0.9 H, Eos # (Auto) 0.1, Baso # (Auto) 0.1, Monocyte Dist Width 18.67 H & H 11/25/22 11/26/22 Range/Units 14:12 06:56 Hgb 9.9 L 10.3 L (11.8-15.4) g/dL Hct 30.5 L 31.8 L (34.0-46.4) % Coagulation 11/25/22 Range/Units 14:12 INR 1.5 All other labs are normal. Microbiology Results Microbiology: Microbiology - Results from entire visit 11/25/22 17:49 Urine - Clean-Voided Midstream Urine Culture - Preliminary Gram Negative Bacilli Imaging & Diagnostic Results Imaging/Diagnostics: XRAY ([facility] 11/25/2022) RIGHT SHOULDER: 3 views AP in plane of the chest, AP in plane of the glenoid, aswell as a scapular Y view reviewed. Images demonstrate a midshaft clavicle fracture, slightly oblique in nature with no evidence of comminution, and only minimal distraction. There is no significant superior translation or displacement of the fracture fragments with good bony contact amenable for nonoperative healing. There is no evidence of acromioclavicular joint subluxation or separation on available views. CT ([facility] 11/25/2022) CHEST: Axial, coronal, sagittal sequences reviewed. Images demonstrate a fracture through the midshaft of the right clavicle, very slight oblique in nature, with no significant translation or displacement, and no evidence of comminution. There is excellent bony contact for amenable nonoperative healing at the area of clavicle fracture. There is a small right pleural effusion with basilar atelectasis without evidence of pneumothorax as well as right sided rib fractures at the third, fourth, fifth, sixth, seventh, eighth, ninth, 10th, and 11th ribs. There are several hepatic cysts measuring 4 cm per the radiology report as well as chronic obstructive changes of the left kidney with renal atrophy. Assessment/Plan (1) Multiple rib fractures involving four or more ribs: Code(s): S22.49XA - Multiple fractures of ribs, unspecified side, initial encounter for closed fracture (2) Right clavicle fracture: Code(s): S42.001A - Fracture of unspecified part of right clavicle, initial encounter forclosed fracture Plan 87-year-old woman status post fall down two steps multiple right sided rib fractures and right midshaft clavicle fracture - Discussion held with patient regarding the diagnosis and treatment options. At this time we have discussed nonoperative versus operative treatment options and have discussed the risks, benefits, alternatives, and potential complications of proposed treatment options. - Regarding nonoperative treatment, this would primarily consist of pain control, sling, and progressive gentle mobilization as able - Regarding operative treatment, this would primarily consist of ORIF of the clavicle in order to potentially allow earlier weight bearing and mobilization, along with further supportive measures. Surgical treatment does carry certain additional risks including but not limited to: infection, xiao-prosthetic fracture, and implant failure. Complicating issues of surgery, would be that the patient does have multiple ribfractures - Regardless of nonoperative versus operative treatment, there may always be some pain or decreased range of motion at the right shoulder from the injury, swelling, and post injury sequelae - Overall, as the fracture is relatively nondisplaced, I would recommend nonoperative treatment with sling, pain control, and supportive care. We have had a discussion that if we are unable to achieve bony healing or developing nonunion at the clavicle in the future, we may need to proceed with surgical treatment in the future. At this time based on radiographs, there overall appears to be adequate bony contact and position of the fracture fragments to allow for potential nonoperative healing - Medical comorbidities and management per the medical team - UTI on admission management per the medical team - Nutrition support - Diet as tolerated - Monitor for occult injury - Local wound care for skin abrasions/ skin tear - Nonweightbearing right upper extremity, though may use left hand for light 2- 5pound activities of daily living such as eating or use of electronic devices, and may work on elbow nonresistive range of motion to decrease stiffness. Patient may work on gentle shoulder rolls to decrease shoulder stiffness. Sling to right upper extremity for use when up and ambulating, may loosen in bedor chair Would recommend sleeping upright at approximately 45 degree angle as this will provide better comfort - Pain control in the interim - Incentive spirometry and pain control support for rib fractures - DVT prophylaxis: SCDs in the interim. - Case management consult for post-operative home-going needs - PT/OT for mobilization and rehabilitation as able - Iron supplementation - Patient was counseled on bone healing protocol including smoking cessation/ avoidance of nicotine products, appropriate weight bearing restrictions and limitations, and vitamin supplementation to aid in bone and fracture healing/ strengthening. Patient was counseled to take: 1) Vitamin C 500 mg PO Q daily 2) Calcium 500-600 mg/ Vitamin D 200-400 Units PO Q TID - Will continue to follow: recommend follow up clavicle Xrays in 2 weeks to monitor for fracture position Billing Billing Codes (IF APPLICABLE) List of Applicable Codes for [place] Documented By: Barbie Weston MD 11/26/22 183 2 Signed By: <Electronically signed by Barbie Weston MD> 11/26/22 1849 [facility] Work Phone: [phone]) 437-814001-13-2023 Progress note Author Kayleen Schmid [facility] November 26, 2022 2:49pm Note Date/Time November 26, 2022 2 :49pm [facility] [address] [place] [address] Hospitalist Progress Note Signed Patient: Zahida Batista MR#: [id number] : 1935 Acct:[id number] Age/Sex: 87 / F Adm Date: 3 Loc: 4 Room: [address] [place] [address] Type: ADM IN Attending Dr: Kayleen Schmid MD Copies to: ~ Date of Service: 11/26/2022 Subjective Subjective Narrative: Patient has been seen and examined today. She still complains of chest pain especially with movements and breathing Denies any abdominal pain. Denies any constipation. Physical exam: General -awake, alert, oriented ?3, not in acute distress Cardiovascular -S1 with S2 Pulmonary - clear to auscultation bilaterally Gastrointestinal - abdomen is soft, nondistended, nontender, bowel sounds positive, there is no rigidity, no rebound Extremities -no edema Neurological -no focal neurological dysfunction noted Exam Physical Exam Vital Signs: Temp Pulse Resp BP Pulse Ox O2 Del Method 36.7 C 89 20 134/75 94 L Room Air 11/26/22 11:16 11/26/22 11:16 11/26/22 11:16 11/26/22 11:16 11/26/22 11:16 11/26/22 11:16 Objective Lab Results 11/26/22 06:56 11/26/22 06:56 Microbiology Results Microbiology 11/25/22 17:49 Urine - Clean-Voided Midstream Urine Culture - Preliminary Gram Negative Bacilli Meds Allergies and Active Meds Allergies No Known Allergies Allergy (Verified 11/25/22 14:28) Active Meds: Active Medications Generic Name Dose Route Start Last Admin Trade Name Freq PRN Reason Stop Dose Admin Acetaminophen 650 mg 11/25/22 17:58 11/26/22 08:20 Acetaminophen 325 Mg Tablet PO 11/25/23 17:57 650 mg Q4H PRN Administration Pain Scale 1 - 5 Albuterol 2.5 mg 11/25/22 17:58 Albuterol Neb 2.5 Mg/3 Ml Vial.Neb INHALATION 11/25/23 17:57 Q2H PRN Shortness Of Breath Docusate Sodium 200 mg 11/25/22 17:58 Docusate 100 Mg Capsule PO 11/25/23 17:57 BID PRN Constipation Hydralazine HCl 10 mg 11/25/22 17:58 Hydralazine 20 Mg/Ml Vial IV-PUSH 11/25/23 17:57 Q4H PRN if SBP > 185 Hydromorphone HCl 0.25 mg 11/26/22 09:53 11/26/22 10:19 Hydromorphone 0.5 Mg/0.5 Ml Syringe IV-PUSH 0.25 mg Q4H PRN Administration Pain Metoprolol Succinate 50 mg 11/26/22 09:00 11/26/22 08:20 Metoprolol Succinate 50 Mg Tab.Er.24h PO 11/26/23 08:59 50 mg DAILY APOORVA Administration Ondansetron HCl 4 mg 11/25/22 17:58 11/25/22 18:07 Ondansetron 4 Mg/2 Ml Vial IV-PUSH 11/25/23 17:57 4 mg Q6H PRN Administration Nausea And Vomiting Oxycodone HCl 5 mg 11/26/22 13:46 Oxycodone Ir 5 Mg Tablet PO Q6HR PRN Pain Sennosides 2 tab 11/25/22 21:00 11/26/22 08:20 Sennosides 8.6 Mg Tablet PO 11/25/23 20:59 2 tab BID APOORVA Administration Sodium Chloride 0 ml 11/25/22 13:43 11/25/22 16:01 Sodium Chloride 0.9 % 10 Ml Syringe IV-PUSH 11/25/23 13:42 10 ml PRN PRN Administration Flush A&P - Hospitalist Assessment/Plan (1) Multiple rib fractures involving four or more ribs: Plan 1. Status post mechanical fall associated with right clavicle fracture as well as multiple rib fracture without signs of pneumothorax, currently no respiratorycomplaints apart from pain Pulmonology evaluated for flail chest, recommended conservative management Will encourage I-S, pain management Hold Xarelto for now Consulted orthopedic 2. Atrial fibrillation, paroxysmal, currently normal sinus rhythm Hold Xarelto due to above 3. Normocytic anemia, stable 4.Acute Kidney dysfunction - improved 5. DVT prophylaxis SCDs 6. UTI - rocephin Documented By: Kayleen Schmid MD 11/26/22 7329 Signed By: <Electronically signed by Kayleen Schmid MD> 11/26/22 3579 [facility] Work Phone: [phone]) 858-969801-13-2023 History and physical note Author Kayleen Schmid [facility] November 26, 2022 2:45pm Note Date/Time November 25, 2022 5 :57pm [facility] [address] [place] [address] Hospitalist H&P Signed Patient: Zahida Batista MR#: [id number] : 1935 Acct:[id number] Age/Sex: 87 / F Adm Date: 3 Loc: 4N Room: [address] [place] [address] Type: ADM IN Attending Dr: Kayleen Schmid MD Copies to: MD Kayleen Case MD~ HPI DATE OF EXAMINATION: 11/25/22 CHIEF COMPLAINT: Status post fall HISTORY OF PRESENT ILLNESS: 87 years old female who lives at home with her presented after she had afall. Patient was carrying the load of laundry down the stairs and she missed the last couple of stairs and she fell. She denied any prodromal symptoms such as shortness of breath, chest pain, dizziness. She denied any loss of consciousness, she denies any hitting the head or neck. Currently she denies any headache or neck pain. CT scan of the head without contrast and CT scan of the C-spine Without contrast did not reveal any acute fracture Patient complained of the pain on the right side of the chest as well in clavicular area and right shoulder pain. CT scan of the chest showed multiple posterior lateral right rib fractures with tiny right pleural effusions without prominent thorax and right mid clavicle fracture. Elbow x-ray did not reveal any acute fractures. CT of the lumbar spine did not reveal any acute lumbar fractures. Shoulder x-ray confirmed comminuted right mid clavicle fracture Patient denied any abdominal pain. Denied any other joint pains. She has history of atrial fibrillation takes Xarelto. Review of Systems Review of Systems Review of systems: 10 systems are reviewed and are negative apart as mentioned in H&P General -patient is awake alert oriented ?3, does not appear to be in distress HEENT -normal oropharyngeal mucosa without any ulcers or exudates Cardiovascular -S1 plus S2, with regular rate, without any murmurs, gallops, rubs Pulmonary -clear to auscultation bilaterally Gastrointestinal -abdomen is soft, nondistended, nontender, bowel sounds positive, no rigidity, no rebound Genitourinary -deferred Musculoskeletal -decreased range of motion the right shoulder due to pain Neurological -no focal Skin -no significant ulcers, no rash noted Extremities - no edema in bilateral lower extremities noted Psychiatry - appropriate affect EKG showed normal sinus rhythm with left bundle branch block PMFSH Vaccinated for COVID-19?: Yes Medical History (Updated 11/25/22 @ 18:39 by Graciela Ocasio PA-C) Afib Hypertension Surgical History Total knee replacement status Social History Smoking Status: Never smoker Substance Use Type: None Meds Medications and Allergies Allergies No Known Allergies Allergy (Verified 11/25/22 14:28) Home Medications amitriptyline 10 mg tablet 10 mg PO HS 11/25/22 [History Confirmed 11/25/22] metoprolol succinate 50 mg tablet,extended release 24 hr 50 mg PO DAILY 11/25/22[History Confirmed 11/25/22] oacbccsfucar-rhozkyfn-yjqppo tablet 1 tab PO DAILY 11/25/22 [History Confirmed 11/25/22] pramipexole 0.125 mg tablet 0.125 mg PO HS 11/25/22 [History Confirmed 11/25/22] rivaroxaban 15 mg tablet (Xarelto) 15 mg PO DAILY 11/25/22 [History Confirmed 11/25/22] Exam Physical Exam Vital Signs: Temp Pulse Resp BP Pulse Ox O2 Del Method 36.5 C 91 H 22 153/74 H 95 Room Air 11/25/22 13:55 11/25/22 16:49 11/25/22 16:49 11/25/22 16:49 11/25/22 16:49 11/25/22 16:49 Results Lab Results Labs: Laboratory Last Values Corrected WBC 8.7 X10E3/uL (3.8-11.6) 11/25/22 14:12 Uncorrected WBC Count 8.7 x10E3/uL (3.8-11.6) 11/25/22 14:12 RBC 3.70 X10E6/uL (3.60-5.00) 11/25/22 14:12 Hgb 9.9 g/dL (11.8-15.4) L 11/25/22 14:12 Hct 30.5 % (34.0-46.4) L 11/25/22 14:12 MCV 82.3 fl (80-100) 11/25/22 14:12 MCH 26.7 pg (24.7-34.3) 11/25/22 14:12 MCHC 32.4 g/dL (32.0-35.0) 11/25/22 14:12 RDW 16.2 % (11.9-15.3) H 11/25/22 14:12 Plt Count 323 x10E3/uL (150-450) 11/25/22 14:12 MPV 6.7 fl (6.3-10.7) 11/25/22 14:12 Neut % (Auto) 74.1 % (.) 11/25/22 14:12 Lymph % (Auto) 13.1 % (.) 11/25/22 14:12 [place] % (Auto) 10.4 % (.) 11/25/22 14:12 Eos % (Auto) 1.6 % (.) 11/25/22 14:12 Baso % (Auto) 0.8 % (.) 11/25/22 14:12 Nucleat RBC Rel Count 0.1 /100 WBC (0-0.5) 11/25/22 14:12 Neut # (Auto) 6.4 x10E3/uL (1.8-7.7) 11/25/22 14:12 Lymph # (Auto) 1.1 x10E3/uL (1.00-4.8) 11/25/22 14:12 [place] # (Auto) 0.9 x10E3/uL (0.0-0.8) H 11/25/22 14:12 Eos # (Auto) 0.1 x10E3/uL (0.0-0.45) 11/25/22 14:12 Baso # (Auto) 0.1 x10E3/uL (0.0-0.2) 11/25/22 14:12 Monocyte Dist Width 18.67 % (0.00-20.00) 11/25/22 14:12 PT 17.4 Seconds (9.0-12.9) H 11/25/22 14:12 INR 1.5 11/25/22 14:12 APTT 32.7 Seconds (25.1-36.5) 11/25/22 14:12 PHA Creatinine Clear 31.67 11/25/22 14:12 Sodium 134 mmol/L (136-146) L 11/25/22 14:12 Potassium 4.0 mmol/L (3.5-5.1) 11/25/22 14:12 Chloride 100 mmol/L (95-114) 11/25/22 14:12 Carbon Dioxide 24.5 mmol/L (22.0-30.0) 11/25/22 14:12 Anion Gap 13.5 mEq/L (6.0-15.0) 11/25/22 14:12 BUN 19 mg/dL (9-23) 11/25/22 14:12 Creatinine 1.31 mg/dL (0.44-1.03) H 11/25/22 14:12 Est GFR ( Amer) 47 mL/Min 11/25/22 14:12 Est GFR (Non-Af Amer) 39 mL/Min 11/25/22 14:12 Glucose 135 mg/dL (70-100) H 11/25/22 14:12 Calcium 9.4 mg/dL (8.2-10.2) 11/25/22 14:12 Troponin I High Sens 5 pg/mL (0-15) 11/25/22 14:12 B-Natriuretic Peptide 60.0 pg/mL (5-100) 11/25/22 14:12 A&P - Hospitalist Assessment/Plan (1) Multiple rib fractures involving four or more ribs: Plan 1. Status post mechanical fall associated with right clavicle fracture as well as multiple rib fracture without signs of pneumothorax, currently no respiratorycomplaints apart from pain Will encourage I-S, pain management Hold Xarelto for now Consult orthopedic 2. Atrial fibrillation, paroxysmal, currently normal sinus rhythm Hold Xarelto due to above 3. Normocytic anemia, recheck H&H in a.m. 4. Kidney dysfunction 5. DVT prophylaxis SCDs Documented By: Kayleen Schmid MD 11/25/22 0868 Signed By: <Electronically signed by Kayleen Schmid MD> 11/26/22 9868 [facility] Work Phone: [phone] 296-287301-13-2023 Consult note Author Dangelo Rayo [facility] November 26, 2022 1:47pm Note Date/Time November 26, 2022 8 :58am [facility] [address] [place], [place] [id number] Pulmonology Consult Note Signed Patient: Zahida Batista MR#: [id number] : 1935 Acct:[id number] Age/Sex: 87 / F Adm Date: 3 Loc: 4N Room: [address] [place] [address] Type: ADM IN Attending Dr: Kayleen Schmid MD Copies to: MD Kavon Santana MD Ruta Semaskiene, MD~ HPI Date/Time of Consultation: Date of Service: 11/26/2022 Time of Service: 08:57 Consulting Provider: Dangelo Rayo Requesting Provider: Kayleen Schmid History of Present Illness History of present illness: Ms. Batista is a 87 year old female seen at the request of the general surgery service for a flail chest and pulmonary contusion. Patient had a fall down 2 steps while carrying a laundry basket with right shoulder and back. Work-up included x-ray showing a comminuted midshaft right clavicle fracture with CT scan of the thorax revealing flail chest with posterior rib fractures of ribs 3 through 7 and 9 through 11 as well as lateral rib fractures of 4 through 9. Patient had no loss of consciousness and no head trauma though was noted to be on Xarelto for atrial fibrillation. Patient was admitted to the hospitalist service and was evaluated by general surgery. Patient complains of pain but doesnot appear to be in respiratory distress and is on room air at the time of my evaluation. Review of Systems Review of Systems All other systems reviewed & are negative unless noted below or in HPI PMFSH Vaccinated for COVID-19?: Yes Medical History (Updated 11/25/22 @ 18:39 by Graciela Ocasio PA-C) Afib Hypertension Surgical History Total knee replacement status Social History Smoking Status: Never smoker Substance Use Type: None Meds Medications and Allergies Allergies No Known Allergies Allergy (Verified 11/25/22 14:28) Home Medications amitriptyline 10 mg tablet 10 mg PO HS 11/25/22 [History Confirmed 11/25/22] metoprolol succinate 50 mg tablet,extended release 24 hr 50 mg PO DAILY 11/25/22[History Confirmed 11/25/22] vsdndmqfkgck-ikmvvbwa-cbjstg tablet 1 tab PO DAILY 11/25/22 [History Confirmed 11/25/22] pramipexole 0.125 mg tablet 0.125 mg PO HS 11/25/22 [History Confirmed 11/25/22] rivaroxaban 15 mg tablet (Xarelto) 15 mg PO DAILY 11/25/22 [History Confirmed 11/25/22] Exam Physical Exam Vital Signs: Temp Pulse Resp BP Pulse Ox O2 Del Method 97.5 F L 78 15 146/74 H 95 Room Air 11/26/22 04:30 11/26/22 04:30 11/26/22 04:30 11/26/22 04:30 11/26/22 04:30 11/26/22 04:30 Const General: cooperative and no acute distress Nutritional Appearance: average body habitus Orientation: alert and awake HEENT Head: normal to inspection, normocephalic and atraumatic Ears: hearing grossly normal bilaterally and external ears normal Nose: external nose normal Face and sinus: normal facial exam Eyes Eyelids: eyelids normal Neck Neck: normal visual inspection Chest Chest palpation & inspection: normal inspection of the chest Resp Effort & Inspection: normal respiratory effort and able to speak in complete sentences Auscultation: clear to auscultation bilaterally, diminished lung sounds, no rales, no rhonchi and no wheezes Cardio Rate: regular rate Rhythm: regular rhythm Heart Sounds: S1 normal, S2 normal, no gallops, no murmurs and no rubs GI Inspection: normal to inspection Palpation: soft and nontender Auscultation: hypoactive bowel sounds Rectal Exam: deferred General: deferred Skin General: no rashes or lesions noted (warm and dry) Extrem General: no pedal edema Results Intake and Output I&O - Last 24 Hours: Intake & Output 11/25/22 11/26/22 11/26/22 23:59 07:59 15:59 Intake Total 200 / 200 Output Total 600 / 600 200 / 200 Balance -400 / -400 -200 / -200 Weight 65.4 kg Labs 11/25/22 14:12 11/26/22 06:56 Microbiology Micro: 11/25/22 17:49 Urine Culture - Pending Urine - Clean-Voided Midstream Imaging and Cardiology CT scan - chest: Status: image reviewed by me Additional comments: Date of Service: 11/25/22 CT/CT chest w con: fall ? CT chest withcontrast TECHNIQUE: Axial imaging with 2-D reconstruction.? 90 cc of Isovue-300The CT exam was performed using one or more the following dose reduction techniques: Automated exposure control, adjustment of the MA and/or Kv according to patient size, or use of the iterative reconstruction technique. History: Fell injuring RIGHT shoulder and back. COMPARISON: None No thyroid abnormality Central airway is patent.? No esophageal abnormality identified. Heart is not enlarged.? No pericardial effusion is seen. Nonenlarged mediastinal lymph nodes identified.? No hilar mass or adenopathy is seen. No thoracic aortic aneurysm is seen. No lung nodules identified.? No infiltrate or congestion identified.? Tiny RIGHT pleural effusion seen.? Basilar atelectasis.? No pneumothorax seen.? No chest wall abnormality seen.? RIGHT posterior 11th, 10th and 9th rib fractures identified.? RIGHT posterior 3rd, 4th and 5th, 6th and 7th rib fractures RIGHT lateral 4th, 5th, 6th, 7th, 8th and 9th rib fractures present.? RIGHT mid clavicle fracture present. 2 hepatic cysts measure up to 4 cm.? Chronic obstructive changes of the LEFT kidney present with a renal atrophy. CT/CT chest w con IMPRESSION: Multiple posterior and lateral RIGHT rib fractures.? Tiny RIGHT pleural effusion.? No pneumothorax.? RIGHT mid clavicle fracture. ? Assessment/Plan (1) Flail chest: (2) Status post fall: (3) Closed fracture of right clavicle: (4) UTI (urinary tract infection): Plan Hospital day # 1 for patient s/p fall with flail chest of the mid right hemithorax. Patient admits to being in pain but appears fairly comfortable. She is on room air. To my review, there is no obvious evidence of pulmonary contusion and do agree with keeping the patient at the very least euvolemic to slightly dry to try and prevent development of pulmonary contusion. There is some literature that would suggest early surgical intervention to prevent deterioration in patients with flail chest. However, as the patient is on room air and is not in severe respiratory distress, I believe that aggressive pulmonary clearance measures initially can be tried to try and avoid surgery. Patient was interviewed with family including and daughter at chair side. The importance of pulmonary clearance measures including use of incentivespirometry and intermittent positive pressure breathing treatments to try and prevent the derecruitment and atelectasis resulting in hypoxemia as well as mucous plugging resulting in pneumonia. We will continue to monitor and certainly could consider hypertonic saline as well as flutter device if the patient is starting to develop rhonchi and secretions. She obviously would not tolerate Thera vest given her multiple rib fractures and flail chest. We will observe the patient over the course of the next several days to ensure that her respiratory status is stable on this regimen. She has Tylenol and IV Dilaudid as needed available for pain. We will also write for oral oxycodone as needed to help with pain control. We could consider surgical intervention if the patient shows inadequate pain control and worsening respiratory status to try and prevent intubation long-term, however, would try to be conservative at leastinitially. We will follow with you and provide assistance as able. Documented By: Dangelo Rayo MD 3 [id number] Signed By: <Electronically signed by MD Dangelo Rayo> 11/26/22 1347 [facility] Work Phone: 1([phone]) 373-387201-12-2023 Consult note Author Sal Gonsales [facility] November 25, 2022 5:43pm Note Date/Time November 25, 2022 5 :43pm [facility] [address] [place] [address] General Surgery Consult Note Signed Patient: Zahida Batista MR#: [id number] : 1935 Acct:[id number] Age/Sex: 87 / F Adm Date: 3 Loc: 4N Room: 0N3866-4 Type: ADM IN Attending Dr: Kayleen Schmid MD Copies to: MD Sal Case DO Ruta Semaskiene, MD~ History of Present Illness Date of consult: 11/25/2022 History of present illness: This is trauma consult. Patient is 87-year-old female, she had a fall down 2 stairs and landed on her right side. She was pushing a laundry basket down the stairs. She did not hit her head. She has pain at her right side of her chest and back. Not having any pain at her anterior chest. She not having any difficulty breathing. She not having any left chest pain. She is not having any neck pain at all. She can move her head and neck without any difficulty. She did not hit her head. She is not having any visual changes. She not havingany headache. She not having any abdominal pain at all. No abdominal pain whatsoever. No leg pain, she can move her legs without any difficulty. She nothaving any low back pain. She not having any arm pain bilaterally she can use her hands and move her arms without any difficulty. She does get pain at her right shoulder and chest with moving her right arm. There is no hemoptysis. Patient has history of atrial fibrillation and hypertension. She is on Xarelto for the atrial fibrillation. She gets frequent urinary tract infections. She does see a urologist for that. Review of Systems Review of Systems All other systems reviewed & are negative unless noted below or in HPI PMFSH Vaccinated for COVID-19?: Yes Medical History (Updated 11/25/22 @ 17:40 by Sal Gonsales DO) Afib Hypertension Surgical History Total knee replacement status Social History Smoking Status: Never smoker Substance Use Type: None Allergies & Medications Medications and Allergies Allergies No Known Allergies Allergy (Verified 11/25/22 14:28) Home Medications metoprolol succinate 50 mg tablet,extended release 24 hr 50 mg PO DAILY 11/25/22[History Confirmed 11/25/22] sysrdmtsnlrq-jmmevyby-sjrmfp tablet 1 tab PO DAILY 11/25/22 [History Confirmed 11/25/22] rivaroxaban 15 mg tablet (Xarelto) 15 mg PO DAILY 11/25/22 [History Confirmed 11/25/22] Active Medications Sodium Chloride (Sodium Chloride 0.9 % 10 Ml Syringe) 0 ml IV-PUSH PRN PRN PRN Reason: Flush Stop: 11/25/23 13:42 Last Admin: 11/25/22 16:01 Dose: 10 ml Exam Physical Exam Vital Signs: Temp Pulse Resp BP Pulse Ox O2 Del Method 97.7 F 91 H 22 153/74 H 95 Room Air 11/25/22 13:55 11/25/22 16:49 11/25/22 16:49 11/25/22 16:49 11/25/22 16:49 11/25/22 16:49 Narrative: Patient is conversive pleasant lucid. She is GCS 15. Her head is atraumatic normocephalic. There is no evidence of any head trauma. On palpation there is no pain or cephalohematoma. Eyes are pupil equally round and reactive to light. Extraocular muscles are intact. Neck there is no midline tenderness. There isno pain with rotation and sidebending or chin to chest. There is no hematoma ortracheal deviation. Lungs are clear bilaterally. There is pain with palpation of the right chest. Heart is regular rate. Abdomen is totally soft nontender nondistended no guarding rebound or rigidity. Negative pelvic rock. All extremities with palpation there is no focal point tenderness there is no joint effusion she has 5 out of 5 strength. Upper extremity bilaterally there is no point tenderness nor is there any pain to palpation or joint effusion and 5 out of 5 muscle strength. Patient does have pain at the chest and collarbone with movement of her right shoulder. Results Pain Assessment Right Shoulder: Pain Description: Intermittent Pain Intensity: 5 Intake and Output 24 hour I&O: Intake & Output 11/25/22 11/25/22 11/25/22 07:59 15:59 23:59 Weight 65.4 kg Labs 11/25/22 14:12 11/25/22 14:12 Laboratory Results - last 72 hr 11/25/22 14:12: B-Natriuretic Peptide 60.0 11/25/22 14:12: PT 17.4 H, INR 1.5, APTT 32.7 11/25/22 14:12: Troponin I High Sens 5 11/25/22 14:12: PHA Creatinine Clear 31.67, Sodium 134 L, Potassium 4.0, Chloride 100, Carbon Dioxide 24.5, Anion Gap 13.5, BUN 19, Creatinine 1.31 H, Est GFR ( Amer) 47, Est GFR (Non-Af Amer) 39, Glucose 135 H, Calcium 9.4 11/25/22 14:12: Corrected WBC 8.7, Uncorrected WBC Count 8.7, RBC 3.70, Hgb 9.9 L, Hct 30.5 L, MCV 82.3, MCH 26.7, MCHC 32.4, RDW 16.2 H, Plt Count 323, MPV 6.7, Neut % (Auto) 74.1, Lymph % (Auto) 13.1, [place] % (Auto) 10.4, Eos % (Auto) 1.6, Baso % (Auto) 0.8, Nucleat RBC Rel Count 0.1, Neut # (Auto) 6.4, Lymph # (Auto) 1.1, [place] # (Auto) 0.9 H, Eos # (Auto) 0.1, Baso # (Auto) 0.1, Monocyte Dist Width 18.67 A&P - General Surgery (1) Status post fall: Plan: Patient is status post fall, she has right posterior and lateral rib fractures with flail chest of 5 ribs. She also has a comminuted mid right clavicular fracture. She is on Xarelto, risk for pulmonary contusion secondary to fall andrib fractures No other injuries noted on head to toe exam. I encourage deep breathing with incentive spirometry, increase pulmonary toilet. Pulmonary and orthopedics consultation. Recommend keep IV fluids to minimum toprevent worsening of any pulmonary contusion that might develop. I did not see any general surgical injuries nor any other injuries were identified. Am glad to reevaluate at your request otherwise we will sign off. Code(s): Z91.81 - History of falling Status: Acute (2) Flail chest: Code(s): S22.5XXA - Flail chest, initial encounter for closed fracture Status: Acute (3) Multiple rib fractures involving four or more ribs: Code(s): S22.49XA - Multiple fractures of ribs, unspecified side, initial encounter for closed fracture Status: Acute (4) Closed fracture of right clavicle: Qualifiers: Clavicle location: shaft Encounter type: initial encounter Fracture alignment: displaced Qualified Code(s): S42.021A - Displaced fracture of shaft of right clavicle, initial encounter for closed fracture Code(s): S42.001A - Fracture of unspecified part of right clavicle, initial encounter forclosed fracture Status: Acute (5) Coagulopathy: Code(s): D68.9 - Coagulation defect, unspecified Status: Acute Documented By: Sal Gonsales DO 11/25/22 1738 Signed By: <Electronically signed by DO Sal Gonsales> 11/25/22 1749 [facility] Work Phone: [phone]) 157-883101-10-2023 NotePatient here for 1 year follow up systolic heart failure, PAF, and valve regurgitation. No recent labs. Denies chest pain, SOB, and bleeding on Xarelto. 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 Review of Systems Musculoskeletal: Positive for arthritis and joint pain. All other systems reviewed and are negative.[facility] 11-23-2022 NoteCardiovascular Medicine [facility] SUBJECTIVE Chief Complaint Patient presents with Congestive Heart Failure Atrial Fibrillation Valve Disorder Zahida Batista is a 87 y.o. female here for routine follow-up. HPI HPI: She is a 85 yo woman who in June of 2016 was [facility] with UTI and new onset AF. She was found to have systolic heart failure with EF about 30-35%. She underwent catheterization at [facility] on 07/07/2016 and this showed normal coronary arteries. She was treated with HF medications and her AF reverted to sinus rhythm. She then was followed in clinic and her EF normalized. She has a chronic LBBB by ECG. Interval HPI 09/14/21: -Ms. Batista is being seen today for routine f/u. -She has been doing well since last seen. -She currently denies any complaints. She denies CP, SOB, TRAVIS, palpitations, dizziness/LH, orthopnea, PND, LE edema, syncope, bleeding issues. -Hx recurrent UTIs and failed renal stent placement. Will be seeing Urologist in November, Dr. Christy Coombs Update 11/23/2022 She is doing well. She denies c/o CP, dyspnea, TRAVIS, orthopnea, PND, LE edema, dizziness/LH, palpitations, bleeding issues. Patient Active Problem List Diagnosis Atrophic vaginitis Left bundle branch block Dyspnea Fatigue Incomplete emptying of bladder Nocturia Paroxysmal atrial fibrillation (CMS/HCC) Recurrent urinary tract infection Stage 3 chronic kidney disease (CMS/HCC) Urgency-frequency syndrome Urinary urgency Past Medical History: Diagnosis Date Atrial fibrillation (CMS/HCC) CHF (congestive heart failure) (CMS/HCC) Chronic kidney disease Heart valve disease LBBB (left bundle branch block) Family History Problem Relation Name Age of Onset Prostate cancer Father Social History Tobacco Use Smoking status: Never Smokeless tobacco: Never Substance Use Topics Alcohol use: Not Currently Allergies Allergen Reactions Mikki Inhibitors Cough Arb-Angiotensin Receptor Antagonist Cough ROS Musculoskeletal: Positive for arthritis and joint pain. All other systems reviewed and are negative. OBJECTIVE Visit Vitals BP 120/60 (BP Location: Left arm, Patient Position: Sitting) Pulse 80 Ht 1.727 m (5' 8 ) Wt 65.3 kg (144 lb) SpO2 98% BMI 21.90 kg/m??? Smoking Status Never BSA 1.77 m??? Medications: Current Outpatient Medications: metoprolol succinate XL (Toprol-XL) 50 mg 24 hr tablet, metoprolol succinate ER 50 mg tablet,extended release 24 hr, Disp: , Rfl: pramipexole (Mirapex) 0.125 mg tablet, TAKE 1 TABLET BY MOUTH EVERYDAY AT BEDTIME, Disp: , Rfl: rivaroxaban (Xarelto) 15 mg tablet, Take 1 tablet (15 mg) by mouth in the morning., Disp: 90 tablet, Rfl: 0 Physical Exam Vitals reviewed. Constitutional: Appearance: Normal appearance. She is normal weight. HENT: Head: Normocephalic and atraumatic. Right Ear: External ear normal. Left Ear: External ear normal. Eyes: Extraocular Movements: Extraocular movements intact. Conjunctiva/sclera: Conjunctivae normal. Pupils: Pupils are equal, round, and reactive to light. Neck: Vascular: No carotid bruit. Comments: No JVD Cardiovascular: Rate and Rhythm: Normal rate and regular rhythm. Pulses: Normal pulses. Heart sounds: Normal heart sounds. Pulmonary: Effort: Pulmonary effort is normal. Breath sounds: Normal breath sounds. Abdominal: General: Bowel sounds are normal. Palpations: Abdomen is soft. Musculoskeletal: Cervical back: Neck supple. Right lower leg: No edema. Left lower leg: No edema. Skin: General: Skin is warm and dry. Neurological: General: No focal deficit present. Mental Status: She is alert and oriented to person, place, and time. Psychiatric: Mood and Affect: Mood normal. Behavior: Behavior normal. Thought Content: Thought content normal. Judgment: Judgment normal. Labs/Testing/Procedures: No results found for any previous visit. No results found for: EXTCMP, BMPR1A, CBCDIF, BNP, BNP, LASAP, RED ECHO 08/25/2020: EF lower limits of normal; grade 1 DD, mild MR, normal right sided pressures, incidentally found possible liver cyst EKG 08/08/20: SR with LBBB Echocardiogram 08/17/2016: Global left ventricular systolic function is at lower limits of normal (Visually estimated EF 50-55%). Mild left ventricular hypertrophy. The septum is abnormal in its motion; maybe due to bundle branch block. Normal right ventricular systolic function. Mild aortic valve regurgitation. Mild tricuspid regurgitation. Doppler studies suggest normal right sided pressures. ECG 05/18/2017 in clinic: sinus rhythm at 66 bpm with LBBB. ASSESSMENT/PLAN: Diagnosis Plan 1. Paroxysmal atrial fibrillation (CMS/HCC) CBC Comprehensive metabolic panel 2. Chronic systolic heart failure (CMS/HCC) CBC Comprehensive metabolic panel 3. Nonrheumatic aortic valve insufficiency 4. Benign hypertensive kidney disea (more content not included)...[facility]03-03-2019 Progress note Author Dangelo Rayo [facility] November 27, 2022 11:54am Note Date/Time November 27, 2022 7 :59am [facility] [address] [place] [address] Pulmonology Progress Note Signed Patient: Zahida Batista MR#: [id number] : 1935 Acct:[id number] Age/Sex: 87 / F Adm Date: 3 Loc: 4N Room: 6C1256-5 Type: ADM IN Attending Dr: Kayleen Schmid MD Copies to: ~ Date of Service: 11/27/2022 Subjective Subjective Narrative: Patient admits to napping during the day with difficulty sleeping at night. Shedoes continue to have complaints of pain. She was given IV Dilaudid to work with physical therapy and Occupational Therapy and has been receiving oxycodone per nursing staff. Exam Physical Exam Vital Signs: Temp Pulse Resp BP Pulse Ox O2 Del Method 98.1 F 79 20 146/70 H 96 Room Air 11/27/22 04:00 11/27/22 04:00 11/27/22 04:00 11/27/22 04:00 11/27/22 04:00 11/27/22 04:00 Const General: cooperative and no acute distress Nutritional Appearance: average body habitus Orientation: alert and awake HEENT Head: normal to inspection, normocephalic and atraumatic Ears: hearing grossly normal bilaterally and external ears normal Nose: external nose normal Face and sinus: normal facial exam Eyes Eyelids: eyelids normal Neck Neck: normal visual inspection Chest Chest palpation & inspection: normal inspection of the chest Resp Effort & Inspection: normal respiratory effort and able to speak in complete sentences Auscultation: clear to auscultation bilaterally, diminished lung sounds, no rales, no rhonchi and no wheezes Cardio Rate: regular rate Rhythm: regular rhythm Heart Sounds: S1 normal, S2 normal, no gallops, no murmurs and no rubs GI Inspection: normal to inspection Palpation: soft and nontender Auscultation: hypoactive bowel sounds Rectal Exam: deferred General: deferred Skin General: no rashes or lesions noted (warm and dry) Extrem General: no pedal edema Objective Intake and Output I&O - Last 24 Hours: Intake & Output 11/26/22 11/26/22 11/27/22 15:59 23:59 07:59 Intake Total 115 / 275 160 / 275 240 / 240 Output Total 200 / 400 200 / 200 Balance 115 / -125 -40 / -125 40 / 40 Weight 65.6 kg Labs 11/27/22 04:20 11/27/22 04:20 Microbiology Micro: Microbiology 11/25/22 17:49 Urine Culture - Preliminary Urine - Clean-Voided Midstream Gram Negative Bacilli urine culture indicates greater than 100,000 CFU of Pseudomonas Assessment/Plan Assessment/Plan (1) Flail chest: (2) Status post fall: (3) Closed fracture of right clavicle: (4) UTI (urinary tract infection): Plan Hospital day # 2 for patient s/p fall with flail chest of the mid right hemithorax. Patient admits to being in pain but appears fairly comfortable. She is on room air. I discussed with nursing staff and patient strategies for more effective pain control. We certainly could consider a longer acting narcotic with shorter acting breakthrough medications. Will be a delicate balance to try and minimize effects on mental status in this 87-year-old female. Case was discussed with the hospitalist yesterday regarding resuming anticoagulation. It is reasonable to resume anticoagulation today but would follow-up with chest x-ray in the next 24 to 48 hours to ensure that we are not developing a hemothorax and would monitor blood counts for progressive anemia. We will continue to follow with you and provide assistance as able. Patient should continue to utilize intermittent positive pressure breathing treatments and she was again encouraged to utilize incentive spirometry frequently while awake. Documented By: Dangelo Rayo MD 3 [id number] Signed By: <Electronically signed by MD Dangelo Rayo> 11/27/22 1154 [facility] Work Phone: Consult note Author Sal Gonsales [facility] November 25, 2022 5:43pm Note Date/Time November 25, 2022 5 :43pm [facility] [address] [place] [address] General Surgery Consult Note Signed Patient: Zahida Batista MR#: [id number] : 1935 Acct:[id number] Age/Sex: 87 / F Adm Date: 3 Loc: Room: [address] [place] [address] Type: ADM IN Attending Dr: Kayleen Schmid MD Copies to: MD Sal Case DO Ruta Semaskiene, MD~ History of Present Illness Date of consult: 11/25/2022 History of present illness: This is trauma consult. Patient is 87-year-old female, she had a fall down 2 stairs and landed on her right side. She was pushing a laundry basket down the stairs. She did not hit her head. She has pain at her right side of her chest and back. Not having any pain at her anterior chest. She not having any difficulty breathing. She not having any left chest pain. She is not having any neck pain at all. She can move her head and neck without any difficulty. She did not hit her head. She is not having any visual changes. She not havingany headache. She not having any abdominal pain at all. No abdominal pain whatsoever. No leg pain, she can move her legs without any difficulty. She nothaving any low back pain. She not having any arm pain bilaterally she can use her hands and move her arms without any difficulty. She does get pain at her right shoulder and chest with moving her right arm. There is no hemoptysis. Patient has history of atrial fibrillation and hypertension. She is on Xarelto for the atrial fibrillation. She gets frequent urinary tract infections. She does see a urologist for that. Review of Systems Review of Systems All other systems reviewed & are negative unless noted below or in HPI PMFSH Vaccinated for COVID-19?: Yes Medical History (Updated 11/25/22 @ 17:40 by Sal Gonsales DO) Afib Hypertension Surgical History Total knee replacement status Social History Smoking Status: Never smoker Substance Use Type: None Allergies & Medications Medications and Allergies Allergies No Known Allergies Allergy (Verified 11/25/22 14:28) Home Medications metoprolol succinate 50 mg tablet,extended release 24 hr 50 mg PO DAILY 11/25/22[History Confirmed 11/25/22] uqzifjivjhyf-inylutka-uqcbly tablet 1 tab PO DAILY 11/25/22 [History Confirmed 11/25/22] rivaroxaban 15 mg tablet (Xarelto) 15 mg PO DAILY 11/25/22 [History Confirmed 11/25/22] Active Medications Sodium Chloride (Sodium Chloride 0.9 % 10 Ml Syringe) 0 ml IV-PUSH PRN PRN PRN Reason: Flush Stop: 11/25/23 13:42 Last Admin: 11/25/22 16:01 Dose: 10 ml Exam Physical Exam Vital Signs: Temp Pulse Resp BP Pulse Ox O2 Del Method 97.7 F 91 H 22 153/74 H 95 Room Air 11/25/22 13:55 11/25/22 16:49 11/25/22 16:49 11/25/22 16:49 11/25/22 16:49 11/25/22 16:49 Narrative: Patient is conversive pleasant lucid. She is GCS 15. Her head is atraumatic normocephalic. There is no evidence of any head trauma. On palpation there is no pain or cephalohematoma. Eyes are pupil equally round and reactive to light. Extraocular muscles are intact. Neck there is no midline tenderness. There isno pain with rotation and sidebending or chin to chest. There is no hematoma ortracheal deviation. Lungs are clear bilaterally. There is pain with palpation of the right chest. Heart is regular rate. Abdomen is totally soft nontender nondistended no guarding rebound or rigidity. Negative pelvic rock. All extremities with palpation there is no focal point tenderness there is no joint effusion she has 5 out of 5 strength. Upper extremity bilaterally there is no point tenderness nor is there any pain to palpation or joint effusion and 5 out of 5 muscle strength. Patient does have pain at the chest and collarbone with movement of her right shoulder. Results Pain Assessment Right Shoulder: Pain Description: Intermittent Pain Intensity: 5 Intake and Output 24 hour I&O: Intake & Output 11/25/22 11/25/22 11/25/22 07:59 15:59 23:59 Weight 65.4 kg Labs 11/25/22 14:12 11/25/22 14:12 Laboratory Results - last 72 hr 11/25/22 14:12: B-Natriuretic Peptide 60.0 11/25/22 14:12: PT 17.4 H, INR 1.5, APTT 32.7 11/25/22 14:12: Troponin I High Sens 5 11/25/22 14:12: PHA Creatinine Clear 31.67, Sodium 134 L, Potassium 4.0, Chloride 100, Carbon Dioxide 24.5, Anion Gap 13.5, BUN 19, Creatinine 1.31 H, Est GFR ( Amer) 47, Est GFR (Non-Af Amer) 39, Glucose 135 H, Calcium 9.4 11/25/22 14:12: Corrected WBC 8.7, Uncorrected WBC Count 8.7, RBC 3.70, Hgb 9.9 L, Hct 30.5 L, MCV 82.3, MCH 26.7, MCHC 32.4, RDW 16.2 H, Plt Count 323, MPV 6.7, Neut % (Auto) 74.1, Lymph % (Auto) 13.1, [place] % (Auto) 10.4, Eos % (Auto) 1.6, Baso % (Auto) 0.8, Nucleat RBC Rel Count 0.1, Neut # (Auto) 6.4, Lymph # (Auto) 1.1, [place] # (Auto) 0.9 H, Eos # (Auto) 0.1, Baso # (Auto) 0.1, Monocyte Dist Width 18.67 A&P - General Surgery (1) Status post fall: Plan: Patient is status post fall, she has right posterior and lateral rib fractures with flail chest of 5 ribs. She also has a comminuted mid right clavicular fracture. She is on Xarelto, risk for pulmonary contusion secondary to fall andrib fractures No other injuries noted on head to toe exam. I encourage deep breathing with incentive spirometry, increase pulmonary toilet. Pulmonary and orthopedics consultation. Recommend keep IV fluids to minimum toprevent worsening of any pulmonary contusion that might develop. I did not see any general surgical injuries nor any other injuries were identified. Am glad to reevaluate at your request otherwise we will sign off. Code(s): Z91.81 - History of falling Status: Acute (2) Flail chest: Code(s): S22.5XXA - Flail chest, initial encounter for closed fracture Status: Acute (3) Multiple rib fractures involving four or more ribs: Code(s): S22.49XA - Multiple fractures of ribs, unspecified side, initial encounter for closed fracture Status: Acute (4) Closed fracture of right clavicle: Qualifiers: Clavicle location: shaft Encounter type: initial encounter Fracture alignment: displaced Qualified Code(s): S42.021A - Displaced fracture of shaft of right clavicle, initial encounter for closed fracture Code(s): S42.001A - Fracture of unspecified part of right clavicle, initial encounter forclosed fracture Status: Acute (5) Coagulopathy: Code(s): D68.9 - Coagulation defect, unspecified Status: Acute Documented By: Sal Gonsales DO 11/25/22 173 Signed By: <Electronically signed by DO Sal Gonsaels> 11/25/22 1743 [facility] Work Phone: Consult note Author Dangelo Rayo [facility] November 26, 2022 1:47pm Note Date/Time November 26, 2022 8 :58am [facility] [address] [place], [place] [id number] Pulmonology Consult Note Signed Patient: Zahida Batista MR#: [id number] : 1935 Acct:[id number] Age/Sex: 87 / F Adm Date: 3 Loc: 4N Room: [address] [place] [address] Type: ADM IN Attending Dr: Kayleen Schmid MD Copies to: MD Kavon Santana MD Ruta Semaskiene, MD~ HPI Date/Time of Consultation: Date of Service: 11/26/2022 Time of Service: 08:57 Consulting Provider: Dangelo Rayo Requesting Provider: Kayleen Schmid History of Present Illness History of present illness: Ms. Batista is a 87 year old female seen at the request of the general surgery service for a flail chest and pulmonary contusion. Patient had a fall down 2 steps while carrying a laundry basket with right shoulder and back. Work-up included x-ray showing a comminuted midshaft right clavicle fracture with CT scan of the thorax revealing flail chest with posterior rib fractures of ribs 3 through 7 and 9 through 11 as well as lateral rib fractures of 4 through 9. Patient had no loss of consciousness and no head trauma though was noted to be on Xarelto for atrial fibrillation. Patient was admitted to the hospitalist service and was evaluated by general surgery. Patient complains of pain but doesnot appear to be in respiratory distress and is on room air at the time of my evaluation. Review of Systems Review of Systems All other systems reviewed & are negative unless noted below or in HPI PMFSH Vaccinated for COVID-19?: Yes Medical History (Updated 11/25/22 @ 18:39 by Graciela Ocasio PA-C) Afib Hypertension Surgical History Total knee replacement status Social History Smoking Status: Never smoker Substance Use Type: None Meds Medications and Allergies Allergies No Known Allergies Allergy (Verified 11/25/22 14:28) Home Medications amitriptyline 10 mg tablet 10 mg PO HS 11/25/22 [History Confirmed 11/25/22] metoprolol succinate 50 mg tablet,extended release 24 hr 50 mg PO DAILY 11/25/22[History Confirmed 11/25/22] wuvtconconew-vodvejpo-yiljdn tablet 1 tab PO DAILY 11/25/22 [History Confirmed 11/25/22] pramipexole 0.125 mg tablet 0.125 mg PO HS 11/25/22 [History Confirmed 11/25/22] rivaroxaban 15 mg tablet (Xarelto) 15 mg PO DAILY 11/25/22 [History Confirmed 11/25/22] Exam Physical Exam Vital Signs: Temp Pulse Resp BP Pulse Ox O2 Del Method 97.5 F L 78 15 146/74 H 95 Room Air 11/26/22 04:30 11/26/22 04:30 11/26/22 04:30 11/26/22 04:30 11/26/22 04:30 11/26/22 04:30 Const General: cooperative and no acute distress Nutritional Appearance: average body habitus Orientation: alert and awake HEENT Head: normal to inspection, normocephalic and atraumatic Ears: hearing grossly normal bilaterally and external ears normal Nose: external nose normal Face and sinus: normal facial exam Eyes Eyelids: eyelids normal Neck Neck: normal visual inspection Chest Chest palpation & inspection: normal inspection of the chest Resp Effort & Inspection: normal respiratory effort and able to speak in complete sentences Auscultation: clear to auscultation bilaterally, diminished lung sounds, no rales, no rhonchi and no wheezes Cardio Rate: regular rate Rhythm: regular rhythm Heart Sounds: S1 normal, S2 normal, no gallops, no murmurs and no rubs GI Inspection: normal to inspection Palpation: soft and nontender Auscultation: hypoactive bowel sounds Rectal Exam: deferred General: deferred Skin General: no rashes or lesions noted (warm and dry) Extrem General: no pedal edema Results Intake and Output I&O - Last 24 Hours: Intake & Output 11/25/22 11/26/22 11/26/22 23:59 07:59 15:59 Intake Total 200 / 200 Output Total 600 / 600 200 / 200 Balance -400 / -400 -200 / -200 Weight 65.4 kg Labs 11/25/22 14:12 11/26/22 06:56 Microbiology Micro: 11/25/22 17:49 Urine Culture - Pending Urine - Clean-Voided Midstream Imaging and Cardiology CT scan - chest: Status: image reviewed by me Additional comments: Date of Service: 11/25/22 CT/CT chest w con: fall ? CT chest withcontrast TECHNIQUE: Axial imaging with 2-D reconstruction.? 90 cc of Isovue-300The CT exam was performed using one or more the following dose reduction techniques: Automated exposure control, adjustment of the MA and/or Kv according to patient size, or use of the iterative reconstruction technique. History: Fell injuring RIGHT shoulder and back. COMPARISON: None No thyroid abnormality Central airway is patent.? No esophageal abnormality identified. Heart is not enlarged.? No pericardial effusion is seen. Nonenlarged mediastinal lymph nodes identified.? No hilar mass or adenopathy is seen. No thoracic aortic aneurysm is seen. No lung nodules identified.? No infiltrate or congestion identified.? Tiny RIGHT pleural effusion seen.? Basilar atelectasis.? No pneumothorax seen.? No chest wall abnormality seen.? RIGHT posterior 11th, 10th and 9th rib fractures identified.? RIGHT posterior 3rd, 4th and 5th, 6th and 7th rib fractures RIGHT lateral 4th, 5th, 6th, 7th, 8th and 9th rib fractures present.? RIGHT mid clavicle fracture present. 2 hepatic cysts measure up to 4 cm.? Chronic obstructive changes of the LEFT kidney present with a renal atrophy. CT/CT chest w con IMPRESSION: Multiple posterior and lateral RIGHT rib fractures.? Tiny RIGHT pleural effusion.? No pneumothorax.? RIGHT mid clavicle fracture. ? Assessment/Plan (1) Flail chest: (2) Status post fall: (3) Closed fracture of right clavicle: (4) UTI (urinary tract infection): Plan Hospital day # 1 for patient s/p fall with flail chest of the mid right hemithorax. Patient admits to being in pain but appears fairly comfortable. She is on room air. To my review, there is no obvious evidence of pulmonary contusion and do agree with keeping the patient at the very least euvolemic to slightly dry to try and prevent development of pulmonary contusion. There is some literature that would suggest early surgical intervention to prevent deterioration in patients with flail chest. However, as the patient is on room air and is not in severe respiratory distress, I believe that aggressive pulmonary clearance measures initially can be tried to try and avoid surgery. Patient was interviewed with family including and daughter at chair side. The importance of pulmonary clearance measures including use of incentivespirometry and intermittent positive pressure breathing treatments to try and prevent the derecruitment and atelectasis resulting in hypoxemia as well as mucous plugging resulting in pneumonia. We will continue to monitor and certainly could consider hypertonic saline as well as flutter device if the patient is starting to develop rhonchi and secretions. She obviously would not tolerate Thera vest given her multiple rib fractures and flail chest. We will observe the patient over the course of the next several days to ensure that her respiratory status is stable on this regimen. She has Tylenol and IV Dilaudid as needed available for pain. We will also write for oral oxycodone as needed to help with pain control. We could consider surgical intervention if the patient shows inadequate pain control and worsening respiratory status to try and prevent intubation long-term, however, would try to be conservative at leastinitially. We will follow with you and provide assistance as able. Documented By: Dangelo Rayo MD [id number] Signed By: <Electronically signed by MD Dangelo Rayo> 11/26/22 3714 [facility] Work Phone: Consult note Author Barbie Weston [facility] November 26, 2022 6:49pm Note Date/Time November 26, 2022 6 :32pm [facility] [address] [place] [address] Orthopedic Consult Note Signed Patient: Zahida Batista MR#: [id number] : 1935 Acct:[id number] Age/Sex: 87 / F Adm Date: 3 Loc: Room: [address] [place] [address] Type: ADM IN Attending Dr: Kayleen Schmid MD Copies to: MD Kavon Saha MD Ruta Semaskiene, MD~ History of Present Illness HPI Consult date: 11/26/2022 Requesting provider: Kayleen Schmid MD Consult reason: fracture History of present illness: 87-year-old woman admitted status post fall down 2 stairs and basement with landing on concrete floor with right clavicle fracture and multiple right-sided rib fractures Patient reports she was carrying a load of laundry down the basement steps, whenshe missed the bottom 2 steps sustaining mechanical fall landing on the right side and shoulder. Patient denies any loss of consciousness, amnesia, dizziness, or lightheadedness. Patient denies any pain at the shoulder prior tothe fall. Currently patient reports pain at the right clavicle and shoulder, but is not reporting significant pain in her chest or shortness of breath. [id number]-[id number] Significantly, patient has history of atrial fibrillation on Xarelto Review of Systems Review of Systems All other systems reviewed & are negative unless noted below or in HPI PMFSH Vaccinated for COVID-19?: Yes Medical History (Updated 11/26/22 @ 18:43 by Barbie Weston MD) Afib Hypertension Surgical History Total knee replacement status Social History Smoking Status: Never smoker Substance Use Type: None Allergies & Medications Medications and Allergies Allergies No Known Allergies Allergy (Verified 11/25/22 14:28) Home Medications amitriptyline 10 mg tablet 10 mg PO HS 11/25/22 [History Confirmed 11/25/22] metoprolol succinate 50 mg tablet,extended release 24 hr 50 mg PO DAILY 11/25/22[History Confirmed 11/25/22] tmrednjpkseo-uiieinfd-jbpazt tablet 1 tab PO DAILY 11/25/22 [History Confirmed 11/25/22] pramipexole 0.125 mg tablet 0.125 mg PO HS 11/25/22 [History Confirmed 11/25/22] rivaroxaban 15 mg tablet (Xarelto) 15 mg PO DAILY 11/25/22 [History Confirmed 11/25/22] Exam Physical Exam Vital Signs: Temp Pulse Resp BP Pulse Ox O2 Del Method 97.9 F 83 16 129/72 98 Room Air 11/26/22 15:44 11/26/22 15:44 11/26/22 15:44 11/26/22 15:44 11/26/22 15:44 11/26/22 15:44 Narrative: GENERAL: Awake, alert, and oriented, and in no acute distress UPPER EXTREMITY Sling in place right upper extremity Negative ecchymosis over area of fracture over right clavicle midshaft No specific tenting of skin over right clavicle fracture midshaft Positive tenderness to palpation at the right clavicle in area of fracture as expected Secondary survey negative for other areas of point tenderness along the right proximal shoulder and supraspinatus insertion, of the right humerus, the right elbow, right forearm, and hand Positive skin tear with dressing right elbow R Radial pulse 2+ and intact R Sensory intact to light touch at the axillary/ radial/ ulnar/ median nerve distributions R Motor intact EPL/ FPL/ Dorsal interosseous ABduction/ Palmar interosseous ADduction/ DIP/ PIP/ EIP/ EDC/ EDM/ wrist extension & flexion/ elbow extension &flexion/ shoulder deltoid firing LOWER EXTREMITY Negative tenderness palpation bilateral lower extremities Clinically equal limb length and rotation bilateral lower extremities Negative pain with bilateral hip logroll maneuver Negative pain with bilateral hip axial load B Dorsalis pedis pulse 2+ and intact B Sensory intact to light touch distally at the tibial/ sural/ saphenous/ deep peroneal/ superficial peroneal nerve distributions B Motor intact EHL/ FHL/ ankle dorsiflexion/ ankle plantarflexion/ knee extension & flexion/ quadriceps straight leg raise CARDIOVASCULAR RRR by palpation RESPIRATORY No audible wheezes HEENT EOMI Results Lab Results 11/26/22 06:56 11/26/22 06:56 Labs: Laboratory Results - Last 48 hrs. 11/26/22 06:56: PHA Creatinine Clear 32.93, Sodium 135 L, Potassium 4.2, Chloride 103, Carbon Dioxide 27.0, Anion Gap 9.2, BUN 21, Creatinine 1.26 H, EstGFR ( Amer) 49, Est GFR (Non-Af Amer) 40, Glucose 119 H, Calcium 9.2 11/26/22 06:56: Corrected WBC 7.4, Uncorrected WBC Count 7.4, RBC 3.87, Hgb 10.3L, Hct 31.8 L, MCV 82.0, MCH 26.7, MCHC 32.6, RDW 16.4 H, Plt Count 349, MPV 6.9, Neut % (Auto) 69.6, Lymph % (Auto) 15.2, [place] % (Auto) 13.8, Eos % (Auto) 0.7, Baso % (Auto) 0.7, Nucleat RBC Rel Count 0.0, Neut # (Auto) 5.1, Lymph # (Auto) 1.1, [place] # (Auto) 1.0 H, Eos # (Auto) 0.1, Baso # (Auto) 0.0 11/25/22 17:49: Urine Color Dark yellow A, Urine Appearance Turbid A, Urine pH 6.5, Ur Specific [place] 1.020, Urine Protein 100 H, Urine Glucose (UA) Normal, Urine Ketones Trace H, Urine Occult Blood 3+ H, Urine Nitrite Positive H, Urine Bilirubin Negative, Urine Urobilinogen Normal, Ur Leukocyte Esterase 3+ H, UrineRBC 20-49 H, Urine WBC Innumerable H, Ur Squamous Epith Cells 1-2, Urine Bacteria None seen, Hyaline Casts 1-2 11/25/22 14:12: Vitamin B12 389, Folate > 22.3, TSH 3rd Generation 2.89 11/25/22 14:12: B-Natriuretic Peptide 60.0 11/25/22 14:12: PT 17.4 H, INR 1.5, APTT 32.7 11/25/22 14:12: Troponin I High Sens 5 11/25/22 14:12: PHA Creatinine Clear 31.67, Sodium 134 L, Potassium 4.0, Chloride 100, Carbon Dioxide 24.5, Anion Gap 13.5, BUN 19, Creatinine 1.31 H, Est GFR ( Amer) 47, Est GFR (Non-Af Amer) 39, Glucose 135 H, Calcium 9.4 11/25/22 14:12: Corrected WBC 8.7, Uncorrected WBC Count 8.7, RBC 3.70, Hgb 9.9 L, Hct 30.5 L, MCV 82.3, MCH 26.7, MCHC 32.4, RDW 16.2 H, Plt Count 323, MPV 6.7, Neut % (Auto) 74.1, Lymph % (Auto) 13.1, [place] % (Auto) 10.4, Eos % (Auto) 1.6, Baso % (Auto) 0.8, Nucleat RBC Rel Count 0.1, Neut # (Auto) 6.4, Lymph # (Auto) 1.1, [place] # (Auto) 0.9 H, Eos # (Auto) 0.1, Baso # (Auto) 0.1, Monocyte Dist Width 18.67 H & H 11/25/22 11/26/22 Range/Units 14:12 06:56 Hgb 9.9 L 10.3 L (11.8-15.4) g/dL Hct 30.5 L 31.8 L (34.0-46.4) % Coagulation 11/25/22 Range/Units 14:12 INR 1.5 All other labs are normal. Microbiology Results Microbiology: Microbiology - Results from entire visit 11/25/22 17:49 Urine - Clean-Voided Midstream Urine Culture - Preliminary Gram Negative Bacilli Imaging & Diagnostic Results Imaging/Diagnostics: XRAY ([facility] 11/25/2022) RIGHT SHOULDER: 3 views AP in plane of the chest, AP in plane of the glenoid, aswell as a scapular Y view reviewed. Images demonstrate a midshaft clavicle fracture, slightly oblique in nature with no evidence of comminution, and only minimal distraction. There is no significant superior translation or displacement of the fracture fragments with good bony contact amenable for nonoperative healing. There is no evidence of acromioclavicular joint subluxation or separation on available views. CT ([facility] 11/25/2022) CHEST: Axial, coronal, sagittal sequences reviewed. Images demonstrate a fracture through the midshaft of the right clavicle, very slight oblique in nature, with no significant translation or displacement, and no evidence of comminution. There is excellent bony contact for amenable nonoperative healing at the area of clavicle fracture. There is a small right pleural effusion with basilar atelectasis without evidence of pneumothorax as well as right sided rib fractures at the third, fourth, fifth, sixth, seventh, eighth, ninth, 10th, and 11th ribs. There are several hepatic cysts measuring 4 cm per the radiology report as well as chronic obstructive changes of the left kidney with renal atrophy. Assessment/Plan (1) Multiple rib fractures involving four or more ribs: Code(s): S22.49XA - Multiple fractures of ribs, unspecified side, initial encounter for closed fracture (2) Right clavicle fracture: Code(s): S42.001A - Fracture of unspecified part of right clavicle, initial encounter forclosed fracture Plan 87-year-old woman status post fall down two steps multiple right sided rib fractures and right midshaft clavicle fracture - Discussion held with patient regarding the diagnosis and treatment options. At this time we have discussed nonoperative versus operative treatment options and have discussed the risks, benefits, alternatives, and potential complications of proposed treatment options. - Regarding nonoperative treatment, this would primarily consist of pain control, sling, and progressive gentle mobilization as able - Regarding operative treatment, this would primarily consist of ORIF of the clavicle in order to potentially allow earlier weight bearing and mobilization, along with further supportive measures. Surgical treatment does carry certain additional risks including but not limited to: infection, xiao-prosthetic fracture, and implant failure. Complicating issues of surgery, would be that the patient does have multiple ribfractures - Regardless of nonoperative versus operative treatment, there may always be some pain or decreased range of motion at the right shoulder from the injury, swelling, and post injury sequelae - Overall, as the fracture is relatively nondisplaced, I would recommend nonoperative treatment with sling, pain control, and supportive care. We have had a discussion that if we are unable to achieve bony healing or developing nonunion at the clavicle in the future, we may need to proceed with surgical treatment in the future. At this time based on radiographs, there overall appears to be adequate bony contact and position of the fracture fragments to allow for potential nonoperative healing - Medical comorbidities and management per the medical team - UTI on admission management per the medical team - Nutrition support - Diet as tolerated - Monitor for occult injury - Local wound care for skin abrasions/ skin tear - Nonweightbearing right upper extremity, though may use left hand for light 2- 5pound activities of daily living such as eating or use of electronic devices, and may work on elbow nonresistive range of motion to decrease stiffness. Patient may work on gentle shoulder rolls to decrease shoulder stiffness. Sling to right upper extremity for use when up and ambulating, may loosen in bedor chair Would recommend sleeping upright at approximately 45 degree angle as this will provide better comfort - Pain control in the interim - Incentive spirometry and pain control support for rib fractures - DVT prophylaxis: SCDs in the interim. - Case management consult for post-operative home-going needs - PT/OT for mobilization and rehabilitation as able - Iron supplementation - Patient was counseled on bone healing protocol including smoking cessation/ avoidance of nicotine products, appropriate weight bearing restrictions and limitations, and vitamin supplementation to aid in bone and fracture healing/ strengthening. Patient was counseled to take: 1) Vitamin C 500 mg PO Q daily 2) Calcium 500-600 mg/ Vitamin D 200-400 Units PO Q TID - Will continue to follow: recommend follow up clavicle Xrays in 2 weeks to monitor for fracture position Billing Billing Codes (IF APPLICABLE) List of Applicable Codes for [place] Documented By: Barbie Weston MD 11/26/22 183 2 Signed By: <Electronically signed by Barbie Weston MD> 11/26/22 1849 [facility] Work Phone: Discharge summary Author Christian Aleman [facility] November 30, 2022 3:21pm Note Date/Time November 30, 2022 3 :21pm [facility] [address] [place] [address] Discharge Summary Signed Patient: Zahida Batista MR#: [id number] : 1935 Acct:[id number] Age/Sex: 87 / F Adm Date: 3 Loc: Room: [address] [place] [address]: Christian Aleman DO Copies to: MD Christian Case, DO~ Providers Date of Discharge: 11/30/22 Discharging Provider: Christian Aleman Primary Care Provider: Kavon Farrell Consults: 11/25/22 17:59 Consult to Case Management Routine Consult to Occupational Therapy Routine Consult to Physical Therapy Routine 11/25/22 18:37 Consult to Orthopedic Surgery Routine 11/25/22 18:38 Consult to Pulmonology Routine Discharge Diagnosis (1) Flail chest: (2) Status post fall: (3) Closed fracture of right clavicle: (4) UTI (urinary tract infection): Final Diagnosis Final Discharge Diagnosis: In addition to the above diagnoses: 5. Chronic kidney disease stage III 6. Hyponatremia 7. Pneumothorax Summary Hospital Course Hospital course: This patient is an 87-year-old female presented to the emergency department on 11/25/2022 following a reported fall. This was nonsyncopal in nature and occurred while carrying a load of laundry down the stairs. Head and neck CT showed no acute fracture or injury. She did suffer a right-sided clavicular fracture and multiple posterior right lateral rib fractures. Patient was evaluated by general surgery. No further intervention was warranted. Pulmonology was consulted for management of rib fractures with stable pneumothorax noted on chest imaging. Patient was kept euvolemic to hypovolemic for risk of pulmonary contusion. Encourage incentive spirometry. Also noted tohave urinary tract infection growing Pseudomonas. IV antibiotics were transitioned to cefepime. Orthopedic surgery was consulted, nonoperative treatment with sling, pain control and other supportive care was recommended rather than any further intervention for clavicular fracture. The patient's home anticoagulation with Xarelto was held for risk of bleeding following trauma. Stage III kidney disease is noted and stable on sequential labs. Normocytic anemia and hyponatremia remained stable. At this time the patient has no acute medical issues requiring her to stay in the hospital. She has beenevaluated by PT/OT and will now go to the acute rehab unit for further treatment. Her Xarelto will be held for an additional couple of weeks. Physical Examination: GENERAL APPEARANCE: Alert, up in bed AAOx3 CARDIAC: Normal S1 and S2. No S3, S4 or murmurs. LUNGS: Slightly diminished breath sounds anteriorly ABDOMEN: Positive bowel sounds. Soft, nontender. No guarding or signs of an acute abdomen MUSCULOSKELETAL: No joint erythema or tenderness. EXTREMITIES: No clubbing, cyanosis or edema NEUROLOGICAL: No focal deficits SKIN: Skin normal color, texture and turgor with no lesions or eruptions. PSYCHIATRIC: Appropriate mood and affect 40 minutes were spent coordinating the discharge of this patient. Time Spent with Patient Time spent providing/coordinating discharge services (# min): 40 Diagnostic Studies Completed and Pending Studies Pending studies at discharge: 12/01/22 05:00 Chest [XR chest 1V portable] IN AM Exam Physical Exam Vital Signs: Temp Pulse Resp BP Pulse Ox O2 Del Method O2 Flow Rate 98.4 F 90 16 123/68 97 Nasal Cannula 2.5 11/30/22 11:42 11/30/22 11:42 11/30/22 11:42 11/30/22 11:42 11/30/22 11:42 11/30/22 11:42 11/30/22 11:42 Discharge Plan Discharge Plan Patient Disposition: Rehab [facility] Additional Instructions: Rehab to manage: - PT/OT to eval and treat - Monitor VS routine - 2.5lpm NC O2 - titrate as able/needed - Pain and Orthopedic assessments - Dx. Right clavicle fracture, rib fractures -- Nonweightbearing right upper extremity, though may use left hand for light2-5 pound activities of daily living such as eating or use of electronic devices, and may work on elbow nonresistive range of motion to decrease stiffness. Patient may work on gentle shoulder rolls to decrease shoulder stiffness. -- Sling to right upper extremity for use when up and ambulating, may loosen in bed or chair -- Would recommend sleeping upright at approximately 45 degree angle as this will provide better comfort - Respiratory assessments - Dx. Pneumothorax - Urinary assessments - Dx. UTI, Montgomery catheter discontinued 11/30/22 - Fall precautions - high fall risk - Routine skin assessments/care -- Every 3 days - Mepilex border foam to Coccyx for protection. - Wound care: -- Daily - Right elbow skin tear- Clean with NS and pat dry. Apply Hydrogel to the wound bed. Top with Adaptic and 4x4 gauze. Secure with conform and paper tape. Please obtain CXR in 1 day -- send results to Dr. Rayo Prescriptions: New docusate sodium 100 mg Capsule 200 mg PO BID PRN (Reason: Constipation) Qty: 0 0RF acetaminophen 325 mg Tablet 650 mg PO Q4H PRN (Reason: Pain Scale 1 - 5) Qty: 0 0RF cefepime 2 gram Recon Soln 2 g IV Q12H Qty: 0 0RF oxycodone [OxyContin] 10 mg Tablet,Oral Only,Ext.Rel.12 Hr 10 mg PO Q12HR Qty: 0 0RF polyethylene glycol 3350 [Miralax] 17 gram Powder In Packet 17 g PO DAILY Qty: 0 0RF oxycodone 5 mg Tablet 5 mg PO Q4HR PRN (Reason: Pain) Qty: 0 0RF sennosides [Senna Lax] 8.6 mg Tablet 17.2 mg PO BID Qty: 0 0RF Continued metoprolol succinate 50 mg tablet extended release 24 hr 50 mg PO DAILY uhqhrkfykhlf-fpczsqqn-zhnkbw Tablet 1 tab PO DAILY amitriptyline 10 mg tablet 10 mg PO HS Patient Comments: TAKE 1 TABLET BY MOUTH DAILY AT BEDTIME pramipexole 0.125 mg tablet 0.125 mg PO HS Patient Comments: TAKE 1 TABLET BY MOUTH EVERYDAY AT BEDTIME Held Xarelto 15 mg tablet 15 mg PO DAILY Hold Instructions: Resume on 12/13/22. Other Ambulatory Orders: XR clavicle RT* (Routine) Timeframe: 2 Weeks Location: Determined by Patient Ordered By: Barbie Weston Follow Up: Kavon Farrell MD [Primary Care Provider] - (Please call to schedule a follow upappointment with PCP upon discharge from Rehab.) Barbie Weston MD [Active Staff] - (Please have clavicle xray repeated in 2 weeks (from discharge) and call Orthopedic Surgery as needed.) Documented By: Christian Aleman DO 11/30/22 15 13 Signed By: <Electronically signed by Christian Aleman DO> 11/30/22 1521 [facility] Work Phone: evaluation noteNo assessment information available [facility] Work Phone: evaluation note* Diagnosis Onset Date Resolution Status Accidental fall acute Anemia acute Closed fracture of right clavicle acute Coagulopathy acute Flail chest acute Multiple rib fractures involving four or more ribs acute Rib fracture acute Skin tear acute Status post fall acute UTI (urinary tract infection) acute [facility] Work Phone: evalucwxfk note* Diagnosis Onset Date Resolution Status Accidental fall acute Anemia acute Closed fracture of right clavicle acute Coagulopathy acute Flail chest acute Multiple rib fractures involving four or more ribs acute Rib fracture acute Right clavicle fracture acut e Skin tear acute Status post fall acute UTI (urinary tract infection) acute [facility] Work Phone: Evaluttebw note* Diagnosis Onset Date Resolution Status Accidental fall acute Anemia acute Closed fracture of right clavicle acute Coagulopathy acute Flail chest acute Multiple rib fractures involving four or more ribs acute Rib fracture acute Right clavicle fracture acut e Skin tear acute Status post fall acute UTI (urinary tract infection) acute Afib acute Anemia acute Chronic anticoagulation acut e CKD (chronic kidney disease) acute Flail chest acute Impaired mobility and activities of daily living acute Multiple rib fractures involving four or more ribs acute Pneumothorax acute Right clavicle fracture acut e Skin tear acute Status post fall acute UTI (urinary tract infection) acute [facility] Work Phone: Evalugypti noteNo [employer] [employer] Other Evaluypjqy note* Diagnosis Frequent UTI Urinary tract infection, site not specified documented in this encounter [facility]* Diagnosis Recurrent UTI Urinary tract infection, site not specified documented in this encounter [email or web address] and physical note Author Kayleen Schmid [facility] November 26, 2022 2:45pm Note Date/Time November 25, 2022 5 :57pm [facility] [address] [place] [address] Hospitalist H&P Signed Patient: Zahida Batista MR#: [id number] : 1935 Acct:[id number] Age/Sex: 87 / F Adm Date: 3 Loc: 4N Room: [address] [place] [address] Type: ADM IN Attending Dr: Kayleen Schmid MD Copies to: MD Kayleen Case MD~ HPI DATE OF EXAMINATION: 11/25/22 CHIEF COMPLAINT: Status post fall HISTORY OF PRESENT ILLNESS: 87 years old female who lives at home with her presented after she had afall. Patient was carrying the load of laundry down the stairs and she missed the last couple of stairs and she fell. She denied any prodromal symptoms such as shortness of breath, chest pain, dizziness. She denied any loss of consciousness, she denies any hitting the head or neck. Currently she denies any headache or neck pain. CT scan of the head without contrast and CT scan of the C-spine Without contrast did not reveal any acute fracture Patient complained of the pain on the right side of the chest as well in clavicular area and right shoulder pain. CT scan of the chest showed multiple posterior lateral right rib fractures with tiny right pleural effusions without prominent thorax and right mid clavicle fracture. Elbow x-ray did not reveal any acute fractures. CT of the lumbar spine did not reveal any acute lumbar fractures. Shoulder x-ray confirmed comminuted right mid clavicle fracture Patient denied any abdominal pain. Denied any other joint pains. She has history of atrial fibrillation takes Xarelto. Review of Systems Review of Systems Review of systems: 10 systems are reviewed and are negative apart as mentioned in H&P General -patient is awake alert oriented ?3, does not appear to be in distress HEENT -normal oropharyngeal mucosa without any ulcers or exudates Cardiovascular -S1 plus S2, with regular rate, without any murmurs, gallops, rubs Pulmonary -clear to auscultation bilaterally Gastrointestinal -abdomen is soft, nondistended, nontender, bowel sounds positive, no rigidity, no rebound Genitourinary -deferred Musculoskeletal -decreased range of motion the right shoulder due to pain Neurological -no focal Skin -no significant ulcers, no rash noted Extremities - no edema in bilateral lower extremities noted Psychiatry - appropriate affect EKG showed normal sinus rhythm with left bundle branch block PMFSH Vaccinated for COVID-19?: Yes Medical History (Updated 11/25/22 @ 18:39 by Graciela Ocasio PA-C) Afib Hypertension Surgical History Total knee replacement status Social History Smoking Status: Never smoker Substance Use Type: None Meds Medications and Allergies Allergies No Known Allergies Allergy (Verified 11/25/22 14:28) Home Medications amitriptyline 10 mg tablet 10 mg PO HS 11/25/22 [History Confirmed 11/25/22] metoprolol succinate 50 mg tablet,extended release 24 hr 50 mg PO DAILY 11/25/22[History Confirmed 11/25/22] bjqebziswyle-lckhnedk-tztdan tablet 1 tab PO DAILY 11/25/22 [History Confirmed 11/25/22] pramipexole 0.125 mg tablet 0.125 mg PO HS 11/25/22 [History Confirmed 11/25/22] rivaroxaban 15 mg tablet (Xarelto) 15 mg PO DAILY 11/25/22 [History Confirmed 11/25/22] Exam Physical Exam Vital Signs: Temp Pulse Resp BP Pulse Ox O2 Del Method 36.5 C 91 H 22 153/74 H 95 Room Air 11/25/22 13:55 11/25/22 16:49 11/25/22 16:49 11/25/22 16:49 11/25/22 16:49 11/25/22 16:49 Results Lab Results Labs: Laboratory Last Values Corrected WBC 8.7 X10E3/uL (3.8-11.6) 11/25/22 14:12 Uncorrected WBC Count 8.7 x10E3/uL (3.8-11.6) 11/25/22 14:12 RBC 3.70 X10E6/uL (3.60-5.00) 11/25/22 14:12 Hgb 9.9 g/dL (11.8-15.4) L 11/25/22 14:12 Hct 30.5 % (34.0-46.4) L 11/25/22 14:12 MCV 82.3 fl (80-100) 11/25/22 14:12 MCH 26.7 pg (24.7-34.3) 11/25/22 14:12 MCHC 32.4 g/dL (32.0-35.0) 11/25/22 14:12 RDW 16.2 % (11.9-15.3) H 11/25/22 14:12 Plt Count 323 x10E3/uL (150-450) 11/25/22 14:12 MPV 6.7 fl (6.3-10.7) 11/25/22 14:12 Neut % (Auto) 74.1 % (.) 11/25/22 14:12 Lymph % (Auto) 13.1 % (.) 11/25/22 14:12 [place] % (Auto) 10.4 % (.) 11/25/22 14:12 Eos % (Auto) 1.6 % (.) 11/25/22 14:12 Baso % (Auto) 0.8 % (.) 11/25/22 14:12 Nucleat RBC Rel Count 0.1 /100 WBC (0-0.5) 11/25/22 14:12 Neut # (Auto) 6.4 x10E3/uL (1.8-7.7) 11/25/22 14:12 Lymph # (Auto) 1.1 x10E3/uL (1.00-4.8) 11/25/22 14:12 [place] # (Auto) 0.9 x10E3/uL (0.0-0.8) H 11/25/22 14:12 Eos # (Auto) 0.1 x10E3/uL (0.0-0.45) 11/25/22 14:12 Baso # (Auto) 0.1 x10E3/uL (0.0-0.2) 11/25/22 14:12 Monocyte Dist Width 18.67 % (0.00-20.00) 11/25/22 14:12 PT 17.4 Seconds (9.0-12.9) H 11/25/22 14:12 INR 1.5 11/25/22 14:12 APTT 32.7 Seconds (25.1-36.5) 11/25/22 14:12 PHA Creatinine Clear 31.67 11/25/22 14:12 Sodium 134 mmol/L (136-146) L 11/25/22 14:12 Potassium 4.0 mmol/L (3.5-5.1) 11/25/22 14:12 Chloride 100 mmol/L (95-114) 11/25/22 14:12 Carbon Dioxide 24.5 mmol/L (22.0-30.0) 11/25/22 14:12 Anion Gap 13.5 mEq/L (6.0-15.0) 11/25/22 14:12 BUN 19 mg/dL (9-23) 11/25/22 14:12 Creatinine 1.31 mg/dL (0.44-1.03) H 11/25/22 14:12 Est GFR ( Amer) 47 mL/Min 11/25/22 14:12 Est GFR (Non-Af Amer) 39 mL/Min 11/25/22 14:12 Glucose 135 mg/dL (70-100) H 11/25/22 14:12 Calcium 9.4 mg/dL (8.2-10.2) 11/25/22 14:12 Troponin I High Sens 5 pg/mL (0-15) 11/25/22 14:12 B-Natriuretic Peptide 60.0 pg/mL (5-100) 11/25/22 14:12 A&P - Hospitalist Assessment/Plan (1) Multiple rib fractures involving four or more ribs: Plan 1. Status post mechanical fall associated with right clavicle fracture as well as multiple rib fracture without signs of pneumothorax, currently no respiratorycomplaints apart from pain Will encourage I-S, pain management Hold Xarelto for now Consult orthopedic 2. Atrial fibrillation, paroxysmal, currently normal sinus rhythm Hold Xarelto due to above 3. Normocytic anemia, recheck H&H in a.m. 4. Kidney dysfunction 5. DVT prophylaxis SCDs Documented By: Kayleen Schmid MD 11/25/22 5281 Signed By: <Electronically signed by Kayleen Schmid MD> 11/26/22 1445 [facility] Work Phone: History general Narrative - Reported* Type Description Date Medical History right clavicle fracture Medical History hypertension Surgical History left [facility] [employer] Other Hospital Discharge instructions Additional Instructions Tylenol every 4 hours as needed for pain [facility]: Hospital Discharge instructions Additional Instructions Rehab to manage: - PT/OT to eval and treat - Monitor VS routine - 2.5lpm NC O2 - titrate as able/needed - Pain and Orthopedic assessments - Dx. Right clavicle fracture, rib fractures -- Nonweightbearing right upper extremity, though may use left hand for light 2- 5 pound activities of daily living such as eating or use of electronic devices, and may work on elbow nonresistive range of motion to decrease stiffness. Patient may work on gentle shoulder rolls to decrease shoulder stiffness. -- Sling to right upper extremity for use when up and ambulating, may loosen in bed or chair -- Would recommend sleeping upright at approximately 45 degree angle as this will provide better comfort - Respiratory assessments - Dx. Pneumothorax - Urinary assessments - Dx. UTI, Montgomery catheter discontinued 11/30/22 - Fall precautions - high fall risk - Routine skin assessments/care -- Every 3 days - Mepilex border foam to Coccyx for protection. - Wound care: -- Daily - Right elbow skin tear- Clean with NS and pat dry. Apply Hydrogel to the wound bed. Top with Adaptic and 4x4 gauze. Secure with conform and paper tape. Please obtain CXR in 1 day -- [facility]: [facility] Discharge instructions Additional Instructions Boost plus twice a day recommended. Non weight bearing the the right upper extremity. May use 2 lb wt bearing for eating, holding phone. Wear sling at all times until further instructions from orthopedics. Okay to loosen sling while in bed or chair. Right elbow skin tear: cleanse with normal saline, pat dry. Apply hydrogel, adaptic, 4x4 gauze and conform. change daily or as needed. may leave opne to air when scabbed/healing. Protective mepilex border foam to coccyx for protection. Change every 3 days or as needed.[facility] Work Phone: Progress note Author Kayleen Schmid [facility] November 26, 2022 2:49pm Note Date/Time November 26, 2022 2 :49pm [facility] [address] [place] [address] Hospitalist Progress Note Signed Patient: Zahida Batista MR#: [id number] : 1935 Acct:[id number] Age/Sex: 87 / F Adm Date: 3 Loc: Room: [address] [place] [address] Type: ADM IN Attending Dr: Kayleen Schmid MD Copies to: ~ Date of Service: 11/26/2022 Subjective Subjective Narrative: Patient has been seen and examined today. She still complains of chest pain especially with movements and breathing Denies any abdominal pain. Denies any constipation. Physical exam: General -awake, alert, oriented ?3, not in acute distress Cardiovascular -S1 with S2 Pulmonary - clear to auscultation bilaterally Gastrointestinal - abdomen is soft, nondistended, nontender, bowel sounds positive, there is no rigidity, no rebound Extremities -no edema Neurological -no focal neurological dysfunction noted Exam Physical Exam Vital Signs: Temp Pulse Resp BP Pulse Ox O2 Del Method 36.7 C 89 20 134/75 94 L Room Air 11/26/22 11:16 11/26/22 11:16 11/26/22 11:16 11/26/22 11:16 11/26/22 11:16 11/26/22 11:16 Objective Lab Results 11/26/22 06:56 11/26/22 06:56 Microbiology Results Microbiology 11/25/22 17:49 Urine - Clean-Voided Midstream Urine Culture - Preliminary Gram Negative Bacilli Meds Allergies and Active Meds Allergies No Known Allergies Allergy (Verified 11/25/22 14:28) Active Meds: Active Medications Generic Name Dose Route Start Last Admin Trade Name Freq PRN Reason Stop Dose Admin Acetaminophen 650 mg 11/25/22 17:58 11/26/22 08:20 Acetaminophen 325 Mg Tablet PO 11/25/23 17:57 650 mg Q4H PRN Administration Pain Scale 1 - 5 Albuterol 2.5 mg 11/25/22 17:58 Albuterol Neb 2.5 Mg/3 Ml Vial.Neb INHALATION 11/25/23 17:57 Q2H PRN Shortness Of Breath Docusate Sodium 200 mg 11/25/22 17:58 Docusate 100 Mg Capsule PO 11/25/23 17:57 BID PRN Constipation Hydralazine HCl 10 mg 11/25/22 17:58 Hydralazine 20 Mg/Ml Vial IV-PUSH 11/25/23 17:57 Q4H PRN if SBP > 185 Hydromorphone HCl 0.25 mg 11/26/22 09:53 11/26/22 10:19 Hydromorphone 0.5 Mg/0.5 Ml Syringe IV-PUSH 0.25 mg Q4H PRN Administration Pain Metoprolol Succinate 50 mg 11/26/22 09:00 11/26/22 08:20 Metoprolol Succinate 50 Mg Tab.Er.24h PO 11/26/23 08:59 50 mg DAILY APOORVA Administration Ondansetron HCl 4 mg 11/25/22 17:58 11/25/22 18:07 Ondansetron 4 Mg/2 Ml Vial IV-PUSH 11/25/23 17:57 4 mg Q6H PRN Administration Nausea And Vomiting Oxycodone HCl 5 mg 11/26/22 13:46 Oxycodone Ir 5 Mg Tablet PO Q6HR PRN Pain Sennosides 2 tab 11/25/22 21:00 11/26/22 08:20 Sennosides 8.6 Mg Tablet PO 11/25/23 20:59 2 tab BID APOORVA Administration Sodium Chloride 0 ml 11/25/22 13:43 11/25/22 16:01 Sodium Chloride 0.9 % 10 Ml Syringe IV-PUSH 11/25/23 13:42 10 ml PRN PRN Administration Flush A&P - Hospitalist Assessment/Plan (1) Multiple rib fractures involving four or more ribs: Plan 1. Status post mechanical fall associated with right clavicle fracture as well as multiple rib fracture without signs of pneumothorax, currently no respiratorycomplaints apart from pain Pulmonology evaluated for flail chest, recommended conservative management Will encourage I-S, pain management Hold Xarelto for now Consulted orthopedic 2. Atrial fibrillation, paroxysmal, currently normal sinus rhythm Hold Xarelto due to above 3. Normocytic anemia, stable 4.Acute Kidney dysfunction - improved 5. DVT prophylaxis SCDs 6. UTI - rocephin Documented By: Kayleen Schmid MD 11/26/22 3838 Signed By: <Electronically signed by Kayleen Schmid MD> 11/26/22 1449 [facility] Work Phone: Chief Complaint and Reason for Visit Chief Complaint FALL Chief Complaint Fall, Back pain Reason for Visit Accidental fall Anemia Closed fracture of right clavicle Coagulopathy Flail chest Multiple rib fractures involving four or more ribs Rib fracture Skin tear Status post fall UTI (urinary tract infection) Chief Complaint Fall, Back pain Reason for Visit Accidental fall Anemia Closed fracture of right clavicle Coagulopathy Flail chest Multiple rib fractures involving four or more ribs Rib fracture Right clavicle fracture Skin tear Status post fall UTI (urinary tract infection) Chief Complaint Fall, Back pain Right clavicle fracture/multiple rib fractures s/p Reason for Visit Accidental fall Anemia Closed fracture of right clavicle Coagulopathy Flail chest Multiple rib fractures involving four or more ribs Rib fracture Right clavicle fracture Skin tear Status post fall UTI (urinary tract infection) Afib Anemia Chronic anticoagulation CKD (chronic kidney disease) Flail chest Impaired mobility and activities of daily living Multiple rib fractures involving four or more ribs Pneumothorax Right clavicle fracture Skin tear Status post fall UTI (urinary tract infection) Chief Complaint S42.024A Advance Directives No Advanced Directives Records Found Advance Directive Response Recorded Date/ Time Advance Directives No March 05, 022 5:45pm Advance Directive Response Recorded Date/ Time Advance Directives No March 05 022 4:45pm Summary Purpose Family History No Family History Records FoundNo Family History Records FoundNo Family History Records FoundNo Family History Records FoundNo Family History Records FoundNo Family History Records FoundNo Family History Records FoundNo Family History Records FoundNo Family History Records FoundNo Family History Records FoundNo Family History Records FoundNo Family History Records Found Additional Source Comments Care Teams (unrecognized sec tion and content) Team Status: Active Member Role Status Dates Kavon Farrell MD Primary Care Provider Active Team Status: Inactive Member Role Status Dates Kavon Farrell MD Primary Care Provider Active Barbie Weston MD Attending Provider Active Team Status: Inactive Member Role Status Dates Adrian Rangel MD Emergency Provider Active Kavon Farrell MD Primary Care Provider Active Team Status: Active Member Role Status Dates Kavon Farrell MD Primary Care Provider Active Graciela Ocasio PA-C Emergency Provider Active Kayleen Schmid MD Admit Provider, Attending Provide r Active Dangelo Rayo MD Other Provider Active Aubrey Crowe , DO Other Provider Active Adilson Hoffmann MD Other Provider Active Dulce Haydee , VALET RUNNER ACNP-BC Other Provider Active Mauricio Daly , DO Other Provider Active Adrian Robles MD Other Provider Active Suma Lopez MD Other Provider Active Drew Hernadez MD Other Provider Active Zuleika Rudolph MD Other Provider Active Barbie Weston MD Other Provider Active Moody Panda II, MD Other Provider Active Chrisitan Tiwari MD Other Provider Active Catarina Shabazz DIRECTOR UNIVERSITY-C Other Provider Active Celestino Foster , DO Other Provider Active Gilmer Trejo MD Other Provider Active Team Status: Inactive Member Role Status Dates Kavon Farrell MD Primary Care Provider Active Graciela Ocasio PA-C Emergency Provider Active Kayleen Schmid MD Admit Provider Active Dulce Haydee , VALET RUNNER ACNP-BC Other Provider Active Adilson Hoffmann MD Other Provider Active Dangelo Rayo MD Other Provider Active Zuleika Rudolph MD Other Provider Active Mauricio Daly , DO Other Provider Active Suma Lopez MD Other Provider Active Adrian Robles MD Other Provider Active Drew Hernadez MD Other Provider Active Aubrey Crowe , DO Other Provider Active Gilmer Trejo MD Other Provider Active Christian Tiwari MD Other Provider Active Barbie Weston MD Other Provider Active Catarina Shabazz DIRECTOR UNIVERSITY-C Other Provider Active Celestino Foster , DO Other Provider Active Moody Panda II, MD Other Provider Active Christian Aleman , Attending Provider Active Team Status: Inactive Member Role Status Dates Kavon Farrell MD Primary Care Provider Active Mohit Willson MD Admit Provider, Attending Provider A ctive Lorrie Quinonez , CONRAD Other Provider Active Myrtle Yañez , CONRAD Other Provider Active Erika George , CONRAD Other Provider Active Lexis Devlin , CONRAD Other Provider Active Neha Duncan RN Other Provider Active Keila Robins RN Other Provider Active Lucas Morillo MD Other Provider Active Suma Hahns , VALET RUNNER Other Provider Active Gorge Shelton , DO Other Provider Active William Acevedo MD Other Provider Active John Ricardo , DO Other Provider Active Kenny Tirado MD Other Provider Active Kayleen Schmid MD Other Provider Active Luanne Bustillo , ANP-BC Other Provider Active Flavia Pace MD Other Provider Active Wil Cartagena MD Other Provider Active Saira Ruiz MD Other Provider Active Teto Gregorio MD Other Provider Active Christian Aleman , DO Other Provider Active Heena Allen MD Other Provider Active Rufino Squires MD Other Provider Active Lauren Simpson , DIRECTOR UNIVERSITY-C Other Provider Active Pedro Cowan MD Other Provider Active Jaydon Woodruff MD Other Provider Active Dario Choudhary MD Other Provider Active Victoria Myers , DO Other Provider Active Jero Vital , DO Other Provider Active Chirag Sanchez , DO Other Provider Active Kathie Hoyt APRN Other Provider Active Sanya Hayes , DO Other Provider Active Harleen Matos MD Other Provider Active Ying Rangel VALET RUNNER Other Provider Active Leandra Chapa RN Other Provider Active 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 Relationship Specialty Start Date End Date Juan Santana MD [address] [place] [address] PCP - General 06/26/24 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 Relationship Specialty Start Date End Date Juan Santana MD [address] [place] [address] PCP - General 06/26/24 Goals (unrecognized section and content) Goals may be documented in a n alternate sectionNo InformationNo InformationGoals may be documented in an alternate sectionNo Information INFORMATION SOURCE (unrecogn ized section and content) DATE CREATED AUTHOR 02/18/2023 [facility] DATE CREATED AUTHOR AUTHOR'S ORGANIZ ATION 03/17/2023 [facility] DATE CREATED AUTHOR AUTHOR'S ORGANIZ ATION 07/02/2023 [facility] DATE CREATED AUTHOR AUTHOR'S ORGANIZ ATION 05/10/2024 [facility] DATE CREATED AUTHOR AUTHOR'S ORGANIZ ATION 06/26/2024 [facility] DATE CREATED AUTHOR AUTHOR'S ORGANIZ ATION 11/04/2024 [facility] DATE CREATED AUTHOR AUTHOR'S ORGANIZ ATION 02/01/2025 [facility] DATE CREATED AUTHOR AUTHOR'S ORGANIZ ATION 06/28/2025 [facility] DATE CREATED AUTHOR AUTHOR'S ORGANIZ ATION 07/11/2025 [facility] DATE CREATED AUTHOR AUTHOR'S ORGANIZ ATION 08/07/2025 [facility] REASON FOR VISIT (unrecogniz ed section and content) Right Clavicle FractureOT or derRecheck Right Clavicle FOR RECORDS PERTAINING TO PATIENTS WHO ARE OR HAVE BEEN ENROLLED IN A CHEMICAL DEPENDENCY/SUBSTANCEABUSE PROGRAM, SOME INFORMATION MAY BE OMITTED. This clinical summary was aggregated from multiple sources. Caution should be exercised in using it in the provision of clinical care. This summary normalizes information from multiple sources, and as a consequence, information in this document may materially change the coding, format and clinical context of patient data. In addition, data may be omitted in some cases. CLINICAL DECISIONS SHOULD BE BASED ON THE PRIMARY CLINICAL RECORDS. [facility]. provides no warranty or guarantee of the accuracy or completeness of information in this document.
--- NOTE | 2025-08-09 12:12 | PC.NURSE ---
non stick dry dressing applied to pt right forearm, pt tolerated well.
--- NOTE | 2025-08-09 12:44 | PC.NURSE ---
ambulated pt in room with this rn and a cane, pt does well, family at bedside
[2025-08-09 12:45] VITALS: BP 142/78; PULSE 54; O2SAT 95
[2025-08-09] MEDS: ACETAMINOPHEN 500 MG TABLET PO (13:05)
== END 2025-08-09 13:05 | disposition home or self-care (01) ==
PROVIDERS: Emergency Provider Emergency Medicine
DX: S09.8XXA Other specified injuries of head, initial encounter (principal); W10.8XXA Fall (on) (from) other stairs and steps, initial encounter; S51.811A Laceration without foreign body of right forearm, initial encounter; Z79.01 Long term (current) use of anticoagulants; I48.91 Unspecified atrial fibrillation; E04.2 Nontoxic multinodular goiter
CPT/HCPCS: 70450; 72125; 76376; 99284

== ENCOUNTER 2025-10-16 08:08 | Outpatient (OUT) | payer MEDICARE, OTHER, SELFPAY ==
--- OUTSIDE RECORDS SUMMARY | 2025-10-16 08:11 | XMS_ITS | Clinical Summary ---
Author Organization [facility] Address [address] [place] [address] Care Team Providers Care Manager Hydraulic Name Role Phone Jose Conti MD Primary Care Provider [phone] Allergies Active AllergyReactionsCriticalityNoted DateCommentsAce InhibitorsCough 11/23/2022 Medications MedicationSigDispense QuantityRefillsLast FilledStart DateEnd DateStatus amitriptyline (Elavil) 10 MG tablet Take 10 mg by mouth at bedtimeActive cefuroxime (Ceftin) 500 MG tablet Take 1 tablet twice a day by oral route for 7 days.Active metoprolol succinate XL (Toprol-XL) 50 MG 24 hr tablet Take 1 tablet by mouth DailyActive Multiple Vitamin (Multi-Vitamin) tablet Take 1 tablet by mouth in the morning.Active Xarelto 15 MG tablet Take 15 mg by mouth in the eveningActive pramipexole (Mirapex) 0.5 MG tablet Take 0.5 mg by mouth in the morning and 0.5 mg in the evening and 0.5 mg before bedtime.Active Active Problems No known active problems Family History RelationNameStatusCommentsFatherDeceasedMotherDeceased Social History Tobacco UseTypesPacks/DayYears UsedDateSmoking Tobacco: NeverSmokeless Tobacco: Never Tobacco Cessation:Counseling Given: Not Answered Alcohol UseStandard Drinks/WeekCommentsNever0 (1 standard drink = 0.6 oz pure alcohol)CommentsUnknownSex and Gender InformationValueDate RecordedSex Assigned at BirthNot on fileLegal LvpEavgoh79/15/2023 7:24 PM EDTGender Identity Not on fileSexual OrientationNot on file Last Filed Vital Signs Vital SignReadingTime TakenCommentsBlood Okujovie771/58011/21/2019 12:00 PM EST Pulse--Temperature--Respiratory Rate--Oxygen Saturation--Inhaled Oxygen Concentration--[place]14.9 kg (152 lb)06/25/2024 9:33 AM SGXVbyhzn475.6 cm (5' 4 )06/25/2024 9:33 AM EDTBody Mass Index26.0906/25/2024 9:33 AM EDT Plan of Treatment Not on file Insurance Care Teams Team MemberRelationshipSpecialtyStart DateEnd Date Jose Conti MD [address] [place] [address] PCP - GeneralFamily Medicine05/16/24
--- OUTSIDE RECORDS SUMMARY | 2025-10-16 08:11 | XMS_ITS | Clinical Summary ---
Author Organization [facility] Address [address] [place] [address] Care Team Providers Care Concept Artist Name Role Phone Jose Conti MD Primary Care Provider [phone] Allergies Active AllergyReactionsCriticalityNoted DateCommentsAce InhibitorsCough 11/23/2022rb-Angiotensin Receptor WiymridpooXtkat10/10/2023 Medications MedicationSigDispense QuantityRefillsLast FilledStart DateEnd DateStatus metoprolol succinate XL (Toprol-XL) 50 mg 24 hr tablet metoprolol succinate ER 50 mg tablet,extended release 24 hrActive pramipexole (Mirapex) 0.125 mg tablet TAKE 1 TABLET BY MOUTH EVERYDAY AT ULNBNNM8708/27/2022ctive Xarelto 15 mg tablet Indications:Paroxysmal atrial fibrillation (CMS/HCC)TAKE 1 TABLET BY MOUTH EVERY DAY IN THE MORNING 90 tablet ctive amitriptyline (Elavil) 10 mg tablet Take 10 mg by mouth at bedtime.06/06/2023ctive multivitamin tablet Take 1 tablet by mouth in the morning.Active Active Problems ProblemNoted DateDiagnosed DateLeft bundle branch block08/19/2016Dyspnea 08/19/20161796Plgbzii81/06/2016Paroxysmal atrial iynudcmwyubw11/06/2016Recurrent urinary tract xngpqkuvu55/06/2016Stage 3 chronic kidney mytdamo7808/19/2016 Atrophic umzmbxppw33/15/2015Incomplete emptying of fxjyugh0306/09/2015Nocturia 06/09/2015Urgency-frequency usseuwmq07/27/2015Urinary rvupymp3206/09/2015 Family History Medical HistoryRelationNameCommentsProstate cancerFatherRelationNameStatus CommentsFather Social History Tobacco UseTypesPacks/DayYears UsedDateSmoking Tobacco: NeverSmokeless Tobacco: Never Tobacco Cessation:Counseling Given: Not Answered Alcohol UseStandard Drinks/WeekCommentsNot Currently0 (1 standard drink = 0.6 oz pure alcohol)UT Safety & EnvironmentAnswerDate RecordedFear of Current or Ex-PartnerNot on file01/05/2024Emotionally AbusedNot on file01/05/2024hysically AbusedNot on file01/05/2024Sexually AbusedNot on file01/05/2024hysically or Sexually AbusedNot on file01/05/2024CommentsUnknownSex and Gender InformationValueDate RecordedSex Assigned at BirthNot on fileLegal SexFemale 05/12/2022 11:47 PM EDTGender IdentityNot on fileSexual OrientationNot on file Last Filed Vital Signs Vital SignReadingTime TakenCommentsBlood Szqvyjcp749/5408 3:45 PM EDT Fqaet6121 3:45 PM EDTTemperature--Respiratory Fqwd3121 3:45 PM EDTOxygen Kbxqnstqix58%07/01/2023 3:45 PM EDTInhaled Oxygen Concentration-- Grgoxk77.9 kg (152 lb)07/01/2023 3:45 PM LSYLtfjzr227.7 cm (5' 8 )07/01/2023 3:45 PM EDTBody Mass Index23.1108 3:45 PM EDT Plan of Treatment Health MaintenanceDue DateLast DoneCommentsMedicare Annual Wellness (AWV) 1935Depression Rwhjynaud06/03/1949dult Sugvmje7801/14/1959Zoster Vaccines (1 of 2)1987Fall Risk Obmaoffka49/03/2002Pneumococcal Vaccine: 50+ Years (2 of 2 - PCV), 06/14/2016COVID-19 Vaccine (1 - 2024- season)2025Influenza Vaccine (#1)512/01/2021, 08/29/2020, 08/15/2018, Additional history existsHIB VaccinesAged OutNo longer eligible based on patient's age to complete this topicHPV VaccinesAged OutNo longer eligible based on patient's age to complete this topicIPV VaccinesAged OutNo longer eligible based on patient's age to complete this topicMeningococcal B VaccineAged OutNo longer eligible based on patient's age to complete this topic Meningococcal VaccineAged OutNo longer eligible based on patient's age to complete this topicRotavirus VaccinesAged OutNo longer eligible based on patient's age to complete this topic Insurance Care Teams Team MemberRelationshipSpecialtyStart DateEnd Date Jose Conti MD [address] [place] [address] [facility] - [facility]
--- OUTSIDE RECORDS SUMMARY | 2025-10-16 08:14 | XMS_ITS | CCD ---
Author Organization [facility] Care Team Providers Care Hold Worker Name Role Phone MD Adrian Rangel Emergency Provider [phone] MD Kavon Farrell Primary Care Provider [phone] MD Kavon Farrell Primary Care Provider EDWIN Ocasio Emergency Provider MD Kayleen Schmid Admit Provider MD Kayleen Schmid Attending Provider [phone] MD Dangelo Rayo Other Provider DO Aubrey Crowe Other Provider MD Adilson Hoffmann Other Provider LENNOX Hubbard Other Provider DO Mauricio Daly Other Provider MD Adrian Robles Other Provider [phone] MD Suma Lopez Other Provider MD Drew Hernadez Other Provider MD Zuleika Rudolph Other Provider MD Barbie Weston Other Provider MD Moody Panda II Other Provider MD Christian Tiwari Other Provider [phone] SHONDA Shabazz Other Provider DO Celestino Foster Other Provider [phone] MD Gilmer Trejo Other Provider DO Christian Aleman Attending Provider MD Mohit Willson Admit Provider MD Mohit Willson Attending Provider Cristiano, CONRAD Andrew Other Provider Unavailable CONRAD Yañez Other Provider Unavailable CONRAD George Other Provider Unavailable CONRAD Devlin Other Provider Unavailable CONRAD Duncan Other Provider Unavailable CONRAD Robins Other Provider Unavailable MD Lucas Morillo Other Provider LENNOX Rosales Other Provider [phone] DO Gorge Shelton Other Provider MD William Acevedo Other Provider DO John Ricardo Other Provider [phone] MD Kenny Tirado Other Provider [phone] MD Kayleen Schmid Other Provider Iwona, ANP-BC Luanne Other Provider MD Flavia Pace Other Provider [phone] MD Wil Cartagena Other Provider MD Saira Ruiz Other Provider MD Teto Gregorio Other Provider DO Christian Aleman Other Provider MD Heena Allen Other Provider MD Rufino Squires Other Provider KAELYN Simpson-Champ Rodriguez Other Provider [phone] MD Pedro Cowan Other Provider MD Jaydon Woodruff Other Provider MD Dario Choudhary Other Provider DO Victoria Myers Other Provider DO Jero Vital Other Provider DO Chirag Sanchez Other Provider [phone] LENNOX Hoyt Other Provider DO Sanya Hayes Other Provider MD Harleen Matos Other Provider LENNOX Rangel Other Provider CONRAD Chapa Other Provider Unavailable FARRELL ., [...] Adilson Hoffmann Consulting Unavailable Dangelo Rayo Consulting UnavailZuleika Garcia Consulting Unavailable Mauricio Daly Consulting UnavailSuma Montoya [...] Rosales Consulting Unavailable Gorge Shelton Consulting Unavailable William Acevedo Consulting Unavailable John Ricardo Consulting UnavailKenny Tineo Consulting Unavailable Kayleen Schmid Consulting Unavailable Luanne Bustillo Consulting Unavailable Flavia Pace Consulting Unavailable Wil Cartagena Consulting Unavailable Saira Ruiz Consulting Unavailable Teto Gregorio Consulting Unavailable Christian Aleman Consulting Unavailable Heena Allen Consulting Unavailable Rufino Squires Consulting Unavailable Lauren Simpson Consulting Unavailable DoamegarethorPedro Consulting Unavailab Jaydon Hart Consulting Unavailable Kenrick, Dario Consulting Unavailable Victoria Myers Consulting Unavailable Jero Vital Consulting Unavailable MiniChirag ruelas Consulting Unavailable Obika Kathie Consulting Unavailable Sanya Hayes Consulting Unavailable Daromar, Obaydah M Consulting Unavailable Ying Rangel Consulting Unavailable Leandra Chapa Consulting Unavailable MD Kavon Farrell Primary Care Provider [phone] MD Barbie Weston Attending Provider MAURICE STARK Attending Unavailable MICHAEL SOOD Attending Unavailable JERICHO HEATH Referring Unavailable POCJERICHO OLMOS Attending Unavailable JUAN SANTANA Referring Unavailable POCJERICHO OLMOS Referring Unavailable POCJERICHO OLMOS Attending Unavailable Gallito CONNELL [facility] Care Provider JUAN SANTANA [facility] Unavailable DESIRAE RAMOS Referring Unavailable DESIRAE RAMOS Referring Unavailable JUAN SANTANA Primary [facility] [place] Unavailable PILAR SAMANIEGO Admitting Unavailable PILAR SAMANIEGO Attending Unavailable Juan Santana Attending Unavailable Juan Santana Attending Unavailable Juan Santana Attending Unavailable PILAR SAMANIEGO Attending Unavailable PILAR SAMANIEGO Attending Unavailable Juan Santana Attending Unavailable BO SAMANIEGO Admitting UnavailBO Albright Attending UnavailMigel Orozco Attending Unavailable BO SAMANIEGO Attending UnavailBO Albright Attending UnavailAdelfo Miles Attending Unavailable BO SAMANIEGO Attending Unavailabl e Yasir, Migel L Attending Unavailable Allergies Allergy ClassificationReported Allergen(s)Allergy TypeDate of OnsetReaction(s) Facility (5 sources)Angiotensin Converting Enzyme (Mikki) Inhibitors; Translations: [MIKKI INHIBITORS]Propensity to adverse reactions to drug (disorder)54-56-5059Pvvpd [facility] Repository (1 source)ARB-ANGIOTENSIN RECEPTOR ANTAGONIST; Translations: [ARB-ANGIOTENSIN RECEPTOR ANTAGONIST]Propensity to adverse reactions to drug (disorder)11-23-2022 [facility] Repository (2 sources)Angiotensin II receptor antagonistPropensity to adverse reactions to erhv26-01-6466[facility] Medications Current Medications MedicationDrug Class(es)DatesSig (Normalized)Sig (Original)acetaminophen 500 mg oral tablet (5 sources)Start: 40-13-4693tsey 500 mg by mouth every four hoursAcetaminophen Active 500 MG PO Q4H 0 December 14, 2022 1:00amStart: 11-30-2022 End: 16-12-3086sxkx 650 mg by mouth every four hoursAcetaminophen Discontinued 650 MG PO Q4H 0 November 30, 2022 1:00am December 14, 2022 9:59amamitriptyline hydrochloride 10 mg oral tablet (11 sources)Tricyclic AntidepressantStart: 40-13-2127bdmu 1 tablet by mouth once dailyamitriptyline (ELAVIL) 10 MG tablet Take 1 tablet by mouth nightly 08/31/2024 ActiveStart: 11-25-2022 End: 65-96-9330doeu 10 mg by mouth once daily at bedtimeAmitriptyline Active 10 MG PO Daily at bedtime 0 December 14, 2022 1:00amazithromycin 250 mg oral tablet (3 sources)Macrolide AntimicrobialStart: 18-67-6552Axqbdqapn Z-Joseph 250 MG 2 tablets on the first day, then 1 tablet daily for 4 days Orally Once a day, recommend probiotics for 5 day(s) Jan, Activebisacodyl 10 mg rectal suppository (2 sources)Stimulant LaxativeStart: 18-58-7972Mfngccmzl Active 10 MG AK Daily 0 December 14, 2022 1:00amcephalexin 250 mg oral capsule (1 source)Cephalosporin AntibacterialStart: 01-53-1762mykf 1 capsule by mouth once dailycephALEXin (KEFLEX) 250 MG capsule Indications: Recurrent UTI Take 1 capsule by mouth daily 30 capsule 1 10/31/2024 Activedocusate sodium 100 mg oral capsule (5 sources)Start: 11-87-5433suxq 100 mg by mouth twice dailyDocusate Sodium Active 100 MG PO Twice daily 0 December 14, 2022 1:00amStart: 11-30-2022 End: 24-84-0356kgrh 200 mg by mouth twice dailyDocusate Sodium Discontinued 200 MG PO Twice daily 0 November 30, 2022 1:00am December 14, 2022 9:59amferrous sulfate 324 mg delayed release oral tablet (2 sources)Start: 74-78-1646Kjgtpiw Sulfate Active 324 MG PO Q48H 0 December 14, 2022 1:00amlactulose 667 mg/ml oral solution (2 sources)Osmotic LaxativeStart: 61-05-4341nwyd 30 g by mouth once daily Lactulose Active 30 GM PO Daily 0 December 14, 2022 1:00am24 hr metoprolol succinate 50 mg extended release oral tablet (11 sources)beta-Adrenergic BlockerStart: 50-98-1101nwkc 1 tablet by mouth once dailymetoprolol succinate (TOPROL XL) 50 MG extended release tablet Take 1 tablet by mouth daily 07/30/2024 ActiveStart: 11-25-2022 End: 05-24-4160cxlv 50 mg by mouth once dailyMetoprolol Succinate Active 50 MG PO Daily 0 December 14, 2022 1:00amMetoprolol Succinate ActiveMultiple Vitamin (MULTI-VITAMIN) TABS (2 sources)take 1 tablet by mouth once daily in the morningMultiple Vitamin (MULTI-VITAMIN) TABS Take 1 tablet by mouth every morning Active Desfjnthtsoy-Uhklexvk-Ldcmou (Centrum Silver) Tablet (1 source)Start: 71-17-9243qfms 1 tablet by mouth once daily Fpaujvjiwfbr-Skmryauz-Sfpukt (Centrum Silver) Tablet Active 1 TAB PO Daily November 25, 2022 12:00amnitrofurantoin, macrocrystals 25 mg / nitrofurantoin, monohydrate 75 mg oral capsule (2 sources)Nitrofuran AntibacterialStart: 10-31-2024 End: 94-03-4085ekue 1 capsule by mouth twice dailynitrofurantoin, macrocrystal- monohydrate, (MACROBID) 100 MG capsule Indications: Recurrent UTI Take1 capsule by mouth 2 times daily for 7 days 14 capsule 10/31/2024 11/07/2024 ActiveStart: 09-26-2024 End: 36-79-5940kwju 1 capsule by mouth twice dailynitrofurantoin, macrocrystal- monohydrate, (MACROBID) 100 MG capsule Indications: Frequent UTI Take 1 capsule by mouth 2 times daily for 7 days 14 capsule 09/26/2024 10/03/2024 Active oxyCODONE hydrochloride 5 mg oral tablet (11 sources)Opioid AgonistStart: 11-30-2022 End: 18-89-1246ghha 5 mg by mouth every four hoursOxycodone Active 5 MG PO Every 4 hours 28 December 14, 2022Start: 11-30-2022 End: 62-85-0632hwwn 1 tablet by mouth every twelve hours, then take 1 tablet by mouth every hourOxycodone (Oxycontin) 10 mg Tablet,Oral Only,Ext.Rel.12 Hr Discontinued 10 MG PO Every 12 hours 0 November 30, 2022 December 14, 2022 9:59amoxyCODONE HCl Activepolyethylene glycol 3350 15248 mg powder for oral solution (5 sources)Osmotic LaxativeStart: 11-30-2022 End: 57-68-5213Mlgatlbwgmyk Glycol 3350 (Miralax) 17 gram Powder In Packet Active 17 GM PO Daily 0 December 14, 2022 1:00ampramipexole dihydrochloride 0.125 mg oral tablet (6 sources)Nonergot Dopamine AgonistStart: 11-25-2022 End: 15-82-6640bbwk 0.125 mg by mouth once daily at bedtimePramipexole Active 0.125 MG PO Daily at bedtime 0 December 14, 2022 1:00amrivaroxaban 15 mg oral tablet (11 sources)Factor Xa InhibitorStart: 35-10-3426bxhh 1 tablet by mouth once daily at breakfastXARELTO 15 MG TABS tablet Take 1 tablet by mouth daily (with breakfast) 09/04/2024 ActiveStart: 11-25-2022 End: 55-77-3072ngfc 1 tablet by mouth once dailyRivaroxaban (Xarelto) 15 mg Tablet Active 15 MG PO Daily 0 December 14, 2022 1:00amXarelto ActiveSennosides (Senna Lax) 8.6 mg Tablet (5 sources)Start: 60-64-5056ehms 2 tablets by mouth once dailySennosides (Senna Lax) 8.6 mg Tablet Active 17.2 MG PO DAILY@12 0 December 14, 2022 1:00amStart: 77-61-2917dkdi 2 tablets by mouth once dailySennosides (Senna Lax) 8.6 mg Tablet Active 17.2 MG PO DAILY@12 0 December 14, 2022 12:00amStart: 11-30-2022 End: 50-06-7713cbln 2 tablets by mouth twice dailySennosides (Senna Lax) 8.6 mg Tablet Discontinued 17.2 MG PO Twice daily 0 November 30, 2022 1:00am December 14, 2022 9:59amStart: 11-30-2022 End: 63-55-0239hevc 2 tablets by mouth twice dailySennosides (Senna Lax) 8.6 mg Tablet Discontinued 17.2 MG PO Twice daily 0 November 30, 2022 12:00am December 14, 2022 8:59amStart: 34-27-9219akwg 2 tablets by mouth twice dailySennosides (Senna Lax) 8.6 mg Tablet Active 17.2 MG PO Twice daily 0 November 30, 2022 12:00amTylenol Extra Strength (3 sources)Tylenol Extra Strength Active Completed/Discontinued Medications MedicationDrug Class(es)DatesSig (Normalized)Sig (Original)Augmentin Tablets 875 MG (3 sources)Start: 85-19-8384jyqj 1 tablet by mouth every twelve hoursAugmentin Tablets 875 MG 1 by mouth every 12 hours, recommend probiotics for 10 days Jan, Not-Takingcefepime 2000 mg injection (3 sources)Cephalosporin AntibacterialStart: 11-30-2022 End: 61-96-5574bjmr 2 g intravenously every twelve hoursCefepime Discontinued 2 GM IV Q12H 0 November 30, 2022 1:00am December 14, 2022 9:59amcefTRIAXone (3 sources)Cephalosporin AntibacterialStart: 37-22-9574Atddsisd 500 mg Jan, 1 wbxLyicfspynjwu-Mcrpczxm-Lyexbq (3 sources)Start: 11-25-2022 End: 84-56-7142nchd 1 tablet by mouth once tafgqSprzdtflsgns-Hqtlndpt-Nuyuax Discontinued 1 TAB PO Daily November 25, 2022 1:00am December 14, 2022 9:59am Start: 11-25-2022 End: 86-67-6452kozy 1 tablet by mouth once roralWgqeouvthznp-Byvrgmei-Nyszxh Discontinued 1 TAB PO Daily November 25, 2022 12:00am December 14, 2022 8:59am Start: 88-77-2874oxgk 1 tablet by mouth once vlavvKszteyaaligw-Martslop-Esammh Active 1 TAB PO Daily November 25, 2022 12:00amoseltamivir 75 mg oral capsule (3 sources)Neuraminidase InhibitorStart: 63-98-0058myii 1 capsule by mouth every twelve hoursTamiflu 75 MG 1 capsule Orally twice a day for 5 days Jan, Not-Takingsulfamethoxazole 800 mg / trimethoprim 160 mg oral tablet (3 sources)Dihydrofolate Reductase Inhibitor Antibacterial, Sulfonamide AntimicrobialStart: 77-91-8890gcpp 1 tablet by mouth twice dailyBactrim DS 800- 160 MG 1 tablet Orally twice a day, recommend probiotics for 7 days Jan, Not-Taking Problems Active Problems Problem ClassificationProblemDateDocumented DateEpisodic/ChronicCardiac dysrhythmias (7 sources)Atrial fibrillation; Translations: [Unspecified atrial fibrillation] Onset: 215023-76-3993McimqsnGflwkad kidney disease (8 sources)Chronic kidney disease; Translations: [Chronic kidney disease, unspecified]Onset: 337135-20-9355GvzfpjdYnfbpcb kidney disease (2 sources)Chronic kidney disease; Translations: [Chronic kidney disease, stage 3a]Onset: 38-69-0391Gfatrsgpmmp and hemorrhagic disorders (8 sources)Blood coagulation disorder; Translations: [Coagulation defect, unspecified]Onset: 750196-50-1736JaygadmSsboepcjzx disorders (2 sources)Left bundle-branch block, unspecified; Translations: [Left bundle- branch block, unspecified]Onset: 90-49-3267GpoxozrWdwvlfcbuo heart failure; nonhypertensive (2 sources)Chronic systolic (congestive) heart failure; Translations: [Chronic systolic (congestive) heart failure]Onset: 71-47-6711McahhucTcmgrpydiq and other anemia (4 sources)Anemia; Translations: [Anemia, unspecified]37-75-3010IiwgwlgmH Codes: Fall (9 sources)Accidental fall ; Translations: [Unspecified fall, initial encounter] Onset: 435416-37-4369FzluiffiTipyt and electrolyte disorders (3 sources)Hyponatremia; Translations: [Hypo-osmolality and hyponatremia]Onset: 118633-87-6774FfwxxzkdZmybkayv of upper limb (17 sources)Closed fracture of clavicle; Translations: [Fracture of unspecified part of right clavicle, initialencounter for closed fracture]Onset: 11-25-2022 55-33-7020AvhpshpxNbgf wounds of head; neck; and trunk (8 sources)Tear of skin; Translations: [Skin tear]49-68-9306UcfiqxthGuwjb aftercare (2 sources)Long-term current use of anticoagulant; Translations: [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]75-31-1858YdeigbwsKrybn fractures (4 sources)Fracture of rib; Translations: [Fracture of one rib, unspecified side, initial encounter for closedfracture]41-64-2828DeamaftrXcefb fractures (4 sources)Fracture of multiple ribs ; Translations: [Multiple fractures of ribs, unspecified side, initial encounter for closed fracture]81-74-9467Lxhbnbom Other fractures (4 sources)Flail chest; Translations: [Flail chest, initial encounter for closed fracture]87-01-5743MzjnedkuMqkxn fractures (3 sources)Fracture of one rib, unspecified side, initial encounter for closed fracture; Translations: [Closedfracture of rib(s), unspecified]11-25-2022 EpisodicOther fractures (1 source)Multiple fractures of ribs, right side, subsequent encounter for fracture with routine healing; Translations: [MX FX RIBS RT SIDE SUBSQT FX RTN] Onset: 47-03-5634KqmeiukvBirwq injuries and conditions due to external causes (5 sources)Minor head injury; Translations: [Unspecified injury of head, initial encounter]53-78-9883ZgskxandMvyqd injuries and conditions due to external causes (4 sources)History of fall; Translations: [History of falling]00-20-7961Olfeadrg Other nervous system disorders (2 sources)Other abnormalities of gait and mobility; Translations: [Other abnormalities of gait and mobility]Onset: 10-59-6620HskeyuanIphfhfxvqpl injury; contusion (5 sources)Contusion of elbow; Translations: [Contusion of left elbow, initial encounter]14-03-4138MvmqqoxnVjanrfkcokdr (1 source)Nondisplaced fracture of shaft of right clavicle, initial encounter for closed fracture; Translations: [Nondisplaced fracture of shaft of right clavicle, initial encounter for closed fracture]Onset: 75-14-1640Zwbenmhlsznw (1 source)Displaced fracture of shaft of right clavicle, initial encounter for closed fracture; Translations:[Displaced fracture of shaft of right clavicle, initial encounter for closed fracture]Onset: 79-50-4997Ktwhhdwqeapq (1 source)Flail chest, initial encounter for closed fracture; Translations: [Flail chest, initial encounter for closed fracture]Onset: 16-38-5147Burxgth tract infections (16 sources)Urinary tract infectious disease; Translations: [Urinary tract infection, site not specified]Onset: 935822-17-5479Ckjdvshu Past or Other Problems Problem ClassificationProblemDateDocumented DateEpisodic/Chronic Administrative/social admission (4 sources)Other reduced mobility; Translations: [Impaired mobility and activities of daily living]Onset: 692691-15-4715FaesbvrwGomydiagnc and other anemia (5 sources)Anemia, unspecified; Translations: [Anemia, unspecified]Onset: 231397-75-6733PxzumsrsRawhg aftercare (2 sources)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; Translations: [Long-term (current) use of anticoagulants]Onset: 170702-49-0295ZlscaysnHhoas fractures (5 sources)Flail chest, initial encounter for closed fracture; Translations: [Flail chest]Onset: 989720-07-6799GdvavmgcLvcxa fractures (5 sources)Multiple fractures of ribs, unspecified side, initial encounter for closed fracture; Translations: [Closed fracture of multiple ribs, unspecified] Onset: 151959-25-9722GuxjapgeRgvpg injuries and conditions due to external causes (5 sources)History of falling; Translations: [History of fall]Onset: 11-30-2022 55-34-0462NrjahryiMyablrhu; pneumothorax; pulmonary collapse (4 sources)Pneumothorax; Translations: [Pneumothorax, unspecified]Onset: 138454-99-9882AumkobrmThdnaacr codes; unclassified (1 source)Other specified health status; Translations: [Other specified health status]Onset: 06-09-8224Tswydjlu Results Test NameValueInterpretationReference RangeFaLewisGale Hospital [facility]any 91-82-6393JfuyqkwrebHaven Behavioral Healthcare Case Information Case Priority: None Programs: -- Referral Source: [employer] T[employer] S[employer] Referral Reason: Disease management Case Type: Chronic Care Management Risk Score: -- Case Status: Active (July 11, 2023) Date Assigned: June 06, 2023 Assigned By: Brett Vásquez Date Enrolled: July 11, 2023 Assigned Primary Personnel: Brett Vásquez Assigned Secondary Personnel: -- Case Physician: Juan Santana MD Problems Ongoing Anemia Balance problem BMI 25.0-25.9,adult Generalized weakness Headache History of recent fall History of recurrent UTIs Hx of degenerative disc disease Hyponatremia Neck pain Nonsmoker Overweight (BMI 25.0-29.9) Persistent atrial fibrillation Shoulder region pain Stage 3b chronic kidney disease (CKD) Historical Chronic kidney disease, unspecified CKD stage Procedure/Surgical History Arthroplasty of knee (08/14/2018), Arthroscopy of knee, CEIOL - Cataract extraction and insertion of intraocular lens. Home Medications amitriptyline 10 mg Tab, See Instructions Centrum, 1 cap, Oral, Daily cephalexin, 250 mg, Oral, Daily lidocaine Top 5% film Patch, 1 patch(es), Topical, Daily Lift recliner chair, See Instructions metoprolol succinate 50 mg ER Tab, 50 mg= 1 tab(s), Oral, Daily Tylenol Extra Strength 500 mg oral tablet, 1000 mg= 2 tab(s), Oral, TID, PRN Xarelto 15 mg oral tablet, See Instructions Allergies MIKKI inhibitors (Cough) Social History Alcohol - Denies Alcohol Use, 07/26/2018 Household alcohol concerns: No., 08/28/2025 Substance Abuse - Denies Substance Abuse, 07/26/2018 Household substance abuse concerns: No., 08/28/2025 Tobacco - Denies Tobacco Use, 07/26/2018 Never (less than 100 in lifetime) Tobacco Use:. Never Smokeless Tobacco Use:. Household tobacco concerns: No., 08/28/2025 Family History Family history is unknown Screenings and Assessments 08/23/23 08:43:00 Result Name Value Comment CCM Written Consent Written consent obtained 07/11/23 14:07:00 Result Name Value Comment CCM Program Enrollment Verbally agreed to receive [facility] services CCM Verbal Consent By Self 07/11/23 13:00:00 Result Name Value Comment HIPPA Verified Type of Contact Telephone Information Given by Self Information Given by Names zahida CM Preferred Spoken Language [place] CM Preferred Written Language [place] Preferred Communication Mode Verbal Ability to Read/Write Able to read, Able to write Preferred Salutation Mrs. 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 Medication Self Medication Adherence Method [...] GI Symptoms None Genitourinary Symptoms Nocturia Urinary Eliminati (more content not included)...[facility] Summaryon 81-96-3131Mkyqgxfurt Visit SummaryAmbulatory Visit Summary ZAHIDA BATISTA :1935 Visit Date:08/28/2025 Ambulatory Visit Instructions Your Diagnosis Encounter for Medicare annual examination with abnormal findings Persistent atrial fibrillation Stage 3b chronic kidney disease (CKD) Risk for falls Bone density scan declined, Screening declined by patient Overweight (BMI 25.0-29.9) These Are Your Goals Atrial Fibrillation: avoid complications - Progressing Interventions: 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 - Progressing Monitor for signs and symtpoms [...] Juan Santana MD Primary Care Physician - Migel Giron This Is Your Medications [place] [facility] [place] (Lift recliner chair) acetaminophen (Tylenol Extra Strength 500 mg oral tablet) amitriptyline (amitriptyline 10 mg Tab) lidocaine topical (lidocaine Top 5% film Patch) metoprolol (metoprolol succinate 50 mg ER Tab) multivitamin with minerals (Centrum) rivaroxaban (Xarelto 15 mg oral tablet) Procedures Performed Arthroplasty of knee (08/14/2018), Arthroscopy of knee, CEIOL - Cataract extraction and insertion of intraocular lens. Discharge Vitals Heart Rate (Peripheral) 65 Respiratory Rate 18 Blood Pressure 118/60 Height 163 cm Height 64 in Weight 67.5 kg Weight 148.812 lb BMI 25.41 What to do next Scheduled Follow-Up Appointments Tuesday 10:20 AM EST With: PILAR SAMANIEGO CNP Where: [address] [id number] 11:00 AM EDT With: Where: [address] [address]- Medications What How Much When Why Instructions Unchanged acetaminophen (Tylenol Extra Strength 500 mg oral tablet) 2 Tablets By Mouth 3 times a day as needed for for pain Unchanged amitriptyline (amitriptyline 10 mg Tab) See instructions TAKE 1 TABLET BY MOUTH EVERYDAY AT BEDTIME Unchanged lidocaine topical (lidocaine Top 5% film Patch) 1 Patches Topical Every day History of recent fall Neck pain Headache apply 12 hours on and 12 hours off daily Unchanged metoprolol (metoprolol succinate 50 mg ER Tab) 1 Tablets By Mouth Every day Unchanged Misc Prescription (Lift recliner chair) See instructions History of recent fall Lift recliner chair Unchanged multivitamin with minerals (Centrum) 1 cap By Mouth Every day Unchanged rivaroxaban (Xarelto 15 mg oral tablet) See instructions TAKE 1 TABLET BY MOUTH EVERY DAYIN THE EVENING Allergies MIKKI inhibitors (Cough) Problems Ongoing - Any problem that you are currently receiving treatment for. Anemia Balance problem BMI 25.0-25.9,adult Generalized weakness Headache History of recent fall History of recurrent UTIs Hx of degenerative disc disease Hyponatremia Neck pain Nonsmoker Overweight (BMI 25.0-29.9) Persistent atrial fibrillation [...] irregular or fast. If you have AFib, yourheart beats without any order. This makes it [...] damage the heart's electrical system. They include: ??? High blood pressure. ??? Heart failure. ??? Heart valve diseases. ??? Heart surgery. ??? Diabetes. ??? Thyroid disease. ??? Kidney disease. ??? Lung diseases, such as pneumonia or COPD. ??? Sle (more content not included)...[facility] Medicine Office/Clinic Noteon [id number] Medicine Office/Clinic NoteFafall river emergency hospital Medicine Office/Clinic Note Chief Complaint Subsequent Medicare Wellness Review of Systems PHQ Score Initial Depression Screen Score: 0 SCORE Physical Exam Vitals & Measurements HR: 65(Peripheral) RR: 18 BP: 118/60 SpO2: 97% HT: 64 in HT: 163 cm WT: 67.5 kg WT: 148.812 lb BMI: 25.41 Assessment/Plan 1. Encounter for Medicare annual examination with abnormal findings (Z00.01: Encounter for general adult medical examination with abnormal findings) The patient was given a customized and personalized print out of all the current AHRQ USPSTF???s recommendations for preventative services and all current CDC recommended immunizations, relevant riskrecommendations and the following patient brochures were given. Reviewed Medicare Prevention Services checklist. CDC-Falls Prevention and home safety screening reviewed. Patient reports 1 fall in last 12 months, voices worry about falling. Patient uses a cane and has spouse assist with sitting, standing or ambulation. Patient aware with keeping walk way area free of clutter to prevent tripping and/or falling. [place] Advance Directives reviewed. Documents present in chart. Patient is not an organ donor. Patient denies any problems with ADL???s and Instrumental ADL???s. Cognitive screening completed with memory and clock face drawing. Patient remembered 1/3 memory words. Patient did not fill out clock correctly. MMSE was done. Score:30/30. Immunization record reviewed, discussed Shingrix vaccine with educational handout and availability.2 COVID vaccines have been administered, with (2) Boosters received. Allergies and medications reviewed and up to date. No concerns with taking medication as prescribed. Reviewed OTC medications, medication list up to date. No concerns with bowel/ bladder. Colonoscopy screenings no longer done due to age. Reviewed pain symptoms: rates pain as a 0 out of 10. Reviewed all outside providers that patient follows. Last visit summary notes available in chart and/or have been requested. Follow up scheduled with PCP, 09/27/2025 AWV has been scheduled, 09/01/2026 Abnormal findings with fall risk. Medicare provides yearly screening for alcohol and depression concerns. This is completed during our Medicare Wellness Visit for those who do not have a current diagnosis of depression or concerns with alcohol use. I spent a total of 12 minutes on this date of service which included preparing to see the patient, face to face patient care, completing clinical documentation, obtaining and/or reviewing separately obtained history, counseling, and educating the patient with handouts. Explanations were provided with reviewing questionnaires. AUDIT risk assessment screening completed, risk score (0) with patient denying concerns with use. Completed PHQ-2 risk assessment for depression with risk sc ore (0), negative findings. Patient has been reminded to notify the provider if there would be a change or concerns with symptoms with fear, unable to sleep, worrying too much, or feeling down and/orsad with lost of interest with daily activities. Will continue to monitor with screening yearly during Medicare Wellness Visits. 2. Persistent atrial fibrillation (I48.19: Other persistent atrial fibrillation) Patient denies having episodes with irregular or fast/rapid heartbeat. Heart rate in office today is (65 and regular.) Taking medications ( Metoprolol, and Xarelto) Denies concerns with increased fatigue and/or sudden change in weight. No pain to chest or belly region. Patients are at higher risk of this condition if you smoke, are older, have diabetes, or are overweight. Voices understanding with symptoms to monitor for and follow instructions about medicines, diet, exercise, and follow up visits. Patient follows up with pcp, last visit notes available in chart and have been reviewed. Cardiac Healthy Nutrition reviewed with patient. 3. Stage 3b chronic kidney disease (CKD) (N18.32: Chronic kidney disease, stage 3b) Reviewed health kidney nutritional handout with importance of preventing strain on the kidneys. Monitor sodium intake daily, educational handout reviewed and provided to assist the patient with a better understanding which types of food, including frozen foods, canned food and fast foods. Work towards a dietary intake with low potassium foods and limit protein intake. Reminded importance to avoidNSAID use and monitor for swelling in the body. Continue to monitor BP with importance of keeping under control with repeated blood work to be ordered as directed with PCP. Follows up with Nephrologymoustapha carbone 4. Risk for falls (Z91.81: History of falling) Fall Risk Assessment reviewed with abnormal findings. Encouraged patient to use cane for balance and support. Discussed referral to PT for strengthening and/or balance needs. Pt has declined PT at this time. Plan of care reviewed with patient: Upon standing up, do not start ambulating quickly and be aware of feeling dizzy which could increas (more content not included)...[facility] DaytonComment on above:Result Comment: Electronically Signed By: Migel Giron\.br\Date and Time Signed: 08/28/25 12:54 EDT\.br\Electronically Co-Signed By: Kelli Johnston\.br\Date and Time Co-Signed: 08/28/25 11:58 EDTFselect specialty hospital-[facility] Medicine Office/Clinic Noteon [id number] Medicine Office/Clinic NoteFami Medicine Office/Clinic Note Chief Complaint Review Imaging Results The patient presents with neck pain and concerns about thyroid nodules. HPI Staff Pt presents today for follow up to recent ER visit. Pt had fallen down the stairs and hit her head. ROMI Grace sent acetaminophen-codeine & lidocaine patches. Acetaminophen-codeine did cause drowsiness, pt advised to take half a pill. Still having Rt neck pain. 06/23 History of Present Illness 89-year-old female presenting with her daughter for neck pain and concerns about thyroid nodules. The patient experienced a fall on August 09, resulting in bruising and cuts, including black eyes and cuts on the face. She visited the emergency room following the fall and was seen by Migel Johnson August 14, who noted significant bruising. The patient reports chronic neck pain, which has been exacerbated by arthritis in the cervical spine, specifically between C5 and C7. She has been using lidocaine patches at night and acetaminophen with codeine intermittently for pain management, though she dislikes the side effects of the medication. The pain has improved slightly over the past few days, and she is currently able to tolerate it. Imaging studies completed in the ED revealed a nodule in the right lobe of the thyroid gland, whichwas discussed at the hospital but not thoroughly investigated at that time. The recommendation is to perform an ultrasound to rule out malignancy. Additionally, there is plaque in the carotid arteries, and an ultrasound is suggested to assess theextent of blockage. Review of Systems PHQ Score Initial Depression Screen Score: 0 SCORE - Neurological: Reports bruising and cuts following a fall. Denies cognitive changes. - Musculoskeletal: Reports chronic neck pain exacerbated by arthritis. Denies recent fractures. - Endocrine: Reports thyroid nodules. Denies previous thyroid issues. Physical Exam Vitals & Measurements T: 36.8 ???C(Oral) HR: 70(Peripheral) RR: 18 BP: 134/74 SpO2: 98% HT: 64 in HT: 163 cm WT: 146.166 lb WT: 66.3 kg BMI: 24.95 General: alert, no acute distress Skin: warm, dry Head: no trauma, normocephalic Cardiovascular: regular rate and rhythm, normal peripheral perfusion Respiratory: Lungs CTA, respirations non labored Musculoskeletal: Cervical spine range of motion intact with some discomfort on movement Neurological: oriented x 4, LOC appropriate for age speech normal Assessment/Plan 1. Nodule of right lobe of thyroid gland (E04.1: Nontoxic single thyroid nodule) - Plan to perform an ultrasound to assess the thyroid nodule for malignancy- Patient states she would like to discuss with her before the test is ordered 2. 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 - Encourage range of motion exercises to maintain neck mobility. 3. Carotid artery stenosis (I65.29: Occlusion and stenosis of unspecified carotid artery) - Recommend ultrasound of the carotids to evaluate the extent of blockage. - Patient states she would like to discuss with her before the test is ordered Total time spent preparing the chart, conducting of the encounter with the patient and family and time spent documenting, reviewing, and ordering tests was 30 minutes. Follow-up No qualifying data available Patient Education Thyroid Nodule Problem List/Past Medical History Ongoing Anemia Balance problem BMI 25.0-25.9,adult Generalized weakness Headache History of recent fall History of recurrent UTIs Hx of degenerative disc disease Hyponatremia Neck pain Nonsmoker Overweight (BMI 25.0-29.9) Persistent atrial fibrillation Shoulder region pain Stage 3b chronic kidney disease (CKD) Historical Chronic kidney disease, unspecified CKD stage Procedure/Surgical History Arthroplasty of knee (08/14/2018), Arthroscopy of knee, CEIOL - Cataract extraction and insertion of intraocular lens. Medications amitriptyline 10 mg Tab, See Instructions Centrum, 1 cap, Oral, Daily lidocaine Top 5% film Patch, 1 patch(es), Topical, Daily Lift recliner chair, See Instructions metoprolol succinate 50 mg ER Tab, 50 mg= 1 tab(s), Oral, Daily Tylenol Extra Strength 500 mg oral tablet, 1000 mg= 2 tab(s), Oral, TID, PRN Tylenol with Codeine #3 oral tablet, 1 tab(s), Oral, q6hr, PRN Xarelto 15 mg oral tablet, See Instructions Allergies MIKKI inhibitors (Cough) Social History Alcohol - Denies Alcohol Use, 07/26/2018 Household alcohol concerns: No., 08/16/2024 Substance Abuse - Denies Substance Abuse, 07/26/2018 Household substance abuse concerns: No., 08/16/2024 Tobacco - Denies Tobacco Use, 07/26/2018 Never (less than 100 in lifetime) Tobacco Use:. Never Smokeless Tobacco Use:. Household tobacco concerns: No., 08/21/2025 Family History Family history is unknown Immu (more content not included)...[facility] DaytonComment on above:Result Comment: Electronically Signed By: PILAR SAMANIEGO CNP\.tiffanie\Date and Time Signed: 08/21/25 13:31 EDTFamily Medicine Office/Clinic Noteon [phone] Medicine Office/Clinic NoteFamily Medicine Office/Clinic Note HPI Staff Pt is here for er f/u ER followup: Hospital: [facility] Visit date: 08/09/25 Symptoms the patient presented with: fell down flight of stairs Current concerns: Tuesday morning fell down flight of stairs, they told her to take Tylenol is not helping at all She can not sleep in her bed because it is upstairs, sleeping in Recliner or couch Pain in neck RT side History of Present Illness pt presents today for hospital ER follow up. Review of Systems PHQ Score Initial Depression Screen Score: 0 SCORE Physical Exam Vitals & Measurements T: 36.2 ???C(Temporal Artery) HR: 86(Peripheral) RR: 18 BP: 126/84 SpO2: 99% HT: 64 in HT: 163.0 cm WT: 151.898 lb WT: 68.9 kg BMI: 25.93 General: alert, no acute distress ENMT: oral mucosa moist, no pharyngeal erythema or exudate Cardiovascular: regular rate and rhythm, normal peripheral perfusion Respiratory: Lungs CTA, respirations non labored Extremities: no deformity, no trauma Neurological: oriented x 4, LOC appropriate for age, CN II-XII intact, motor strength equal & normal bilaterally, speech normal Assessment/Plan 1. History of recent fall (Z91.81: History of falling) Tuesday night at 4am fell down a flight of stairs. went to ER and was cleared. pt is still very soreand has pain in neck, head, face and arm. has been taking tylenol. will send lidocaine patches and a couple days worth of Tylenol with codeine. Ordered: acetaminophen-codeine, 1 tab(s), Oral, q6hr for pain, 16 tab(s), Refill(s) 0, [id number], 163, cm, 08/14/25 14:35:00 EDT, Height/Length Dosing, 68.9, kg, 08/14/25 14:35:00 EDT, Weight Dosing lidocaine topical, 1 patch(es), Topical, Daily, 30 patch(es), Refill(s) 0, apply 12 hours on and 12hours off daily, [id number], 163, cm, 08/14/25 14:35:00 EDT, Height/Length Dosing, 68.9, kg, 08/14/25 14:35:00 EDT, Weight Dosing Misc Prescription, Lift recliner chair, See Instructions, 1 EA, 0, Lift recliner chair, Supply 2. Neck pain (M54.2: Cervicalgia) see above Ordered: acetaminophen-codeine, 1 tab(s), Oral, q6hr for pain, 16 tab(s), Refill(s) 0, [id number], 163, cm, 08/14/25 14:35:00 EDT, Height/Length Dosing, 68.9, kg, 08/14/25 14:35:00 EDT, Weight Dosing lidocaine topical, 1 patch(es), Topical, Daily, 30 patch(es), Refill(s) 0, apply 12 hours on and 12hours off daily, [id number], 163, cm, 08/14/25 14:35:00 EDT, Height/Length Dosing, 68.9, kg, 08/14/25 14:35:00 EDT, Weight Dosing 3. Headache (R51.9: Headache, unspecified) will send in Tylenol with codeine Ordered: acetaminophen-codeine, 1 tab(s), Oral, q6hr for pain, 16 tab(s), Refill(s) 0, [id number], 163, cm, 08/14/25 14:35:00 EDT, Height/Length Dosing, 68.9, kg, 08/14/25 14:35:00 EDT, Weight Dosing lidocaine topical, 1 patch(es), Topical, Daily, 30 patch(es), Refill(s) 0, apply 12 hours on and 12hours off daily, [id number], 163, cm, 08/14/25 14:35:00 EDT, Height/Length Dosing, 68.9, kg, 08/14/25 14:35:00 EDT, Weight Dosing 4. BMI 25.0-25.9,adult (Z68.25: Body mass index [BMI] 25.0-25.9, adult) BMI education given Follow-up No qualifying data available Problem List/Past Medical History Ongoing Anemia Balance problem BMI 25.0-25.9,adult Generalized weakness Headache History of recent fall History of recurrent UTIs Hx of degenerative disc disease Hyponatremia Neck pain Nonsmoker Overweight (BMI 25.0-29.9) Persistent atrial fibrillation Shoulder region pain Stage 3b chronic kidney disease (CKD) Historical Chronic kidney disease, unspecified CKD stage Procedure/Surgical History Arthroplasty of knee (08/14/2018), Arthroscopy of knee, CEIOL - Cataract extraction and insertion of intraocular lens. Medications amitriptyline 10 mg Tab, See Instructions Centrum, 1 cap, Oral, Daily lidocaine Top 5% film Patch, 1 patch(es), Topical, Daily Lift recliner chair, See Instructions metoprolol succinate 50 mg ER Tab, 50 mg= 1 tab(s), Oral, Daily Tylenol Extra Strength 500 mg oral tablet, 1000 mg= 2 tab(s), Oral, TID, PRN Tylenol with Codeine #3 oral tablet, 1 tab(s), Oral, q6hr, PRN Xarelto 15 mg oral tablet, See Instructions Allergies MIKKI inhibitors (Cough) Social History Alcohol - Denies Alcohol Use, 07/26/2018 Household alcohol concerns: No., 08/16/2024 Substance Abuse - Denies Substance Abuse, 07/26/2018 Household substance abuse concerns: No., 08/16/2024 Tobacco - Denies Tobacco Use, 07/26/2018 Never (less than 100 in lifetime) Tobacco Use:. Never Smokeless Tobacco Use:. Household tobacco concerns: No., 08/14/2025 Family History Family history is unknown Immunizations Vaccine Date Status Comments influenza virus vaccine, inactivated 09/27/2024 Recorded influenza virus vaccine, inactivated - Not Given Postpone due to refusal patient plans on getting immunization with covid booster at pharmacy. SARS-CoV-2 (COVID-19) mRNAMUL.ORD![id number] 09/27/2022 Recorded 20 (more content not included)...[facility] DaytonComment on above:Result Comment: Electronically Signed By: Migel Giron\.br\Date and Time Signed: 08/14/25 17:11 EDTProvider Letteron [phone] LetterProvider Letter August 14, 2025 ZAHIDA BATISTA [address] [place] [address] : 1935 To Whom It May Concern, Please excuse above student from school. Date of Absence: From: 08/12/2025 To: 08/14/2025 May Return to School On: 08/15/2025 Sincerely, [facility] [address] [place] [id number] PqkpawYydnruOhioHealth Grant Medical CenterComment on above:Other Comment: done in errorAmbulatory Visit Summaryon [id number] Visit SummaryAmbulatory Visit Summary ZAHIDA BATISTA :1935 Visit Date:06/26/2025 Ambulatory Visit Instructions Your Diagnosis Persistent atrial fibrillation Stage 3b chronic kidney disease (CKD) Pain in unspecified knee BMI 25.0-25.9,adult Overweight (BMI 25.0-29.9) Nonsmoker These Are Your Goals Atrial Fibrillation: avoid complications - Progressing Interventions: 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 - Progressing Monitor for signs and symtpoms [...] Appointments Tuesday 1:00 PM EDT With: Where: [address] [address]- Tuesday 10:20 AM EST With: PILAR SAMANIEGO CNP Where: [address] [address]- You Need to Schedule the Following Appointments Follow Up with PILAR SAMANIEGO CNP, FAM When: Within 3 months Comments: Chronic conditions Where: [address] [place] [address] Business (1) Medications What How Much When [...] instructions TAKE 1 TABLET BY MOUTH EVERY DAYIN THE EVENING Unchanged rivaroxaban (Xarelto 15 mg oral tablet) See instructions TAKE 1 TABLET BY MOUTH EVERY DAYIN THE EVENING Allergies MIKKI inhibitors (Cough) Problems [...] is being treated. ??? (more content not included)...NormalScci Hospital LimaCBC w/ Auto Diff on [id number] Absolute0.0 E9/LNormal0.0-0.2FSt. Charles Hospital Comment on above:Performed By: #### [id number] #### [facility] [address], [place] [address]Rkpdjqcdr/100 WBC (Bld)1.0 %Normal0.0-2.0[facility] Hospital LimaComment on above:Performed By: #### [id number] #### [facility] [address], [place] [address]Mnx Absolute0.2 E9/LNormal0.0-0.5FSt. Charles Hospital Comment on above:Performed By: #### [id number] #### [facility] [address], [place] [address]Wcaivcnmwln/100 WBC (Bld)4.1 %Normal0.0-8.0[facility] Hospital LimaComment on above:Performed By: #### [id number] #### [facility] [address] [place] [address]Wfwhckzdeoa distribution width (RBC) [Ratio]16.2 %High10.9-14.2 [facility] LimaComment on above:Performed By: #### [id number] #### [facility] [address], [place] [address]Eogxoumusv (Bld) [Volume fraction]35.5 %Idhjib16.0-46.0[facility] Hospital LimaComment on above:Performed By: #### [id number] #### [facility] [address] [place] [address]Dpucygojgq (Bld) [Mass/Vol]11.8 g/dLLow12.0-16.0[facility] Hospital LimaComment on above:Performed By: #### [id number] #### [facility] [address], [place] [address]Cyztm Absolute1.1 E9/LNormal1.0-4.0[facility] Comment on above:Performed By: #### [id number] #### [facility] [address], [place] [address]Luuoqnohhdk/100 WBC (Bld)23.0 %Uzuhyh23.0-50.0[facility] Hospital LimaComment on above:Performed By: #### [id number] #### [facility] [address] [place] [address]TQJ (RBC) [Entitic mass]28.9 rvCnjnsh53.0-34.0[facility] Hospital LimaComment on above:Performed By: #### [id number] #### [facility] [address] [place] [address]OWGO (RBC) [Mass/Vol]33.3 g/yYOttdzz03.4-36.0[facility] Hospital LimaComment on above:Performed By: #### [id number] #### [facility] [address] [place] [address]SYE (RBC) [Entitic vol]87.0 tRIfxzhj90.0-100.0[facility] Hospital LimaComment on above:Performed By: #### [id number] #### [facility] [address] [place] [address]Kvqi Absolute0.7 E9/LNormal0.2-1.0[facility] Comment on above:Performed By: #### [id number] #### [facility] [address], [place] [address]Tuxeiwezh/100 WBC (Bld)15.1 %High4.0-14.0[facility] Hospital LimaComment on above:Performed By: #### [id number] #### [facility] [address] [place] [address]Dnzjzf Absolute2.8 E9/LNormal2.0-7.5FSt. Charles Hospital Comment on above:Performed By: #### [id number] #### [facility] [address], [place] [address]Gkzuce Auto56.8 %Oawjrb44.0-75.0[facility] Comment on above:Performed By: #### [id number] #### [facility] [address], [place] [address]Itgrccjf224.0 E9/ZHrkgwi607.0-500.0[facility] Comment on above:Performed By: #### [id number] #### [facility] [address], [place] [address]Oixjapma mean volume (Bld) [Entitic vol]7.9 fLNormal6.4-10.8 [facility] LimaComment on above:Performed By: #### [id number] #### [facility] [address], [place] [address]ZLV5.1 E12/LLow4.3-5.9[facility] Hospital LimaComment on above:Performed By: #### [id number] #### [facility] [address], [place] [address]AMV5.9 E9/LNormal4.0-11.0[facility] Hospital LimaComment on above:Result Comment: Peripheral smear review performed.Performed By: #### [id number] #### [facility] [address], [place] [address]YOZud 77-83-8610Gmjeeoqwke [Mass/Vol]1.2 mg/dLNormal0.5-1.3 [facility] LimaComment on above:Performed By: #### [id number] #### [facility] [address], [place] [address]Yurwfnr [Mass/Vol]4.0 g/dLNormal3.3-5.0[facility] Hospital LimaComment on above:Performed By: #### [id number] #### [facility] [address], [place] [address]Djsszyk/Globulin [Mass ratio]1.4 {ratio}Normal1.1-2.2FSt. Charles HospitalComment on above:Performed By: #### [id number] #### [facility] [address], [place] [address]Edm Phos40 Int._Unit/OVbnrxg37-50LbqypqScci Hospital Lima Comment on above:Performed By: #### [id number] #### [facility] [address], [place] [address]RJG16 Int._Unit/LNormal6-46[facility] LimaComment on above:Performed By: #### [id number] #### [facility] [address], [place] [address]Krbzr gap [Moles/Vol]10 mmol/LNormal6-16[facility] Hospital LimaComment on above:Performed By: #### [id number] #### [facility] [address], [place] [address] Int._Unit/LNormal5-43[facility] Hospital LimaComment on above:Performed By: #### [id number] #### [facility] [address], [place] [address]Gvna Total0.4 mg/dLNormal0.0-1.1FSt. Charles Hospital Comment on above:Performed By: #### [id number] #### [facility] [address], [place] [address]DKL/Creat Ratio16 No ShjxeKydaid63-59ByomxgScci Hospital LimaComment on above:Performed By: #### [id number] #### [facility] [address], [place] [address]Fpioagc [Mass/Vol]9.3 mg/dLNormal8.9-11.1FSt. Charles HospitalComment on above:Performed By: #### [id number] #### [facility] [address], [place] [address]Umsufieh [Moles/Vol]108 mmol/TEecstf076-827HwipviScci Hospital LimaComment on above:Performed By: #### [id number] #### [facility] [address], [place] [address]YQ2 [Moles/Vol]26 mmol/NBzbkok14-88TawduzScci Hospital Lima Comment on above:Performed By: #### [id number] #### [facility] [address], [place] [address]Upeeqkuy (S) [Mass/Vol]2.9 g/dLNormal1.4-4.0[facility] Hospital LimaComment on above:Performed By: #### [id number] #### [facility] [address], [place] [address]Ohnzvkv [Mass/Vol]110 mg/zZImvypr03-220TurlrkScci Hospital LimaComment on above:Performed By: #### [id number] #### [facility] [address], [place] [address]Hnzaawzar [Moles/Vol]4.3 mmol/LNormal3.5-5.3FSt. Charles HospitalComment on above:Performed By: #### [id number] #### [facility] [address], [place] [address]Vtwwdhv [Mass/Vol]6.9 g/dLNormal6.0-7.8[facility] Hospital LimaComment on above:Performed By: #### [id number] #### [facility] [address], [place] [address]Lsqodu [Moles/Vol]140 mmol/LRlmlro887-228XpxaijScci Hospital LimaComment on above:Performed By: #### [id number] #### [facility] [address], [place] [address]Sdgb nitrogen [Mass/Vol]19 mg/dLNormal5-21[facility] Hospital LimaComment on above:Performed By: #### [id number] #### [facility] [address], [place] [address]Mfuzzi Medicine Office/Clinic Noteon [phone] Medicine Office/Clinic NoteFami Medicine Office/Clinic Note Chief Complaint Medication Refills The patient presents for establishing care and routine health maintenance. [facility] Staff Former Dr Santana pt. Pt presents today for medication refills. Patient is here for follow up on hypertension. How often are you checking your blood pressure? _no Yearly BMP: _ DUE Refused Bone Density scan @ [facility] 08/16/24 Does have Hx of knee pain. Previous arthroplasty in the past. [facility] note from 06/18/25 does recommend possible referral [...] atrial fibrillation, which is currently well-managed without anyrecent episodes of irregular heart rate or palpitations. The patient also has a history of stage 3b chronic kidney disease, although she does not recall any recent issues related to kidney function. The patient experiences knee pain, which has been managed with orthopedic consultations and injections that provide significant relief. She has not seen her donor specialist in approximately three years but reports [...] Diff Comprehensive Metabolic Panel Lab Specimen Collect [id number] 2. Stage 3b chronic kidney disease (CKD) (N18.32: Chronic kidney disease, stage 3b) - Order routine laboratory tests including CBC and chem profile to monitor kidney function. - Monitor for increased signs or symptoms - f/u in 3 months Ordered: CBC w/ Auto Diff Comprehensive Metabolic Panel Lab Specimen Collect [id number] 3. Pain in unspecified knee (M25.569) - Recommend follow-up with donor specialist for evaluation and management of knee [...] medical support in addressing this problem. Your BMIand weight management will be followed at subsequent visits. Ordered: CBC w/ Auto Diff 6. Nonsmoker (Z78.9: Other specified health status) Encouraged to continue as a non-smoker Ordered: CBC w/ Auto Diff Orders: metoprolol, 50 mg = 1 tab(s), Oral, Daily, # 30 tab(s), Refills(s) 0, Pharmacy: [facility]/pharmacy #[id number], cm, 08/16/24 13:59:00 EDT, Height/Length Dosing, 68.9, kg, 08/16/24 13:59:00 EDT, Weight Dosing Follow-up With When Contact Information PILAR SAMANIEGO CNP, FAM Within 3 months [address] [place] [address] Business (1) Additional Instructions: Chronic conditions Patient Education Heat Therapy, Etnu-rk-Sjdw Problem List/Past Medical History Ongoing Anemia Balance problem BMI 25.0-25.9,adult Generalized weakness History of recurrent UTIs Hx of degenerative disc disease Hyponatremia Nonsmoker Overweight (BMI 25.0-29.9) Persistent atrial fibrillation Shoulder region pain Stage 3b chronic kidney disease (CKD) Historical Chronic kidney disease, unspecified CKD stage Procedure/Surgica (more content not included)...NormalScci Hospital LimaComment on above:Result Comment: Electronically Signed By: PILAR SAMANIEGO CNP\.tiffanie\Date and Time Signed: 06/26/25 10:45 EDTeGFRon [id number] mL/min/1.73 m2Low>=59Scci Hospital LimaComment on above:Performed By: #### [id number] #### [facility] [address], [place] [address]NgoustjtzkBellin Health'S [facility] [phone] E. Van Zandt [facility] Affairs [facility] Case Information Case Priority: None Programs: -- Referral Source: P[employer] Ticket Seller Referral Reason: Disease management Case Type: Chronic Care Management Risk Score: -- Case Status: Active (July 11, 2023) Date Assigned: June 06, 2023 Assigned By: Brett Vásquez Date Enrolled: July 11, 2023 Assigned Primary Personnel: Brett Vásquez Assigned Secondary Personnel: -- Case Physician: Juan Santana MD Ongoing Anemia Balance problem BMI 25.0-25.9,adult Closed [...] CCM Program Enrollment Verbally agreed to receive [facility] services CCM Verbal Consent By Self 07/11/23 13:00:00 Result Name Value Comment HIPPA Verified Type of Contact Telephone Information Given by Self Information Given by Names zahida CM Preferred Spoken Language [place] CM Preferred Written Language [place] Preferred Communication Mode Verbal Ability to Read/Write Able to read, Able to write Preferred Salutation MrsLydia Political Researcher Called No Preferred Method of Contact Home Home Phone [phone] Best Time to Visit or Contact 1-5 pm Best Day to Visit or Contact No preference Appointment Reminders Phone Preferred Way to Send PHI Standard mail Preferred Mailing Address [address] [place] [address] Learning Style Pref Patient Printed materials Learning [...] Support System Spouse/Significant other, Family member(s) Primary Electronics Teacher of Home Medication Self Medication Adherence Method [...] None Orientation Assessment Orie (more content not included)...NormalFisher Cisco [facility] [id number] E. Van Zandt [facility] Affairs [facility] Center Case Information Case Priority: None Programs: -- Referral Source: P[employer] Ticket Seller Referral Reason: Disease management Case Type: Chronic [...] CCM Program Enrollment Verbally agreed to receive [facility] services CCM Verbal Consent By Self 07/11/23 13:00:00 Result Name Value Comment HIPPA Verified Type of Contact Telephone Information Given by Self Information Given by Names zahida CM Preferred Spoken Language [place] CM Preferred Written Language [place] Preferred Communication Mode Verbal Ability to Read/Write Able to read, Able to write Preferred Salutation MrsLydia Political Researcher Called No Preferred Method of Contact Home Home Phone [phone] Best Time to Visit or Contact 1-5 pm Best Day to Visit or Contact No preference Appointment Reminders Phone Preferred Way to Send PHI Standard mail Preferred Mailing Address [facility] [place] [address] Learning Style Pref Patient Printed materials Learning [...] Support System Spouse/Significant other, Family member(s) Primary Electronics Teacher of Home Medication Self Medication Adherence Method [...] difficulties Skin Symptoms None (more content not included)...NormalFishThe Sheppard & Enoch Pratt HospitalCult,Urineon 25-94-3145Axym,UrineSpecimen Description .CLEAN CATCH URINE Special Requests Site: [...] <=4 SUSCEPTIBLE Tobramycin <=1 SUSCEPTIBLE Trimethoprim/Sulfa <=[address] Mary Hospitalcy [facility] Comment on above:Performed By: #### UR #### [facility] CenterHireArt [address] [place] [address] [id number] Flux Plant Operator: Tadeo Wilson,Urineon [id number],UrineSpecimen Description .CLEAN CATCH URINE Special Requests Site: [...] <=4 SUSCEPTIBLE Tobramycin 2 SUSCEPTIBLE Trimethoprim/Sulfa <=20 SUSCEPTIBLESusceptibleOhio Valley Hospital Comment on above:Performed By: #### UR #### [facility] [employer] [address] [place] [address] [id number] Flux Plant Operator: BRADEN Wilson w/ Auto Diffon 59-60-2599Hfjijzprb/100 WBC (Bld)1.0 %Normal0.0-2.0[facility] Of BaltimoreComment on above:Performed By: #### [id number] #### [facility] [address] [place] [address] 085[address]Fwabvoide/Leukocytes Auto (Bld) [Pure # fraction]0.1 E9/LNormal 0.0-0.2Fisher [facility] Hospital Of BaltimoreComment on above:Performed By: #### [id number] #### [facility] [address] [place] [address] 54431Vlrynhebazz (Bld) [#/Vol]0.2 E9/LNormal0.0-0.5FSt. Charles HospitalComment on above:Performed By: #### [id number] #### [facility] [address] [place] [address] 86676Txdwqjmkvxx/100 WBC (Bld)3.8 %Normal0.0-8.0Scci Hospital LimaComment on above:Performed By: #### [id number] #### [facility] [address] [place] [address] 37[address]Fzdwfdhxtph distribution width (RBC) [Ratio]16.1 %High10.9-14.2 [facility] Hospital LimaComment on above:Performed By: #### [id number] #### [facility] [address] [place] [address] 02263Sreqatvvkr (Bld) [Volume fraction]34.3 %Lpmype84.0-46.0Scci Hospital LimaComment on above:Performed By: #### [id number] #### [facility] [address] [place] [address] 08137Iatuqbplar (Bld) [Mass/Vol]11.4 g/dLLow12.0-16.0Scci Hospital LimaComment on above:Performed By: #### [id number] #### [facility] [address] [place] [address] 71808Ffkilwpeoui (Bld) [#/Vol]1.2 E9/LNormal1.0-4.0S[facility] Hospital LimaComment on above:Performed By: #### [id number] #### [facility] [address] [place] [address] 23899Rifjyrklbbo/100 WBC (Bld)22.1 %Xdynwf21.0-50.0Scci Hospital LimaComment on above:Performed By: #### [id number] #### [facility] [address] [place] [address] 13953SGS (RBC) [Entitic mass]29.2 cyIfiuwj81.0-34.0Scci Hospital LimaComment on above:Performed By: #### [id number] #### [facility] [address] [place] [address] 759[address]OPFE (RBC) [Mass/Vol]33.2 g/gDAvjnzl33.4-36.0Scci Hospital LimaComment on above:Performed By: #### [id number] #### [facility] [address] [place] [address] 68125ZVM (RBC) [Entitic vol]87.9 dHGneylf07.0-100.0Scci Hospital LimaComment on above:Performed By: #### [id number] #### [facility] [address] [place] [address] 89283Envtekdoh (Bld) [#/Vol]0.7 E9/LNormal0.2-1.0Scci Hospital LimaComment on above:Performed By: #### [id number] #### [facility] [address] [place] [address] 62964Usnxpsjertb (Bld) [#/Vol]3.4 E9/LNormal2.0-7.5FSt. Charles HospitalComment on above:Performed By: #### [id number] #### [facility] [address] [place] [address] 487[address]Jmauhbjfjml/100 WBC (Bld)60.9 %Zcqvpb77.0-75.0Scci Hospital LimaComment on above:Performed By: #### [id number] #### [facility] [address] [place] [address] 55957Anbdopgy676.0 E9/HIrqria522.0-500.0[facility] Comment on above:Performed By: #### [id number] #### [facility] [address] [place] [address] 05441Wstvibmu mean volume (Bld) [Entitic vol]7.3 fLNormal6.4-10.8 [facility] Hospital LimaComment on above:Performed By: #### [id number] #### [facility] [address] [place] [address] 86237IFB (Bld) [#/Vol]3.9 E12/LLow4.3-5.9[facility] Comment on above:Performed By: #### [id number] #### [facility] [address] [place] [address] 49339WFY corrected for nucl RBC Auto (Bld) [#/Vol]5.5 E9/LNormal 4.0-11.0S[facility] Hospital LimaComment on above:Performed By: #### [id number] #### [facility] [address] [place] [address] 42546JHToy 88-43-5752Aatkict [Mass/Vol]3.9 g/dLNormal3.3-5.0S[facility] Hospital LimaComment on above:Performed By: #### [id number] #### [facility] [address] [place] [address] 78640Deigiip/Globulin (S) [Mass conc ratio]1.1Bxbivl6.1-2.2FSt. Charles HospitalComment on above:Performed By: #### [id number] #### [facility] [address] [place] [address] 37468CFP [Catalytic activity/Vol]45 Int._Unit/WWnaahb57-94FglbkkScci Hospital LimaComment on above:Performed By: #### [id number] #### [facility] [address] [place] [address] 86791ZTT No additional P-5'-P [Catalytic activity/Vol]10 Int._Unit/L Normal6-46Scci Hospital LimaComment on above:Performed By: #### [id number] #### [facility] [address] [place] [address] 848[address]Kuaks gap [Moles/Vol]10 mmol/LNormal6-16S[facility] Hospital LimaComment on above:Performed By: #### [id number] #### [facility] [address], [place] [address]KIO [Catalytic activity/Vol]15 Int._Unit/LNormal5-43S[facility] Hospital LimaComment on above:Performed By: #### [id number] #### [facility] [address], [place] [address]Msvwvpiyd [Mass/Vol]0.3 mg/dLNormal0.0-1.1FSt. Charles HospitalComment on above:Performed By: #### [id number] #### [facility] [address], [place] [address]Stgkfbb [Mass/Vol]9.4 mg/dLNormal8.9-11.1FSt. Charles HospitalComment on above:Performed By: #### [id number] #### [facility] [address], [place] [address]Iwrrxnfp [Moles/Vol]107 mmol/ZPgebeg289-177BwawmiScci Hospital LimaComment on above:Performed By: #### [id number] #### [facility] [address], [place] [address]VH6 [Moles/Vol]27 mmol/KWbityi95-83KpqpnrScci Hospital Lima Comment on above:Performed By: #### [id number] #### [facility] [address], [place] [address]Alstaelura [Mass/Vol]1.4 mg/dLHigh0.5-1.3FSt. Charles HospitalComment on above:Performed By: #### [id number] #### [facility] [address], [place] [address]Yunzzunl (S) [Mass/Vol]3.2 g/dLNormal1.4-4.0S[facility] Hospital LimaComment on above:Performed By: #### [id number] #### [facility] [address], [place] [address]Iiovgcy [Mass/Vol]109 mg/yKNpcqgf29-369SqptalScci Hospital LimaComment on above:Performed By: #### [id number] #### [facility] [address], [place] [address]Xiotcjsdk [Moles/Vol]4.5 mmol/LNormal3.5-5.3Fisher [facility] Hospital Of BaltimoreComment on above:Performed By: #### [id number] #### [facility] [address] [place], [place] [address]Sqowqqz [Mass/Vol]7.1 g/dLNormal6.0-7.8S[facility] Hospital LimaComment on above:Performed By: #### [id number] #### [facility] [address], [place] [address]Kxgfsm [Moles/Vol]139 mmol/VIdzysr553-975RcgtffScci Hospital LimaComment on above:Performed By: #### [id number] #### [facility] [address] [place], [place] [address]Dohz nitrogen [Mass/Vol]23 mg/dLHigh5-21S[facility] Hospital LimaComment on above:Performed By: #### [id number] #### [facility] [address] [place], [place] [address]Oltv nitrogen/Creatinine [Mass ratio]16 No JkoybKuoxpa63-70 [facility] Hospital LimaComment on above:Performed By: #### [id number] #### [facility] [address], [place] [address]Qadpfg Visiton 81-04-4144Unjzbm-up [id number] Zahida Batista 1935 F Date Provider Department Center 07/01/2023 MICHAEL AUGUSTE LOR[facility]INE [facility] Family History Problem Relation Age of Onset Prostate cancer Father Family Status - Relation Status Age at Father Level of Service:69496 [place] OFFICE/OUTPATIENT ESTABLISHED MOD MDM 30-39 MIN Reason for Visit and Comments: Follow-up [640509] - PATIENT IS HERE TO DISCUSS WATCHBellevue HospitalXR clavicle RT*on 20-82-2046RO clavicle RT*[facility] Main [address] [place] [address] XRay Report Signed Patient: Zahida Batista MR#: [id number] 151 : 1935 Acct:[id number] Age/Sex: 88 / F ADM Date: 03/15/23 Loc: [facility] Room: Type: [facility] Attending Dr: Barbie Weston MD Copies to: [...] Thiago Chowdhury M.D.03/15/2023 5:02 PM Dictation Location: [facility]- Transcribed By: [facility] 03/15/23 1702 Dictated By: Thiago Chowdhury DO 03/15/23 170 Signed By: 03/15/23 170[facility] HealthXR clavicle RT*[facility] [employer] Other XR clavicle RT*[facility] [employer] Other XR clavicle RT*[address] [place] [address] [employer] Other XR clavicle RT*[place] [address]NlzfpHighline [facility] [employer] Other XR clavicle RT*XRay ReportHighline Community Hospital Specialty Center [employer] Other XR clavicle RT*[facility] Other XR clavicle RT*Patient: Zahida Batista MR#: [id number] [facility] [employer] Other XR clavicle RT*[address] [place] [address] [employer] Other XR clavicle RT*: 1935 Acct:[id number] Other xr clavicle RT*Age/Sex: 88 / F ADM Date: 03/15/23[facility] Other xr clavicle RT*Loc: [facility] Room: Type: [facility] Other xr clavicle RT*Attending Dr: Barbie Weston MDBernard [facility] Care [facility] Other xr clavicle RT*Copies to: Barbie Weston MDBernard [facility] Other xr clavicle RT*Ordering Provider: Barbie Weston MD [facility] Other xr clavicle RT*Date of Service: 03/15/23[facility] Other xr clavicle RT* XR/XR clavicle RT*: Closed nondisplaced fracture of shaft of rightBernard Diabetes Care Group Other xr clavicle RT*[facility], iniNobarton county memorial [facility] Other xr clavicle RT*2 views right clavicle plain filmBernard [facility] Other xr clavicle RT*COMPARISON: 02/01/2023[facility] Other xr clavicle RT*HISTORY: Status post right clavicle fractureBernard Diabetes Care Group Other xr clavicle RT*Continued healing of right mid shaft clavicle fracture identified. Unchanged bony alignment.achvr Other xr clavicle RT* XR/XR clavicle RT* achvr Other xr clavicle RT*IMPRESSION: Healing fracture with stable alignmentBernard [facility] Care [facility] Other xr clavicle RT*Impression dictated by: Thiago Chowdhury M.D.03/15/2023 5:02 Merged with [facility] [employer] Other xr clavicle RT*Dictation Location: [id number] [facility] Other xr clavicle RT*Transcribed By: PWS 03/15/[address] [place] [address] [facility] Other xr clavicle RT*Dictated By: Thiago Chowdhury DO 03/15/[address] [place] [address] [facility] Other xr clavicle RT*Signed By:achvr Other xr clavicle RT*03/15/[address] [place] [address] [facility] Other cbc AUTO DIFFon [id number] #0.1 103/ulNormal 0.0-0.1The [facility] Medical CenterComment on above:Performed By: #### CBC #### [facility] [address] [address] [address] Michael DomínguezBasophils/100 WBC (Bld)1.2 %Normal0.2-2.0[facility] Comment on above:Performed By: #### CBC #### [facility] [address] [address] [address] Michael Pederson #0.2 103/ulNormal0.0-0.7The [facility] Medical CenterComment on above: Performed By: #### CBC #### [facility] [address] [address] [address] Michael Levinosinophils/100 WBC (Bld)3.5 %Normal0.9-7.0[facility] Comment on above:Performed By: #### CBC #### [facility] [address] [address] [address] Michael Levinrythrocyte distribution width (RBC) [Ratio]15.9 %Critically high 11.0-15.0The [facility]al Medical CenterComment on above:Performed By: #### CBC #### [facility] [address] [place] [address] Dr. Michael DomínguezHematocrit (Bld) [Volume fraction]32.0 %Critically low36.0-48.0 The [facility] Medical CenterComment on above:Performed By: #### CBC #### [facility] [address] [place] [address] Dr. Michael DomínguezHemoglobin (Bld) [Mass/Vol]9.9 g/dLCritically low12.0-16.0The [facility] Medical CenterComment on above:Performed By: #### CBC #### [facility] [address] [place] [address] Dr. Michael Khan #0.03 10e3/ulNormal0.00-0.03The [facility] Medical CenterComment on above:Performed By: #### CBC #### [facility] [address] [place] [address] Dr. Michael Khan %0.5 %Normal0.0-0.5The [facility] Medical CenterComment on above: Performed By: #### CBC #### [facility] [address] [place] [address] Dr. Michael Rosenberg #1.4 103/ulNormal1.2-3.8The [facility] Medical CenterComment on above:Performed By: #### CBC #### [facility] [address] [place] [address] Dr. Michael Rodashocytes/100 WBC (Bld)23.1 %Jqxmql25.5-60.0The [facility] Medical CenterComment on above:Performed By: #### CBC #### [facility] [address] [place] [address] Dr. Michael SamanoUAL DIFF REQNONormalThe [facility] Medical CenterComment on above: Performed By: #### CBC #### [facility] [address] [place] [address] Dr. Michael Murcia (RBC) [Entitic mass]26.3 pgCritically low26.7-34.0The [facility] Medical CenterComment on above:Performed By: #### CBC #### [facility] [address] [place] [address] Dr. Michael Gage (RBC) [Mass/Vol]30.9 g/fQRkpgvf72.9-35.2The [facility] Medical CenterComment on above:Performed By: #### CBC #### [facility] [address] [place] [address] Dr. Michael Galarza (RBC) [Entitic vol]85.1 hBHvaopn39.0-99.0The [facility] Medical CenterComment on above:Performed By: #### CBC #### [facility] [address] [place] [address] Dr. Michael Felder #0.8 103/ulNormal0.3-0.8The [facility] Medical CenterComment on above:Performed By: #### CBC #### [facility] [address] [place] [address] Dr. Michael Paytonocytes/100 WBC (Bld)13.1 %Critically high1.7-12.0The [facility] Medical CenterComment on above:Performed By: #### CBC #### [facility] [address] [place] [address] Dr. Michael Medrano #3.6 103/ulNormal1.4-6.5The [facility] Medical CenterComment on above:Performed By: #### CBC #### [facility] [address] [place] [address] Dr. Michael Napierutrophils/100 WBC (Bld)58.6 %Nqzwik70.0-75.0The [facility] Medical CenterComment on above:Performed By: #### CBC #### [facility] [address] [place] [address] Dr. Michael Elmore mean volume (Bld) [Entitic vol]8.6 fLCritically low 9.5-13.5The [facility] CenterComment on above:Performed By: #### CBC #### [facility] [address] [place] [address] Dr. Michael SharpeT371 103/aoFtcljp639-379Ecc [facility] CenterComment on above: Performed By: #### CBC #### [facility] [address] [place] [address] Dr. Michael CraigC3.76 106/ulCritically low4.20-5.40The [facility] Medical CenterComment on above:Performed By: #### CBC #### [facility] [address] [place] [address] Dr. Michael DomínguezWBC6.1 103/ulNormal4.0-11.0The [facility] Medical CenterComment on above: Performed By: #### CBC #### [facility] [address] [place] [address] Dr. Michael DomínguezPROF 14(COMP METB)on 00-98-1950Lqhlonm [Mass/Vol]3.4 g/dLNormal 3.4-5.0The [facility] Medical CenterComment on above:Performed By: #### CMP #### [facility] [address] [place] [address] Dr. Michael DomínguezAlbumin/Globulin [Mass ratio]0.8 {ratio}NormalThe [facility] Medical CenterComment on above:Performed By: #### CMP #### [facility] [address] [place] [address] Dr. Michael Gtz [Catalytic activity/Vol]72 U/YLaefns07-530Spx [facility] CenterComment on above:Performed By: #### CMP #### [facility] [address] [place] [address] Dr. Michael Dc [Catalytic activity/Vol]11 U/LCritically fth83-89Fdi [facility] CenterComment on above:Performed By: #### CMP #### [facility] [address] [place] [address] Dr. Michael Parkinson gap [Moles/Vol]12.7 mmol/LNormalThe [facility] Comment on above:Performed By: #### CMP #### [facility] [address] [place] [address] Dr. Michael Navarro [Catalytic activity/Vol]13 U/LCritically fjw88-52Rbn [facility] CenterComment on above:Performed By: #### CMP #### [facility] [address] [place] [address] Dr. Yilan ChangBilirubin [Mass/Vol]0.2 mg/dLNormal0.2-1.0[facility] Comment on above:Performed By: #### CMP #### [facility] [address] [address] [address] Michael DomínguezCalcium [Mass/Vol]9.4 mg/dLNormal8.5-10.1The [facility] Comment on above:Performed By: #### CMP #### [facility] [address] [address] [address] Michael DomínguezChloride [Moles/Vol]107 mmol/BXiotir77-055Jsa [facility] Comment on above:Performed By: #### CMP #### [facility] [address] [address] [address] Michael DomínguezCO2 [Moles/Vol]26.4 mmol/SMlrfiv17.0-32.0[facility] Comment on above:Performed By: #### CMP #### [facility] [address] [address] [address] Michael DomínguezCreatinine [Mass/Vol]1.08 mg/dLCritically high0.55-1.02[facility] CenterComment on above:Performed By: #### CMP #### [facility] [address] [place] [address] Dr. Michael LevinGFR-AF DSUAQBCA58 mL/min/1.14r1Igulnhjvfv low>=60The [facility] CenterComment on above:Performed By: #### CMP #### [facility] [address] [address] [address] Michael LevinGFR-NON AF PAQMCJEQ05 mL/min/1.72k7Hxrhecraej low>=60The [facility] CenterComment on above:Performed By: #### CMP #### [facility] [address] [address] [address] Michael DomínguezGlobulin (S) [Mass/Vol]4.2 g/dLNormalThe [facility] CenterComment on above:Performed By: #### CMP #### [facility] [address] [place] [address] Dr. Michael DomínguezGlucose [Mass/Vol]85 mg/gBZagrau60-679PqeUniversity [facility]als [facility] Comment on above:Performed By: #### CMP #### [facility] [address] [address] [address] Michael DomínguezPotassium [Moles/Vol]5.1 mmol/LNormal3.5-5.1[facility] Comment on above:Performed By: #### CMP #### [facility] [address] [address] [address] Michael DomínguezProtein [Mass/Vol]7.6 g/dLNormal6.4-8.2[facility] Comment on above:Performed By: #### CMP #### [facility] [address] [address] [address] Michael DomínguezSodium [Moles/Vol]141 mmol/IApxlge362-141ZdfUniversity Hospitals Conne[facility] Center Comment on above:Performed By: #### CMP #### [facility] [address] [address] [address] Michael DomínguezUrea nitrogen [Mass/Vol]19.0 mg/dLCritically high7.0-18.0[facility] CenterComment on above:Performed By: #### CMP #### [facility] [address] [address] [address] Michael Bermudez nitrogen/Creatinine [Mass ratio]17.6 mg/mgNormalThRegency Hospital Cleveland WestComment on above:Performed By: #### CMP #### [facility] [address] [address] [address] Michael DomínguezXR clavicle RT*on 05-13-0430HD clavicle RT*[place] [address] XRay Report Signed Patient: Zahida Batista MR#: [id number] 151 : 1935 Acct:[id number] Age/Sex: 88 / F ADM Date: 02/01/23 Loc: [facility] Room: Type: [facility] CLI Attending Dr: Barbie Weston MD Copies to: [...] Jeremy Casillas M.D.02/01/2023 3:15 PM Dictation Location: [place] [address] Transcribed By: [facility] 02/01/23 1515 Dictated By: Jeremy Casillas II, MD 02/01/23 1514 Signed By: 02/01/23 1515Premier HealthXR clavicle RT*[facility] [employer] Other XR clavicle RT*[facility] [employer] Other XR clavicle RT*[address] [facility] [employer] Other XR clavicle RT*[place], [place] [address] [place] [address] [employer] Other XR clavicle RT*[facility] [employer] Other XR clavicle RT*[facility] Other XR clavicle RT*Patient: Zahida Batista MR#: [id number] [facility] [employer] Other XR clavicle RT*[address] [place] [address] [facility] Other XR clavicle RT*: 1935 Acct:[id number] Other XR clavicle RT*Age/Sex: 88 / F ADM Date: 02/01/23[facility] Other XR clavicle RT*Loc: [facility]D Room: Type: [facility] Other XR clavicle RT*Attending Dr: Barbie Weston MDBernard [facility] Other XR clavicle RT*Copies to: Barbie Weston MDBernard [facility] Other XR clavicle RT*Ordering Provider: Barbie Weston MD [facility] [employer] Other xr clavicle RT*Date of Service: 02/01/23[facility] Other xr clavicle RT* XR/XR clavicle RT*: Closed nondisplaced fracture of shaft of [facility] Other XR clavicle RT*[facility] Other XR clavicle RT*XR clavicle RT* 02/01/2023 10:52 [facility] Other xr clavicle RT*SIGNS AND SYMPTOMS: Follow-up fracture of right clavicleBernard [facility] Other XR clavicle RT*PROTOCOL: Frontal and axial views of the right clavicleBernard [facility] Other XR clavicle RT*COMPARISON: 12/14/2022[facility] Other XR clavicle RT*FINDINGS:achvr Other XR clavicle RT*There is increasing periosteal new bone formation traversing a mid shaft fracture of the [facility] hospitalLicense[facility] Other XR clavicle RT*clavicle without change in alignment. The visualized right hemithorax is unchanged. HealingBernard [facility] Other XR clavicle RT*posterior right-sided rib fractures are redemonstrated.achvr Other XR clavicle RT* XR/XR clavicle RT* achvr Other XR clavicle RT*IMPRESSION:achvr Other XR clavicle RT*clavicle without change in alignment. achvr Other XR clavicle RT*Redemonstration of a healing rib fractures posteriorly on the right.achvr Other XR clavicle RT*Impression dictated by: Jeremy Casillas M.D.02/01/2023 3:15 PMNriple[facility] Other XR clavicle RT*Dictation Location: [address] [facility] Other XR clavicle RT*Transcribed By: FILIPE 02/01/23 [facility] HospitalL[facility] Other XR clavicle RT*Dictated By: Jeremy Casillas II, MD 02/01/23 [facility] CenterL[facility] Other XR clavicle RT*Signed By:achvr Other XR clavicle RT*02/01/23 [facility] Hospitalach[facility] Other XR clavicle RT*on 36-32-0548EE clavicle RT*[facility] [address] [place] [address] XRay Report Signed Patient: Zahida Batista MR#: [id number] 151 : 1935 Acct:[id number] Age/Sex: 87 / F ADM Date: 11/30/22 Loc: Room: 0N3214-2 Type: ADM IN Attending Dr: Mohit Willson [...] Thiago Chowdhury M.D.12/14/2022 9:57 AM Dictation Location: [address] [place] [address] Transcribed By: [facility] 12/14/22 0957 Dictated By: Thiago Chowdhury DO 12/14/22 0948 Signed By: 12/14/22 0957NoParkwood HospitalCOVID-19 [facility] SARS-CoV-2 (COVID-19) RNA SARAH+probe Ql (Unsp spec)NegativeNormalNegative [facility] CompanyComment on above:Order Comment: Comment for SNF placement Healthcare Worker?: NResult Comment: Testing for SARS-CoV-2 by RT-PCR This test was developed and its performance characteristics determined by [employer] and validated at the [facility]. This test has not been FDA cleared [...] is terminated or revoked sooner. PERFORMED BY: [place] [address] PATHOLOGIST FILM OR TAPE LIBRARIAN MICHAEL RYAN M.D.Performed By: #### CBC, BMP, HS TROP #### [address] StreetCOVID-19 Positive/NegativeOrdered By: Mohit Demetris on 58-11-6714FUPZ-CoV-2 (COVID-19) N gene SARAH+probe Ql (Resp)NegativeNegative [facility] CompanyComment on above:Testing for SARS-CoV-2 by RT- PCRThis test was developed and its performance characteristics determined by [employer]) and validated at the [facility]. This test has not been FDA cleared [...] unless the authorization is terminated or revoked sooner.CT biopsyOrdered By: Kathie Hoyt on 57-08-4565Bhleuftguam [Mass/Vol]256 mg/jA135-794GmgizsgitRegency Hospital CompanyFerritinon 12-09-2022 Ferritin [Mass/Vol]69.0 ng/dUKlhwxd79-305.8[facility] Comment on above:Result Comment: PERFORMED BY: [facility] [address] [place] [address] PATHOLOGIST FILM OR TAPE LIBRARIAN MICHAEL RYAN M.D.Performed By: #### FE and TIBC, GENARO #### [place] [address] USAFerritin [Mass/volume] in Serum or PlasmaOrdered By: Kathie Hoyt on 43-82-7316Gsavhtec [Mass/Vol]69.0 ng/lO47-293.8[facility] Hospital CompanyIron [Mass/volume] in Serum or PlasmaOrdered By: Kathie Hoyt on 39-32-9799Ymua [Mass/Vol]27 ug/oT38-961AjntytqidRegency Hospital CompanyIron and TIBC Profileon 12-09-2022% Iron Saturation7.5 %Xxs11-44XdnchxeujRegency Hospital CompanyComment on above:Performed By: #### FE and TIBC, GENARO #### [facility] [address] [place] [address] USAIron [Mass/Vol]27 ug/rIJua83-553WoaqknwzuRegency Hospital CompanyComment on above:Performed By: #### FE and TIBC, GENARO #### [facility] [address] [place] [address] USATotal Iron Binding Kexukwdo590 ug/oTMvvrjs255-465NmaxqldeoRegency Hospital CompanyComment on above:Performed By: #### FE and TIBC, GENARO #### [facility] [address] [place] [address] USATransferrin [Mass/Vol]256 mg/hYZyexhb790-737LcgqydeoxRegency Hospital CompanyComment on above:Performed By: #### FE and TIBC, GENARO #### [facility] [address] [place] [address] USAIron binding capacity [Mass/volume] in Serum or Plasma Ordered By: Kathie Hoyt on 71-87-8038Dotf binding capacity [Mass/Vol]358 ug/dL 255-450Reg[facility] Hospital CompanyIron saturation [Mass Fraction] in Serum or PlasmaOrdered By: Kathie Hoyt on 18-55-5384Kdhk saturation [Mass fraction]7.5 %20-50Reg[facility] Hospital CompanyBasic Metabolic Panelon 41-58-0570Gbozy gap [Moles/Vol]11.0 mmol/LNormal6.0-15.0[facility] CompanyComment on above:Performed By: #### BMP, CBC #### [facility] [address] [place] [address] USACalcium [Mass/Vol]8.7 mg/dLNormal8.2-10.2FProMedica Fostoria Community HospitalComment on above:Performed By: #### BMP, CBC #### [facility] [address] [place] [address] USAChloride [Moles/Vol]105 mmol/DEetkww86-475ZbiyjyxeqRegency Hospital CompanyComment on above:Performed By: #### BMP, CBC #### [facility] [address] [place] [address] USACO2 [Moles/Vol]25.4 mmol/JDiqrem86.0-30.0[facility] CompanyComment on above:Performed By: #### BMP, CBC #### [facility] [address] [place] [address] USACreatinine [Mass/Vol]0.99 mg/dLNormal0.44-1.03[facility] CompanyComment on above:Performed By: #### BMP, CBC #### [place] [address] USACreatinine Clr Calc Hepgslbo03.91NoParkwood HospitalComment on above:Result Comment: PERFORMED BY: [place] [address] PATHOLOGIST FILM OR TAPE LIBRARIAN MICHAEL RYAN M.D.Performed By: #### BMP, CBC #### [place] [address] USAEstimated GFR ( Deb> 60Premier HealthComment on above:Result Comment: GFR estimated reference range: According to KDOQI guidelines, <60 ml/min/1.73m2 is sufficient to diagnose a patient with chronic kidney disease.Performed By: #### BMP, CBC #### [address] [id number] USAEstimated GFR (Non- Xj89WbcoarKdqycoowfParkwood HospitalComment on above:Performed By: #### BMP, CBC #### [place] [address] USAGlucose [Mass/Vol]96 mg/nNPsjzct21-598MthgfbmhbRegency Hospital CompanyComment on above:Result Comment: Random Glucose Reference Range is dependent on time and content of last meal. Glucose of more than 200 mg/dL in a nonstressed, ambulatory subject supports the diagnosis of Diabetes Mellitus. ADA recommended reference rangePerformed By: #### BMP, CBC #### [facility] [address] [place] [address] USAPotassium [Moles/Vol]4.4 mmol/LNormal3.5-5.1FProMedica Fostoria Community HospitalComment on above:Performed By: #### BMP, CBC #### [facility] [address] [place] [address] USASodium [Moles/Vol]137 mmol/VNigevj722-772GoeaxamtzRegency Hospital CompanyComment on above:Performed By: #### BMP, CBC #### [facility] [address] [place] [address] USAUrea nitrogen [Mass/Vol]19 mg/dLNormal08-06Reg[facility] Hospital CompanyComment on above:Performed By: #### BMP, CBC #### [place] [address] USABasophils Auto (Bld) [#/Vol]Ordered By: Mohit Willsno on 58-14-3356Vkndckmug (Bld) [#/Vol]0.1 10*3/uL0.0-0.2FProMedica Fostoria Community HospitalBasophils/100 WBC Auto (Bld)Ordered By: Mohit Willson on 12-06-2022 Basophils/100 WBC (Bld)1.3 %.[facility] CompanyComplete Blood Count Auto Diffon 56-51-3715Syqllecpj (Bld) [#/Vol]0.1 10*3/uLNormal0.0-0.2 [facility] CompanyComment on above:Result Comment: PERFORMED BY: [place] [address] PATHOLOGIST FILM OR TAPE LIBRARIAN MICHAEL RYAN M.D.Performed By: #### BMP, CBC #### [place] [address] USABasophils/100 WBC (Bld)1.3 %Normal.[facility] Hospital CompanyComment on above:Performed By: #### BMP, CBC #### [place] [address] USAEosinophils (Bld) [#/Vol]0.4 10*3/uLNormal0.0-0.45 [facility] CompanyComment on above:Performed By: #### BMP, CBC #### [place] [address] USAEosinophils/100 WBC (Bld)7.6 %Normal.[facility] Hospital CompanyComment on above:Performed By: #### BMP, CBC #### [place] [address] USAErythrocyte distribution width (RBC) [Ratio]16.4 %High 11.9-15.3FProMedica Fostoria Community HospitalComment on above:Performed By: #### BMP, CBC #### [place] [address] USAHematocrit (Bld) [Volume fraction]26.7 %Low34.0-46.4 [facility] CompanyComment on above:Performed By: #### BMP, CBC #### [place] [address] USAHemoglobin (Bld) [Mass/Vol]8.6 g/dLLow11.8-15.4FProMedica Fostoria Community HospitalComment on above:Performed By: #### BMP, CBC #### [place] [address] USALymphocytes (Bld) [#/Vol]1.1 10*3/uLNormal1.00-4.8 [facility] CompanyCommclaren port huron hospital on above:Performed By: #### BMP, CBC #### [place] [address] USALymphocytes/100 WBC (Bld)22.8 %Normal.[facility] Hospital CompanyComment on above:Performed By: #### BMP, CBC #### [place] [address] USAMCH (RBC) [Entitic mass]26.3 huCzticl58.7-34.3Fire[facility] Regional Medical CenterComment on above:Performed By: #### BMP, CBC #### [facility] [address] [place] [address] USAMCV (RBC) [Entitic vol]81.6 fCYqgzht70-050BmplsnwntRegency Hospital CompanyComment on above:Performed By: #### BMP, CBC #### [facility] [address] [place] [address] USAMean Corpuscular HGB Conc32.2 g/fXWmbhyb02.0-35.0[facility] CompanyComment on above:Performed By: #### BMP, CBC #### [facility] [address] [place] [address] USAMonocytes (Bld) [#/Vol]0.8 10*3/uLNormal0.0-0.8[facility] Hospital CompanyComment on above:Performed By: #### BMP, CBC #### [facility] [address] [place] [address] USAMonocytes/100 WBC (Bld)15.9 %Normal.[facility] Hospital CompanyComment on above:Performed By: #### BMP, CBC #### [place] [address] USANeutrophils (Bld) [#/Vol]2.6 10*3/uLNormal1.8-7.7FProMedica Fostoria Community HospitalComment on above:Performed By: #### BMP, CBC #### [facility] [address] [place] [address] USANeutrophils/100 WBC (Bld)52.4 %Normal.[facility] Hospital CompanyComment on above:Performed By: #### BMP, CBC #### [place] [address] USANRBC%0.1 /100{WBC}Normal0-0.5FProMedica Fostoria Community HospitalComment on above:Performed By: #### BMP, CBC #### [facility] [address] [place] [address] USAPlatelet mean volume (Bld) [Entitic vol]6.6 fLNormal 6.3-10.7FProMedica Fostoria Community HospitalComment on above:Performed By: #### BMP, CBC #### [facility] [address] [place] [address] USAPlatelets (Bld) [#/Vol]325 10*3/oOUctwtb346-890VwdpnfadzRegency Hospital CompanyComment on above:Performed By: #### BMP, CBC #### [facility] [address] [place] [address] USARBC (Bld) [#/Vol]3.27 10*6/uLLow3.60-5.00[facility] CompanyComment on above:Performed By: #### BMP, CBC #### [facility] [address] [place] [address] USAWBC (Bld) [#/Vol]4.9 10*3/uLNormal3.8-11.6FProMedica Fostoria Community HospitalComment on above:Performed By: #### BMP, CBC #### [facility] [address] [place] [address] USACreatinine and Glomerular filtration rate.predicted panel (S/P/Bld)Ordered By: Mohit Willson on 03-56-4023Oxivilihua [Mass/Vol]0.99 mg/dL 0.44-1.03[facility] Hospital CompanyEosinophils Auto (Bld) [#/Vol]Ordered By: Mohit Willson on 98-62-7248Bamgicmymgc (Bld) [#/Vol]0.4 10*3/uL0.0-0.45 [facility] CompanyEosinophils/100 WBC Auto (Bld)Ordered By: Mohit Willson on 89-01-0407Rxxqgydnkfc/100 WBC (Bld)7.6 %.[facility] Hospital CompanyErythrocyte distribution width Auto (RBC) [Ratio]Ordered By: Mohit Willson on 87-81-8309Hgggxifqdfb distribution width (RBC) [Ratio]16.4 % 11.9-15.3FProMedica Fostoria Community HospitalEstimated glomerular filtration rate (GFR) non- AmericanOrdered By: Mohit Willson on 81-30-8277AQW/1.73 sq M.predicted among non-blacks MDRD (S/P/Bld) [Vol rate/Area]53 mL/MinRegency Hospital CompanyHematocrit Auto (Bld) [Volume fraction]Ordered By: Mohit Willson on 67-11-8783Xiuuobhljd (Bld) [Volume fraction]26.7 %34.0-46.4FProMedica Fostoria Community HospitalHemoglobin [Mass/volume] in BloodOrdered By: Mohit Willson on 42-33-1039Heegownmbf (Bld) [Mass/Vol]8.6 g/dL11.8-15.4FProMedica Fostoria Community HospitalLeukocytes [#/volume] corrected for nucleated erythrocytes in Blood by Automated counOrdered By: Mohit Willson on 34-70-1949KSR corrected for nucl RBC Auto (Bld) [#/Vol]4.9 10*3/uL3.8-11.6FProMedica Fostoria Community Hospital Lymphocytes Auto (Bld) [#/Vol]Ordered By: Mohit Willson on 71-44-4106Thqplxcqgab (Bld) [#/Vol]1.1 10*3/uL1.00-4.8[facility] Hospital CompanyLymphocytes/100 WBC Auto (Bld)Ordered By: Mohit Willson on 37-04-5068Uawrwmoryxp/100 WBC (Bld) 22.8 %.[facility] Auto (RBC) [Entitic mass]Ordered By: Mohit Willson on 91-66-8103IYJ (RBC) [Entitic mass]26.3 pg24.7-34.3FProMedica Fostoria Community HospitalMCHC Auto (RBC) [Mass/Vol]Ordered By: Mohit Willson on 33-38-2471ETIT (RBC) [Mass/Vol]32.2 g/dL32.0-35.0[facility] CompanyMCV Auto (RBC) [Entitic vol]Ordered By: Mohit Willson on 20-32-9937JKN (RBC) [Entitic vol]81.6 gH48-796SzwlnqejcRegency Hospital CompanyMonocytes Auto (Bld) [#/Vol]Ordered By: Mohit Willson on 14-69-5923Zwmbapedr (Bld) [#/Vol]0.8 10*3/uL0.0-0.8[facility] Hospital CompanyMonocytes/100 WBC Auto (Bld) Ordered By: Mohit Willson on 60-89-4618Xwnhhoxgx/100 WBC (Bld)15.9 %.[facility] Hospital CompanyNeutrophils Auto (Bld) [#/Vol]Ordered By: Mohit Willson on 19-84-4869Zipqptkkozf (Bld) [#/Vol]2.6 10*3/uL1.8-7.7FProMedica Fostoria Community HospitalNeutrophils/100 WBC Auto (Bld)Ordered By: Mohit Willson on 12-06-2022 Neutrophils/100 WBC (Bld)52.4 %.[facility] Hospital CompanyNo Panel InformationOrdered By: Mohit Willson on 98-34-0637Rhuqarame GFR ()> 60 mL/MinRegency Hospital CompanyComment on above:GFR estimated reference range: According to KDOQI guidelines, <60 ml/min/1.73m2 is sufficient todiagnose a patient with chronic kidney disease.Pharmacy Creatinine Clearance (Chem41.91Reg[facility] Hospital CompanyNucleated erythrocytes [Presence] in Blood by Automated countOrdered By: Mohit Willson on 12-06-2022 Nucleated RBC Auto Ql (Bld)0.1 /100{WBC}0-0.5FProMedica Fostoria Community Hospital Platelet mean volume Auto (Bld) [Entitic vol]Ordered By: Mohit Willson on 00-54-6689Ihsmtovg mean volume (Bld) [Entitic vol]6.6 fL6.3-10.7FProMedica Fostoria Community HospitalPlatelets Auto (Bld) [#/Vol]Ordered By: Mohit Willson on 64-71-0375Ecsypixxl (Bld) [#/Vol]325 10*3/rM668-958HylqfybwmRegency Hospital CompanyRBC Auto (Bld) [#/Vol]Ordered By: Mohit Willson on 62-17-0911YUI (Bld) [#/Vol]3.27 10*6/uL3.60-5.00[facility]huja Medical Centererum or plasma anion gap determinationOrdered By: Mohit Willson on 40-57-9295Uzlti gap [Moles/Vol]11.0 mmol/L6.0-15.0[facility]huja Medical Centererum or plasma calcium measurement (mass/volume)Ordered By: Mohit Willson on 53-34-4925Hvoetng [Mass/Vol]8.7 mg/dL8.2-10.2FPike Community Hospitalerum or plasma chloride measurement (moles/volume)Ordered By: Mohit Willson on 12-06-2022 Chloride [Moles/Vol]105 mmol/S12-527AhyzmgyheUniversity Hospitals Ahuja Medical Centererum or plasma glucose measurement (mass/volume)Ordered By: Mohit Willson on 12-06-2022 Glucose [Mass/Vol]96 mg/tD33-016IbmoxiqcxRegency Hospital CompanyComment on above:ADA recommended reference rangeRandom Glucose Reference Range is dependent on time and content of last meal. Glucose of more than 200 mg/dL in a nonstressed, ambulatory subject supports the diagnosisof Diabetes Mellitus.Serum or plasma potassium measurement (moles/volume)Ordered By: Mohit Willson on 29-57-8781Aenjwusdx [Moles/Vol]4.4 mmol/L3.5-5.1FPike Community Hospitalerum or plasma sodium measurement (moles/volume)Ordered By: Mohit Willson on 86-98-1775Vbkgox [Moles/Vol]137 mmol/Y095-884BbxwagedeUniversity Hospitals Ahuja Medical Centererum or plasma total carbon dioxide measurement (moles/volume)Ordered By: Mohit Willson on 04-27-4300QI2 [Moles/Vol]25.4 mmol/L22.0-30.0[facility] Ahuja Medical Centererum or plasma urea nitrogen measurement (mass/volume)Ordered By: Mohit Willson on 68-30-4329Vyyz nitrogen [Mass/Vol]19 mg/dL9-[facility] Hospital CompanyWBC Auto (Bld) [#/Vol]Ordered By: Mohit Willson on 18-95-7912USH (Bld) [#/Vol]4.9 10*3/uL3.8-11.6FProMedica Fostoria Community Hospital XR chest 2V*on 85-11-9978LR chest 2V*[place] [address] XRay Report Signed Patient: Zahida Batista MR#: [id number] 151 : 1935 Acct:[id number] Age/Sex: 87 / F ADM Date: 11/30/22 Loc: Room: [address] [place] [address] Type: ADM IN Attending Dr: Mohit Willson [...] Thiago Chowdhury M.D.12/02/2022 4:33 PM Dictation Location: [facility]--14 Transcribed By: [facility] 12/02/22 1633 Dictated By: Thiago Chowdhury DO 12/02/22 1632 Signed By: 12/02/22 1633Premier HealthAlbumin [Mass/volume] in Serum or PlasmaOrdered By: Tasneem Cabrales on 19-01-0246Doxjwfr [Mass/Vol]2.5 g/dL3.2-5.5FProMedica Fostoria Community HospitalComplete Blood Count Auto Diffon 61-78-1097Ebdlozyem (Bld) [#/Vol]0.1 10*3/uLNormal0.0-0.2FProMedica Fostoria Community HospitalComment on above:Result Comment: PERFORMED BY: [address] [address] PATHOLOGIST FILM OR TAPE LIBRARIAN MICHAEL RYAN M.D.Performed By: #### BMP, CBC #### [facility] [address] [place] [address] USABasophils/100 WBC (Bld)0.9 %Normal.[facility] Hospital CompanyComment on above:Performed By: #### BMP, CBC #### [facility] [address] [place] [address] USAEosinophils (Bld) [#/Vol]0.3 10*3/uLNormal0.0-0.45 [facility] CompanyComment on above:Performed By: #### BMP, CBC #### [facility] [address] [place] [address] USAEosinophils/100 WBC (Bld)4.8 %Normal.[facility] CompanyComment on above:Performed By: #### BMP, CBC #### [facility] [address] [place] [address] USAErythrocyte distribution width (RBC) [Ratio]16.2 %High 11.9-15.3FProMedica Fostoria Community HospitalComment on above:Performed By: #### BMP, CBC #### [place] [address] USAHematocrit (Bld) [Volume fraction]27.5 %Low34.0-46.4 [facility] CompanyComment on above:Performed By: #### BMP, CBC #### [place] [address] USAHemoglobin (Bld) [Mass/Vol]9.0 g/dLLow11.8-15.4FProMedica Fostoria Community HospitalComment on above:Performed By: #### BMP, CBC #### [place] [address] USALymphocytes (Bld) [#/Vol]0.9 10*3/uLLow1.00-4.8[facility] Hospital CompanyComment on above:Performed By: #### BMP, CBC #### [place] [address] USALymphocytes/100 WBC (Bld)14.0 %Normal.[facility]ency Hospital CompanyComment on above:Performed By: #### BMP, CBC #### [place] [address] USAMCH (RBC) [Entitic mass]26.8 ekMulmdd04.7-34.3FProMedica Fostoria Community HospitalComment on above:Performed By: #### BMP, CBC #### [facility] [address] [place] [address] USAMCV (RBC) [Entitic vol]82.0 fVAaijyb72-162HrnbpwnexRegency Hospital CompanyComment on above:Performed By: #### BMP, CBC #### [facility] [address] [place] [address] USAMean Corpuscular HGB Conc32.6 g/eRUaedyq10.0-35.0Reg[facility] Hospital CompanyComment on above:Performed By: #### BMP, CBC #### [facility] [address] [place] [address] USAMonocytes (Bld) [#/Vol]0.9 10*3/uLHigh0.0-0.8Reg[facility] Hospital CompanyComment on above:Performed By: #### BMP, CBC #### [place] [address] USAMonocytes/100 WBC (Bld)14.4 %Normal.[facility] Hospital CompanyComment on above:Performed By: #### BMP, CBC #### [place] [address] USANeutrophils (Bld) [#/Vol]4.1 10*3/uLNormal1.8-7.7FProMedica Fostoria Community HospitalComment on above:Performed By: #### BMP, CBC #### [place] [address] USANeutrophils/100 WBC (Bld)65.9 %Normal.[facility] CompanyComment on above:Performed By: #### BMP, CBC #### [place] [address] USANRBC%0.0 /100{WBC}Normal0-0.5FProMedica Fostoria Community HospitalComment on above:Performed By: #### BMP, CBC #### [facility] [address] [place] [address] USAPlatelet mean volume (Bld) [Entitic vol]6.7 fLNormal 6.3-10.7FProMedica Fostoria Community HospitalComment on above:Performed By: #### BMP, CBC #### [facility] [address] [place] [address] USAPlatelets (Bld) [#/Vol]295 10*3/nYPifudf881-852XonhucujuRegency Hospital CompanyComment on above:Performed By: #### BMP, CBC #### [facility] [address] [place] [address] USARBC (Bld) [#/Vol]3.35 10*6/uLLow3.60-5.00[facility] Hospital CompanyComment on above:Performed By: #### BMP, CBC #### [facility] [address] [place] [address] USAWBC (Bld) [#/Vol]6.2 10*3/uLNormal3.8-11.6FProMedica Fostoria Community HospitalComment on above:Performed By: #### BMP, CBC #### [place] [address] USAComprehensive Metabolic Panelon 28-28-2556Cmxnuts [Mass/Vol]2.5 g/dLLow3.2-5.5FProMedica Fostoria Community HospitalComment on above: Performed By: #### BMP, CBC #### [place] [address] USAAlbumin/Globulin [Mass ratio]0.7 {ratio}NormalRegency Hospital CompanyComment on above:Performed By: #### BMP, CBC #### [facility] [address] [place] [address] USAALP [Catalytic activity/Vol]40 U/MEwkwjp89-41DwjridnvcRegency Hospital CompanyComment on above:Performed By: #### BMP, CBC #### [facility] [address] [place] [address] USAALT [Catalytic activity/Vol]12 U/OCnitpj41-01DppachixbRegency Hospital CompanyComment on above:Performed By: #### BMP, CBC #### [place] [address] USAAnion gap [Moles/Vol]14.2 mmol/LNormal6.0-15.0[facility] Hospital CompanyComment on above:Performed By: #### BMP, CBC #### [facility] [address] [place] [address] USAAST [Catalytic activity/Vol]13 U/NJweyjr60-58SruxsrybbRegency Hospital CompanyComment on above:Performed By: #### BMP, CBC #### [facility] [address] [place] [address] USABilirubin [Mass/Vol]0.4 mg/dLNormal0.3-1.2FProMedica Fostoria Community HospitalComment on above:Performed By: #### BMP, CBC #### [facility] [address] [place] [address] USACalcium [Mass/Vol]8.8 mg/dLNormal8.2-10.2FProMedica Fostoria Community HospitalComment on above:Performed By: #### BMP, CBC #### [facility] [address] [place] [address] USAChloride [Moles/Vol]99 mmol/XHmgiao72-411ElecafpcdRegency Hospital CompanyComment on above:Performed By: #### BMP, CBC #### [facility] [address] [place] [address] USACO2 [Moles/Vol]24.1 mmol/BFxsmpx28.0-30.0Reg[facility] Hospital CompanyComment on above:Performed By: #### BMP, CBC #### [facility] [address] [place] [address] USACreatinine [Mass/Vol]1.03 mg/dLNormal0.44-1.03Reg[facility] Hospital CompanyComment on above:Performed By: #### BMP, CBC #### [facility] [address] [place] [id number] USACreatinine Clr Calc Qpanzzee90.28NormChildren's Hospital for RehabilitationComment on above:Performed By: #### BMP, CBC #### [facility] [address] [place] [address] USAEstimated GFR ( Deb> 60NormChildren's Hospital for RehabilitationComment on above:Result Comment: GFR estimated reference range: According to KDOQI guidelines, <60 ml/min/1.73m2 is sufficient to diagnose a patient with chronic kidney disease.Performed By: #### BMP, CBC #### [facility] [address] [place] [address] USAEstimated GFR (Non- Ci62DsfweaYhisxjwptChildren's Hospital for RehabilitationComment on above:Performed By: #### BMP, CBC #### [facility] [address] [place] [id number] USAGlobulin (S) [Mass/Vol]3.6 g/dLNoParkwood HospitalComment on above:Performed By: #### BMP, CBC #### [facility] [address] [place] [address] USAGlucose [Mass/Vol]97 mg/lJKinxee71-501RopewdhvvRegency Hospital CompanyComment on above:Result Comment: Random Glucose Reference Range is dependent on time and content of last meal. Glucose of more than 200 mg/dL in a nonstressed, ambulatory subject supports the diagnosis of Diabetes Mellitus. ADA recommended reference rangePerformed By: #### BMP, CBC #### [facility] [address] [place] [id number] USAPotassium [Moles/Vol]4.3 mmol/LNormal3.5-5.1FProMedica Fostoria Community HospitalComment on above:Performed By: #### BMP, CBC #### [facility] [address] [place] [id number] USAProtein [Mass/Vol]6.1 g/dLNormal6.1-7.9Reg[facility] Hospital CompanyComment on above:Performed By: #### BMP, CBC #### [facility] [address] [place] [id number] USASodium [Moles/Vol]133 mmol/ISae656-877EremfmlxiRegency Hospital CompanyComment on above:Performed By: #### BMP, CBC #### [facility] [address] [place] [id number] USAUrea nitrogen [Mass/Vol]32 mg/dLHigh9-23Reg[facility] Hospital CompanyComment on above:Performed By: #### BMP, CBC #### [facility] [address] [place] [address] USAGlobulin Calc (S) [Mass/Vol]Ordered By: Tasneem Cabrales on 01-51-5885Weafjbwo (S) [Mass/Vol]3.6 g/dLRegency Hospital Company Prealbuminon 21-47-8777Dvfglxfgao [Mass/Vol]12.0 mg/dLLow18.0-38.0Reg[facility] Hospital CompanyComment on above:Result Comment: PERFORMED BY: [place] [id number] PATHOLOGIST FILM OR TAPE LIBRARIAN MICHAEL RYAN M.D.Performed By: #### BMP, CBC #### [place] [id number] USAProtein [Mass/volume] in Serum or PlasmaOrdered By: Tasneem Cabrales on 40-99-7110Lhduwpe [Mass/Vol]6.1 g/dL6.1-7.9[facility] Medical Centererum or plasma alanine aminotransferase measurement without P-5'-P (enzymatic activiOrdered By: Tasneem Cabrales on 12-08-9850DCI No additional P-5'-P [Catalytic activity/Vol]12 U/Z33-96QnhmswvuiUniversity Hospitals Ahuja Medical Centererum or plasma albumin/globulin mass ratioOrdered By: Tasneem Cabrales on 61-30-6588Svvavuk/Globulin [Mass ratio]0.7 {ratio}[facility] Centererum or plasma alkaline phosphatase measurement (enzymatic activity/volume)Ordered By: Tasneem Cabrales on 52-28-0552WEU [Catalytic activity/Vol]40 U/W15-09SvvkvskowUniversity Hospitals Ahuja Medical Centererum or plasma aspartate aminotransferase measurement (enzymatic activity/volume)Ordered By: Tasneem Cabrales on 49-13-7275DXX [Catalytic activity/Vol]13 U/E54-57AsbdayyzdUniversity Hospitals Ahuja Medical Centererum or plasma prealbumin measurement (mass/volume) Ordered By: Tasneem Cabrales on 25-36-9589Sdubdojxti [Mass/Vol]12.0 mg/dL 18.0-38.0[facility] Centererum or plasma total bilirubin measurement (mass/volume)Ordered By: Tasneem Cabrales on 12-17-4627Kmsgotami [Mass/Vol]0.4 mg/dL0.3-1.2FProMedica Fostoria Community HospitalXR chest 1V portable on 64-34-5397FS chest 1V portableUC [facility] Main [address] [address] XRay Report Signed Patient: Zahida Batista MR#: [id number] 151 : 1935 Acct:[id number] Age/Sex: 87 / F ADM Date: 11/25/22 Loc: Room: 0F2062-2 Type: ADM IN Attending Dr: Christian Aleman DO Copies to: Dulce Hubbard APRN, ACNJasmyne-DMITRIY Aleman DO Ordering Provider: Dulce Hubbard APRN, [...] Sosa Allison M.D.11/30/2022 7:53 AM Dictation Location: [place] [address] Transcribed By: FILIPE 11/30/22 0753 Dictated By: Sosa Allison MD 11/30/22 0750 Signed By: 11/30/22 0753NoParkwood HospitalXR chest 1V portableon 51-91-6780WV chest 1V portableUC [facility] Main [address] [address] XRay Report Signed Patient: Zahida Batista MR#: [id number] 151 : 1935 Acct:[id number] Age/Sex: 87 / F ADM Date: 11/25/22 Loc: 4N Room: 7V3132-4 Type: ADM IN Attending Dr: Christian Aleman DO Copies to: Dulce Hubbard APRN, [facility] Christian Aleman DO Ordering Provider: Dulce Hubbard APRN [facility] Date of Service: 11/29/22 XR/XR chest 1V [...] Thiago Chowdhury M.D.11/29/2022 4:05 PM Dictation Location: [place] [address] Transcribed By: [facility] 11/29/22 1605 Dictated By: Thiago Chowdhury DO 11/29/22 1603 Signed By: 11/29/22 1605Premier HealthXR chest 2V*on 12-65-2739TK chest 2V*[place] [address] XRay Report Signed Patient: Zahida Batista MR#: [id number] 151 : 1935 Acct:[id number] Age/Sex: 87 / F ADM Date: 11/25/22 Loc: 4N Room: [id number] Type: ADM IN Attending Dr: Kayleen Schmid [...] Thiago Chowdhury M.D.11/29/2022 8:15 AM Dictation Location: [place] [address] Transcribed By: [facility] 11/29/22814 Dictated By: Thiago Chowdhury DO 11/29/22 0805 Signed By: 11/29/22 0815NoParkwood HospitalBasic Metabolic Panelon 87-27-3272Uqajy gap [Moles/Vol]12.3 mmol/LNormal6.0-15.0Reg[facility] Hospital CompanyComment on above:Performed By: #### BMP, CBC #### [facility] [address] [place] [address] USACalcium [Mass/Vol]8.8 mg/dLNormal8.2-10.2FProMedica Fostoria Community HospitalComment on above:Performed By: #### BMP, CBC #### [facility] [address] [place] [address] USAChloride [Moles/Vol]99 mmol/QGjszni78-440PjiuralclRegency Hospital CompanyComment on above:Performed By: #### BMP, CBC #### [facility] [address] [place] [address] USACO2 [Moles/Vol]23.9 mmol/XZundkb17.0-30.0[facility] Hospital CompanyComment on above:Performed By: #### BMP, CBC #### [facility] [address] [place] [address] USACreatinine [Mass/Vol]1.22 mg/dLHigh0.44-1.03Reg[facility] Hospital CompanyComment on above:Performed By: #### BMP, CBC #### [facility] [address] [place] [address] USACreatinine Clr Calc Xxyqmgeo57.01Premier HealthComment on above:Result Comment: PERFORMED BY: [place] [address] PATHOLOGIST FILM OR TAPE LIBRARIAN MICHAEL RYAN M.D.Performed By: #### BMP, CBC #### [place] [address] USAEstimated GFR ( Spyuryw32AjfxugIbultjlnmPremier HealthComment on above:Result Comment: GFR estimated reference range: According to KDOQI guidelines, <60 ml/min/1.73m2 is sufficient to diagnose a patient with chronic kidney disease.Performed By: #### BMP, CBC #### [place] [address] USAEstimated GFR (Non- Cl57RtsmlpPlmprcvhbPremier HealthComment on above:Performed By: #### BMP, CBC #### [place] [address] USAGlucose [Mass/Vol]118 mg/mQUult09-346AhazdkvizRegency Hospital CompanyComment on above:Result Comment: Random Glucose Reference Range is dependent on time and content of last meal. Glucose of more than 200 mg/dL in a nonstressed, ambulatory subject supports the diagnosis of Diabetes Mellitus. ADA recommended reference rangePerformed By: #### BMP, CBC #### [place] [address] USAPotassium [Moles/Vol]4.2 mmol/LNormal3.5-5.1FProMedica Fostoria Community HospitalComment on above:Performed By: #### BMP, CBC #### [place] [address] USASodium [Moles/Vol]131 mmol/SIhg698-194KokhvdhhrRegency Hospital CompanyComment on above:Performed By: #### BMP, CBC #### [place] [address] USAUrea nitrogen [Mass/Vol]29 mg/dLHigh9-23Reg[facility] Hospital CompanyComment on above:Performed By: #### BMP, CBC #### [facility] [address] [place] [address] USABasophils Auto (Bld) [#/Vol]Ordered By: Kayleen Schmid on 39-64-6748Ytcwacwaw (Bld) [#/Vol]0.0 10*3/uL0.0-0.2FProMedica Fostoria Community HospitalBasophils/100 WBC Auto (Bld)Ordered By: Kayleen Schmid on 11-28-2022 Basophils/100 WBC (Bld)0.5 %.[facility] Hospital CompanyComplete Blood Count Auto Diffon 89-15-4449Pmwuokfxe (Bld) [#/Vol]0.0 10*3/uLNormal0.0-0.2 [facility] Hospital CompanyComment on above:Result Comment: PERFORMED BY: [place] [address] PATHOLOGIST FILM OR TAPE LIBRARIAN MICHAEL RYAN M.D.Performed By: #### BMP, CBC #### [place] [address] USABasophils/100 WBC (Bld)0.5 %Normal.[facility] Hospital CompanyComment on above:Performed By: #### BMP, CBC #### [place] [address] USAEosinophils (Bld) [#/Vol]0.1 10*3/uLNormal0.0-0.45 [facility] Hospital CompanyComment on above:Performed By: #### BMP, CBC #### [place] [address] USAEosinophils/100 WBC (Bld)1.7 %Normal.[facility] Hospital CompanyComment on above:Performed By: #### BMP, CBC #### [place] [address] USAErythrocyte distribution width (RBC) [Ratio]16.1 %High 11.9-15.3Firelands Regional Medical CenterComment on above:Performed By: #### BMP, CBC #### [place] [address] USAHematocrit (Bld) [Volume fraction]29.2 %Low34.0-46.4 [facility] Hospital CompanyComment on above:Performed By: #### BMP, CBC #### [place] [address] USAHemoglobin (Bld) [Mass/Vol]9.5 g/dLLow11.8-15.4FProMedica Fostoria Community HospitalComment on above:Performed By: #### BMP, CBC #### [place] [address] USALymphocytes (Bld) [#/Vol]1.3 10*3/uLNormal1.00-4.8 [facility] Hospital CompanyComment on above:Performed By: #### BMP, CBC #### [place] [address] USALymphocytes/100 WBC (Bld)15.4 %Normal.[facility] Hospital CompanyComment on above:Performed By: #### BMP, CBC #### [place] [address] USAMCH (RBC) [Entitic mass]26.5 vjIfhqfi67.7-34.3FProMedica Fostoria Community HospitalComment on above:Performed By: #### BMP, CBC #### [place] [address] USAMCV (RBC) [Entitic vol]81.6 vPLikoos33-594MjlhyiekwRegency Hospital CompanyComment on above:Performed By: #### BMP, CBC #### [place] [address] USAMean Corpuscular HGB Conc32.5 g/xDDvtywi98.0-35.0[facility] Hospital CompanyComment on above:Performed By: #### BMP, CBC #### [place] [address] USAMonocytes (Bld) [#/Vol]1.1 10*3/uLHigh0.0-0.8Reg[facility] Hospital CompanyComment on above:Performed By: #### BMP, CBC #### [facility] [address] [place] [address] USAMonocytes/100 WBC (Bld)13.1 %Normal.[facility] Hospital CompanyComment on above:Performed By: #### BMP, CBC #### [facility] [address] [place] [address] USANeutrophils (Bld) [#/Vol]5.9 10*3/uLNormal1.8-7.7FProMedica Fostoria Community HospitalComment on above:Performed By: #### BMP, CBC #### [place] [address] USANeutrophils/100 WBC (Bld)69.3 %Normal.[facility] Hospital CompanyComment on above:Performed By: #### BMP, CBC #### [facility] [address] [place] [address] USANRBC%0.0 /100{WBC}Normal0-0.5FProMedica Fostoria Community HospitalComment on above:Performed By: #### BMP, CBC #### [place] [address] USAPlatelet mean volume (Bld) [Entitic vol]6.9 fLNormal 6.3-10.7FProMedica Fostoria Community HospitalComment on above:Performed By: #### BMP, CBC #### [facility] [address] [place] [address] USAPlatelets (Bld) [#/Vol]321 10*3/dGLyyaim165-897GptcmanwyRegency Hospital CompanyComment on above:Performed By: #### BMP, CBC #### [facility] [address] [place] [address] USARBC (Bld) [#/Vol]3.58 10*6/uLLow3.60-5.00[facility] Hospital CompanyComment on above:Performed By: #### BMP, CBC #### [facility] [address] [place] [address] USAWBC (Bld) [#/Vol]8.5 10*3/uLNormal3.8-11.6FProMedica Fostoria Community HospitalComment on above:Performed By: #### BMP, CBC #### [facility] [address] [place] [address] USACreatinine and Glomerular filtration rate.predicted panel (S/P/Bld)Ordered By: Kayleen Schmid on 18-62-5775Lavcxfgozu [Mass/Vol]1.22 mg/dL0.44-1.03Reg[facility] Hospital CompanyEosinophils Auto (Bld) [#/Vol] Ordered By: Kayleen Schmid on 47-00-7215Fcbbkipuzhl (Bld) [#/Vol]0.1 10*3/uL 0.0-0.45[facility] Hospital CompanyEosinophils/100 WBC Auto (Bld)Ordered By: Kayleen Schmid on 08-49-8808Bkxohbhqnmq/100 WBC (Bld)1.7 %.[facility] Hospital CompanyErythrocyte distribution width Auto (RBC) [Ratio]Ordered By: Kayleen Schmid on 84-52-9623Qyydvknwgky distribution width (RBC) [Ratio] 16.1 %11.9-15.3FProMedica Fostoria Community HospitalEstimated glomerular filtration rate (GFR) non- AmericanOrdered By: Kayleen Schmid on 06-25-3759SLX/1.73 sq M.predicted among non-blacks MDRD (S/P/Bld) [Vol rate/Area]42 mL/Min [facility] Hospital CompanyHematocrit Auto (Bld) [Volume fraction]Ordered By: Kayleen Schmid on 36-65-2783Dbhwpdsdri (Bld) [Volume fraction]29.2 % 34.0-46.4FProMedica Fostoria Community HospitalHemoglobin [Mass/volume] in Blood Ordered By: Kayleen Schmid on 82-20-3926Jalffrshfi (Bld) [Mass/Vol]9.5 g/dL 11.8-15.4FProMedica Fostoria Community HospitalLeukocytes [#/volume] corrected for nucleated erythrocytes in Blood by Automated counOrdered By: Kayleen Schmid on 98-67-9439SJY corrected for nucl RBC Auto (Bld) [#/Vol]8.5 10*3/uL3.8-11.6 [facility] CompanyLymphocytes Auto (Bld) [#/Vol]Ordered By: Kayleen Schmid on 79-80-7266Rxmiqbfxyvk (Bld) [#/Vol]1.3 10*3/uL1.00-4.8[facility] Hospital CompanyLymphocytes/100 WBC Auto (Bld)Ordered By: Kayleen Schmid on 50-26-7583Budnbixoecq/100 WBC (Bld)15.4 %.[facility] MCH Auto (RBC) [Entitic mass]Ordered By: Kayleen Schmid on 90-86-6393SXB (RBC) [Entitic mass]26.5 pg24.7-34.3FProMedica Fostoria Community HospitalMCHC Auto (RBC) [Mass/Vol]Ordered By: Kayleen Schmid on 63-13-3035IPSJ (RBC) [Mass/Vol]32.5 g/dL32.0-35.0[facility] CompanyMCV Auto (RBC) [Entitic vol] Ordered By: Kayleen Schmid on 79-83-6585WXM (RBC) [Entitic vol]81.6 mK11-620 [facility] CompanyMonocytes Auto (Bld) [#/Vol]Ordered By: Kayleen Schmid on 44-87-1263Hxjrrocas (Bld) [#/Vol]1.1 10*3/uL0.0-0.8[facility] CompanyMonocytes/100 WBC Auto (Bld)Ordered By: Kayleen Schmid on 64-49-3999Pbeabpygi/100 WBC (Bld)13.1 %.[facility] Neutrophils Auto (Bld) [#/Vol]Ordered By: Kayleen Schmid on 11-28-2022 Neutrophils (Bld) [#/Vol]5.9 10*3/uL1.8-7.7[facility] Neutrophils/100 WBC Auto (Bld)Ordered By: Kayleen Schmid on 11-28-2022 Neutrophils/100 WBC (Bld)69.3 %.[facility] CompanyNo Panel InformationOrdered By: Kayleen Schmid on 58-06-8241Vuskxwepg GFR ()51 mL/MinRegency Hospital CompanyComment on above:GFR estimated reference range: According to KDOQI guidelines, <60 ml/min/1.73m2 is sufficient todiagnose a patient with chronic kidney disease.Pharmacy Creatinine Clearance (Chem34.[facility] Hospital CompanyNucleated erythrocytes [Presence] in Blood by Automated countOrdered By: Kayleen Schmid on 11-28-2022 Nucleated RBC Auto Ql (Bld)0.0 /100{WBC}0-0.5FProMedica Fostoria Community Hospital Platelet mean volume Auto (Bld) [Entitic vol]Ordered By: Kayleen Schmid on 40-84-2253Fcqcvqvi mean volume (Bld) [Entitic vol]6.9 fL6.3-10.7FProMedica Fostoria Community HospitalPlatelets Auto (Bld) [#/Vol]Ordered By: Kayleen Schmid on 72-92-4387Vjzyysbsw (Bld) [#/Vol]321 10*3/tL922-108HtgpgepjcRegency Hospital CompanyRBC Auto (Bld) [#/Vol]Ordered By: Kayleen Schmid on 94-91-3925SIL (Bld) [#/Vol]3.58 10*6/uL3.60-5.00[facility] Centererum or plasma anion gap determinationOrdered By: Kayleen Schmid on 05-16-3904Mmhzl gap [Moles/Vol]12.3 mmol/L6.0-15.0[facility] Centererum or plasma calcium measurement (mass/volume)Ordered By: Kayleen Schmid on 11-28-2022 Calcium [Mass/Vol]8.8 mg/dL8.2-10.2FPike Community Hospitalerum or plasma chloride measurement (moles/volume)Ordered By: Kayleen Schmid on 29-55-7107Zqxpxsvs [Moles/Vol]99 mmol/K92-525ItlfcidjfRegency Hospital Company Serum or plasma glucose measurement (mass/volume)Ordered By: Kayleen Schmid on 15-74-6299Oqwmhrs [Mass/Vol]118 mg/mZ97-264WmlaqlazrRegency Hospital Company Comment on above:ADA recommended reference rangeRandom Glucose Reference Range is dependent on time and content of last meal. Glucose of more than 200 mg/dL in a nonstressed, ambulatory subject supports the diagnosisof Diabetes Mellitus. Serum or plasma potassium measurement (moles/volume)Ordered By: Kayleen Schmid on 03-50-0392Qmzzcjjnl [Moles/Vol]4.2 mmol/L3.5-5.1FPike Community Hospitalerum or plasma sodium measurement (moles/volume)Ordered By: Kayleen Schmid on 32-27-9734Owggsr [Moles/Vol]131 mmol/Q662-223EyaczgadzUniversity Hospitals Ahuja Medical Centererum or plasma total carbon dioxide measurement (moles/volume) Ordered By: Kayleen Schmid on 99-21-4005IM9 [Moles/Vol]23.9 mmol/L22.0-30.0 [facility] Centererum or plasma urea nitrogen measurement (mass/volume)Ordered By: Kayleen Schmid on 98-16-2026Skdj nitrogen [Mass/Vol]29 mg/dL9-23Reg[facility] Hospital CompanyWBC Auto (Bld) [#/Vol]Ordered By: Kayleen Schmid on 16-05-8200RXV (Bld) [#/Vol]8.5 10*3/uL3.8-11.6FProMedica Fostoria Community HospitalBasic Metabolic Panelon 46-24-3302Qxidz gap [Moles/Vol] 11.8 mmol/LNormal6.0-15.0[facility] CompanyComment on above: Performed By: #### BMP, CBC #### [facility] [address] [place] [address] USACalcium [Mass/Vol]9.4 mg/dLNormal8.2-10.2FProMedica Fostoria Community HospitalComment on above:Performed By: #### BMP, CBC #### [facility] [address] [place] [address] USAChloride [Moles/Vol]101 mmol/LBxoxhb87-810HlhzuxsowRegency Hospital CompanyComment on above:Performed By: #### BMP, CBC #### [facility] [address] [place] [address] USACO2 [Moles/Vol]28.2 mmol/BSnqtmt01.0-30.0[facility] Hospital CompanyComment on above:Performed By: #### BMP, CBC #### [facility] [address] [place] [address] USACreatinine [Mass/Vol]1.28 mg/dLHigh0.44-1.03[facility] CompanyComment on above:Performed By: #### BMP, CBC #### [place] [address] USACreatinine Clr Calc Oqpiwjpw15.41NoParkwood HospitalComment on above:Result Comment: PERFORMED BY: [place] [address] PATHOLOGIST FILM OR TAPE LIBRARIAN MICHAEL RYAN M.D.Performed By: #### BMP, CBC #### [place] [address] USAEstimated GFR ( Zgubmwa36AobfteGgtiucrvpPremier HealthComment on above:Result Comment: GFR estimated reference range: According to KDOQI guidelines, <60 ml/min/1.73m2 is sufficient to diagnose a patient with chronic kidney disease.Performed By: #### BMP, CBC #### [place] [address] USAEstimated GFR (Non- Lm70CymmbvKxblcybttPremier HealthComment on above:Performed By: #### BMP, CBC #### [place] [address] USAGlucose [Mass/Vol]129 mg/aYQezj13-012TqopuauowRegency Hospital CompanyComment on above:Result Comment: Random Glucose Reference Range is dependent on time and content of last meal. Glucose of more than 200 mg/dL in a nonstressed, ambulatory subject supports the diagnosis of Diabetes Mellitus. ADA recommended reference rangePerformed By: #### BMP, CBC #### [facility] [address] [place] [address] USAPotassium [Moles/Vol]5.0 mmol/LNormal3.5-5.1FProMedica Fostoria Community HospitalComment on above:Performed By: #### BMP, CBC #### [facility] [address] [place] [address] USASodium [Moles/Vol]136 mmol/KMalhbd007-138MqqknlluuRegency Hospital CompanyComment on above:Performed By: #### BMP, CBC #### [facility] [address] [place] [address] USAUrea nitrogen [Mass/Vol]24 mg/dLHigh9-23[facility] Hospital CompanyComment on above:Performed By: #### BMP, CBC #### [place] [address] USAComplete Blood Count Auto Diffon 37-37-2792Lneecqwtp (Bld) [#/Vol]0.0 10*3/uLNormal0.0-0.2FProMedica Fostoria Community HospitalComment on above:Result Comment: PERFORMED BY: [place] [address] PATHOLOGIST FILM OR TAPE LIBRARIAN MICHAEL RYAN M.D.Performed By: #### BMP, CBC #### [place] [address] USABasophils/100 WBC (Bld)0.3 %Normal.[facility] Hospital CompanyComment on above:Performed By: #### BMP, CBC #### [facility] [address] [place] [address] USAEosinophils (Bld) [#/Vol]0.1 10*3/uLNormal0.0-0.45 [facility] CompanyComment on above:Performed By: #### BMP, CBC #### [facility] [address] [place] [address] USAEosinophils/100 WBC (Bld)0.6 %Normal.[facility] Hospital CompanyComment on above:Performed By: #### BMP, CBC #### [facility] [address] [place] [address] USAErythrocyte distribution width (RBC) [Ratio]15.9 %High 11.9-15.3FProMedica Fostoria Community HospitalComment on above:Performed By: #### BMP, CBC #### [facility] [address] [place] [address] USAHematocrit (Bld) [Volume fraction]31.5 %Low34.0-46.4 [facility] CompanyComment on above:Performed By: #### BMP, CBC #### [facility] [address] [place] [address] USAHemoglobin (Bld) [Mass/Vol]10.3 g/dLLow11.8-15.4FProMedica Fostoria Community HospitalComment on above:Performed By: #### BMP, CBC #### [place] [address] USALymphocytes (Bld) [#/Vol]0.8 10*3/uLLow1.00-4.8[facility] Hospital CompanyComment on above:Performed By: #### BMP, CBC #### [facility] [address] [place] [address] USALymphocytes/100 WBC (Bld)8.9 %Normal.[facility] Hospital CompanyComment on above:Performed By: #### BMP, CBC #### [facility] [address] [place] [id number] USAMCH (RBC) [Entitic mass]26.8 twVdnepd05.7-34.3FProMedica Fostoria Community HospitalComment on above:Performed By: #### BMP, CBC #### [facility] [address] [place] [address] USAMCV (RBC) [Entitic vol]81.6 pXCdllnj33-458MkuwqijkpRegency Hospital CompanyCommclaren port huron hospital on above:Performed By: #### BMP, CBC #### [place] [address] USAMean Corpuscular HGB Conc32.8 g/xRKrcwdx32.0-35.0[facility] CompanyComment on above:Performed By: #### BMP, CBC #### [facility] [address] [place] [address] USAMonocytes (Bld) [#/Vol]1.1 10*3/uLHigh0.0-0.8[facility] Hospital CompanyComment on above:Performed By: #### BMP, CBC #### [facility] [address] [place] [address] USAMonocytes/100 WBC (Bld)12.7 %Normal.[facility] Hospital CompanyComment on above:Performed By: #### BMP, CBC #### [facility] [address] [place] [address] USANeutrophils (Bld) [#/Vol]6.8 10*3/uLNormal1.8-7.7FProMedica Fostoria Community HospitalComment on above:Performed By: #### BMP, CBC #### [facility] [address] [place] [address] USANeutrophils/100 WBC (Bld)77.5 %Normal.[facility] Hospital CompanyComment on above:Performed By: #### BMP, CBC #### [facility] [address] [place] [address] USANRBC%0.2 /100{WBC}Normal0-0.5FProMedica Fostoria Community HospitalComment on above:Performed By: #### BMP, CBC #### [facility] [address] [place] [address] USAPlatelet mean volume (Bld) [Entitic vol]7.0 fLNormal 6.3-10.7FProMedica Fostoria Community HospitalComment on above:Performed By: #### BMP, CBC #### [facility] [address] [place] [address] USAPlatelets (Bld) [#/Vol]350 10*3/kWAlcxha150-413WrpbtnnfbRegency Hospital CompanyComment on above:Performed By: #### BMP, CBC #### [facility] [address] [place] [address] USARBC (Bld) [#/Vol]3.86 10*6/uLNormal3.60-5.00[facility] CompanyComment on above:Performed By: #### JESSICA, CBC #### [facility] [address] [place] [address] USAWBC (Bld) [#/Vol]8.8 10*3/uLNormal3.8-11.6FProMedica Fostoria Community HospitalComment on above:Performed By: #### JESSICA, CBC #### [place] [address] USABasic Metabolic Panelon 83-79-3193Wcthq gap [Moles/Vol]9.2 mmol/LNormal6.0-15.0[facility] Hospital CompanyComment on above:Performed By: #### JESSICA, CBC #### [place] [address] USACalcium [Mass/Vol]9.2 mg/dLNormal8.2-10.2FProMedica Fostoria Community HospitalComment on above:Performed By: #### JESSICA, CBC #### [facility] [address] [place] [address] USAChloride [Moles/Vol]103 mmol/XLaukxe50-450AfftxmqzzRegency Hospital CompanyComment on above:Performed By: #### JESSICA, CBC #### [facility] [address] [place] [address] USACO2 [Moles/Vol]27.0 mmol/GBtryhb29.0-30.0[facility] Hospital CompanyComment on above:Performed By: #### JESSICA, CBC #### [facility] [address] [place] [address] USACreatinine [Mass/Vol]1.26 mg/dLHigh0.44-1.03[facility] Hospital CompanyComment on above:Performed By: #### JESSICA, CBC #### [facility] [address] [place] [address] USACreatinine Clr Calc Npynvtog06.93NormalRegency Hospital CompanyComment on above:Result Comment: PERFORMED BY: [place] [address] PATHOLOGIST FILM OR TAPE LIBRARIAN MICHAEL RYAN M.D.Performed By: #### BMP, CBC #### [facility] [address] [place] [address] USAEstimated GFR ( Mxukaod50TyqeshFazbpswuaPremier HealthComment on above:Result Comment: GFR estimated reference range: According to KDOQI guidelines, <60 ml/min/1.73m2 is sufficient to diagnose a patient with chronic kidney disease.Performed By: #### BMP, CBC #### [facility] [address] [place] [address] USAEstimated GFR (Non- Bl09XsmwmpSuqxcpesuPremier HealthComment on above:Performed By: #### BMP, CBC #### [place] [address] USAGlucose [Mass/Vol]119 mg/vMFius11-628LyaznsmxiRegency Hospital CompanyComment on above:Result Comment: Random Glucose Reference Range is dependent on time and content of last meal. Glucose of more than 200 mg/dL in a nonstressed, ambulatory subject supports the diagnosis of Diabetes Mellitus. ADA recommended reference rangePerformed By: #### BMP, CBC #### [facility] [address] [place] [address] USAPotassium [Moles/Vol]4.2 mmol/LNormal3.5-5.1FProMedica Fostoria Community HospitalComment on above:Performed By: #### BMP, CBC #### [facility] [address] [place] [address] USASodium [Moles/Vol]135 mmol/XWvx597-317OppzuxwjfRegency Hospital CompanyComment on above:Performed By: #### BMP, CBC #### [facility] [address] [place] [address] USAUrea nitrogen [Mass/Vol]21 mg/dLNormal9-23[facility] Hospital CompanyComment on above:Performed By: #### BMP, CBC #### [facility] [address] [place] [address] USAComplete Blood Count Auto Diffon 53-68-2570Blatxlizv (Bld) [#/Vol]0.0 10*3/uLNormal0.0-0.2FProMedica Fostoria Community HospitalComment on above:Result Comment: PERFORMED BY: [place] [address] PATHOLOGIST FILM OR TAPE LIBRARIAN MICHAEL RYAN M.D.Performed By: #### BMP, CBC #### [place] [address] USABasophils/100 WBC (Bld)0.7 %Normal.[facility] Hospital CompanyComment on above:Performed By: #### BMP, CBC #### [place] [address] USAEosinophils (Bld) [#/Vol]0.1 10*3/uLNormal0.0-0.45 [facility] CompanyComment on above:Performed By: #### BMP, CBC #### [place] [address] USAEosinophils/100 WBC (Bld)0.7 %Normal.[facility] Hospital CompanyComment on above:Performed By: #### BMP, CBC #### [place] [address] USAErythrocyte distribution width (RBC) [Ratio]16.4 %High 11.9-15.3FProMedica Fostoria Community HospitalComment on above:Performed By: #### BMP, CBC #### [place] [address] USAHematocrit (Bld) [Volume fraction]31.8 %Low34.0-46.4 [facility] CompanyComment on above:Performed By: #### BMP, CBC #### [place] [address] USAHemoglobin (Bld) [Mass/Vol]10.3 g/dLLow11.8-15.4FProMedica Fostoria Community HospitalComment on above:Performed By: #### BMP, CBC #### [place] [address] USALymphocytes (Bld) [#/Vol]1.1 10*3/uLNormal1.00-4.8 [facility] CompanyComment on above:Performed By: #### BMP, CBC #### [facility] [address] [place] [address] USALymphocytes/100 WBC (Bld)15.2 %Normal.[facility] Hospital CompanyComment on above:Performed By: #### BMP, CBC #### [facility] [address]H (RBC) [Entitic mass]26.7 ajWvpktl92.7-34.3FProMedica Fostoria Community HospitalComment on above:Performed By: #### BMP, CBC #### [place] [address] USAMCV (RBC) [Entitic vol]82.0 cLSoefbz12-548HsonpmqriRegency Hospital CompanyComment on above:Performed By: #### BMP, CBC #### [place] [address] USAMean Corpuscular HGB Conc32.6 g/mIUbgvsf46.0-35.0[facility] CompanyComment on above:Performed By: #### BMP, CBC #### [place] [address] USAMonocytes (Bld) [#/Vol]1.0 10*3/uLHigh0.0-0.8[facility] Hospital CompanyComment on above:Performed By: #### BMP, CBC #### [place] [address] USAMonocytes/100 WBC (Bld)13.8 %Normal.[facility] Hospital CompanyComment on above:Performed By: #### BMP, CBC #### [facility] [address] [place] [address] USANeutrophils (Bld) [#/Vol]5.1 10*3/uLNormal1.8-7.7FProMedica Fostoria Community HospitalComment on above:Performed By: #### BMP, CBC #### [place] [address] USANeutrophils/100 WBC (Bld)69.6 %Normal.[facility] CompanyComment on above:Performed By: #### BMP, CBC #### [facility] [address] [place] [address] USANRBC%0.0 /100{WBC}Normal0-0.5FProMedica Fostoria Community HospitalComment on above:Performed By: #### BMP, CBC #### [facility] [address] [place] [address] USAPlatelet mean volume (Bld) [Entitic vol]6.9 fLNormal 6.3-10.7FProMedica Fostoria Community HospitalComment on above:Performed By: #### BMP, CBC #### [place] [address] USAPlatelets (Bld) [#/Vol]349 10*3/cUTcfnwv856-804QfwclgbsbRegency Hospital CompanyComment on above:Performed By: #### BMP, CBC #### [facility] [address] [place] [address] USARBC (Bld) [#/Vol]3.87 10*6/uLNormal3.60-5.00[facility] CompanyComment on above:Performed By: #### BMP, CBC #### [place] [address] USAWBC (Bld) [#/Vol]7.4 10*3/uLNormal3.8-11.6FProMedica Fostoria Community HospitalComment on above:Performed By: #### BMP, CBC #### [facility] [address] [place] [address] USAActivated partial thromboplastin time (aPTT) in platelet poor plasma by coagulation aOrdered By: Graciela Ocasio on 98-08-1173xLTF Coag (PPP) [Time]32.7 s25.1-36.5FProMedica Fostoria Community HospitalAutomated erythrocytes count in urine sediment (number/area)Ordered By: Graciela Ocasio on 43-83-7304UOS Auto (Urine sed) [#/Area]20-49 [HPF]0-4FProMedica Fostoria Community Hospital Automated leukocytes count in urine sediment (number/area)Ordered By: Gracielasarah Ocasio on 91-16-0260JVZ Auto (Urine sed) [#/Area]Innumerable [HPF]0-4FProMedica Fostoria Community HospitalB-Type Natriuretic Peptideon 99-26-4788Xoemxkhmdho peptide B (Bld) [Mass/Vol]60.0 pg/mLNormal5-100[facility] Comment on above:Result Comment: PERFORMED BY: [place] [address] PATHOLOGIST FILM OR TAPE LIBRARIAN MICHAEL RYAN M.D.Performed By: #### BNP #### [facility] [address] [place] [address] USABasic Metabolic Panelon 03-68-9492Dfmha gap [Moles/Vol] 13.5 mmol/LNormal6.0-15.0[facility] Hospital CompanyComment on above: Performed By: #### CBC, BMP, HS TROP #### [facility] [address] [place] [address] USACalcium [Mass/Vol]9.4 mg/dLNormal8.2-10.2FProMedica Fostoria Community HospitalComment on above:Performed By: #### CBC, BMP, HS TROP #### [place] [address] USAChloride [Moles/Vol]100 mmol/OPjjasy29-076EfbniovivRegency Hospital CompanyComment on above:Performed By: #### CBC, BMP, HS TROP #### [facility] [address] [place] [address] USACO2 [Moles/Vol]24.5 mmol/ZDmcqgc96.0-30.0[facility] CompanyComment on above:Performed By: #### CBC, BMP, HS TROP #### [facility] [address] [place] [address] USACreatinine [Mass/Vol]1.31 mg/dLHigh0.44-1.03[facility] CompanyComment on above:Performed By: #### CBC, BMP, HS TROP #### [address] [place] [address] USACreatinine Clr Calc Crkubjkp62.67NoParkwood HospitalComment on above:Result Comment: PERFORMED BY: [place] [address] PATHOLOGIST FILM OR TAPE LIBRARIAN MICHAEL RYAN M.D.Performed By: #### CBC, BMP, HS TROP #### [place] [address] USAEstimated GFR ( Yxitecs33AnmxsaPxfmqutiqPremier HealthComment on above:Result Comment: GFR estimated reference range: According to KDOQI guidelines, <60 ml/min/1.73m2 is sufficient to diagnose a patient with chronic kidney disease.Performed By: #### CBC, BMP, HS TROP #### [place] [address] USAEstimated GFR (Non- Em76ZlyhqrSwskbylonPremier HealthComment on above:Performed By: #### CBC, BMP, HS TROP #### [place] [address] USAGlucose [Mass/Vol]135 mg/pJJatx95-484SwcsktlafRegency Hospital CompanyComment on above:Result Comment: Random Glucose Reference Range is dependent on time and content of last meal. Glucose of more than 200 mg/dL in a nonstressed, ambulatory subject supports the diagnosis of Diabetes Mellitus. ADA recommended reference rangePerformed By: #### CBC, BMP, HS TROP #### [place] [address] USAPotassium [Moles/Vol]4.0 mmol/LNormal3.5-5.1FProMedica Fostoria Community HospitalComment on above:Performed By: #### CBC, BMP, HS TROP #### [place] [address] USASodium [Moles/Vol]134 mmol/FKeu961-669VaasdhgokRegency Hospital CompanyComment on above:Performed By: #### CBC, BMP, HS TROP #### [place] [address] USAUrea nitrogen [Mass/Vol]19 mg/dLNormal08-06Reg[facility] Hospital CompanyComment on above:Performed By: #### CBC, BMP, HS TROP #### [facility] [address] [place] [address] USABasophils Auto (Bld) [#/Vol]Ordered By: Graciela Ocasio on 28-98-3910Gfeuzuxjb (Bld) [#/Vol]0.1 10*3/uL0.0-0.2FProMedica Fostoria Community HospitalBasophils/100 WBC Auto (Bld)Ordered By: Graciela Ocaiso on 11-25-2022 Basophils/100 WBC (Bld)0.8 %.Regency Hospital CompanyBilirubin Auto test strip Ql (U)Ordered By: Graciela Ocasio on 39-40-1278Vjpbirxsx Ql (U)Negative NegativeRegency Hospital CompanyCT cervical spine wo conon 18-81-5910VP cervical spine wo [facility] [place] [address] [place] [address] Scan Report Signed Patient: Zahida Batista MR#: [id number] 151 : 1935 Acct:[id number] Age/Sex: 87 / F ADM Date: 11/25/22 Loc: ER Room: Type: [facility] ER Attending Dr: Copies to: Graciela [...] Thiago Chowdhury M.D.11/25/2022 2:59 PM Dictation Location: [place] [address] Transcribed By: [facility] 11/25/221458 Dictated By: Thiago Chowdhury DO 11/25/221451 Signed By: 11/25/22 1459NoParkwood HospitalCT chest w conon 11-25-2022 CT chest w [facility] [place] [address] [place] [address] CT Scan Report Signed Patient: Zahida Batista MR#: [id number] 151 : 1935 Acct:[id number] Age/Sex: 87 / F ADM Date: 11/25/22 Loc: ER Room: Type: [facility] ER Attending Dr: Copies to: Graciela [...] Thiago Chowdhury M.D.11/25/2022 4:36 PM Dictation Location: [facility] Transcribed By: FILIPE 11/25/22 1636 Dictated By: Thiago Chowdhury DO 11/25/22 1621 Signed By: 11/25/22 1636Premier HealthCT head/brain wo conon 95-69-6656XS head/brain wo [facility] [place] [address] [place] [address] CT Scan Report Signed Patient: Zahida Batista MR#: [id number] 151 : 1935 Acct:[id number] Age/Sex: 87 / F ADM Date: 11/25/22 [...] Thiago Chowdhury M.D.11/25/2022 2:52 PM Dictation Location: [facility] Transcribed By: FILIPE 11/25/22 1452 Dictated By: Thiago Chowdhury DO 11/25/22 1448 Signed By: 11/25/22 1452NoParkwood HospitalCT lumbar spine wo conon 21-30-9956HW lumbar spine wo [facility] [place] [address] CT Scan Report Signed Patient: Zahida Batista MR#: [id number] 151 : 1935 Acct:[id number] Age/Sex: 87 / F ADM Date: 11/25/22 Loc: ER Room: Type: [facility] ER Attending Dr: Copies to: Graciela [...] Thiago Chowdhury M.D.11/25/2022 3:35 PM Dictation Location: [place] [address] Transcribed By: [facility] 11/25/22 1535 Dictated By: Thiago Chowdhury DO 11/25/22 1526 Signed By: 11/25/22 1535Premier HealthCoagulation Profileon 05-07-3619mOPZ Coag (Bld) [Time]32.7 rEzjljj12.1-36.5FProMedica Fostoria Community HospitalComment on above:Result Comment: PERFORMED BY: [place] [address] PATHOLOGIST FILM OR TAPE LIBRARIAN MICHAEL RYAN M.D.Performed By: #### BMP, CBC #### [place] [address] USAINR Coag (PPP) [Relative time]1.5 {INR}NormalRegency Hospital CompanyComment on above:Result Comment: INR Therapeutic Range A) Pre- and [...] patients with mechanical heart valves: 3 - 4.5Performed By: #### BMP, CBC #### [place] [address] USAPT Coag (PPP) [Time]17.4 sHigh9.0-12.9Reg[facility] Hospital CompanyComment on above:Performed By: #### BMP, CBC #### [place] [address] USAComplete Blood Count Auto Diffon 20-69-2456Byvpvjois (Bld) [#/Vol]0.1 10*3/uLNormal0.0-0.2FProMedica Fostoria Community HospitalComment on above:Result Comment: PERFORMED BY: [place] [address] PATHOLOGIST FILM OR TAPE LIBRARIAN MICHAEL RYAN M.D.Performed By: #### CBC, BMP, HS TROP #### [place] [address] USABasophils/100 WBC (Bld)0.8 %Normal.[facility] Hospital CompanyComment on above:Performed By: #### CBC, BMP, HS TROP #### [place] [address] USAEosinophils (Bld) [#/Vol]0.1 10*3/uLNormal0.0-0.45 [facility] CompanyComment on above:Performed By: #### CBC, BMP, HS TROP #### [facility] [address] [place] [address] USAEosinophils/100 WBC (Bld)1.6 %Normal.[facility] Hospital CompanyComment on above:Performed By: #### CBC, BMP, HS TROP #### [facility] [address] [place] [address] USAErythrocyte distribution width (RBC) [Ratio]16.2 %High 11.9-15.3FProMedica Fostoria Community HospitalComment on above:Performed By: #### CBC, BMP, HS TROP #### [facility] [address] [place] [address] USAHematocrit (Bld) [Volume fraction]30.5 %Low34.0-46.4 [facility] CompanyComment on above:Performed By: #### CBC, BMP, HS TROP #### [facility] [address] [place] [address] USAHemoglobin (Bld) [Mass/Vol]9.9 g/dLLow11.8-15.4FProMedica Fostoria Community HospitalComment on above:Performed By: #### CBC, BMP, HS TROP #### [facility] [address] [place] [address] USALymphocytes (Bld) [#/Vol]1.1 10*3/uLNormal1.00-4.8 [facility] CompanyComment on above:Performed By: #### CBC, BMP, HS TROP #### [facility] [address] [place] [address] USALymphocytes/100 WBC (Bld)13.1 %Normal.[facility] Hospital CompanyComment on above:Performed By: #### CBC, BMP, HS TROP #### [facility] [address] [place] [address] USAMCH (RBC) [Entitic mass]26.7 nuMapjmw85.7-34.3FProMedica Fostoria Community HospitalComment on above:Performed By: #### CBC, BMP, HS TROP #### [facility] [address] [place] [address] USAMCV (RBC) [Entitic vol]82.3 yYTsrxvy81-480OzpejkttlRegency Hospital CompanyComment on above:Performed By: #### CBC, BMP, HS TROP #### [facility] [address] [place] [address] USAMean Corpuscular HGB Conc32.4 g/fJEzwozp90.0-35.0[facility] CompanyComment on above:Performed By: #### CBC, BMP, HS TROP #### [facility] [address] [place] [address] USAMonocytes (Bld) [#/Vol]0.9 10*3/uLHigh0.0-0.8[facility] Hospital CompanyComment on above:Performed By: #### CBC, BMP, HS TROP #### [facility] [address] [place] [address] USAMonocytes/100 WBC (Bld)18.67 %Normal0.00-20.00[facility] CompanyComment on above:Performed By: #### CBC, BMP, HS TROP #### [place] [address] USAMonocytes/100 WBC (Bld)10.4 %Normal.[facility] Hospital CompanyComment on above:Performed By: #### CBC, BMP, HS TROP #### [facility] [address] [place] [address] USANeutrophils (Bld) [#/Vol]6.4 10*3/uLNormal1.8-7.7FProMedica Fostoria Community HospitalComment on above:Performed By: #### CBC, BMP, HS TROP #### [facility] [address] [place] [address] USANeutrophils/100 WBC (Bld)74.1 %Normal.[facility] Hospital CompanyComment on above:Performed By: #### CBC, BMP, HS TROP #### [facility] [address] [place] [address] USANRBC%0.1 /100{WBC}Normal0-0.5FProMedica Fostoria Community HospitalComment on above:Performed By: #### CBC, BMP, HS TROP #### [facility] [address] [place] [address] USAPlatelet mean volume (Bld) [Entitic vol]6.7 fLNormal 6.3-10.7FProMedica Fostoria Community HospitalComment on above:Performed By: #### CBC, BMP, HS TROP #### [facility] [address] [place] [address] USAPlatelets (Bld) [#/Vol]323 10*3/eBKhpnst171-652FwklbsrjdRegency Hospital CompanyComment on above:Performed By: #### CBC, BMP, HS TROP #### [facility] [address] [place] [address] USARBC (Bld) [#/Vol]3.70 10*6/uLNormal3.60-5.00[facility] CompanyComment on above:Performed By: #### CBC, BMP, HS TROP #### [facility] [address] [place] [address] USAWBC (Bld) [#/Vol]8.7 10*3/uLNormal3.8-11.6FProMedica Fostoria Community HospitalComment on above:Performed By: #### CBC, BMP, HS TROP #### [facility] [address] [place] [address] USACreatinine and Glomerular filtration rate.predicted panel (S/P/Bld)Ordered By: Graciela Ocasio on 27-61-8262Sphtwtqngz [Mass/Vol]1.31 mg/dL 0.44-1.03Regency Hospital CompanyDipstick and Microscopicon 11-25-2022 Appearance (U)TurbidCritically abnormalCleCleveland Clinic Lutheran Hospital Comment on above:Order Comment: Name Collection Type:: Clean-Voided Midstream Performed By: #### BMP, CBC #### [facility] [address] [place] [address] USABacteria,UrineNone SeenNormalNone SeenRegency Hospital CompanyComment on above:Order Comment: Name Collection Type:: Clean- Voided MidstreamPerformed By: #### BMP, CBC #### [facility] [address] [place] [address] USABilirubin,UrineNegativeNormalNegativeRegency Hospital CompanyComment on above:Order Comment: Name Collection Type:: Clean- Voided MidstreamPerformed By: #### BMP, CBC #### [place] [address] USAColor (U)Dark YellowCritically abnormalYellowRegency Hospital CompanyComment on above:Order Comment: Name Collection Type:: Clean-Voided MidstreamPerformed By: #### BMP, CBC #### [place] [address] USAGlucose Ql (U)NormalNormalNormChildren's Hospital for RehabilitationComment on above:Order Comment: Name Collection Type:: Clean-Voided MidstreamPerformed By: #### BMP, CBC #### [place] [address] USAHyaline Casts,Shtfo0-4Mvcqxq0-0XfbytxdwrRegency Hospital CompanyComment on above:Order Comment: Name Collection Type:: Clean-Voided MidstreamResult Comment: PERFORMED BY: [place] [address] PATHOLOGIST FILM OR TAPE LIBRARIAN MICHAEL RYAN M.D.Performed By: #### BMP, CBC #### [facility] [address] [place] [address] USAKetones Ql (U)TraceHighNegativeRegency Hospital CompanyComment on above:Order Comment: Name Collection Type:: Clean-Voided MidstreamPerformed By: #### BMP, CBC #### [place] [id number] USALeukocyte esterase Test strip Ql (U)3+HighNegative [facility] Hospital CompanyComment on above:Order Comment: Name Collection Type:: Clean-Voided MidstreamPerformed By: #### BMP, CBC #### [place] [address] USANitrite,UrinePositiveHighNegKettering Health Main CampusComment on above:Order Comment: Name Collection Type:: Clean- Voided MidstreamPerformed By: #### BMP, CBC #### [place] [address] USAOccult Blood,Urine3+HighNegKettering Health Main CampusComment on above:Order Comment: Name Collection Type:: Clean-Voided MidstreamResult Comment: PERFORMED BY: [place] [address] PATHOLOGIST FILM OR TAPE LIBRARIAN MICHAEL RYAN M.D.Performed By: #### BMP, CBC #### [place] [address] USApH (U)6.5 [pH]Normal5.0-9.0Reg[facility] Hospital CompanyComment on above:Order Comment: Name Collection Type:: Clean-Voided MidstreamPerformed By: #### BMP, CBC #### [place] [address] USAProtein (U) [Mass/Vol]100 mg/dLOhioHealth Grove City Methodist HospitalComment on above:Order Comment: Name Collection Type:: Clean-Voided MidstreamPerformed By: #### BMP, CBC #### [place] [address] USARBC,Kssox07-72Msyt8-0OprtuwbfjProMedica Fostoria Community Hospital Comment on above:Order Comment: Name Collection Type:: Clean-Voided Midstream Performed By: #### BMP, CBC #### [place] [address] USASpecificy [place],Urine1.386Qyinjk5.001-1.030[facility] Hospital CompanyComment on above:Order Comment: Name Collection Type:: Clean-Voided MidstreamPerformed By: #### BMP, CBC #### [place] [address] USASquamous Epithelial Cell,Srhww0-1Rkefcc6-5NsiechoxzProMedica Fostoria Community HospitalComment on above:Order Comment: Name Collection Type:: Clean-Voided MidstreamPerformed By: #### BMP, CBC #### [facility] [address] [place] [address] USAUrobilinogen,UrineNormalNormalNormalRegency Hospital CompanyComment on above:Order Comment: Name Collection Type:: Clean- Voided MidstreamPerformed By: #### BMP, CBC #### [facility] [address] [place] [address] USAWBC,UrineInnumerableHigh0-4FProMedica Fostoria Community HospitalComment on above:Order Comment: Name Collection Type:: Clean-Voided MidstreamPerformed By: #### BMP, CBC #### [place] [id number] USAECG 12 lead ECGon 06-96-1490NFH 12 lead [facility]UC [facility] [place] [address] [place] [address] Electrocardiograph Report Signed Patient: Zahida Batista MR#: [id number] 151 : 1935 Acct:[id number] Age/Sex: 87 / F ADM Date: 11/25/22 Loc: Room: [address] [place] [address] Type: DIS IN Attending Dr: Christian Aleman [...] ECGs available Confirmed by Demetrius Ocasio DO ([id number]) on 11/25/2022 7:00:05 PM Referred By: Electronically Signed By:Demetrius Ocasio DO Transcribed By: MUS Signed By Demetrius Ocasio DO 3 1900Premier HealthEosinophils Auto (Bld) [#/Vol] Ordered By: Graciela Ocasio on 93-86-1687Qmqbfkceokh (Bld) [#/Vol]0.1 10*3/uL 0.0-0.45[facility] Hospital CompanyEosinophils/100 WBC Auto (Bld)Ordered By: Graciela Ocasio on 56-30-9862Bpxzlfmawck/100 WBC (Bld)1.6 %.[facility] Hospital CompanyErythrocyte distribution width Auto (RBC) [Ratio]Ordered By: Graciela Ocasio on 35-82-9352Bvyshbkluct distribution width (RBC) [Ratio]16.2 %11.9-15.3 [facility] CompanyEstimated glomerular filtration rate (GFR) non- AmericanOrdered By: Graciela Ocasio on 57-25-4052QNZ/1.73 sq M.predicted among non-blacks MDRD (S/P/Bld) [Vol rate/Area]39 mL/MinRegency Hospital CompanyFolate [Mass/volume] in Serum or PlasmaOrdered By: Kayleen Schmid on 99-51-6020Kpafnk [Mass/Vol]ng/mL>5.9[facility] CompanyComment on above:Folate reference range: >5.9 ng/mlThe WHO technical consultation on folate and vitamin g05grsnxidllhst has determined that folate concentrations lessthan 4 ng/ml are considered deficient.Hematocrit Auto (Bld) [Volume fraction]Ordered By: Graciela Ocasio on 55-81-0501Fuaesxawit (Bld) [Volume fraction] 30.5 %34.0-46.4FProMedica Fostoria Community HospitalHemoglobin [Mass/volume] in BloodOrdered By: Graciela Ocasio on 59-47-7972Bupygppwfh (Bld) [Mass/Vol]9.9 g/dL 11.8-15.4FProMedica Fostoria Community HospitalKetones Auto test strip (U) [Mass/Vol] Ordered By: Graciela Ocasio on 53-36-7631Jzxclyy (U) [Mass/Vol]TraceNegative [facility] CompanyLaboratory - Chemistry and Chemistry - challengeOrdered By: Kayleen Schmid on 14-20-4349Sogwsukuf (Vitamin B12) [Mass/Vol]389 pg/qM201-025TugqrbhukRegency Hospital CompanyLaboratory - Chemistry and Chemistry - challengeOrdered By: Graciela Ocasio on 11-25-2022 Natriuretic peptide B (Bld) [Mass/Vol]60.0 pg/mL5-100[facility] CompanyLaboratory - CoagulationOrdered By: Graciela Ocasio on 37-00-4590IK Coag (PPP) [Time]17.4 s9.0-12.9[facility] CompanyLaboratory - Urinalysis Ordered By: Graciela Ocasio on 68-51-1386Nxvoaog casts LM Ql (Urine sed)1-2 [LPF]0-8 [facility] CompanyLeukocytes [#/volume] corrected for nucleated erythrocytes in Blood by Automated counOrdered By: Graciela Ocasio on 00-11-0532KXJ corrected for nucl RBC Auto (Bld) [#/Vol]8.7 10*3/uL3.8-11.6FProMedica Fostoria Community HospitalLymphocytes Auto (Bld) [#/Vol]Ordered By: Graciela Ocasio on 48-04-5183Gekcmtnmezr (Bld) [#/Vol]1.1 10*3/uL1.00-4.8[facility] CompanyLymphocytes/100 WBC Auto (Bld)Ordered By: Graciela Ocasio on 11-25-2022 Lymphocytes/100 WBC (Bld)13.1 %.[facility] Auto (RBC) [Entitic mass]Ordered By: Graciela Ocasio on 72-72-4792YSV (RBC) [Entitic mass]26.7 pg24.7-34.3FProMedica Fostoria Community HospitalMCHC Auto (RBC) [Mass/Vol]Ordered By: Graciela Ocasio on 79-12-6470NDSA (RBC) [Mass/Vol]32.4 g/dL32.0-35.0[facility] CompanyMCV Auto (RBC) [Entitic vol]Ordered By: Graciela Ocasio on 90-71-1600AOY (RBC) [Entitic vol]82.3 tO64-484IemvbavleRegency Hospital Company Monocyte distribution width [Entitic volume] in Blood by AutomatedOrdered By: Graciela Ocasio on 46-05-9601Jzfdepfi distribution width Auto (Bld) [Entitic vol] 18.67 %0.00-20.00[facility] CompanyMonocytes Auto (Bld) [#/Vol] Ordered By: Graciela Ocasio on 53-50-7624Zhjcgzlzc (Bld) [#/Vol]0.9 10*3/uL0.0-0.8 [facility] CompanyMonocytes/100 WBC Auto (Bld)Ordered By: Graciela Ocasio on 63-37-5751Uybkuicca/100 WBC (Bld)10.4 %.[facility] Hospital CompanyNeutrophils Auto (Bld) [#/Vol]Ordered By: Graciela Ocasio on 11-25-2022 Neutrophils (Bld) [#/Vol]6.4 10*3/uL1.8-7.7FProMedica Fostoria Community Hospital Neutrophils/100 WBC Auto (Bld)Ordered By: Graciela Ocasio on 11-25-2022 Neutrophils/100 WBC (Bld)74.1 %.[facility] CompanyNo Panel InformationOrdered By: Graciela Ocasio on 12-91-1157Auqdfmaaa GFR () 47 mL/MinRegency Hospital CompanyComment on above:GFR estimated reference range: According to KDOQI guidelines, <60 ml/min/1.73m2 is sufficient todiagnose a patient with chronic kidney disease.Pharmacy Creatinine Clearance (Chem31.67[facility] Hospital CompanyNucleated erythrocytes [Presence] in Blood by Automated countOrdered By: Graciela Ocasio on 53-44-1311Zdizdrvxd RBC Auto Ql (Bld)0.1 /100{WBC}0-0.5FProMedica Fostoria Community HospitalPlatelet mean volume Auto (Bld) [Entitic vol]Ordered By: Graciela Ocasio on 38-09-0891Nizphupp mean volume (Bld) [Entitic vol]6.7 fL6.3-10.7FProMedica Fostoria Community Hospital Platelet poor plasma international normalized ratio (INR) by coagulation assay (relatOrdered By: Graciela Ocasio on 99-85-1009OMZ Coag (PPP) [Relative time]1.5 {INR}[facility] CompanyComment on above:INR Therapeutic Range A) Pre- and Peroperative OAT started two weeks before surgery. NOT HIP SURGERY: 1.5 - 2.5 HIP SURGERY: 2 - 3B) Primary and secondary prevention of venous THROMBOSIS: 2 - 3C) Active venous thrombosis, pulmonary embolismand prevention of recurrent venous thrombosis: 2 - 3D) Prevention of arterial thromboembolismincluding patients with mechanical heart valves: 3 - 4.5Platelets Auto (Bld) [#/Vol]Ordered By: Graciela Ocasio on 83-14-5854Peojxbdyk (Bld) [#/Vol] 323 10*3/cV615-820HegfndofpRegency Hospital CompanyProtein Auto test strip (U) [Mass/Vol]Ordered By: Graciela Ocasio on 66-17-0423Cbihknk (U) [Mass/Vol]100 mg/dL NegativeRegency Hospital CompanyRBC Auto (Bld) [#/Vol]Ordered By: Graciela Ocasio on 70-56-2395SBI (Bld) [#/Vol]3.70 10*6/uL3.60-5.00[facility]huja Medical Centererum or plasma anion gap determinationOrdered By: Graciela Ocasio on 61-89-6683Yjcol gap [Moles/Vol]13.5 mmol/L6.0-15.0[facility]ja Medical Centererum or plasma calcium measurement (mass/volume)Ordered By: Graciela Ocasio on 80-64-4510Aalycdp [Mass/Vol]9.4 mg/dL8.2-10.2FPike Community Hospitalerum or plasma chloride measurement (moles/volume)Ordered By: Graciela Ocasio on 88-99-0630Ivwuowci [Moles/Vol]100 mmol/N51-051UshfydhtiUniversity Hospitals Ahuja Medical Centererum or plasma glucose measurement (mass/volume)Ordered By: Graciela Ocasio on 00-71-9055Ulfkxfk [Mass/Vol]135 mg/hU08-685TnjvhmwywRegency Hospital Company Comment on above:ADA recommended reference rangeRandom Glucose Reference Range is dependent on time and content of last meal. Glucose of more than 200 mg/dL in a nonstressed, ambulatory subject supports the diagnosisof Diabetes Mellitus. Serum or plasma potassium measurement (moles/volume)Ordered By: Graciela Ocasio on 31-25-5278Ycmeboqxm [Moles/Vol]4.0 mmol/L3.5-5.1FPike Community Hospitalerum or plasma sodium measurement (moles/volume)Ordered By: Graciela Ocasio on 68-44-7105Dtyvqe [Moles/Vol]134 mmol/Z522-801CtscngotwUniversity Hospitals Ahuja Medical Centererum or plasma total carbon dioxide measurement (moles/volume)Ordered By: Graciela Ocasio on 68-65-4065OZ6 [Moles/Vol]24.5 mmol/L22.0-30.0[facility] Medical Centererum or plasma urea nitrogen measurement (mass/volume)Ordered By: Graciela Ocasio on 19-70-9270Nrtk nitrogen [Mass/Vol]19 mg/dL9-23[facility]huja Medical Centerquamous epithelial cells detection in urine sediment by light microscopyOrdered By: Graciela Ocasio on 47-00-3774Stgmcijyae cells.squamous LM Ql (Urine sed)1-2 [HPF]0-2FProMedica Fostoria Community HospitalTS DL <= 0.005 mIU/L Qn Ordered By: Kyaleen Schmid on 62-44-9771WQE Qn2.89 m[IU]/L0.45-5.33[facility] Hospital CompanyThyroid Stimulating Hormoneon 03-16-3615BGW Qn2.89 m[IU]/LNormal0.45-5.33[facility] CompanyComment on above:Result Comment: PERFORMED BY: [address] [address] PATHOLOGIST FILM OR TAPE LIBRARIAN MICHAEL RYAN M.D.Performed By: #### CBC, BMP, HS TROP #### [facility] [address] [place] [address] USATroponin I High Sensitivityon 25-24-9913Vkullqxi I High Sensitivity5 pg/mLNormal0-15[facility] CompanyComment on above: Result Comment: PERFORMED BY: [facility] [address] [place] [address] PATHOLOGIST FILM OR TAPE LIBRARIAN MICHAEL RYAN M.D.Performed By: #### CBC, BMP, HS TROP #### [facility] [address] [place], [place] [address] USATroponin I.cardiac [Mass/volume] in Serum or Plasma by High sensitivity methodOrdered By: Graciela Ocasio on 41-47-2880Pwjuvwgg I.cardiac High sensitivity method [Mass/Vol]5 pg/mL0-[facility] Urine Cultureon 88-38-1390Hrjehblm identified Cx Nom (U)ORGANISM: Pseudomonas aeruginosa (O:PSEAER) [place] Count >100,000 Aerobic LEIA Charge (NMIC56) SUSCEPTIBILITY [...] RESISTANT TO ALL B-LACTAM DRUGS. PERFORMED BY: [place] [address] PATHOLOGIST FILM OR TAPE LIBRARIAN MICHAEL RYAN M.D.Premier HealthComment on above: Performed By: #### BMP, CBC #### [facility] [address] [place] [address] USAUrine appearanceOrdered By: Graciela Ocasio on 11-25-2022 Appearance (U)TurbidCleCleveland Clinic Lutheran HospitalUrine bacteria detection by automated methodOrdered By: Graciela Ocasio on 63-21-5305Lqtsfmew Auto Ql (U)None seenNone SeenRegency Hospital CompanyUrine colorOrdered By: Graciela Ocasio on 46-19-2660Gxlql (U)Dark yellowYellowRegency Hospital CompanyUrine culture routineOrdered By: Graciela Ocasio on 27-02-8736Pmvecubd identified Cx Nom (U)Pseudomonas aeruginosaRegency Hospital Company Urine glucose measurement by automated test strip (mass/volume)Ordered By: Graciela Ocasio on 46-64-2971Smwghmr Auto test strip (U) [Mass/Vol]Normal mg/dLNormal [facility] CompanyUrine hemoglobin detection by automated test stripOrdered By: Graciela Ocasio on 39-98-0578Aquqnttrvx Auto test strip Ql (U)3+ NegativeRegency Hospital CompanyUrine leukocyte esterase detection by automated test stripOrdered By: Graciela Ocasio on 52-88-1538Anfoqptez esterase Auto test strip Ql (U)3+NegativeRegency Hospital CompanyUrine nitrite detection by automated test stripOrdered By: Graciela Ocasio on 36-87-4589Btxhhnf Auto test strip Ql (U)PositiveNegativeRegency Hospital Company Urobilinogen Auto test strip (U) [Mass/Vol]Ordered By: Graciela Ocasio on 11-25-2022 Urobilinogen (U) [Mass/Vol]Normal mg/dLNormChildren's Hospital for Rehabilitation Vit. B12/Folate Profileon 86-89-6604Xfopkvgae (Vitamin B12) [Mass/Vol]389 pg/mL Eimxjj989-551ZxwptnqudRegency Hospital CompanyComment on above:Performed By: #### CBC, BMP, HS TROP #### [facility] [address] [place] [address] USAFolate> 22.3Normal>5.9[facility] Comment on above:Result Comment: Folate reference range: >5.9 ng/ml The WHO technical consultation on folate and vitamin b12 deficiencies has determined that folate concentrations less than 4 ng/ml are considered deficient.Performed By: #### CBC, BMP, HS TROP #### [facility] [address] [place] [address] USAWBC Auto (Bld) [#/Vol]Ordered By: Graciela Ocasio on 05-95-7189PFM (Bld) [#/Vol]8.7 10*3/uL3.8-11.6FProMedica Fostoria Community Hospital XR shoulder RT min 2V*on 63-20-7582NK shoulder RT min 2V*[facility] [address] [place], [place] [address] XRay Report Signed Patient: Zahida Batista MR#: [id number] 151 : 1935 Acct:[id number] Age/Sex: 87 / F ADM Date: 11/25/22 Loc: ER Room: Type: [facility] ER Attending Dr: Copies to: Graciela Ocasio PA-C Ordering Provider: Graciela Ocasio PA-C Date of Service: 11/25/22 XR/XR shoulder RT min 2V*: Fall 3 views plain filmRIGHT shoulder HISTORY:Fell injuring RIGHT shoulder COMPARISON:None No dislocation. Comminuted RIGHT mid clavicle fracture.No significant degeneration. XR/XR shoulder RT min 2V* IMPRESSION:Comminuted RIGHT mid clavicle fracture. Impression dictated by: Thiago Chowdhury M.D.11/25/2022 3:00 PM Dictation Location: [place] [address] Transcribed By: [facility] 11/25/22 1500 Dictated By: Thiago Chowdhury DO 11/25/22 1459 Signed By: 11/25/22 1500NoParkwood HospitalpH Auto test strip (U) Ordered By: Graciela Ocasio on 38-99-2613tX (U)1.020 [pH]1.001-1.030[facility] CompanypH (U)6.5 [pH]5.0-9.0[facility] Office Visiton 27-18-2975Owiwrs-up [id number] Zahida Batista 1935 F Date Provider Department Center 11/23/2022 [facility] Family History Problem Relation Age of Onset Prostate cancer Father Family Status - Relation Status Age at Father Level of Service:52357 [place] OFFICE/OUTPATIENT ESTABLISHED LOW MDM 20-29 MIN Reason for Visit and Comments: Congestive Heart Failure [127] Atrial Fibrillation [80] 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]NormalMartin Memorial Hospital36on Pt needs appt for any further refillsNormalUniversParma Community General Hospital CULTURE URINEon 39-42-4240CFFPJRD URINEIsolate 1 Pseudomonas aeruginosa >100,000 cfu/mL of ORGANISM 1 Pseudomonas aeruginosa ANTIBIOTIC M.I.C RX STATUS Piperacillin/Tazobactam <=4 S F Ceftazidime 2 S F Imipenem 2 S F Amikacin <=2 S F Gentamicin <=1 S F Tobramycin <=1 S F Ciprofloxacin <=0.25 S F Levofloxacin 0.5 S FNTrinity Health System West CampusComment on above:Performed By: #### URCX #### [facility] [address] [place] [address] Dr. Michael DomínguezCULTURE URINEon 61-20-8183SEWJRPV URINEIsolate 1 Escherichia coli >100,000 cfu/ml of ORGANISM [...] >=8 R F Nitrofurantoin <=16 S F Trimethoprim/Sulfamethoxazole <=20 S FNTrinity Health System West CampusComment on above:Performed By: #### URCX #### [facility] [address] [place] [address] Dr. Michael Domínguez Vital Signs Date TimeVital SignValuePerforming BouqrtnyhHnqgbmpx32-34-1616 12:01-0500Body cmaqtn183.72 cmMD Kavon Farrell Work Phone: [facility]01-31-2023 04:04-0500 Body voshdoxpyim66.1 [degF]MD Kavon Farrell Work Phone: [facility]01-31-2023 04:04-0500 Diastolic blood anikfvxm97 mm[Hg]MD Kavon Farrell Work Phone: [phone])[address] [place], [place] 3872201-31-2023 04:04-0500 Heart rate79 /minMD Kavon Farrell Work Phone: [phone])[address] [place], [place] 3872201-31-2023 04:04-0500 Respiratory rate18 /minMD Kavon Farrell Work Phone: [phone])[address] [place], [place] 3872201-31-2023 04:04-0500 SaO2% (BldA) [Mass fraction]92 %MD Kavon Farrell Work Phone: [phone])[address] [place], [place] 3872201-31-2023 04:04-0500 Systolic blood lgkhiwiu496 mm[Hg]MD Kavon Farrell Work Phone: [phone])[address] [place], [place] 3872201-29-2023 06:00-0500 Body rhwjyf15.7 kgMD Kavon Farrell Work Phone: [phone])[address] [place], [place] 3872201-19-2023 00:00-0500 Inhaled oxygen flow rate1.5 L/minMD Kavon Farrell Work Phone: [phone])[address] [place], [place] 3872201-17-2023 11:42-0500 Body .4 [degF]MD Kavon Farrell Work Phone: [phone])[address] [place], [place] 3872201-17-2023 11:42-0500 Diastolic blood olqrasec55 mm[Hg]MD Kavon Farrell Work Phone: 1(482)[address] [place], [place] 3872201-17-2023 11:42-0500 Heart rate90 /minMD Kavon Farrell Work Phone: [phone] [place], [place] 3872201-17-2023 11:42-0500 Inhaled oxygen flow rate2.5 L/minMD Kavon Farrell Work Phone: [phone] [place], [place] 3872201-17-2023 11:42-0500 Respiratory rate16 /minMD Kavon Farrell Work Phone: [phone])[address] [place], [place] 3872201-17-2023 11:42-0500 SaO2% (BldA) [Mass fraction]97 %MD Kavon Farrell Work Phone: [phone] [place], [place] [address]01-17-2023 11:42-0500 Systolic blood uscqbrvh924 mm[Hg]MD Kavon Farrell Work Phone: [phone])[address] [place], [place] 3872201-17-2023 05:12-0500 Body uaivqo95.6 kgMD Kavon Farrell Work Phone: 1(889)[address]01-16-2023 16:08-0500 Body fwobjd290.72 cmMD Kavon Farrell Work Phone: [phone])[address] [place], [place] 3872201-12-2023 18:31-0500 Diastolic blood urdhqnpt02 mm[Hg]MD Kavon Farrell Work Phone: 1(188)[address] [place], [place] 3872201-12-2023 18:31-0500 Heart rate87 /minMD Kavon Farrell Work Phone: 1([phone] [place], [place] 3872201-12-2023 18:31-0500 Respiratory rate18 /minMD Kavon Farrell Work Phone: [phone] [place], [place] 3872201-12-2023 18:31-0500 SaO2% (BldA) [Mass fraction]99 %MD Kavon Farrell Work Phone: 1(769)[address]01-12-2023 18:31-0500 Systolic blood mm[Hg]MD Kavon Farrell Work Phone: 1(026)[address]01-12-2023 13:55-0500 Body hdlibzucbul63.7 [degF]MD Kavon Farrell Work Phone: 1(401)[address]01-12-2023 13:39-0500 Body makxqh653.72 cmMD Kavon Farrell Work Phone: 1(846)[address]01-12-2023 13:39-0500 Body eogigm64.4 kgMD Kavon Farrell Work Phone: 1(745)[address]68 [address]04-22-2022 18:52-0400 Diastolic blood oxeyqybn97 mm[Hg]MD Adrian Rangel Work Phone: [address] [place], [place] 3270804-22-2022 18:52-0400 Heart rate88 /minMD Adrian Rangel Work Phone: 1([phone] [place], [place] 2642204-22-2022 18:52-0400 Respiratory rate18 /minMD Adrian Rangel Work Phone: 1([phone] [place], [place] 2642204-22-2022 18:52-0400 SaO2% (BldA) [Mass fraction]98 %MD Adrian Rangel Work Phone: [phone] [place], [place] 2642204-22-2022 18:52-0400 Systolic blood mm[Hg]MD Adrian Rangel Work Phone: 1(855)[address]04-22-2022 17:23-0400 Body ekwokn900.72 cmMD Adrian Rangel Work Phone: 1(073)[address]04-22-2022 17:23-0400 Body mass index (BMI) [Ratio]22 kg/m2MD Adrian Rangel Work Phone: [phone] [place], [place] 2642204-22-2022 17:23-0400 Body pynkeb41.77 kgMD Adrian Rangel Work Phone: 1(997)757-[address] [place], [place] 2642204-22-2022 17:22-0400 Body oylhcmwswtp82.8 [degF]MD Adrian aRngel Work Phone: [phone] [place] [address] Encounters Encounter DateEncounter TypeCare ProviderFacilityStart: 30-27-8401bahdwitctb PILAR A LEHMANNFacility:[facility] BellevueStart: 09-05-2025 End: 83-66-9768gvsnnoichgPJA PILAR A LEHMANNFacility:[facility] BellevueStart: 08-28-2025 End: 63-30-5770mpscgustodJbazuh E. RossFacility:[facility] BellevueStart: 08-21-2025 End: 30-83-1785vtudnfyzzwNMK PILAR A LEHMANNFacility:[facility] BellevueStart: 08-14-2025 End: 75-44-1024ogibhdvlcvJdvk L SchwabFacility:[facility] BellevueStart: 06-26-2025 End: 51-89-7668dqtmivnygsGILMHE A LEHMANNFacility:[facility] BellevueStart: 06-14-2025 End: 94-21-7987lcubnkishwFKY PILAR A LEHMANNFacility:[facility] BellevueStart: 02-01-2025 End: 79-48-3790uropdbrkldPubnyi E. RossFacility:[facility] BellevueStart: 01-30-2025 End: 81-41-4133icprpnmnesDkzlez E. RossFacility:[facility] BellevueStart: 11-16-2024 End: 52-96-5902aqkliutsvwZoeoer E. RossFacility:[facility] CenterevueStart: 10-31-2024 End: 25-41-9276ztpmazdrroOALRXKAvita Health System Galion Hospitaltart: 10-31-2024 End: 95-55-0296Rkjweegzve hospital visit by Flor Santana MD Work Phone: stvz [place] LAB DOCTORComment on above:Recurrent UTIStart: 09-26-2024 End: 11-12-1529uinhefafzpFQBM [facility] Centertart: 09-26-2024 End: 77-85-8700Xtebuqaajw hospital visit by Flor Santana MD Work Phone: stvz [place] LAB DOCTORComment on above:Frequent UTIStart: 06-25-2024 End: 14-66-1168crkrtczeypHNFNW A POCOSNot AvailableStart: 05-23-2024 End: 84-48-8874uprzqlrwykCVZEE A POCOSNot AvailableStart: 07-01-2023 End: 76-71-7659xtxrlahbxuSDUSMC [facility] Start: 03-16-2023 End: 06-42-9305sqkduaxbafAkusygm Calvey Other [facility] Other Start: 79-97-1113Fhluoyavk encounterColleen CalvAbhilashG [facility] OrthopedicsStart: 29-72-1539Jamysh outpatient visit 15 minutesColleen CalveyFPG [facility] OrthopedicsStart: 03-15-2023 End: 90-54-6040lefymltpxdBxtdoih R CalveyFacility:[facility] Centertart: 03-15-2023 End: 06-77-7707eyyhfxfyflIL Kavon Rob Farrell Work Phone: [facility] Work Phone: Start: 03-15-2023 End: 26-79-8105Rzituon encounter procedureMD Kavon Farrell Work Phone: [facility] Start: 02-10-2023 End: 45-67-0594ikfarcsxzlXRLV L YASIR .Facility:N7Ioklz: 02-01-2023(Post-Op) Post-OpColleen Sparkle [facility] OrthopedicsStart: 02-01-2023 End: 11-99-2867cpwtnqsvsfYng E KnightNort [facility] Other Start: 02-01-2023 End: 74-77-0802Qqqiusy encounter procedureMD Kavon Farrell Work Phone: [facility] Start: 11-30-2022 End: 24-95-3844Tpzjmffvlu and management of inpatientKim E Farrell Facility:[facility] Centertart: 11-30-2022 End: 42-38-3913Ncqxhzdevg and management of inpatientMD Kavon Farrell Work Phone: [facility] Work Phone: Start: 11-25-2022 End: 32-22-4693Dcekngnghr and management of inpatientKim E Farrell Facility:[facility] Centertart: 11-25-2022 End: 71-44-9563Oofxbnnmny and management of inpatientMD Kavon Farrell Work Phone: [facility] Work Phone: Start: 11-23-2022 End: 99-00-3394zarpkdcdaqZUCARKM [facility] Hospitaltart: 10-21-2022 End: 37-11-8713mryztvpclhXDGTOZ CROAKFacility:J3Cwtah: 04-20-2022 End: 36-94-7953hkjnyrvtsnHG KAVON FARRELL .Facility:W5Rqdrx: 03-05-2022 End: 75-97-8561Dsticjxmp department patient visitMD Adrian Rangel Work Phone: [facility]-Emergency Room Procedures DateProcedureProcedure DetailPerforming ClinicianStart: 18-96-3828Kvqug X-ray of right clavicleMD Kavon Cruzight Work Phone: Start: 90-10-6934Elogd X-ray of right clavicleMD Kavon Farrell Work Phone: Start: 46-86-5050Komsv X-ray of right clavicleMD Kavon Farrell Work Phone: Start: 29-15-4975Hjutl chest X-rayMD Kavon Farrell Work Phone: Start: 67-57-8689Haqfv chest X-rayMD Kavon Farrell Work Phone: Start: 11-29-2022 End: 09-86-9332Ttaju chest X-rayMD Kavon Farrell Work Phone: Start: 65-05-4989VO of thorax with contrastMD Kavon Farrell Work Phone: Start: 66-21-0225Ktweo cultureMD Kavon Farrell Work Phone: Start: 61-07-1888VC of lumbar spine without contrastMD Kavon Farrell Work Phone: Start: 01-91-0934SG cervical spine without contrastMD Kavon Farrell Work Phone: Start: 57-42-0872KE of head without contrastMD Kavon Farrell Work Phone: Start: 95-33-3685Lskjo X-ray of right shoulderMD Kavon Farrell Work Phone: Start: 55-71-8838GS of head without contrastMD Adrian Rangel Work Phone: Start: 82-67-1240Rlpil X-ray of left elbowMD Adrian Rangel Work Phone: Plan of Treatment DateCare ActivityDetailAuthorStart: 09-56-7758ugitfcqcfgLmnnvzsomsFxpfpnbp:FT [facility]vueStart: 98-40-6315fkuoxyqbjkHpjfzufjcnVmjyvllz:FT [facility] [place]vueStart: 10-31-2024 End: [id number] encounter cpkygqplb38/18/2024 2:00 PM EST Office Visit [facility] Urogynecology and Pelvic Rehabilitation [address] [place] [address] [place] [id number] Desirae Ramos, ROLLER [place] [address] [place] [address] [address] [place], [place] [id number] 4 weeks (around 10/24/2024) for [facility] and Pelvic RehabilitationComment on above:4 weeks (around 10/24/2024) for Follow up on recurrent UTIsStart: 81-96-2132STFCF-19 Vaccine ( season)COVID-19 Vaccine ( season)[facility] Start: 31-55-6213Coystn Wellness Visit (Medicare)Annual Wellness Visit (Medicare)[facility] CenterStart: 63-61-2422Rkjqjijcc vaccinationFlu vaccine (#1)[facility] CenterStart: 15-71-0576VwpnzohrnUniversity Hospitals Ahuja Medical Centertart: 90-50-4192Hvjfcgbcqornre of prophylactic treatmentUniversity Hospitals Ahuja Medical Centertart: 11-30-2022 End: 13-41-6906MhhwoiqxyUniversity Hospitals Ahuja Medical Centertart: 49-90-8697Vcrpfsqz admissionUniversity Hospitals Ahuja Medical Centertart: 74-14-2667Lytsgoru to clinical allergistAultman Orrville Hospital CenterStart: 47-95-5178Xbanl chemistry [facility] CenterStart: 56-68-1021AzwsbznjmUniversity Hospitals Ahuja Medical Centertart: 11-25-2022 End: 65-45-0630BbuhzcokfdhjPvltraoysUniversity Hospitals Ahuja Medical Centertart: 11-25-2022 Physical therapy procedureUniversity Hospitals Ahuja Medical Centertart: 11-25-2022 Referral to occupational therapistUniversity Hospitals Ahuja Medical Centertart: 25-62-1343Sulonptc to Social ServicesUniversity Hospitals Ahuja Medical Centertart: 20-65-5032Azsqklpx admissionUniversity Hospitals Ahuja Medical Centertart: 11-25-2022 [facility]ertart: 09-42-9009LkmduavbpUniversity Hospitals Ahuja Medical Centertart: 04-26-6600Zrzlqxpr identified in Urine by CultureUrine Culture [facility] Centertart: 75-40-9723Jgbpjxjrpwwf 65+ years Vaccine (2 of 2 - PCV)Pneumococcal 65+ years Vaccine (2 of 2 - PCV)[facility] HospitalStart: 17-50-2727Xbjxegnsiot Syncytial Virus (RSV) or age 60 yrs+ (1 - 1-dose 75+ series)Respiratory Syncytial Virus (RSV) or age 60 yrs+ (1 - 1-dose 75+ series)[facility] Hospital[facility] HospitalStart: 59-30-1976Tjtaexmvanx Syncytial Virus (RSV) or age 60 yrs+ (1 - 1-dose 60+ series) Respiratory Syncytial Virus (RSV) or age 60 yrs+ (1 - 1-dose 60+ series)[facility] HospitalStart: 44-40-4042Malnqjph vaccine (1 of 2) Shingles vaccine (1 of 2)[facility] Centerart: 35-28-1526TZeP/Tdap/Td vaccine (1 - Tdap)DTaP/Tdap/Td vaccine (1 - Tdap)[facility] HospitalGe[facility] Centerart: 25-85-8610Rssgztqkiu ScreenDepression ScreenBon [facility] End: 02-36-2068Fuyvrpp, UrineBon [facility] [employer] [facility] HospitalComment on above:1 Occurrences starting 09/26/2024 until 09/26/2024 End: 12-82-3578Slgcnpm, UrineBon [facility] HospitalComment on above:1 Occurrences starting 10/31/2024 until 4Patient EducationMinor Head Injury Minor Contusion [facility] Work Phone: Patient referralAultman Orrville Hospital [facility]tr Work Phone: XR Clavicle - right [facility] Payers DatePayer CategoryPayerPolicy [id number]-[id number] [id number] 1958 [id number] [id number] 2..1.951074.3.57[id number] 2..1.769542.3.57[id number] 2..1.727363.3.579.2.57649-07-7110Gfrifqj0826491 2..1.693507.3.579.2.633713-36-9621Eusxheq6890883 2..1.595982.3.579.2.034819-47-0197Aodykbs3630160 2..1.847122.3.579.2.600811-23-8944Ztfiypm3830398 2.0.1.461709.3.579.[id number] 2.16.840.1.832906.3.579.[id number] 2.16.840.1.616288.3.57[id number] 2.16.840.1.260683.3.57[id number] 2.16840.1.332792.3.579.2.63193-45-8914Oaytdkc63577688 2.16840.1.783642.3.57[id number] 2.16840.1.019137.3.579.[id number] 2.16840.1.381816.3.579.2.31153-52-6827Olgmsym53566341 2.16840.1.039262.3.579.2.26127-01-6778Tcouqdm09466675 2.16840.1.825220.3.579.2.48159-33-0563Tscmwlu34064713 2.16840.1.100320.3.579.2.49843-97-1916Rhtqslj82800714 2.16840.1.478328.3.579.2.94797-95-6997Muxhuwx16951261 2.16840.1.141841.3.579.2.76468-29-6491Debnrfs07585510 2.16840.1.548267.3.579.2.77932-21-2401Dkvlvsp15690593 2.16.840.1.501564.3.579.2.91242-65-8862Qndgsmh26337275 2.16840.1.130753.3.579.2.50476-67-9318Gfjsfbg42347587 2.0.1.811660.3.579.2.727MedicareMedicare [id number] Health InsuranceHospital For Sick Children [id number] 2.16.840.1.4[id number] 2.0.1.386241.3.579.2.531 [id number] 2.0.1.402684.3.579.2.986Ehpmsfu23922534 2.0.1.757671.3.579.2.531 Social History DateTypeDetailFacilityTobacco smoking status NHISUnknown if ever smokedAultman Orrville Hospital Ctr Work Phone: Start: 84-42-0338Ebp Assigned At [facility]tart: 11-25-2022 End: 65-12-7457Xsadrwg smoking status NHISNever smoked tobacco (finding) [facility]ertart: 09-26-2024 End: 28-53-2222Jet Assigned At [facility] Other Start: 06-12-9519Dgmsshr use and exposureSmokeless tobacco non-userBon [employer] [facility] HospitalStart: 09-26-2024 End: 44-35-9209Avhfeqjbl beverage intakeLifetime non-drinker (finding)[facility] [employer] [facility] HospitalStart: 09-26-2024 End: 93-19-0917Jngegmx of Social functionBon [employer] [facility] HospitalStart: 91-70-4650Tgc assigned at birthNot on fileWhite Mountain Regional Medical Center [employer] Health Goals DatePatient GoalDesired Activity/State Functional Status PmhtSfotmcljguOxtxgtCmjvpedz73-34-4548Dqebxalzcn statusPatient Not at Baseline [facility] Work Phone: [phone] 149-742601753256-57-2742Vwzrtdhkmz statusPatient Not at Baseline [facility] Work Phone: [phone] 271-813201455904-15-5557Hvoyvcqbcw statusPatient Not at Baseline [facility] Work Phone: Mental Status BaocBdajxfddwyGbytzwFcobojwb05-71-1648Hncmfoewb functionCognitive Status Patient is Progressing Toward [facility] Work Phone: [phone]Fkpuqxsnl functionCognitive Status Patient at [facility] Work Phone: [phone]) [phone]Squctlryl functionCognitive Status Patient at [facility] Work Phone: Clinical Notes 2019 to 08-28-2025 Note Date & BoirUubiAucnrabf00-96-9310 NotePatient Education Cardiovascular Atrial Fibrillation Atrial fibrillation (AFib) is a type of heartbeat that is irregular or fast. If you have AFib, yourheart beats without any order. This makes it [...] damage the heart's electrical system. They include: ??? High blood pressure. ??? Heart failure. ??? Heart valve diseases. ??? Heart surgery. ??? Diabetes. ??? Thyroid disease. ??? Kidney disease. ??? Lung diseases, such as pneumonia or COPD. ??? Sleep apnea. Sometimes the cause is not known. What increases the risk? You are more likely to develop AFib if: ??? You are older. ??? You exercise often and very hard. ??? You have a family history of AFib. ??? You are male. ??? You are . ??? You are overweight. ??? You smoke. ??? You drink a lot of alcohol. What are the signs or symptoms? Common symptoms of this condition include: ??? A feeling that your heart is beating very fast. ??? Chest pain or discomfort. ??? Feeling short of breath. ??? Suddenly feeling light-headed or weak. ??? Getting tired easily during activity. ??? Fainting. ??? Sweating. In some cases, there are no symptoms. How is this treated? Medicines to: ? Prevent blood clots. ? Treat heart rate or heart rhythm problems. ??? Using devices, such as a pacemaker, to correct heart rhythm problems. ??? Doing surgery to remove the part of the heart that sends bad signals. ??? Closing an area where clots can form in the heart (left atrial appendage). In some cases, your doctor will treat other underlying conditions. Follow these instructions at home: Medicines ??? Take dgsk-jxt-qyzbnfh and prescription medicines only as told by your doctor. ??? Do not take any new medicines without first talking to your doctor. ??? If you are taking blood thinners: ? [...] that says you take blood thinners. Lifestyle ??? Do not smoke or use any products that contain nicotine or tobacco. If you need help quitting, ask your doctor. ??? Eat heart-healthy foods. Talk with your doctor about the right eating plan for you. ??? Exercise regularly as told by your doctor. ??? Do not drink alcohol. ??? Lose weight if you are overweight. General instructions ??? If you have sleep apnea, treat it as told by your doctor. ??? Do not use diet pills unless your doctor says they are safe for you. Diet pills may make heart problems worse. ??? Keep all follow-up visits. Your doctor will check your heart rate and rhythm regularly. Contact a doctor if: ??? You notice a change in the speed, rhythm, or strength of your heartbeat. ??? You are taking a blood-thinning medicine and you get more bruising. ??? You get tired more easily when you move or exercise. ??? You have a sudden change in weight. Get help right away if: ??? You have pain in your chest. ??? You have trouble breathing. ??? You have side effects of blood thinners, such as blood in your vomit, poop (stool), or pee (urine), or bleeding that cannot stop. ??? You have any signs of a stroke. [...] services. Write down what time symptoms started. ??? You have other signs of a stroke, such as: ? A sudden, very bad headache with no known cause. ? Feeling like you may vomit (nausea). ? Vomiting. ? A seizure. These symptoms may be an emergency. Get help right away. Call 911. ??? Do not wait to see if the symptoms will go away. ??? Do not drive yourself to the hospital. This information is not intended to replace advice given to you by your health care provider. Make sure you discuss any questions you have with your health care provider. Document Revised: 07/20/2023 Document Reviewed: 07/20/2023 [employer] Patient Education ? 2023 [employer] Caregiving Fall Prevention in the Home, Adult Falls can cause injuries and can happen to people of all ag (more content not included)...[facility]10-08-2025 NotePatient Education Endocrinology Thyroid Nodule A thyroid nodule is an isolated growth of thyroid cells that forms a lump in the thyroid gland. Thethyroid gland is a butterfly-shaped gland found in the lower front of the neck. It sends chemical messengers (hormones) through the blood to all parts of the body. These hormones are important in regulating body temperature and helping the body use energy. Thyroid nodules are common. Most are not cancerous (are benign). You may have one nodule or severalnodules. There are different types of thyroid nodules. They include nodules that: ??? Grow and fill with fluid (thyroid cysts). ??? Produce too much thyroid hormone (hot nodules or hyperthyroid). ??? Produce no thyroid hormone (cold nodules or hypothyroid). ??? Form from cancer cells (thyroid cancers). What are the causes? In most cases, the cause of thyroid nodules is not known. What increases the risk? The following factors may make you more likely to develop thyroid nodules: ??? Age. Thyroid nodules are more common in people who are older than 45 years. ??? Female gender. ??? A family history that includes: ? Thyroid nodules. ? Pheochromocytoma. ? Thyroid carcinoma. ? Hyperparathyroidism. ??? Certain thyroid diseases, such as Dale's thyroiditis. ??? Lack of iodine in your diet. ??? A history of head and neck radiation, such as from cancer treatments. ??? Type 2 diabetes. What are the signs or symptoms? In many cases, there are no symptoms. If you have symptoms, they may include: ??? A lump in your lower neck. ??? Feeling pressure, fullness, or a tickle in your throat. ??? Pain in your neck, jaw, or ear. ??? Having trouble swallowing or breathing. Hot nodules may cause: ??? Weight loss. ??? Warm, flushed skin. ??? Feeling hot. ??? Feeling nervous. ??? A rapid or irregular heartbeat. Cold nodules may cause: ??? Weight gain. ??? Dry skin. ??? Hair loss, brittle hair, or both. ??? Feeling cold. ??? Fatigue. Thyroid cancer nodules may cause: ??? Hard nodules that can be felt along the thyroid gland. ??? Hoarseness. ??? Lumps in the tissue (lymph nodes) near your thyroid gland. How is this diagnosed? A thyroid nodule may be felt by your health care provider during a physical exam. This condition may also be diagnosed based on your symptoms. You may also have tests, including: ??? Blood tests to check how well your thyroid is working. ??? An ultrasound. This may be done to confirm the diagnosis. ??? A biopsy. This involves taking a sample from the nodule and looking at it under a microscope. ??? A thyroid scan. This test creates an image of the thyroid gland using a radioactive tracer. ??? Imaging tests such as an MRI or CT scan. These may be done if: ? A nodule is large. ? A nodule is blocking your airway. ? Cancer is suspected. How is this treated? Treatment depends on the cause and size of your nodule or nodules. If a nodule is benign, treatmentmay not be necessary. Your health care provider may monitor the nodule to see if it goes away without treatment. If a nodule continues to grow, is cancerous, or does not go away, treatment may be needed. Treatment may include: ??? Having a cystic nodule drained with a needle. ??? Ablation therapy. In this treatment, alcohol is injected into the area of the nodule to destroythe cells. Ablation with heat may also be used. This is called thermal ablation. ??? Radioactive iodine. In this treatment, radioactive iodine is given as a pill or liquid that youdrink. This substance causes the thyroid nodule to shrink. ??? Surgery to remove the nodule or nodules. Part or all of your thyroid gland may also need to be removed. ??? Medicines to treat hyperthyroidism. Follow these instructions at home: ??? Pay attention to any changes in your thyroid nodule or nodules. ??? Take xbxb-tzn-nendqlw and prescription medicines only as told by your health care provider. ??? Keep all follow-up visits. This is important. Contact a health care provider if: ??? You have trouble sleeping. ??? You have muscle weakness. ??? You have significant weight loss without changing your eating habits. ??? You feel nervous. ??? You have trouble swallowing. ??? You have increased swelling. ??? You have a rapid or irregular heartbeat. Get help right away if: ??? You have chest pain. ??? You faint or lose consciousness. ??? Your nodule makes it hard for you to breathe. These symptoms may be an emergency. Get help right away. Call 911. ??? Do not wait to see if the symptoms will go away. ??? Do not drive yourself to the hospital. Summary ??? A thyroid nodule is an isolated growth of thyroid cells that forms a lump in your thyroid gland. ??? Thyroid nodules are common. Most are not cancerous. ??? Your health care provider may monitor the nodule to see if it goes away without treatment. If anodule contin (more content not included)...[facility]08-13-2025 NotePatient Education Physical Medicine and Rehabilitation Heat Therapy [...] provider. Document Revised: 09/02/2021 Document Reviewed: 09/02/2021 [employer] Patient Education ? 2023 [employer].[facility] 07-01-2023 NoteUT Cardiology - [facility] Brent Zahida Batista is a 88 y.o. year old [...] June of 2016 was [address] [facility] with UTI and new onset AF. She was found to have systolic heart failure with EF about 30-35%. She underwent catheterization at [facility] on 07/07/2016 and this showed normal coronary [...] Patient states she was just in a longterm for a total of 10 weeks due [...] 66 bpm with L (more content not included)...[facility]05-02-2023 Evaluation note* Encounter Date Diagnosis Assessment Notes Treatment Notes Treatment Clinical Notes March, Closed nondisplaced fracture of shaft of right clavicle, initial encounter (ICD-10 - S42.024A) Radiographs reviewed with patient today. Discussed with patient she is progressing well from injury. Discussed with patient she can progress activity/motion as tolerated. [facility] Other 03-21-2023 Evaluation note* Encounter Date Diagnosis [...] non-union discussed. We discussed the potential for fdc cosmetic deformity over the fracture site. We will continue out patient physical therapy to work on range of motion and strengthening exercises. [facility] Other 01-27-2023 Progress note Author Mohit Willson [facility] December 10, 2022 4:10pmNote Date/TimeJanuary 2022 4:10pm[place] [address] Physiatry(Rehab) Progress Note Signed Patient: Zahida Btaista MR#: [id number] : 1935 Acct:[id number] Age/Sex: 87 / F Adm Date: 3 Loc: Room: 4D5949-4 Type: ADM IN Attending Dr: Mohit Willson [...] posterior and lateral rib fractures and right pleuraleffusions. Head and neck CT was unremarkable. Patient [...] . They would like her to be placedinto a [facility] facility next week. Review of Systems Review [...] mg 11/30/22 14:43 Bisacodyl 10 Mg Supp.Rect AK 11/30/23 14:42 DAILY PRN Constipation Docusate Sodium 100 mg 11/30/22 14:43 11/30/22 22:19 Docusate 100 Mg Capsule PO 11/30/23 14:42 100 mg BID PRN Administration Constipation Docusate Sodium 283 mg 11/30/22 14:43 Docusate Enema 283 Mg/5 Ml Enema AK 11/30/23 14:42 DAILY PRN Constipation Lactulose 30 [...] discharge. This can be followed at the [facility] facility. * Discussed with son and at [...] equipment to enhance the patient's a functional mandaen Ensure adequate nutrition and hydration Sleep: No issues Pain: Well controlled on current regimen. Will start weaning off of opioids next week if tolerated. Discharge planning: SNF Next week. Plan: I completed a substantive portion of this encounter, the medical decision makingportion of this note in its entirety, including Allied health note review, nursing note review, financial analysis consultant note review,discussion with nursing and case management, and more than 50% of my time was spent on counseling and coordination of care, time spent 22 minutes Patient was personally seen by me, Dr. Willson, on the day of encounter, reviewed the history and therelevant portions of the chart, including current orders, allied health and financial analysis consultant notes, labs/imaging and performed ferreira elements of exam and I formulated the plan of care and facilitated the medical decision making. Documented By: Mohit Willson MD 12/10/22 1608 Signed By: <Electronically signed by Mohit Willson MD> 12/10/22 1610 [facility] Work Phone: 1(562) 121-119901-25-2023 Progress note Author Harleen Matos [facility] December 08, 2022 8:23pmNote Date/TimeJan2022 7:23pm[place] [id number] Hospitalist Progress Note Signed Patient: Zahida Batista MR#: [id number] : 1935 Acct:[id number] Age/Sex: 87 / F Adm Date: 3 Loc: 5T Room: [address] [place] [address] Type: ADM IN Attending Dr: Mohit Willson [...] or diarrhea, nausea or vomiting. Nodysuria or retention.No headache or dizziness. No fevers. Reviewed labs [...] mg 11/30/22 14:43 Bisacodyl 10 Mg Supp.Rect AK 11/30/23 14:42 DAILY PRN Constipation Docusate Sodium 100 mg 11/30/22 14:43 11/30/22 22:19 Docusate 100 Mg Capsule PO 11/30/23 14:42 100 mg BID PRN Administration Constipation Docusate Sodium 283 mg 11/30/22 14:43 Docusate Enema 283 Mg/5 Ml Enema AK 11/30/23 14:42 DAILY PRN Constipation Lactulose 30 [...] <Electronically signed by Harleen Matos MD> 12/08/222022 [facility] Work Phone: 1(214) 538-830301-25-2023 Progress note Author Mohit Willson [facility] December 08, 2022 3:34pmNote Date/TimeJan2022 3:34pm[place] [address] Physiatry(Rehab) Progress Note Signed Patient: Zahida Batista MR#: [id number] : 1935 Acct:[id number] Age/Sex: 87 / F Adm Date: 3 Loc: Room: 2R8204-7 Type: ADM IN Attending Dr: Mohit Willson [...] posterior and lateral rib fractures and right pleuraleffusions. Head and neck CT was unremarkable. Patient [...] steps using 1 handrail. Required min to contact- guard assist for transfers and bed mobility. Review [...] mg 11/30/22 14:43 Bisacodyl 10 Mg Supp.Rect AK 11/30/23 14:42 DAILY PRN Constipation Docusate Sodium 100 mg 11/30/22 14:43 11/30/22 22:19 Docusate 100 Mg Capsule PO 11/30/23 14:42 100 mg BID PRN Administration Constipation Docusate Sodium 283 mg 11/30/22 14:43 Docusate Enema 283 Mg/5 Ml Enema AK 11/30/23 14:42 DAILY PRN Constipation Lactulose 30 [...] equipment to enhance the patient's a functional mandaen Ensure adequate nutrition and hydration Sleep: No issues Pain: Well controlled on current regimen. Will start weaning off of opioids next week if tolerated. Discharge planning: SNF Next week. Plan: I completed a substantive portion of this encounter, the medical decision makingportion of this note in its entirety, including Allied health note review, nursing note review, financial analysis consultant note review,discussion with nursing and case management, and more than 50% of my time was spent on counseling and coordination of care, time spent 25 minutes Patient was personally seen by me, Dr. Willson, on the day of encounter, reviewed the history and therelevant portions of the chart, including current orders, allied health and financial analysis consultant notes, labs/imaging and performed ferreira elements of exam and I formulated the plan of care and facilitated the medical decision making. Documented By: Mohit Willson MD 12/08/221530 Signed By: <Electronically signed by Mohit Willson MD> 12/08/221533 [facility] Work Phone: 1(627) 849-532501-25-2023 Progress note Author Mohit Willson [facility] December 08, 2022 1:40pmNote Date/TimeJanuary 2022 12:26pm[place] [address] Physiatry(Rehab) Progress Note Signed Patient: Zahida Batista MR#: [id number] : 1935 Acct:[id number] Age/Sex: 87 / F Adm Date: 3 Loc: Room: [address] [place] [address] Type: ADM IN Attending Dr: Mohit Willson [...] posterior and lateral rib fractures and right pleuraleffusions. Head and neck CT was unremarkable. Patient [...] additional complaints, except as documented Exam <Tasneem CONY CabralesN - Last Filed: 12/07/22 12:34> Physical Exam [...] cooperative Insight: Fair Judgment: Fair Objective <Tasneem Nicholasaditya, ROLLER PAINTER - Last Filed: 12/07/22 12:34> Labs 12/06/22 [...] mg 11/30/22 14:43 Bisacodyl 10 Mg Supp.Rect AK 11/30/23 14:42 DAILY PRN Constipation Docusate Sodium 100 mg 11/30/22 14:43 11/30/22 22:19 Docusate 100 Mg Capsule PO 11/30/23 14:42 100 mg BID PRN Administration Constipation Docusate Sodium 283 mg 11/30/22 14:43 Docusate Enema 283 Mg/5 Ml Enema AK 11/30/23 14:42 DAILY PRN Constipation Lactulose 30 [...] Assessment/Plan <Tasneem Cabrales APRN - Last Filed: 12/07/22 12:34> Assessment/Plan (1) [...] equipment to enhance the patient's a functional mandaen Ensure adequate nutrition and hydration Sleep: No issues Pain: Well controlled on current regimen. Will start weaning off of opioids next week if tolerated. Discharge planning Home v SNF end of week I spent greater than 15 minutes for services, including hpnt-zl-ltiz encounter with the patient, discussion of the case, plan of care, and exam; and ugsvtys-gu-dauo activities, such as reviewing pertinent financial analysis consultant documentation, recent therapy notes, laboratory and radiology studies, and discussionof case with care team including physician, nursing, case finisher, and therapists. More than 50 % of [...] Allied health note review, nursing note review, financial analysis consultant note review,discussion with nursing and case management, and more than 50% of my time was spent on counseling and coordination of care, time spent 25 minutes Patient was personally seen by me, Dr. Willson, on the day of encounter, reviewed the history and therelevant portions of the chart, including current orders, allied health and financial analysis consultant notes, labs/imaging and performed ferreira elements of exam and I formulated the plan of care and facilitated the medical decision making. Documented By: Tasneem Cabrales APRN 12/07/22 1 222 Signed By: <Electronically signed by LENNOX Cabrales> 12/07/22 1234 <Electronically signed by Mohit Willson MD> 12/08/22 1340 [facility] Work Phone: 1(103) 629-725501-25-2023 Consult note Author Pedro Cowan [facility] December 08, 2022 1:09amNote Date/TimeJanuary 2022 6:[place] [address] Hospitalist Consult Note Signed Patient: Zahida Batista MR#: [id number] : 1935 Acct:[id number] Age/Sex: 87 / F Adm Date: 3 Loc: Room: [address] [place] [address] Type: ADM IN Attending Dr: Mohit Willson MD Copies to: MD Mohit Alaniz MD Kim E Knight, MD Lynn A Stackhouse, FAISAL-BC~ HPI DATE OF CONSULTATION: 12/01/22 REQUESTING PROVIDER: Mohit Willson Consult Narrative Reason for Consult: A. fib, HTN, CKD 3. HPI: 87-year-old female past medical history significant for hypertension, A. fib on chronic anticoagulation, CKD 3, anemia, hyponatremia. Presented to the emergency department November 25 after sustaininga fall at home while carrying laundry downstairs. Work-up in the emergency department patient was found to have right- sided clavicular fracture and multiple posterior right lateral rib fractures. Shewas seen by trauma/general surgery team with no [...] team has been placed on consultation for medicalmanagement of A. fib, hypertension, CKD 3. Patient [...] negative unless noted below or in HPI [facility] Attestation Statement: The following information was validated with the patient. Vaccinated for COVID-19?: Yes Medical History (Updated 12/03/22 @ 11:46 by FAISAL Christensen-DMITRIY) Afib Anemia Chronic anticoagulation CKD (chronic kidney [...] 50 mg PO DAILY 11/25/22[History Confirmed 11/25/22] patqladijybx-hoxacmzs-zwgbsu tablet 1 tab PO DAILY 11/25/22 [History [...] mg 11/30/22 14:43 Bisacodyl 10 Mg Supp.Rect AK 11/30/23 14:42 DAILY PRN Constipation Docusate Sodium 100 mg 11/30/22 14:43 11/30/22 22:19 Docusate 100 Mg Capsule PO 11/30/23 14:42 100 mg BID PRN Administration Constipation Docusate Sodium 283 mg 11/30/22 14:43 Docusate Enema 283 Mg/5 Ml Enema AK 11/30/23 14:42 DAILY PRN Constipation Cefepime HCl [...] % (Auto) 65.9, Lymph % (Auto) 14.0, Greene % (Auto) 14.4, Eos % (Auto) 4.8, Baso % (Auto) 0.9, Nucleat RBC Rel Count 0.0, Neut # (Auto) 4.1, Lymph # (Auto) 0.9 L, Greene # (Auto) 0.9 H, Eos # (Auto) [...] signed by Pedro Cowan MD> 12/08/22 0109 [facility] Work Phone: 1(136) 709-162701-23-2023 Progress note Author Mohit Willson [facility] December 06, 2022 2:50pmNote Date/TimeJan2022 12:27[place] [address] Physiatry(Rehab) Progress Note Signed Patient: Zahida Batista MR#: [id number] : 1935 Acct:[id number] Age/Sex: 87 / F Adm Date: 3 Loc: Room: 6A4556-7 Type: ADM IN Attending Dr: Mohit Willson [...] posterior and lateral rib fractures and right pleuraleffusions. Head and neck CT was unremarkable. Patient [...] up in a wheelchair. Sheis alert and orientedx3, calm and pleasant with exam. Endorses right shoulder pain although does note that its improving gradually. She is compliant withthe sling. States, appetite is not good . We discussed high-protein diet necessary for healing. She will attempt to order protein- richfoods with meals and agreeable to try boost [...] % (Auto) 52.4 Lymph % (Auto) 22.8 Greene % (Auto) 15.9 Eos % (Auto) 7.6 Baso % (Auto) 1.3 Nucleat RBC Rel Count 0.1 Neut # (Auto) 2.6 Lymph # (Auto) 1.1 Greene # (Auto) 0.8 Eos # (Auto) 0.4 [...] mg 11/30/22 14:43 Bisacodyl 10 Mg Supp.Rect AK 11/30/23 14:42 DAILY PRN Constipation Docusate Sodium 100 mg 11/30/22 14:43 11/30/22 22:19 Docusate 100 Mg Capsule PO 11/30/23 14:42 100 mg BID PRN Administration Constipation Docusate Sodium 283 mg 11/30/22 14:43 Docusate Enema 283 Mg/5 Ml Enema AK 11/30/23 14:42 DAILY PRN Constipation Lactulose 30 [...] equipment to enhance the patient's a functional mandaen Ensure adequate nutrition and hydration Sleep: No issues Pain: Well controlled on current regimen. Will start weaning off of opioids next week if tolerated. Discharge planning Home with family next week. I spent greater than 15 minutes for services, including qyil-bb-rhen encounter with the patient, discussion of the case, plan of care, and exam; and tmjlhpa-qp-xjff activities, such as reviewing pertinent financial analysis consultant documentation, recent therapy notes, laboratory and radiology studies, and discussion of case with care team including physician, nursing, case finisher, and therapists. More than 50 % of [...] equipment to enhance the patient's a functional mandaen Ensure adequate nutrition and hydration Sleep: No issues Pain: Well controlled on current regimen. Will start weaning off of opioids next week if tolerated. Discharge planning Home v SNF end of week I spent greater than 15 minutes for services, including uwed-ts-ybvp encounter with the patient, discussion of the case, plan of care, and exam; and vpqduwl-jx-ljag activities, such as reviewing pertinent financial analysis consultant documentation, recent therapy notes, laboratory and radiology studies, and discussion of case with care team including physician, nursing, case finisher, and therapists. More than 50 % of time was spent on patient/family counseling or coordination ofcare. Plan: I completed a substantive portion of this encounter, the medical decision makingportion of this note in its entirety, including Allied health note review, nursing note review, financial analysis consultant note review,discussion with nursing and case management, and more than 50% of my time was spent on counseling and coordination of care, time spent 25 minutes Patient was personally seen by me, Dr. Willson, on the day of encounter, reviewed the history and therelevant portions of the chart, including current orders, allied health and financial analysis consultant notes, labs/imaging and performed ferreira elements of exam and I formulated the plan of care and facilitated the medical decision making. Stable, trend hemoglobin d/c planning ongoing. Documented By: Tasneem Cabrales APRN 12/06/22 1 220 Signed By: <Electronically signed by LENNOX Cabrales> 12/06/22 1229 <Electronically signed by Mohit Willson MD> 12/06/22 5820 [facility] Work Phone: 1([phone]) 774-701401-20-2023 Progress note Author Mohit Willson [facility] December 03, 2022 9:25pmNote Date/TimeJan2022 9:21[place] [address] Physiatry(Rehab) Progress Note Signed Patient: Zahida Batista MR#: [id number] : 1935 Acct:[id number] Age/Sex: 87 / F Adm Date: 3 Loc: Room: 6D2385-5 Type: ADM IN Attending Dr: Mohit Willson [...] posterior and lateral rib fractures and right pleuraleffusions. Head and neck CT was unremarkable. Patient [...] mg 11/30/22 14:43 Bisacodyl 10 Mg Supp.Rect AK 11/30/23 14:42 DAILY PRN Constipation Docusate Sodium 100 mg 11/30/22 14:43 11/30/22 22:19 Docusate 100 Mg Capsule PO 11/30/23 14:42 100 mg BID PRN Administration Constipation Docusate Sodium 283 mg 11/30/22 14:43 Docusate Enema 283 Mg/5 Ml Enema AK 11/30/23 14:42 DAILY PRN Constipation Lactulose 30 [...] equipment to enhance the patient's a functional mandaen Ensure adequate nutrition and hydration Sleep: No issues Pain: Well controlled on current regimen. Will start weaning off of opioids next week if tolerated. Discharge planning Home with family next week. I spent greater than 35 minutes for services, including ksqi-df-ewbr encounter with the patient, discussion of the case, plan of care, and exam; and qcfyffd-kf-hdsx activities, such as reviewing pertinent financial analysis consultant documentation, recent therapy notes, laboratory and radiology studies, and discussion of case with care team including physician, nursing, case finisher, and therapists. More than 50 % of time was spent on patient/family counseling or coordination ofcare. Documented By: Mohit Willson MD 12/03/222119 Signed By: <Electronically signed by Mohit Willson MD> 12/03/222124 [facility] Work Phone: 1(266) 559-390001-18-2023 History and physical note Author Mohit Willson [facility] December 01, 2022 2:31pmNote Date/TimeJan2022 3:02[place] [address] Physiatry (Rehab) H&P Signed Patient: Zahida Batista MR#: [id number] : 1935 Acct:[id number] Age/Sex: 87 / F Adm Date: 3 Loc: Room: [address] [place] [address] Type: ADM IN Attending Dr: Mohit Willson [...] posterior and lateral rib fractures and right pleuraleffusions. Head and neck CT was unremarkable. Patient [...] 50 mg PO DAILY 11/25/22[History Confirmed 11/25/22] rndsgwdgopzi-dqfncjwg-wzhuzo tablet 1 tab PO DAILY 11/25/22 [History [...] Bisacodyl (Bisacodyl 10 Mg Supp.Rect) 10 mg AK DAILY PRN PRN Reason: Constipation Stop: 11/30/23 14:42 Docusate Sodium (Docusate 100 Mg Capsule) 100 mg PO BID PRN PRN Reason: Constipation Stop: 11/30/23 14:42 Docusate Sodium (Docusate Enema 283 Mg/5 Ml Enema) 283 mg AK DAILY PRN PRN Reason: Constipation Stop: 11/30/23 14:42 Lactulose (Lactulose 20 Gm/30 Ml Udc) 30 gm PO DAILY PRN PRN Reason: Constipation Stop: 11/30/23 14:42 Metoprolol Succinate (Metoprolol Succinate 50 Mg Tab.Er.24h) 50 mg PO DAILY [facility] Stop: 12/01/23 08:59 Oxycodone HCl (Oxycodone Ir 5 Mg Tablet) 5 mg PO Q4HR PRN PRN Reason: Pain Oxycodone HCl (Oxycodone Ir 5 Mg Tablet) 10 mg PO Q4HR PRN PRN Reason: pain Polyethylene Glycol (Polyethylene Glycol 3350 17 Gm Powd.Pack) 17 gm PO DAILY [facility] Stop: 12/01/23 08:59 Pramipexole Dihydrochloride (Pramipexole 0.125 Mg Tablet) 0.125 mg PO QHS [facility] Stop: 11/30/23 21:59 Rivaroxaban (Rivaroxaban 15 Mg Tablet) 15 mg PO DAILY [facility] Stop: 12/01/23 08:59 Sennosides (Sennosides 8.6 Mg [...] and obtained and summated medical records and haveordered follow up lab tests and imaging studies [...] 14 days Expected Discharge Destination: Home Rehabilitation [facility]: 08.9 Primary Diagnosis: Other orthopedic, right clavicle [...] improve pt's strength, endurance, bed mobility, transfers (sit- stand), standing balance, gait quality on level surfaces [...] 24 hour daily monitoring and intervention from Seo Coordinator as well as other consulting physicians including internal medicine as well as 24 hour daily cordwood cutter nursing - for medical safe / optimal manageme nt. Patient requires interdisciplinary therapy team rehabilitation care including OT, PT, SW, RehabNursing, requires and can tolerate at least 3 [...] equipment to enhance the patient's a functional mandaen Ensure adequate nutrition and hydration Sleep: No issues Pain: Well controlled on current regimen. Will start weaning off of opioids soon Discharge planning Home with family in 7 to 10 days. I spent greater than 35 minutes for services, including lkdb-gx-lgxt encounter with the patient, discussion of the case, plan of care, and exam; and izmhyqe-ak-bixq activities, such as reviewing pertinent financial analysis consultant documentation, recent therapy notes, laboratory and radiology studies, and discussion of case with care team including physician, nursing, case finisher, and therapists. More than 50 % of [...] Allied health note review, nursing note review, financial analysis consultant note review,discussion with nursing and case management, and more than 50% of my time was spent on counseling and coordination of care, time spent 55 minutes Patient was personally seen by me, Dr. Willson, on the day of encounter, reviewed the history and therelevant portions of the chart, including current orders, allied health and financial analysis consultant notes, labs/imaging and performed ferreira elements of exam and I formulated the plan of care and facilitated the medical decision making. Documented By: Tasneem Cabrales APRN 12/01/22 1 053 Signed By: <Electronically signed by LENNOX Cabrales> 12/01/22 1054 <Electronically signed by Mohit Willson MD> 12/01/22 1431 [facility] Work Phone: 1(936) 382-362201-17-2023 Progress note Author Dangelo Rayo [facility] November 30, 2022 1:40pmNote Date/TimeJanuary 2022 8:21[place], [place] [address] Pulmonology Progress Note Signed Patient: Zahida Batista MR#: [id number] : 1935 Acct:[id number] Age/Sex: 87 / F Adm Date: 3 Loc: Room: [address] [place] [address] Type: ADM IN Attending Dr: Christian Aleman [...] the mid right hemithorax and with note ofPseudomonas in the urine with patient now on Cefepime. Patient was noted to have incidental findingof pneumothorax. The patient's pneumothorax is stable to perhaps slightly smaller. Her pain appearsto be under adequate control. Patient is otherwise stable. Patient can go to rehab from a pulmonary/critical care medicine perspective. However, I would recommend continuing to hold anticoagulation for at least the next couple of weeks. Documented By: Dangelo Rayo MD 3 820 Signed By: <Electronically signed by MD Dangelo Rayo> 11/30/22 1340 [facility] Work Phone: 1(117) 385-380201-16-2023 Progress note Author Christian Aleman [facility] November 29, 2022 4:08pmNote Date/TimeJan2022 4:05pm[place] [address] Hospitalist Progress Note Signed Patient: Zahida Batista MR#: [id number] : 1935 Acct:[id number] Age/Sex: 87 / F Adm Date: 3 Loc: 4N Room: [address] [place] [address] Type: ADM IN Attending Dr: Christian Aleman [...] addition Documented By: Christian Aleman DO 11/29/22 16 00 Signed By: <Electronically signed by Christian Aleman DO> 11/29/22 160 [facility] Work Phone: 1(989) 528-210301-16-2023 Progress note Author Dangelo Rayo [facility] November 29, 2022 4:00pmNote Date/TimeJanuary 2022 8:51[place], [place] [address] Pulmonology Progress Note Signed with Addenda Patient: Zahida Batista MR#: [id number] : 1935 Acct:[id number] Age/Sex: 87 / F Adm Date: 3 Loc: 4N Room: [address] [place] [address] Type: ADM IN Attending Dr: Christian Aleman [...] pain (notes that pain is somewhat improved) anddenies significant dyspnea. Exam Physical Exam Vital Signs: [...] the mid right hemithorax and with note ofPseudomonas in the urine with patient now on Cefepime. Patient was noted to have incidental findingof pneumothorax this morning on chest x-ray. We will hold anticoagulation for the present time and w ill repeat a portable chest x-ray later today and continue with surveillance chest x-rays as neededto ensure that the pneumothorax does not enlarge in size. Patient was strongly encouraged to notifynursing should she have a change in her status including increasing dyspnea or chest pain with concerns for developing worsening pneumothorax. Ideally, I would consider a percutaneous catheter placement if evacuation is required. Documented By: Dangelo Rayo MD 3 0850 Signed By: <Electronically signed by MD Dangelo Rayo> 11/29/22 1306 [facility] Work Phone: 1(411) 368-408301-15-2023 Progress note Author Kayleen Schmid [facility] November 28, 2022 3:26pmNote Date/TimeJanuary 2022 3:24[place] [address] Hospitalist Progress Note Signed Patient: Zahida Batista MR#: [id number] : 1935 Acct:[id number] Age/Sex: 87 / F Adm Date: 3 Loc: Room: [address] [place] [address] Type: ADM IN Attending Dr: Kayleen Schmid MD Copies to: ~ Date of Service: 11/28/2022 Subjective Subjective Narrative: Patient has been seen and examined today. Patient still complains of a chest pain with activity butimproved, denies any shortness of breath Physical exam: [...] adjusted Documented By: Kayleen Schmid MD 11/28/22 1523 Signed By: <Electronically signed by Kayleen Schmid MD> 11/28/22 1526 [facility] Work Phone: 1([phone]) 654-959501-15-2023 Progress note Author Dangelo Rayo [facility] November 28, 2022 12:53pmNote Date/TimeJanuary 2022 9:21[place] [id number] Pulmonology Progress Note Signed Patient: Zahida Batista MR#: [id number] : 1935 Acct:[id number] Age/Sex: 87 / F Adm Date: 3 Loc: 4N Room: [address] [place] [address] Type: ADM IN Attending Dr: Kayleen Schmid [...] the mid right hemithorax and with note ofPseudomonas in the urine with patient now on Cefepime. Patient appears to be fairly comfortable on oral narcotics with breakthrough doses written. We will recheck CXR tomorrow to ensure that hemothorax is not developing. Otherwise, I would recommend continued pain control and pulmonary clearance measures as tolerated. We will follow with you and have no new recommendations. Documented By: Dangelo Rayo MD 3 0920 Signed By: <Electronically signed by MD Dangelo Rayo> 11/28/[address] [place] [address] Work Phone: 1(556) 538-430601-14-2023 Progress note Author Kayleen Schmid [facility] November 27, 2022 4:56pmNote Date/TimeJan2022 4:55[place] [address] Hospitalist Progress Note Signed Patient: Zahida Batista MR#: [id number] : 1935 Acct:[id number] Age/Sex: 87 / F Adm Date: 3 Loc: 4N Room: 7O3900-7 Type: ADM IN Attending Dr: Kayleen Schmid [...] -antibiotics adjusted Documented By: Kayleen Schmid MD 11/27/22 4508 Signed By: <Electronically signed by Kayleen Schmid MD> 11/27/22 1656 [facility] Work Phone: 1(585) 344-883601-14-2023 Progress note Author Rogeliojesuschantelle Perri [facility] November 27, 2022 11:54amNote Date/TimeJanuary 2022 7:59[place] [address] Pulmonology Progress Note Signed Patient: Zahida Batista MR#: [id number] : 1935 Acct:[id number] Age/Sex: 87 / F Adm Date: 3 Loc: 4N Room: [address] [place] [address] Type: ADM IN Attending Dr: Kayleen Schmid [...] anticoagulation today but would follow-up with chest x- ray in the next 24 to 48 hours [...] awake. Documented By: Dangelo Rayo MD 3 9840 Signed By: <Electronically signed by MD Dangelo Rayo> 11/27/22 1154 [facility] Work Phone: 1(955) 879-440201-13-2023 Consult note Author Barbie Weston [facility] November 26, 2022 6:49pmNote Date/TimeJanuary 2022 6:[place]pm[place] [id number] Orthopedic Consult Note Signed Patient: Zahida Batista MR#: [id number] : 1935 Acct:[id number] Age/Sex: 87 / F Adm Date: 3 Loc: 4N Room: [address] [place] [address] Type: ADM IN Attending Dr: Kayleen Schmid [...] clavicle and shoulder, but is not reporting significantpain in her chest or shortness of breath. Xsacp-knlf-gsiafdac Significantly, patient has history of atrial fibrillation [...] 50 mg PO DAILY 11/25/22[History Confirmed 11/25/22] muchneofpypz-ubqizfnq-zlkisq tablet 1 tab PO DAILY 11/25/22 [History [...] point tenderness along the right proximal shoulder andsupraspinatus insertion, of the right humerus, the right [...] % (Auto) 69.6, Lymph % (Auto) 15.2, Greene % (Auto) 13.8, Eos % (Auto) 0.7, Baso % (Auto) 0.7, Nucleat RBC Rel Count 0.0, Neut # (Auto) 5.1, Lymph # (Auto) 1.1, Greene # (Auto) 1.0 H, Eos # (Auto) 0.1, Baso # (Auto) 0.0 11/25/22 17:49: Urine Color Dark yellow A, Urine Appearance Turbid A, Urine pH 6.5, Ur Specific [place] 1.020, Urine Protein 100 H, Urine Glucose [...] GFR ( Amer) 47, Est GFR (Non-Af Amer)39, Glucose 135 H, Calcium 9.4 11/25/22 14:12: Corrected WBC 8.7, Uncorrected WBC Count 8.7, RBC 3.70, Hgb 9.9 L, Hct 30.5 L, MCV 82.3, MCH 26.7, MCHC 32.4, RDW 16.2 H, Plt Count 323, MPV 6.7, Neut % (Auto) 74.1, Lymph % (Auto) 13.1, Greene % (Auto) 10.4, Eos % (Auto) 1.6, Baso % (Auto) 0.8, Nucleat RBC Rel Count 0.1, Neut # (Auto) 6.4, Lymph # (Auto) 1.1, Greene # (Auto) 0.9 H, Eos # (Auto) [...] [facility] Results Imaging/Diagnostics: [place] [place] RIGHT SHOULDER: 3 views AP in plane of the chest, AP in plane of the glenoid, aswell as a scapular Y view reviewed. Images demonstrate a midshaft clavicle fracture, slightly oblique in nature with noevidence of comminution, and only minimal distraction. There is no significant superior translationor displacement of the fracture fragments with good bony contact amenable for nonoperative healing.There is no evidence of acromioclavicular joint subluxation or separation on available views. [place] [place] CHEST: Axial, coronal, sagittal sequences reviewed. [...] risks including but not limited to: infection, yael-prosthetic fracture, and implant failure. Complicating issues of surgery, would be that the patient does have multiple ribfractures - Regardless of nonoperative versus operative treatment, there may always be some pain or decreasedrange of motion at the right shoulder from [...] left hand for light 2- 5pound activities ofdaily living such as eating or use of [...] healing protocol including smoking cessation/ avoidance of nicotineproducts, appropriate weight bearing restrictions and limitations, and [...] signed by Barbie Weston MD> 11/26/22 1849 [facility] Work Phone: 1(672) 401-415901-13-2023 Progress note Author Kayleen Schmid [facility] November 26, 2022 2:49pmNote Date/TimeJan2022 2:49pm[place] [address] Hospitalist Progress Note Signed Patient: Zahida Batista MR#: [id number] : 1935 Acct:[id number] Age/Sex: 87 / F Adm Date: 3 Loc: 4N Room: [address] [place] [address] Type: ADM IN Attending Dr: Kayleen Schmid [...] - rocephin Documented By: Kayleen Schmid MD 11/26/221444 Signed By: <Electronically signed by Kayleen Schmid MD> 11/26/22 1449 [facility] Work Phone: 1(237) 811-477101-13-2023 History and physical note Author Kayleen Schmid [facility] November 26, 2022 2:45pmNote Date/TimeJan2022 5:57pm[place] [address] Hospitalist H&P Signed Patient: Zahida Batista MR#: [id number] : 1935 Acct:[id number] Age/Sex: 87 / F Adm Date: 3 Loc: 4N Room: [address] [place] [address] Type: ADM IN Attending Dr: Kayleen Schmid MD Copies to: MD Kayleen Case, MD~ HPI DATE OF EXAMINATION: 11/25/22 CHIEF [...] or neck. Currently she denies any headache orneck pain. CT scan of the head without contrast and CT scan of the C- spine Without contrast did notreveal any acute fracture Patient complained of the [...] 50 mg PO DAILY 11/25/22[History Confirmed 11/25/22] ejykpucfixvk-xfqvvnkc-dwduco tablet 1 tab PO DAILY 11/25/22 [History [...] % (Auto) 13.1 % (.) 11/25/22 14:12 Greene % (Auto) 10.4 % (.) 11/25/22 14:12 Eos % (Auto) 1.6 % (.) 11/25/22 14:12 Baso % (Auto) 0.8 % (.) 11/25/22 14:12 Nucleat RBC Rel Count 0.1 /100 WBC (0-0.5) 11/25/22 14:12 Neut # (Auto) 6.4 x10E3/uL (1.8-7.7) 11/25/22 14:12 Lymph # (Auto) 1.1 x10E3/uL (1.00-4.8) 11/25/22 14:12 Greene # (Auto) 0.9 x10E3/uL (0.0-0.8) H 11/25/22 [...] SCDs Documented By: Kayleen Schmid MD 11/25/22 386 Signed By: <Electronically signed by Kayleen Schmid MD> 11/26/22 1445 [facility] Work Phone: 1(698) 789-581001-13-2023 Consult note Author Dangelo Rayo [facility] November 26, 2022 1:47pmNote Date/TimeJanuary 2022 8:58[place] [address] Pulmonology Consult Note Signed Patient: Zahida Batista MR#: [id number] : 1935 Acct:[id number] Age/Sex: 87 / F Adm Date: 3 Loc: 4N Room: [address] [place] [address] Type: ADM IN Attending Dr: Kayleen Schmid [...] general surgery. Patient complains of pain but does not appear to be in respiratory distress and [...] 50 mg PO DAILY 11/25/22[History Confirmed 11/25/22] jkxbkrxcbyqj-rzmoneav-iawfxs tablet 1 tab PO DAILY 11/25/22 [History [...] keeping the patient at the very least euvolemicto slightly dry to try and prevent development [...] atelectasis resulting in hypoxemia as well as mucousplugging resulting in pneumonia. We will continue to monitor and certainly could consider hypertonic saline as well as flutter device if the patient is starting to develop rhonchi and secretions. Sheobviously would not tolerate Thera vest given her multiple rib fractures and flail chest. We will ob serve the patient over the course of the next several days to ensure that her respiratory status isstable on this regimen. She has Tylenol and [...] <Electronically signed by MD Dangelo Rayo> 11/26/22 7501 [facility] Work Phone: 1(146) 210-348901-12-2023 Consult note Author Sal Gonsales [facility] November 25, 2022 5:43pmNote Date/TimeJan2022 5:43pm[place] [address] General Surgery Consult Note Signed Patient: Zahida Batista MR#: [id number] : 1935 Acct:[id number] Age/Sex: 87 / F Adm Date: 3 Loc: 4N Room: [address] [place] [address] Type: ADM IN Attending Dr: Kayleen Schmid [...] her legs without any difficulty. She nothaving anylow back pain. She not having any arm [...] 50 mg PO DAILY 11/25/22[History Confirmed 11/25/22] auklxqaveiqu-pjuvbfuf-mfteza tablet 1 tab PO DAILY 11/25/22 [History [...] 15. Her head is atraumatic normocephalic. There isno evidence of any head trauma. On palpation [...] nontender nondistended no guarding rebound or rigidity. Negativepelvic rock. All extremities with palpation there is no focal point tenderness there is no joint effusion she has 5 out of 5 strength. Upper extremity bilaterally there is no point tenderness nor is there any pain to palpation or joint effusion and 5 out of 5 muscle strength. Patient does have painat the chest and collarbone with movement of [...] GFR ( Amer) 47, Est GFR (Non-Af Amer)39, Glucose 135 H, Calcium 9.4 11/25/22 14:12: Corrected WBC 8.7, Uncorrected WBC Count 8.7, RBC 3.70, Hgb 9.9 L, Hct 30.5 L, MCV 82.3, MCH 26.7, MCHC 32.4, RDW 16.2 H, Plt Count 323, MPV 6.7, Neut % (Auto) 74.1, Lymph % (Auto) 13.1, Greene % (Auto) 10.4, Eos % (Auto) 1.6, Baso % (Auto) 0.8, Nucleat RBC Rel Count 0.1, Neut # (Auto) 6.4, Lymph # (Auto) 1.1, Greene # (Auto) 0.9 H, Eos # (Auto) [...] <Electronically signed by DO Sal Gonsales> 11/25/22 8525 [facility] Work Phone: 1(694) 133-232801-10-2023 NotePatient here for 1 year follow up systolic heart failure, PAF, and valve regurgitation. No recent labs. Denies chest pain, SOB, and bleeding on Xarelto. 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 Review of Systems Musculoskeletal: Positive for arthritis and joint pain. All other systems reviewed and are negative.[facility] 11-23-2022 NoteCardiovascular Medicine [facility] SUBJECTIVE Chief Complaint Patient presents with Congestive Heart Failure Atrial Fibrillation Valve Disorder Zahida Batista is a 87 y.o. female here for routine follow-up. HPI HPI: She is a 85 yo woman who in June of [address] [facility] with UTI and new onset AF. She was found to have systolic heart failure with EF about 30-35%. She underwent catheterization at [facility] on 07/07/2016 and this showed normal coronary [...] Benign hypertensive kidney disea (more content not included)...[facility]03-03-2019 Progress note Author Dangelo Rayo [facility] November 27, 2022 11:54amNote Date/TimeJanuary 2022 7:59[place] [address] Pulmonology Progress Note Signed Patient: Zahida Batista MR#: [id number] : 1935 Acct:[id number] Age/Sex: 87 / F Adm Date: 3 Loc: 4N Room: [address] [place] [address] Type: ADM IN Attending Dr: Kayleen Schmid [...] anticoagulation today but would follow-up with chest x- ray in the next 24 to 48 hours [...] awake. Documented By: Dangelo Rayo MD 3 [id number] Signed By: <Electronically signed by MD Dangelo Rayo> 11/27/22 8458 [facility] Work Phone: Consult note Author Sal Gonsales [facility] November 25, 2022 5:43pmNote Date/TimeJanuary 2022 5:43pm[place] [address] General Surgery Consult Note Signed Patient: Zahida Batista MR#: [id number] : 1935 Acct:[id number] Age/Sex: 87 / F Adm Date: 3 Loc: 4N Room: [address] [place] [address] Type: ADM IN Attending Dr: Kayleen Schmid [...] her legs without any difficulty. She nothaving anylow back pain. She not having any arm [...] 50 mg PO DAILY 11/25/22[History Confirmed 11/25/22] aspyyzhuznss-reuqndbz-qfxcly tablet 1 tab PO DAILY 11/25/22 [History [...] 15. Her head is atraumatic normocephalic. There isno evidence of any head trauma. On palpation [...] nontender nondistended no guarding rebound or rigidity. Negativepelvic rock. All extremities with palpation there is no focal point tenderness there is no joint effusion she has 5 out of 5 strength. Upper extremity bilaterally there is no point tenderness nor is there any pain to palpation or joint effusion and 5 out of 5 muscle strength. Patient does have painat the chest and collarbone with movement of [...] GFR ( Amer) 47, Est GFR (Non-Af Amer)39, Glucose 135 H, Calcium 9.4 11/25/22 14:12: Corrected WBC 8.7, Uncorrected WBC Count 8.7, RBC 3.70, Hgb 9.9 L, Hct 30.5 L, MCV 82.3, MCH 26.7, MCHC 32.4, RDW 16.2 H, Plt Count 323, MPV 6.7, Neut % (Auto) 74.1, Lymph % (Auto) 13.1, Greene % (Auto) 10.4, Eos % (Auto) 1.6, Baso % (Auto) 0.8, Nucleat RBC Rel Count 0.1, Neut # (Auto) 6.4, Lymph # (Auto) 1.1, Greene # (Auto) 0.9 H, Eos # (Auto) [...] <Electronically signed by DO Sal Gonsales> 11/25/22 1743 [facility] Work Phone: Consult note Author Dangelo Rayo [facility] November 26, 2022 1:47pmNote Date/TimeJan2022 8:58[place] [address] Pulmonology Consult Note Signed Patient: Zahida Batista MR#: [id number] : 1935 Acct:[id number] Age/Sex: 87 / F Adm Date: 3 Loc: 4N Room: [address] [place] [address] Type: ADM IN Attending Dr: Kayleen Schmid MD Copies to: MD Kavon Santana MD Ruta Semaskiene, MD~ HPI Date/Time of Consultation: Date of Service: 11/26/2022 Time of Service: 08:57 Consulting Provider: Dangelo aRyo Requesting Provider: Kayleen Schmid History of Present [...] general surgery. Patient complains of pain but does not appear to be in respiratory distress and [...] 50 mg PO DAILY 11/25/22[History Confirmed 11/25/22] czfwbovqhuun-shntyhig-bonujh tablet 1 tab PO DAILY 11/25/22 [History [...] keeping the patient at the very least euvolemicto slightly dry to try and prevent development [...] atelectasis resulting in hypoxemia as well as mucousplugging resulting in pneumonia. We will continue to monitor and certainly could consider hypertonic saline as well as flutter device if the patient is starting to develop rhonchi and secretions. Sheobviously would not tolerate Thera vest given her multiple rib fractures and flail chest. We will ob serve the patient over the course of the next several days to ensure that her respiratory status isstable on this regimen. She has Tylenol and [...] signed by MD Dangelo Rayo> 11/26/22 1347 [facility] Work Phone: Consult note Author Barbie Weston [facility] November 26, 2022 6:49pmNote Date/TimeJan2022 6:32p[place] [address] Orthopedic Consult Note Signed Patient: Zahida Batista MR#: [id number] : 1935 Acct:[id number] Age/Sex: 87 / F Adm Date: 3 Loc: 4N Room: [address] [place] [address] Type: ADM IN Attending Dr: Kayleen Schmid [...] clavicle and shoulder, but is not reporting significantpain in her chest or shortness of breath. Nxovk-guzw-gmpfespu Significantly, patient has history of atrial fibrillation [...] 50 mg PO DAILY 11/25/22[History Confirmed 11/25/22] oectzutqvjny-rlsoxecw-exffxa tablet 1 tab PO DAILY 11/25/22 [History [...] point tenderness along the right proximal shoulder andsupraspinatus insertion, of the right humerus, the right [...] % (Auto) 69.6, Lymph % (Auto) 15.2, Greene % (Auto) 13.8, Eos % (Auto) 0.7, Baso % (Auto) 0.7, Nucleat RBC Rel Count 0.0, Neut # (Auto) 5.1, Lymph # (Auto) 1.1, Greene # (Auto) 1.0 H, Eos # (Auto) 0.1, Baso # (Auto) 0.0 11/25/22 17:49: Urine Color Dark yellow A, Urine Appearance Turbid A, Urine pH 6.5, Ur Specific [place] 1.020, Urine Protein 100 H, Urine Glucose [...] GFR ( Amer) 47, Est GFR (Non-Af Amer)39, Glucose 135 H, Calcium 9.4 11/25/22 14:12: Corrected WBC 8.7, Uncorrected WBC Count 8.7, RBC 3.70, Hgb 9.9 L, Hct 30.5 L, MCV 82.3, MCH 26.7, MCHC 32.4, RDW 16.2 H, Plt Count 323, MPV 6.7, Neut % (Auto) 74.1, Lymph % (Auto) 13.1, Greene % (Auto) 10.4, Eos % (Auto) 1.6, Baso % (Auto) 0.8, Nucleat RBC Rel Count 0.1, Neut # (Auto) 6.4, Lymph # (Auto) 1.1, Greene # (Auto) 0.9 H, Eos # (Auto) [...] [facility] & Diagnostic Results Imaging/Diagnostics: [place] [place] RIGHT SHOULDER: 3 views AP in plane of the chest, AP in plane of the glenoid, aswell as a scapular Y view reviewed. Images demonstrate a midshaft clavicle fracture, slightly oblique in nature with noevidence of comminution, and only minimal distraction. There is no significant superior translationor displacement of the fracture fragments with good bony contact amenable for nonoperative healing.There is no evidence of acromioclavicular joint subluxation or separation on available views. CT [place] [place] CHEST: Axial, coronal, sagittal sequences reviewed. [...] risks including but not limited to: infection, yael-prosthetic fracture, and implant failure. Complicating issues of surgery, would be that the patient does have multiple ribfractures - Regardless of nonoperative versus operative treatment, there may always be some pain or decreasedrange of motion at the right shoulder from [...] left hand for light 2- 5pound activities ofdaily living such as eating or use of [...] healing protocol including smoking cessation/ avoidance of nicotineproducts, appropriate weight bearing restrictions and limitations, and [...] signed by Barbie Weston MD> 11/26/22 1849 [facility] Work Phone: Discharge summary Author Christian Aleman [facility] November 30, 2022 3:21pmNote Date/TimeJanuary 2022 3:[address] [address] Discharge Summary Signed Patient: Zahida Batista MR#: [id number] : 1935 Acct:[id number] Age/Sex: 87 / F Adm Date: 3 Loc: 4N Room: 8O4031-[address]: Christian Aleman DO Copies to: MD Christian Case, ~ Providers Date of Discharge: 11/30/22 Discharging Provider: [...] Discharge Plan Discharge Plan Patient Disposition: Rehab [facility] Additional Instructions: Rehab to manage: - PT/OT [...] devices, and may work on elbow nonresistive rangeof motion to decrease stiffness. Patient may work [...] release 24 hr 50 mg PO DAILY duqebrirnayd-lwhicekh-ycjmor Tablet 1 tab PO DAILY amitriptyline 10 [...] call to schedule a follow upappointment with PCPupon discharge from Rehab.) Barbie Weston MD [Active Staff] - (Please have clavicle xray repeated in 2 weeks (from discharge) and call Orthopedic Surgery as needed.) Documented By: Christian Aleman DO 11/30/22 15 13 Signed By: <Electronically signed by Christian Aleman DO> 11/30/22 1521 [facility] Work Phone: Evaluation noteNo assessment information available [facility] Work Phone: Evaluation note* Diagnosis Onset Date Resolution Status Accidental fall acuteAnemiaacuteClosed fracture of right clavicleacuteCoagulopathyacuteFlail chestacuteMultiple rib fractures involving four or more ribsacuteRib fracture acuteSkin tearacuteStatus post fallacuteUTI (urinary tract infection)[facility] Work Phone: evaluation note* Diagnosis Onset Date Resolution Status Accidental fall acuteAnemiaacuteClosed fracture of right clavicleacuteCoagulopathyacuteFlail chestacuteMultiple rib fractures involving four or more ribsacuteRib fracture acuteRight clavicle fractureacuteSkin tearacuteStatus post fallacuteUTI (urinary tract infection)[facility] Work Phone: Evaluation note* Diagnosis Onset Date Resolution Status Accidental fall acuteAnemiaacuteClosed fracture of right clavicleacuteCoagulopathyacuteFlail chestacuteMultiple rib fractures involving four or more ribsacuteRib fracture acuteRight clavicle fractureacuteSkin tearacuteStatus post fallacuteUTI (urinary tract infection)acuteAfibacuteAnemiaacuteChronic anticoagulationacuteCKD (chronic kidney disease)acuteFlail chestacuteImpaired mobility and activities of daily livingacuteMultiple rib fractures involving four or more ribsacute PneumothoraxacuteRight clavicle fractureacuteSkin tearacuteStatus post fallacute UTI (urinary tract infection)[facility] Work Phone: evaluation noteNo [facility] Other Evaluation note* Diagnosis Frequent UTI Urinary tract infection, site not specified documented in this encounter [facility]* Diagnosis Recurrent UTI Urinary tract infection, site not specified documented in this encounter [facility] HealthHistory and physical note Author Kayleen Schmid [facility] November 26, 2022 2:45pmNote Date/TimeJan2022 5:57[place] [address] Hospitalist H&P Signed Patient: Zahida Batista MR#: [id number] : 1935 Acct:[id number] Age/Sex: 87 / F Adm Date: 3 Loc: 4 Room: [address] [place] [address] Type: ADM IN Attending Dr: Kayleen Schmid [...] or neck. Currently she denies any headache orneck pain. CT scan of the head without contrast and CT scan of the C- spine Without contrast did notreveal any acute fracture Patient complained of the [...] 50 mg PO DAILY 11/25/22[History Confirmed 11/25/22] jkvtjyitzogp-zzqjltxp-pgpgou tablet 1 tab PO DAILY 11/25/22 [History [...] % (Auto) 13.1 % (.) 11/25/22 14:12 Greene % (Auto) 10.4 % (.) 11/25/22 14:12 Eos % (Auto) 1.6 % (.) 11/25/22 14:12 Baso % (Auto) 0.8 % (.) 11/25/22 14:12 Nucleat RBC Rel Count 0.1 /100 WBC (0-0.5) 11/25/22 14:12 Neut # (Auto) 6.4 x10E3/uL (1.8-7.7) 11/25/22 14:12 Lymph # (Auto) 1.1 x10E3/uL (1.00-4.8) 11/25/22 14:12 Greene # (Auto) 0.9 x10E3/uL (0.0-0.8) H 11/25/22 [...] SCDs Documented By: Kayleen Schmid MD 11/25/22 1752 Signed By: <Electronically signed by Kayleen Schmid MD> 11/26/22 4870 [facility] Work Phone: History general Narrative - Reported* Type Description Date Medical History right clavicle fracture Medical HistoryhypertensionSurgical Historyleft TKA achvr Other Hospital Discharge instructions Additional Instructions Tylenol every 4 hours as needed for pain Return if symptoms are [facility] Work Phone: Hospital Discharge instructions Additional Instructions [...] 1 day -- [facility] Work Phone: Hospital Discharge instructions Additional Instructions [...] protection. Change every 3 days or as needed.[facility] Work Phone: Progress note Author Kayleen Schmid [facility] November 26, 2022 2:49pmNote Date/TimeJanuary 2022 2:49pm[place] [address] Hospitalist Progress Note Signed Patient: Zahida Batista MR#: [id number] : 1935 Acct:[id number] Age/Sex: 87 / F Adm Date: 3 Loc: 4N Room: 0E5526-9 Type: ADM IN Attending Dr: Kayleen Schmid [...] rocephin Documented By: Kayleen Schmid MD 11/26/22 1449 Signed By: <Electronically signed by Kayleen Schmid MD> 11/26/22 144 [facility] Work Phone: Chief Complaint and Reason for [...] Back pain Right clavicle fracture/multiple rib fractures s/pReason for VisitAccidental fall Anemia Closed fracture of right clavicle [...] Date/ Time Advance Directives No March 05 5:45pm Advance Directive Response Recorded Date/ Time Advance Directives No March 05 4:45pm Summary Purpose Family History No Family [...] content) Team Status: Active Member Role Status China Farrell MD Primary Care Provider Active Team Status: Inactive Member Role Status China Farrell MD Primary Care Provider Active Shemar Saha ProviderActive Team Status: Inactive Member Role Status China Rangel MD Emergency Provider Active Sebastian [facility]benja Care ProviderActive Team Status: Active Member Role Status China Farrell MD Primary Care Provider Active HI Brar-Jared ProviderActiveRuTerry Reynoso Provider, Attending ProviderActiveChsilver Rayo MDOther ProviderActiveAubrey Crowe , DOOther ProviderActiveAdilson Hoffmann MDOther ProviderActiveDulce Hubbard , ROLLER PAINTER ACNP-BCOther ProviderActiveGreglyndsay Daly , DOOther ProviderActive Adrian Robles MDOther ProviderActiveSuma Lopez MDOther ProviderActive Drew Hernadez MDOther ProviderActiveMomillicent Rudolph MDOther ProviderActive Barbie Weston MDOther ProviderActiveMoody Panda II, MDOther Provider ActiveChristian Tiwari MDOther ProviderActiveCatarina Shabazz , METAL DEALER-COther ProviderActiveCelestino Foster , Other ProviderActiveGilmer Trejo MDOther ProviderActive Team Status: Inactive Member Role Status Dates Kavon Farrell MD Primary Care Provider Active Graciela Ocasio PA-CEmergency ProviderActiveKayleen Schmid MDAdmit Provider ActiveHeidi Haydee , ROLLER PAINTER ACNP-BCOther ProviderActiveKanaomie Hoffmann MDOther ProviderActiveChristopher Rob Rayo MDOther ProviderActiveMohambrandi Rudolph MDOther ProviderActiveMauricio Daly , DOOther ProviderActiveSuma Lopez MDOther ProviderActiveAdrian Robles MDOther ProviderActiveDrew Hernadez MDOther ProviderActiveAubrey Crowe DOOther ProviderActiveGilmer Trejo MDOther ProviderActiveChristian Tiwari MDOther ProviderActiveBarbie Weston MDOther ProviderActiveCatarina Shabazz , METAL DEALER-COther ProviderActiveCelestino Foster , DOOther ProviderActiveMoody Panda II, MDOther ProviderActive Christian Aleman DOAttending ProviderActive Team Status: Inactive Member Role Status Dates Kavon Farrell MD Primary Care Provider Active Mohit Willson [facility] Provider, Attending ProviderActiveLorrie Quinonez RN Other ProviderActiveMyrtle Yañez RNOther ProviderActiveErika George RN Other ProviderActiveLexis Devlin RNOther ProviderActiveNeha Duncan RNOther ProviderActiveMomichael Robins RNOther ProviderActiveLucas Morillo MD Other ProviderActiveLisa Erinn Dials , APRNOther ProviderActiveRongigi Shelton DO Other ProviderActiveMusshannan Acevedo MDOther ProviderActiveJohn Ricardo DOOther ProviderActiveKenny Tirado MDOther ProviderActiveKayleen Schmid MDOther ProviderActiveLuanne Bustillo , ANP-BCOther ProviderActiveFlavia Pace MDOther ProviderActiveWil Cartagena MDOther ProviderActiveSaira Ruiz MD Other ProviderActiveTeto Gregorio MDOther ProviderActiveMicnaveen Aleman , DO Other ProviderActiveFirmoustapha Allen MDOther ProviderActiveEarlawrence Squires MDOther ProviderActiveLauren Simpson , METAL DEALER-COther CollinsActivePedro Cowan MDOther ProviderActiveJaydon Woodruff MDOther ProviderActiveDario Choudhary MDOther ProviderActiveMargo Louis , DOOther ProviderActiveNeal R Amanuel , DOOther ProviderActiveAnthony M Miniaci , DOOther ProviderActiveLinda Obika , APRNOther ProviderActiveSanya Hayes , DOOther ProviderActiveObawinston Matos MDOther ProviderActivePaaxel Rangel , APRNOther ProviderActiveLeandra Chapa RNOther ProviderActiveTeam MemberRelationshipSpecialtyStart DateEnd Date Juan Santana MD [address] [place] [address] PCP General06/26/24Team MemberRelationshipSpecialtyStart DateEnd Date Juan Santana MD [address] [id number] PCP - General06/26/24 Goals (unrecognized section and content) Goals may be documented in a n alternate sectionNo InformationNo InformationGoals may be documented in an alternate sectionNo Information INFORMATION SOURCE (unrecogn ized section and content) DATE CREATED AUTHOR 02/18/2023 [facility] DATE CREATED AUTHOR AUTHOR'S ORGANIZ ATION 03/17/2023 [facility] DATE CREATED AUTHOR AUTHOR'S ORGANIZ ATION 07/02/2023 [facility] DATE CREATED AUTHOR AUTHOR'S ORGANIZ ATION 05/10/2024 [facility] DATE CREATED AUTHOR AUTHOR'S ORGANIZ ATION 06/26/2024 [facility] DATE CREATED AUTHOR AUTHOR'S ORGANIZ ATION 11/04/2024 [facility] DATE CREATED AUTHOR AUTHOR'S ORGANIZ ATION 06/28/2025 [facility] DATE CREATED AUTHOR AUTHOR'S ORGANIZ ATION 08/30/2025 [facility] DATE CREATED AUTHOR AUTHOR'S ORGANIZ ATION 09/07/2025 [facility] DATE CREATED AUTHOR AUTHOR'S ORGANIZ ATION 09/12/2025 [facility] REASON FOR VISIT (unrecogniz ed section and [...] BE BASED ON THE PRIMARY CLINICAL RECORDS. [facility] provides no warranty or guarantee of the accuracy or completeness of information in this document.
[2025-10-16 08:33] LABS: Hematocrit 38.0 % (36.0-48.0); Hemoglobin 12.4 g/dL (12.0-16.0); Immature Granulocytes Abs Auto 0.01 10^3/uL (0.00-0.03); Immature Granulocytes Pct Auto 0.2 % (0.0-0.5); Lymphocytes Absolute Auto 1.3 10^3/uL (1.2-3.8); Mean Corpuscular HGB Conc 32.6 g/dL (29.9-35.2); Mean Corpuscular Hemoglobin 30.0 pg (26.7-34.0); Mean Corpuscular Volume 91.8 fL (81.0-99.0); Platelet Count 267 10^3/uL (150-450); Red Blood Count 4.14 10^6/uL (4.20-5.40); White Blood Count 4.9 10^3/uL (4.0-11.0)
[2025-10-16 08:37] LABS: Anion Gap 9.7; Blood Urea Nitrogen 22.0 mg/dL (7.0-18.0); Calcium 9.3 mg/dL (8.5-10.1); Carbon Dioxide 31.4 mmol/L (21.0-32.0); Chloride 106 mmol/L (98-107); Estimated GFR (African America 48 (>=60 mL/min/1.73m^2); Estimated GFR (Non-African Ame 40 (>=60 mL/min/1.73m^2); Glucose 89 mg/dL (74-106); Potassium 4.1 mmol/L (3.5-5.1); Sodium 143 mmol/L (136-145)
--- NOTE | 2025-10-16 08:41 | CT_ITS ---
The [address] [address] Patient Name: MEETA BATISTA MRN: [id number] date: 1935 Sex: F Assigned Patient Location: LAB Current Patient Location: LAB Accession/Order Number: [id number] Exam Date: 10/16/2025 09:00 Report Date: 10/16/2025 09:59 At the request of: LYDIA SELBY DO, MS Procedure: CT angio LE BI CTA OF THE LOWER EXTREMITIES WITH CONTRAST CLINICAL DATA: Restless leg syndrome bilaterally for years. Erythema at the left ankle with weak pulse. COMPARISON: CT pelvis 18 2020 Spiral images were obtained through the pelvis and lower extremities following 100 mL of Omnipaque 350. Sagittal and coronal MIP as well as 3-D volume rendered constructions of the distal aorta, iliac and distal lower extremities were reviewed. This CT exam was performed using one or more following dose reduction techniques: Automated exposure control, adjustment of the mA and/or kV according to patient size, or use of iterative reconstruction technique. There are cysts at the imaged right kidney. There are right and left-sided colonic diverticula in the field of view. No associated active inflammation is seen. The urinary bladder is moderately distended. There are some areas with slightly irregular wall thickening/trabeculation. The urinary bladder also contains air. Correlation will be needed as to whether there is recent catheterization/[place] placement. If not, then infection and/or fistula will need to be excluded. A 2 cm left adnexal cyst is identified. There is still an asymmetric 2.8 cm hypodense nodular area at the labia on the right. Degenerative changes are present at the lower imaged lumbar spine, greatest at the facets as well as the hips and pubic symphysis. Patient has a left knee prosthesis with associated streak artifact. There are degenerative changes at the right knee. There is prominent atherosclerotic plaque at the distal aorta and common iliac arteries. There is also moderate plaque at the internal iliac and minimal at the external iliac arteries. The vessels are patent. No aneurysms or dissection are seen. Mild plaque continues through the superficial and deep femoral arteries at the thigh with segments of mild associated stenosis. Plaque increases in the popliteal region extending through the trifurcation where moderate luminal narrowing is seen. Plaque also involves the vessels of the trifurcation , greatest at the anterior tibial where opacification is intermittently seen. There is slightly better flow distally on the left than the right. 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 MULTIFOCAL CALCIFIED PLAQUE THROUGHOUT BOTH LOWER EXTREMITIES, WITH ASSOCIATED MILD LUMINAL NARROWING AT THE THIGH AND MODERATE AROUND THE KNEE AND THROUGH THE TRIFURCATION. AIR WITHIN THE URINARY BLADDER. CORRELATION AND FOLLOW-UP ARE RECOMMENDED, DISCUSSED ABOVE. Impression dictated by: Sosa Allison M.D. 10/16/2025 9:59 AM Dictation Location: [place] [id number] Electronically authenticated by: [id number] Y Date: 10/16/2025 09:59
[2025-10-16 09:07] LABS: Iron 43.0 ug/dL (50.0-170.0); Percent Iron Saturation 12.3 %; Total Iron Binding Capacity 351.0 ug/dL (250.0-450.0)
[2025-10-16 10:07] LABS: Ferritin 29.0 ng/mL (8.0-252.0); Folate 25.80 ng/mL (8.60-58.90)
[2025-10-17 04:08] LABS: Vitamin B12 437 pg/mL (232-1245)
== END 2025-10-16 08:09 | disposition home or self-care (01) ==
LOC: LAB 08:09
PROVIDERS: Visit Provider Student in an Organized Health Care Education/Training Program
DX: Z01.818 Encounter for other preprocedural examination (principal); R09.89 Other specified symptoms and signs involving the circulatory and respiratory systems; G25.81 Restless legs syndrome; D50.9 Iron deficiency anemia, unspecified
CPT/HCPCS: 36415; 73706; 80048; 82607; 82728; 82746; 83540; 83550; 85025; Q9967